=== PATIENT | female | born 1960 | race Hispanic/Latino ===

== ENCOUNTER 2016-11-03 22:06 | Observation (INO) | payer MEDICARE, OTHER ==
[2016-11-03 22:06] VITALS: BMI 37.8
[2016-11-03 22:19] VITALS: TEMP 98.4
[2016-11-03] MEDS ORDERED: Sodium Chloride 0.9% 1,000 ML IV STA (22:44)
--- NOTE | 2016-11-03 23:05 | ED PDOC ---
Arrival/HPI - General Chief Complaint: GI Problem Time Seen by Provider: 11/03/16 22:17 Historian: Patient - History of Present Illness Narrative History of Present Illness (Text): 11/03/16 23:02 Isha Fernandes is a 56 year old female, whose past medical history includes neuropathy, cholecystectomy, appendectomy, hysterectomy, diabetes, and anemia, presents to the emergency department complaining of 2 day duration of diarrhea and right upper quadrant abdominal pain. Denies any fever, chills, headache, dizziness, shortness of breath, nausea, vomiting, urinary symptoms, or any other complaints at this time. Time/Duration: < week (2 days ) Symptom Onset: Gradual Symptom Course: Unchanged Severity Level: Mild Activities at Onset: Light Context: Home Past Medical History - Provider Review Nursing Documentation Reviewed: Yes - Infectious Disease Hx of Infectious Diseases: None - Tetanus Immunization Tetanus Immunization: Unknown - Cardiac Hx Cardiac Disorders: Yes (ACS) - Pulmonary Hx Chronic Obstructive Pulmonary Disease (COPD): Yes - Neurological Hx Neurological Disorder: Yes Hx Dizziness: Yes Hx Seizures: Yes - HEENT Hx HEENT Disorder: No Other/Comment: wears glasses - Renal Hx Renal Disorder: No - Endocrine/Metabolic Hx Diabetes Mellitus Type 2: Yes - Hematological/Oncological Hx Blood Disorders: Yes Hx Anemia: Yes - Integumentary Hx Dermatological Disorder: No - Musculoskeletal/Rheumatological Hx Musculoskeletal Disorders: Yes (NEUROPATHY) Hx Falls: Yes Hx Fractures: Yes (COMPRESSION FX) Hx Unsteady Gait: Yes - Gastrointestinal Hx Gastrointestinal Disorders: Yes Hx Gall Bladder Disease: Yes (CHOLECYSTITIS ,CHOLECYSTECTOMY,MILD GASTRITIS) - Genitourinary/Gynecological Hx Genitourinary Disorders: Yes (URGENCY FREQUENCY) - Psychiatric Hx Psychophysiologic Disorder: Yes (INSOMNIA,SCHIZOAFFECTIVE D/O) Hx Depression: Yes Hx Panic Disorder: No Hx Substance Use: No - Surgical History Hx Appendectomy: Yes Hx Cholecystectomy: Yes Hx Hysterectomy: Yes - Anesthesia Hx Anesthesia Reactions: No Hx Malignant Hyperthermia: No - Suicidal Assessment Feels Threatened In Home Enviroment: No Family/Social History - Physician Review Nursing Documentation Reviewed: Yes Family/Social History: No Known Family HX Smoking Status: Never Smoked Hx Alcohol Use: No Hx Substance Use: No Hx Substance Use Treatment: No Allergies/Home Meds Allergies/Adverse Reactions: Allergies Penicillins Allergy (Verified 09/01/16 19:59) ITCHING Home Medications: Home Meds Medication Instructions Recorded Confirmed Albuterol Sulfate [Proair Hfa] 1 puff IH PRN PRN 01/01/14 09/01/16 Lamotrigine [Lamictal] 100 mg PO BID 07/09/14 09/01/16 Zolpidem [Ambien] 10 mg PO HS 12/19/15 09/01/16 Atropine/Diphenoxylate [Lomotil 1 tab PO TID PRN 04/17/16 09/01/16 0.025-2.5 mg tablet] Clozapine 200 mg PO AMHS 04/17/16 09/01/16 DULoxetine [Cymbalta] 60 mg PO DAILY 04/17/16 09/01/16 Ibuprofen [Motrin Tab] 600 mg PO PRN PRN 04/17/16 09/01/16 Levetiracetam [Keppra] 750 mg PO BID 04/17/16 09/01/16 Omeprazole Magnesium [Prilosec Otc] 40 mg PO DAILY 04/17/16 09/01/16 Review of Systems - Physician Review All systems were reviewed & negative as marked: Yes - Review of Systems Constitutional: Normal. absent: Fatigue, Fevers Respiratory: Normal. absent: SOB, Cough Cardiovascular: Normal. absent: Chest Pain, Palpitations Gastrointestinal: Abdominal Pain (RUQ ), Diarrhea. absent: Constipation, Nausea , Vomiting Genitourinary Female: Normal. absent: Dysuria Neurological: Normal. absent: Headache, Dizziness Psychiatric: Normal Physical Exam Vital Signs Reviewed: Yes Vital Signs Temp Pulse Resp BP Pulse Ox 11/04/16 03:43 78 16 145/76 100 11/04/16 01:36 81 16 146/87 97 11/03/16 22:18 98.4 F 98 H 18 143/97 H 100 Temperature: Afebrile Blood Pressure: Normal Pulse: Tachycardic Respiratory Rate: Normal Appearance: Positive for: Well-Appearing, Non-Toxic, Comfortable Pain Distress: None Mental Status: Positive for: Alert and Oriented X 3 - Systems Exam Head: Present: Atraumatic, Normocephalic Pupils: Present: PERRL Conjunctiva: Present: Normal Respiratory/Chest: Present: Clear to Auscultation, Good Air Exchange. No: Respiratory Distress, Accessory Muscle Use Cardiovascular: Present: Regular Rate and Rhythm, Normal S1, S2. No: Murmurs Abdomen: Present: Normal Bowel Sounds. No: Tenderness, Distention, Peritoneal Signs, Rebound, Guarding Back: Present: Normal Inspection Upper Extremity: Present: Normal Inspection. No: Cyanosis, Edema Lower Extremity: Present: Normal Inspection. No: Edema Neurological: Present: GCS=15, CN II-XII Intact, Speech Normal, Motor Func Grossly Intact, Normal Sensory Function Skin: Present: Warm, Dry, Normal Color. No: Rashes Psychiatric: Present: Alert, Oriented x 3, Normal Insight, Normal Concentration Medical Decision Making ED Course and Treatment: 11/03/16 23:09 Impression: A 56 year old female who presents to the ed complaining of right upper quadrant pain associated with diarrhea for past 3 days. Plan: -- CT abdomen pelvis -- EKG -- Labs, cardiac enzymes -- IV fluids -- Zofran -- Blood culture -- Urinalysis Progress Notes: 11/03/16 23:19 EKG reviewed by me: NSR @ 92 bpm. Nonspecific T wave abnormality, Prolonged QT. Will place patient on EDOBS for pending labs, CT and reevaluation. - Lab Interpretations I have reviewed the lab results: Yes - RAD Interpretation Narrative RAD Interpretations (Text): 11/04/16 01:40 EXAM: CT Abdomen and Pelvis Without Intravenous Contrast FINDINGS: Lower thorax: No acute findings. ABDOMEN: Liver: Hepatic steatosis is present. Gallbladder and bile ducts: The patient is status post cholecystectomy. No ductal dilation. Pancreas: Unremarkable. No ductal dilation. Spleen: Unremarkable. No splenomegaly. Adrenals: Unremarkable. No mass. Kidneys and ureters: Probable hemorrhagic right renal cyst measures 3 cm No obstructing stones. No hydronephrosis. Stomach and bowel: Unremarkable. No obstruction. No mucosal thickening. Appendix: No findings to suggest acute appendicitis. PELVIS: Bladder: Unremarkable. No stones. Reproductive: The patient is status post hysterectomy. ABDOMEN and PELVIS: Intraperitoneal space: Trace free fluid is present which is nonspecific but may reflect physiologic fluid or rupture of an ovarian cyst or follicle. Bones/joints: No acute fracture. No dislocation. Soft tissues: Unremarkable. Vasculature: Unremarkable. No abdominal aortic aneurysm. Lymph nodes: Unremarkable. No enlarged lymph nodes. IMPRESSION: Trace free pelvic fluid Radiology Orders: 11/03/16 22:44 ABD & PELVIS W/O PO OR IV CONT [CT] Stat [employer] Management Professor: Radiologist - EKG Interpretation Interpreted by ED Physician: Yes Type: 12 lead EKG - Medication Orders Current Medication Orders: Sodium Chloride (Sodium Chloride 0.9%) 1,000 mls @ 100 mls/hr IV .Q10H STA Stop: 11/04/16 08:43 Last Admin: 11/03/16 23:11 Dose: 100 mls/hr Discontinued Medications Ondansetron HCl (Zofran Inj) 4 mg IVP STAT STA Stop: 11/03/16 22:45 Last Admin: 11/03/16 23:12 Dose: 4 mg ED OBSERVATION Discharge: Yes Date of observation admission: 11/03/16 Time of observation admission: 22:50 - Observation admission statement Patient is being placed in observation because:: Abdominal pain - Goals of Observation Goals of observation are:: Pending labs, imaging and reevaluation - Progress Note Progress Note: 11/04/16 01:38 CT Abdomen pelvis results reviewed: IMPRESSION: Trace free pelvic fluid. 11/04/16 04:15 Patient is sleeping comfortably with stable vitals. - Scribe Statement The provider has reviewed the documentation as recorded by the Odilon Perez Provider Attestation: All medical record entries made by the Odilon were at my direction and personally dictated by me. I have reviewed the chart and agree that the record accurately reflects my personal performance of the history, physical exam, medical decision making, and the department course for this patient. I have also personally directed, reviewed, and agree with the discharge instructions and disposition. Disposition/Present on Arrival - Present on Arrival Any Indicators Present on Arrival: No History of DVT/PE: No History of Uncontrolled Diabetes: No Urinary Catheter: No History of Decub. Ulcer: No History Surgical Site Infection Following: None - Disposition Have Diagnosis and Disposition been Completed?: Yes Diagnosis: Gastroenteritis Disposition: HOME/ ROUTINE Disposition Time: 06:48 Condition: GOOD
[2016-11-03 23:15] LABS: ADD MANUAL DIFF? NO
[2016-11-03 23:30] LABS: BASO # 0.02 K/mm3 (0.0-2.0); BASO % 0.4 % (0.0-3.0); EOS # 0.1 (0.0-0.7); EOS % 1.9 % (1.5-5.0); GRAN # 3.15 (1.4-6.5); GRAN % 65.8 % (50.0-68.0); HEMATOCRIT 35.7 % (36.0-48.0); LYMPH # 1.3 (1.2-3.4); LYMPH % 27.1 % (22.0-35.0); MEAN CELL VOLUME 88.8 fL (80.0-105.0); MEAN CORPUSCULAR HEMOGLOBIN 29.9 pg (25.0-35.0); MEAN CORPUSCULAR HGB CONC 33.6 g/dl (31.0-37.0); MEAN PLATELET VOLUME 8.8 fl (7.0-11.0); MONO # 0.2 (0.1-0.6); MONO % 4.8 % (1.0-6.0); PLATELET COUNT 134 10^3/uL (120.0-450.0); RED CELL DISTRIBUTION WIDTH 13.8 % (11.5-14.5); WHITE BLOOD COUNT 4.8 10^3/ul (4.5-11.0)
[2016-11-03 23:31] LABS: ALB/GLOB RATIO 1.3 (1.1-1.8); ALKALINE PHOSPHATASE 123 U/L (38-133); ALT/SGPT 75 U/L (7-56); AMYLASE 52 U/L (35-125); AST/SGOT 64 U/L (15-39); BILIRUBIN,TOTAL 0.4 mg/dL (0.2-1.3); BLOOD UREA NITROGEN 13 mg/dL (7-21); CALCIUM 8.8 mg/dL (8.4-10.5); CARBON DIOXIDE 27 mmol/L (21-33); CHLORIDE 102 mmol/L (98-107); GFR AFRICAN-AMERICAN > 60; GLUCOSE,RANDOM 173 mg/dL (70-110); LIPASE 126 U/L (23-300); POTASSIUM 3.6 mmol/L (3.6-5.0); SODIUM 141 mmol/L (132-148)
[2016-11-03 23:34] LABS: INR 1.02 (0.93-1.08); PARTIAL THROMBOPLASTIN TIME 24.1 Seconds (23.7-30.8)
[2016-11-04 00:06] LABS: TROPONIN I < 0.01 ng/mL
[2016-11-04 00:39] LABS: PH,URINE 6.5 (4.7-8.0); URINE BILIRUBIN NEGATIVE (NEGATIVE); URINE BLOOD NEGATIVE (NEGATIVE); URINE GLUCOSE (UA) NEGATIVE (NEGATIVE); URINE KETONE NEGATIVE (NEGATIVE); URINE LEUKOCYTE ESTERASE TRACE Leu/uL (NEGATIVE); URINE PROTEIN TRACE mg/dL (<30 mg/dL); URINE UROBILINOGEN 0.2 E.U./dL (<1 E.U./dL)
[2016-11-04 00:41] LABS: URINE APPEARANCE SL CLOUDY (CLEAR); URINE COLOR YELLOW (YELLOW)
[2016-11-04 00:50] LABS: URINE EPITHELIAL CELLS 0 - 2 /hpf (0-5); URINE RBC 0 - 2 /hpf (0-2)
[2016-11-04 00:51] LABS: URINE BACTERIA MOD (NEG)
[2016-11-04 01:37] VITALS: RESP 16
[2016-11-04 03:46] VITALS: BP 145/76; PULSE 78; O2SAT 100
--- NOTE | 2016-11-04 12:33 | CT ---
PROCEDURE: CT Abdomen and Pelvis without intravenous contrast HISTORY: abd painn COMPARISON: None. TECHNIQUE: Without contrast.. Contrast Dose: Radiation dose: Total exam DLP = 1234 mGy-cm. This CT exam was performed using one or more of the following dose reduction techniques: Automated exposure control, adjustment of the mA and/or kV according to patient size, and/or use of iterative reconstruction technique. FINDINGS: LOWER THORAX: Unremarkable. LIVER: Unremarkable. No gross lesion or ductal dilatation. GALLBLADDER AND BILE DUCTS: Gallbladder removed PANCREAS: Unremarkable. No gross lesion or ductal dilatation. SPLEEN: Unremarkable. ADRENALS: Unremarkable. No mass. KIDNEYS AND URETERS: There is a 3.3 cm cystic lesion in the right kidney that measures 25 Hounsfield units which is slightly above fluid density. This is most likely due to hemorrhage. VASCULATURE: Unremarkable. No aortic aneurysm. BOWEL: Unremarkable. No obstruction. No gross mural thickening. There is mild constipation APPENDIX: Unremarkable. Normal appendix. PERITONEUM: Minimal free fluid LYMPH NODES: Unremarkable. No enlarged lymph nodes. BLADDER: Unremarkable. REPRODUCTIVE: Unremarkable. BONES: No acute fracture. OTHER FINDINGS: None. IMPRESSION: No acute findings
--- NOTE | 2016-11-04 12:54 | CARD ---
APPROVED REPORT EKG Measurement Heart [id number] <Conclusion> Normal sinus rhythm Nonspecific T wave abnormality Prolonged QT Abnormal ECG
== END 2016-11-04 06:48 | disposition home or self-care (01) ==
LOC: ED 22:06 → EROBSV 22:50
PROVIDERS: ADMIT Emergency Medicine; ATTEND Emergency Medicine
DX: K52.9 Noninfective gastroenteritis and colitis, unspecified (principal); E11.9 Type 2 diabetes mellitus without complications; D64.9 Anemia, unspecified
CPT/HCPCS: 74176; 80053; 81001; 82150; 82550; 82948; 83615; 83690; 84484; 85025; 85610; 85730; 87040; 87086; 93005; 96374; 99285; G0378; J2405; J7040

== ENCOUNTER 2016-11-14 16:14 | Emergency (ER) | payer MEDICARE, OTHER ==
[2016-11-14 16:14] VITALS: BMI 37.8
[2016-11-14 16:27] VITALS: TEMP 98.2; O2SAT 100
--- NOTE | 2016-11-14 17:02 | ED PDOC ---
Arrival/HPI - General Chief Complaint: Seizure Time Seen by Provider: 11/14/16 16:18 Historian: Patient, EMS - History of Present Illness Narrative History of Present Illness (Text): 11/14/16 17:37 56 year old female presents to the emergency department with multiple complaints. Patient states she struck her head in her apartment. She also states she may have passed out in the elevator. Patient also reports she may have had seizure in elevator. No chest pain, shortness of breath, fever, cough. Patient is a poor historian. Time/Duration: 24 hours Symptom Onset: Gradual Symptom Course: Unchanged Modifying Factors (Text): None Associated Symptoms (Text): None Past Medical History - Provider Review Nursing Documentation Reviewed: Yes - Infectious Disease Hx of Infectious Diseases: None - Tetanus Immunization Tetanus Immunization: Unknown - Cardiac Hx Cardiac Disorders: Yes (ACS) - Pulmonary Hx Chronic Obstructive Pulmonary Disease (COPD): Yes - Neurological Hx Neurological Disorder: Yes Hx Dizziness: Yes Hx Seizures: Yes - HEENT Hx HEENT Disorder: No Other/Comment: wears glasses - Renal Hx Renal Disorder: No - Endocrine/Metabolic Hx Diabetes Mellitus Type 2: Yes - Hematological/Oncological Hx Blood Disorders: Yes Hx Anemia: Yes - Integumentary Hx Dermatological Disorder: No - Musculoskeletal/Rheumatological Hx Musculoskeletal Disorders: Yes (NEUROPATHY) Hx Falls: Yes Hx Fractures: Yes (COMPRESSION FX) Hx Unsteady Gait: Yes - Gastrointestinal Hx Gastrointestinal Disorders: Yes Hx Gall Bladder Disease: Yes (CHOLECYSTITIS ,CHOLECYSTECTOMY,MILD GASTRITIS) - Genitourinary/Gynecological Hx Genitourinary Disorders: Yes (URGENCY FREQUENCY) - Psychiatric Hx Psychophysiologic Disorder: Yes (INSOMNIA,SCHIZOAFFECTIVE D/O) Hx Depression: Yes Hx Panic Disorder: No Hx Substance Use: No - Surgical History Hx Appendectomy: Yes Hx Cholecystectomy: Yes Hx Hysterectomy: Yes - Anesthesia Hx Anesthesia: Yes Hx Anesthesia Reactions: No Hx Malignant Hyperthermia: No - Suicidal Assessment Feels Threatened In Home Enviroment: No Family/Social History - Physician Review Nursing Documentation Reviewed: Yes Family/Social History: Unknown Family HX Smoking Status: Never Smoked Hx Alcohol Use: No Hx Substance Use: No Hx Substance Use Treatment: No Allergies/Home Meds Allergies/Adverse Reactions: Allergies Penicillins Allergy (Verified 11/14/16 16:20) ITCHING Home Medications: Home Meds Medication Instructions Recorded Confirmed Albuterol Sulfate [Proair Hfa] 1 puff IH PRN PRN 01/01/14 11/14/16 Lamotrigine [Lamictal] 100 mg PO BID 07/09/14 11/14/16 Zolpidem [Ambien] 10 mg PO HS 12/19/15 11/14/16 Atropine/Diphenoxylate [Lomotil 1 tab PO TID PRN 04/17/16 11/14/16 0.025-2.5 mg tablet] Clozapine 200 mg PO AMHS 04/17/16 11/14/16 DULoxetine [Cymbalta] 60 mg PO DAILY 04/17/16 11/14/16 Ibuprofen [Motrin Tab] 600 mg PO PRN PRN 04/17/16 11/14/16 Levetiracetam [Keppra] 750 mg PO BID 04/17/16 11/14/16 Omeprazole Magnesium [Prilosec Otc] 40 mg PO DAILY 04/17/16 11/14/16 Review of Systems - Review of Systems Constitutional: absent: Fevers Respiratory: absent: SOB, Cough Cardiovascular: absent: Chest Pain Neurological: Seizure (as per pt) Physical Exam Vital Signs Reviewed: Yes Vital Signs Temp Pulse Resp BP Pulse Ox 11/14/16 16:26 98.2 F 91 H 20 128/96 H 100 Temperature: Afebrile Blood Pressure: Normal Pulse: Regular Respiratory Rate: Normal Appearance: Positive for: Well-Appearing, Non-Toxic, Comfortable Pain Distress: None Mental Status: Positive for: Alert and Oriented X 3 Finger Stick Blood Glucose: 160 - Systems Exam Head: Present: Atraumatic, Normocephalic Pupils: Present: PERRL Extroacular Muscles: Present: EOMI Conjunctiva: Present: Normal Mouth: Present: Moist Mucous Membranes, Other (No tongue biting) Neck: Present: Normal Range of Motion Respiratory/Chest: Present: Clear to Auscultation, Good Air Exchange. No: Respiratory Distress, Accessory Muscle Use Cardiovascular: Present: Regular Rate and Rhythm, Normal S1, S2. No: Murmurs Abdomen: Present: Normal Bowel Sounds. No: Tenderness, Distention, Peritoneal Signs Genitourinary/Pelvic Exam: Present: Other (No incontincence) Back: Present: Normal Inspection Upper Extremity: Present: Normal Inspection. No: Cyanosis, Edema Lower Extremity: Present: Normal Inspection. No: Edema Neurological: Present: GCS=15, CN II-XII Intact, Speech Normal Skin: Present: Warm, Dry, Normal Color. No: Rashes Psychiatric: Present: Alert, Oriented x 3, Normal Insight, Normal Concentration Medical Decision Making ED Course and Treatment: Impression: 56 year old female presents to the emergency department with multiple complaints. Differential Diagnosis include but are not limited to: Fall r/o ICH Plan: -- CT Head, EKG, CXR -- Labs -- Reassess and disposition Prior Visits: Notes and results from previous visits were reviewed. Patient last seen in ED on 11/03/16 for abdominal pain and discharged home. Progress Notes: 11/14/16 17:[address] Tomas Garza who states due to recent admission and workup, patient can be discharged home if workup and CT is negative. EXAM: CT Head Without Intravenous Contrast FINDINGS: Brain: There is mild prominence of sulci, gyri and ventricles, unchanged. There is no midline shift. There are no intra-axial or extra axial mass lesions or areas of hemorrhage. Melara-white differentiation is maintained. Ventricles: See above. Bony structures: Cranial vault is intact. Soft tissues: unremarkable Sinuses: There is no acute sinusitis. Ears and mastoids: Middle ears and mastoids unremarkable.There is streak artifact from an earring Orbits: Orbital contents are unremarkable. IMPRESSION: No acute intracranial abnormality Dictated and Authenticated by: Halie Avila MD 11/14/2016 6:10 PM Eastern Time ([place] & [place]) 11/14/16 18:18 Spoke with patient after speaking with PMD. Patient to be discharged and will follow up with her primary doctor in 2 days. Patient understands plan. - Lab Interpretations Lab Results: 11/14/16 17:08 11/14/16 17:08 Lab Results 11/14/16 17:08: Sodium 139, Potassium 4.9, Chloride 101, Carbon Dioxide 25, Anion Gap 18, BUN 17, Creatinine 1.5 H, Est GFR ( Amer) 44, Est GFR (Non- Af Amer) 36, Random Glucose 139 H, Calcium 9.5, Magnesium 2.2, Total Bilirubin 0.6, AST 77 H, ALT 114 H, Alkaline Phosphatase 131, Lactate Dehydrogenase 521, Total Creatine Kinase 46, Troponin I < 0.01, Total Protein 8.0, Albumin 4.5, Globulin 3.5, Albumin/Globulin Ratio 1.3 11/14/16 17:08: WBC 4.9, RBC 4.42, Hgb 13.3, Hct 39.7, MCV 89.8, MCH 30.1, MCHC 33.5, RDW 13.7, Plt Count 129, MPV 9.3, Gran % 66.5, Lymph % (Auto) 25.3, Aiken % (Auto) 5.1, Eos % (Auto) 2.9, Baso % (Auto) 0.2, Gran # 3.27, Lymph # 1.2, Aiken # 0.3, Eos # 0.1, Baso # 0.01 - RAD Interpretation Radiology Orders: 11/14/16 16:38 CHEST PORTABLE [RAD] Stat 11/14/16 16:39 HEAD W/O CONTRAST [CT] Stat Perfume Compounder: Radiologist - EKG Interpretation EKG Interpretation (Text): EKG shows NSR at 92 BPM, normal axis, normal intervals, no ST elevations, interpreted by me. Interpreted by ED Physician: Yes Type: 12 lead EKG - Scribe Statement The provider has reviewed the documentation as recorded by the Odilon Amezquita Provider Scribe Attestation: All medical record entries made by the Odilon were at my direction and personally dictated by me. I have reviewed the chart and agree that the record accurately reflects my personal performance of the history, physical exam, medical decision making, and the department course for this patient. I have also personally directed, reviewed, and agree with the discharge instructions and disposition. Disposition/Present on Arrival - Present on Arrival Any Indicators Present on Arrival: No History of DVT/PE: No History of Uncontrolled Diabetes: No Urinary Catheter: No History of Decub. Ulcer: No History Surgical Site Infection Following: None - Disposition Have Diagnosis and Disposition been Completed?: Yes Diagnosis: Weakness Disposition: HOME/ ROUTINE Disposition Time: 18:18 Patient Plan: Discharge Condition: GOOD Discharge Instructions (ExitCare): Weakness (ED) Additional Instructions: Thank you for letting us take care of you today. Your provider was Dr. Matias. You were treated for weakness. The emergency medical care you received today was directed at your acute symptoms. If you were prescribed any medication, please fill it and take as directed. It may take several days for your symptoms to resolve. Return to the Emergency Department if your symptoms worsen, do not improve, or if you have any other problems. Please contact your doctor or call one of the physicians/clinics you have been referred to that are listed on the Patient Visit Information form that is included in your discharge packet. Bring any paperwork you were given at discharge with you along with any medications you are taking to your follow up visit. Our treatment cannot replace ongoing medical care by a primary care provider (PCP) outside of the emergency department. Thank you for allowing the [facility] team to be part of your care today. Follow up with Dr. Garza in 2 days to be re-evaluated. Referrals: Tomas Garza MD [Primary Care Provider] - Follow up with primary
[2016-11-14 17:14] LABS: ADD MANUAL DIFF? NO
[2016-11-14 17:18] LABS: BASO # 0.01 K/mm3 (0.0-2.0); BASO % 0.2 % (0.0-3.0); EOS # 0.1 (0.0-0.7); EOS % 2.9 % (1.5-5.0); GRAN # 3.27 (1.4-6.5); GRAN % 66.5 % (50.0-68.0); HEMATOCRIT 39.7 % (36.0-48.0); LYMPH # 1.2 (1.2-3.4); LYMPH % 25.3 % (22.0-35.0); MEAN CELL VOLUME 89.8 fL (80.0-105.0); MEAN CORPUSCULAR HEMOGLOBIN 30.1 pg (25.0-35.0); MEAN CORPUSCULAR HGB CONC 33.5 g/dl (31.0-37.0); MEAN PLATELET VOLUME 9.3 fl (7.0-11.0); MONO # 0.3 (0.1-0.6); MONO % 5.1 % (1.0-6.0); PLATELET COUNT 129 10^3/uL (120.0-450.0); RED CELL DISTRIBUTION WIDTH 13.7 % (11.5-14.5); WHITE BLOOD COUNT 4.9 10^3/ul (4.5-11.0)
[2016-11-14 17:26] LABS: ALB/GLOB RATIO 1.3 (1.1-1.8); ALKALINE PHOSPHATASE 131 U/L (38-133); ALT/SGPT 114 U/L (7-56); AST/SGOT 77 U/L (15-39); BILIRUBIN,TOTAL 0.6 mg/dL (0.2-1.3); BLOOD UREA NITROGEN 17 mg/dL (7-21); CALCIUM 9.5 mg/dL (8.4-10.5); CARBON DIOXIDE 25 mmol/L (21-33); CHLORIDE 101 mmol/L (98-107); GFR AFRICAN-AMERICAN 44; GLUCOSE,RANDOM 139 mg/dL (70-110); MAGNESIUM 2.2 mg/dL (1.7-2.2); POTASSIUM 4.9 mmol/L (3.6-5.0); SODIUM 139 mmol/L (132-148)
[2016-11-14 17:38] LABS: TROPONIN I < 0.01 ng/mL
--- NOTE | 2016-11-14 18:10 | CT ---
EXAM: CT Head Without Intravenous Contrast CLINICAL HISTORY: 56 years old, female; Signs and symptoms; Dizziness; Additional info: R/O ich TECHNIQUE: Axial computed tomography images of the head/brain without intravenous contrast. This CT exam was performed using one or more of the following dose reduction techniques: automated exposure control, adjustment of the mA and/or kV according to patient size, and/or use of iterative reconstruction technique. EXAM DATE/TIME: 11/14/2016 4:39 PM COMPARISON: CT - HEAD W/O CONTRAST 06/27/2016 11:01:41 PM FINDINGS: Brain: There is mild prominence of sulci, gyri and ventricles, unchanged. There is no midline shift. There are no intra-axial or extra axial mass lesions or areas of hemorrhage. Melara-white differentiation is maintained. Ventricles: See above. Bony structures: Cranial vault is intact. Soft tissues: unremarkable Sinuses: There is no acute sinusitis. Ears and mastoids: Middle ears and mastoids unremarkable.There is streak artifact from an earring Orbits: Orbital contents are unremarkable. IMPRESSION: No acute intracranial abnormality
[2016-11-14 18:14] LABS: URINE BILIRUBIN NEGATIVE (NEGATIVE); URINE BLOOD NEGATIVE (NEGATIVE); URINE GLUCOSE (UA) NEGATIVE (NEGATIVE); URINE KETONE NEGATIVE (NEGATIVE); URINE LEUKOCYTE ESTERASE NEGATIVE Leu/uL (NEGATIVE); URINE PROTEIN NEGATIVE mg/dL (<30 mg/dL); URINE UROBILINOGEN 0.2 E.U./dL (<1 E.U./dL)
[2016-11-14 18:19] LABS: URINE APPEARANCE CLEAR (CLEAR); URINE COLOR YELLOW (YELLOW)
[2016-11-14 18:29] VITALS: BP 139/89; PULSE 88; RESP 18
--- NOTE | 2016-11-15 06:59 | RAD ---
HISTORY: r/o infiltrate COMPARISON: No prior. FINDINGS: LUNGS: No active pulmonary disease. PLEURA: No significant pleural effusion identified, no pneumothorax apparent. CARDIOVASCULAR: Normal. OSSEOUS STRUCTURES: No significant abnormalities. VISUALIZED UPPER ABDOMEN: Normal. OTHER FINDINGS: None. IMPRESSION: No active disease.
--- NOTE | 2016-11-15 14:58 | CARD ---
APPROVED REPORT EKG Measurement Heart [id number] <Conclusion> Normal sinus rhythm Prolonged QT Abnormal ECG
== END 2016-11-14 18:42 | disposition home or self-care (01) ==
LOC: ED 16:14
DX: R53.1 Weakness (principal); R56.9 Unspecified convulsions; E11.9 Type 2 diabetes mellitus without complications; D64.9 Anemia, unspecified
CPT/HCPCS: 70450; 71010; 80053; 81003; 82550; 83615; 83735; 84484; 85025; 87086; 93005; 99285; G0480

== ENCOUNTER 2016-12-19 22:14 | Emergency (ER) | payer MEDICARE, OTHER ==
[2016-12-19 22:14] VITALS: BMI 37.8
--- NOTE | 2016-12-19 22:45 | ED PDOC ---
Arrival/HPI - General Time Seen by Provider: 12/19/16 22:33 Historian: Patient - History of Present Illness Narrative History of Present Illness (Text): 12/19/16 22:57 56yo female who was biba for right rib pain s/p trauma. states she lost her balance this evening and hit her right side ribs against her bed rail. Notes that she is not sure if she had LOC. she denies headache, visual changes, SOB, diaphoresis, any other complaint. Past Medical History - Provider Review Nursing Documentation Reviewed: Yes - Infectious Disease Hx of Infectious Diseases: None - Tetanus Immunization Tetanus Immunization: Unknown - Cardiac Hx Cardiac Disorders: Yes (ACS) - Pulmonary Hx Chronic Obstructive Pulmonary Disease (COPD): Yes - Neurological Hx Neurological Disorder: Yes Hx Dizziness: Yes Hx Seizures: Yes - HEENT Hx HEENT Disorder: No Other/Comment: wears glasses - Renal Hx Renal Disorder: No - Endocrine/Metabolic Hx Diabetes Mellitus Type 2: Yes - Hematological/Oncological Hx Blood Disorders: Yes Hx Anemia: Yes - Integumentary Hx Dermatological Disorder: No - Musculoskeletal/Rheumatological Hx Musculoskeletal Disorders: Yes (NEUROPATHY) Hx Falls: Yes Hx Fractures: Yes (COMPRESSION FX) Hx Unsteady Gait: Yes - Gastrointestinal Hx Gastrointestinal Disorders: Yes Hx Gall Bladder Disease: Yes (CHOLECYSTITIS ,CHOLECYSTECTOMY,MILD GASTRITIS) - Genitourinary/Gynecological Hx Genitourinary Disorders: Yes (URGENCY FREQUENCY) - Psychiatric Hx Psychophysiologic Disorder: Yes (INSOMNIA,SCHIZOAFFECTIVE D/O) Hx Depression: Yes Hx Panic Disorder: No Hx Substance Use: No - Surgical History Hx Appendectomy: Yes Hx Cholecystectomy: Yes Hx Hysterectomy: Yes - Anesthesia Hx Anesthesia: Yes Hx Anesthesia Reactions: No Hx Malignant Hyperthermia: No - Suicidal Assessment Feels Threatened In Home Enviroment: No Family/Social History - Physician Review Nursing Documentation Reviewed: Yes Family/Social History: Unknown Family HX Smoking Status: Never Smoked Hx Alcohol Use: No Hx Substance Use: No Hx Substance Use Treatment: No Allergies/Home Meds Allergies/Adverse Reactions: Allergies Penicillins Allergy (Verified 12/19/16 22:37) ITCHING Home Medications: Home Meds Medication Instructions Recorded Confirmed Albuterol Sulfate [Proair Hfa] 1 puff IH PRN PRN 01/01/14 12/19/16 Lamotrigine [Lamictal] 100 mg PO BID 07/09/14 12/19/16 Zolpidem [Ambien] 10 mg PO HS 12/19/15 12/19/16 Atropine/Diphenoxylate [Lomotil 1 tab PO TID PRN 04/17/16 12/19/16 0.025-2.5 mg tablet] Clozapine 200 mg PO AMHS 04/17/16 12/19/16 DULoxetine [Cymbalta] 60 mg PO DAILY 04/17/16 12/19/16 Ibuprofen [Motrin Tab] 600 mg PO PRN PRN 04/17/16 12/19/16 Levetiracetam [Keppra] 750 mg PO BID 04/17/16 12/19/16 Omeprazole Magnesium [Prilosec Otc] 40 mg PO DAILY 04/17/16 12/19/16 Review of Systems - Physician Review All systems were reviewed & negative as marked: Yes - Review of Systems Constitutional: Normal Eyes: Normal ENT: Normal Respiratory: Normal Cardiovascular: Normal Gastrointestinal: Normal Genitourinary Female: Normal Musculoskeletal: Arthralgias (right ribs) Skin: Normal Neurological: Normal Endocrine: Normal Hemo/Lymphatic: Normal Psychiatric: Normal Physical Exam Vital Signs Reviewed: Yes Vital Signs Temp Pulse Resp BP Pulse Ox 12/19/16 22:31 98.0 F 12/19/16 22:27 85 18 154/77 H 97 Temperature: Afebrile Blood Pressure: Normal Pulse: Regular Respiratory Rate: Normal Appearance: Positive for: Well-Appearing, Non-Toxic, Comfortable Pain Distress: None Mental Status: Positive for: Alert and Oriented X 3 Finger Stick Blood Glucose: 129 - Systems Exam Head: Present: Atraumatic, Normocephalic Pupils: Present: PERRL Extroacular Muscles: Present: EOMI Conjunctiva: Present: Normal Mouth: Present: Moist Mucous Membranes Neck: Present: Normal Range of Motion Respiratory/Chest: Present: Clear to Auscultation, Good Air Exchange, Tender to Palpation (Right lateral ribs). No: Respiratory Distress, Accessory Muscle Use , Wheezes, Decreased Breath Sounds, Rales, Retracting, Rhonchi Cardiovascular: Present: Regular Rate and Rhythm, Normal S1, S2. No: Murmurs Abdomen: Present: Normal Bowel Sounds. No: Tenderness, Distention, Peritoneal Signs Back: Present: Normal Inspection Upper Extremity: Present: Normal Inspection. No: Cyanosis, Edema Lower Extremity: Present: Normal Inspection. No: Edema Neurological: Present: GCS=15, CN II-XII Intact, Speech Normal Skin: Present: Warm, Dry, Normal Color. No: Rashes Psychiatric: Present: Alert, Oriented x 3, Normal Insight, Normal Concentration Medical Decision Making ED Course and Treatment: 12/19/16 23:42 Left ribs/chest xray - No acute fracture. No PTX noted Head CT - No acute finding. Result was DW the pt. she was DC home with a rx of Naprosyn and referred to her PMD. TRT ED for any new or worsening symptoms - Lab Interpretations Lab Results: Lab Results 12/19/16 22:26: POC Glucose (mg/dL) 129 H - RAD Interpretation Radiology Orders: 12/19/16 22:40 HEAD W/O CONTRAST [CT] Stat 12/19/16 22:41 RIBS RIGHT & PA CHEST [RAD] Stat - Medication Orders Current Medication Orders: Discontinued Medications Ketorolac Tromethamine (Toradol) 60 mg IM STAT STA Stop: 12/19/16 22:45 Last Admin: 12/19/16 22:58 Dose: 60 mg Disposition/Present on Arrival - Present on Arrival Any Indicators Present on Arrival: No History of DVT/PE: No History of Uncontrolled Diabetes: No Urinary Catheter: No History Surgical Site Infection Following: None - Disposition Have Diagnosis and Disposition been Completed?: Yes Diagnosis: Rib contusion Disposition: HOME/ ROUTINE Disposition Time: 23:45 Patient Plan: Discharge Condition: STABLE Discharge Instructions (ExitCare): Rib Contusion (ED) Additional Instructions: Follow up with your Doctor Return to ED for any new or worsening symptoms Prescriptions: Naproxen [Naprosyn] 500 mg PO BID #20 tablet Referrals: Tomas Garza MD [Primary Care Provider] - Follow up with primary
--- NOTE | 2016-12-19 23:41 | CT ---
EXAM: CT Head Without Intravenous Contrast CLINICAL HISTORY: 56 years old, female; Injury or trauma; Fall; Patient HX: Head injury, fall TECHNIQUE: Axial computed tomography images of the head/brain without intravenous contrast. This CT exam was performed using one or more of the following dose reduction techniques: automated exposure control, adjustment of the mA and/or kV according to patient size, and/or use of iterative reconstruction technique. COMPARISON: CT - HEAD W/O CONTRAST 11/14/2016 5:48:24 PM FINDINGS: Brain: There is mild prominence of ventricles and sulci, compatible with mild atrophy. There is mild diminished density of the white matter bilaterally, consistent with mild microangiopathy. There is no evidence of intracranial hemorrhage. No evidence of acute territorial infarction. No edema. Ventricles: See above. Bones/joints: Unremarkable. No acute fracture. Soft tissues: Unremarkable. Sinuses: Unremarkable as visualized. No acute sinusitis. Mastoid air cells: Unremarkable as visualized. No mastoid effusion. IMPRESSION: 1. No evidence for acute intracranial abnormality or displaced calvarial fracture. 2. Additional incidental and/or chronic findings as described.
[2016-12-20 00:05] VITALS: BP 147/88; PULSE 87; RESP 20; TEMP 98.1; O2SAT 98
--- NOTE | 2016-12-20 10:54 | RAD ---
PROCEDURE: Radiographs of the Chest and Right Ribs. HISTORY: rib pain COMPARISON: 11/14/2016. TECHNIQUE: Frontal radiograph of the chest and multiple oblique radiographs of the right ribs were obtained. FINDINGS: RIGHT RIBS: No fracture or focal lesion visualized. LUNGS: Clear. PLEURA: No pneumothorax or pleural fluid. CARDIOVASCULAR: Normal sized heart. No pulmonary vascular congestion. OTHER FINDINGS: None. IMPRESSION: Unremarkable radiographs of the chest and right ribs. No right rib fracture. No preliminary interpretation rendered by the emergency department physician
--- NOTE | 2016-12-22 09:46 | CARD ---
APPROVED REPORT EKG Measurement Heart [id number] <Conclusion> Normal sinus rhythm Minimal voltage criteria for LVH, may be normal variant Nonspecific T wave abnormality Prolonged QT The QTC has decreased since prior ECG 11/14/16
== END 2016-12-20 00:05 | disposition home or self-care (01) ==
LOC: ED 22:14
DX: S20.211A Contusion of right front wall of thorax, initial encounter (principal); W22.03XA Walked into furniture, initial encounter
CPT/HCPCS: 70450; 71101; 82948; 96372; 99285; J1885

== ENCOUNTER 2016-12-27 21:37 | Observation (INO) | payer MEDICARE, OTHER ==
--- NOTE | 2016-12-27 22:05 | ED PDOC ---
Arrival/HPI - General Time Seen by Provider: 12/27/16 21:40 Historian: Patient - History of Present Illness Narrative History of Present Illness (Text): 12/27/16 22:04 Isha Fernandes is a 56 year old female, whose past medical history includes neuropathy, cholecystectomy, appendectomy, hysterectomy, diabetes, and anemia, presents to the emergency department complaining of near-sycnope today. Patient states she began feeling near-syncopal and dizzy earlier tonight. Patient states dizziness is worsened with movement. Patient also reports associated nausea, vomiting, and diarrhea. Patient denies any fever, chills, chest pain, shortness of breath, urinary symptoms, back pain, neck pain, headache, or any other complaints. Time/Duration: Other (today) Symptom Onset: Gradual Symptom Course: Unchanged Activities at Onset: Rest, Light Context: Home Past Medical History - Provider Review Nursing Documentation Reviewed: Yes - Infectious Disease Hx of Infectious Diseases: None - Tetanus Immunization Tetanus Immunization: Unknown - Cardiac Hx Cardiac Disorders: Yes (ACS) - Pulmonary Hx Chronic Obstructive Pulmonary Disease (COPD): Yes - Neurological Hx Neurological Disorder: Yes Hx Dizziness: Yes Hx Seizures: Yes - HEENT Hx HEENT Disorder: No Other/Comment: wears glasses - Renal Hx Renal Disorder: No - Endocrine/Metabolic Hx Diabetes Mellitus Type 2: Yes - Hematological/Oncological Hx Blood Disorders: Yes Hx Anemia: Yes - Integumentary Hx Dermatological Disorder: No - Musculoskeletal/Rheumatological Hx Musculoskeletal Disorders: Yes (NEUROPATHY) Hx Falls: Yes Hx Fractures: Yes (COMPRESSION FX) Hx Unsteady Gait: Yes - Gastrointestinal Hx Gastrointestinal Disorders: Yes Hx Gall Bladder Disease: Yes (CHOLECYSTITIS ,CHOLECYSTECTOMY,MILD GASTRITIS) - Genitourinary/Gynecological Hx Genitourinary Disorders: Yes (URGENCY FREQUENCY) - Psychiatric Hx Psychophysiologic Disorder: Yes (INSOMNIA,SCHIZOAFFECTIVE D/O) Hx Depression: Yes Hx Panic Disorder: No Hx Substance Use: No - Surgical History Hx Appendectomy: Yes Hx Cholecystectomy: Yes Hx Hysterectomy: Yes - Anesthesia Hx Anesthesia: Yes Hx Anesthesia Reactions: No Hx Malignant Hyperthermia: No - Suicidal Assessment Feels Threatened In Home Enviroment: No Family/Social History - Physician Review Nursing Documentation Reviewed: Yes Family/Social History: Unknown Family HX Smoking Status: Never Smoked Hx Alcohol Use: No Hx Substance Use: No Hx Substance Use Treatment: No Allergies/Home Meds Allergies/Adverse Reactions: Allergies Penicillins Allergy (Verified 12/27/16 22:23) ITCHING Home Medications: Home Meds Medication Instructions Recorded Confirmed Albuterol Sulfate [Proair Hfa] 1 puff IH PRN PRN 01/01/14 12/19/16 Lamotrigine [Lamictal] 100 mg PO BID 07/09/14 12/19/16 Zolpidem [Ambien] 10 mg PO HS 12/19/15 12/19/16 Atropine/Diphenoxylate [Lomotil 1 tab PO TID PRN 04/17/16 12/19/16 0.025-2.5 mg tablet] Clozapine 200 mg PO AMHS 04/17/16 12/19/16 DULoxetine [Cymbalta] 60 mg PO DAILY 04/17/16 12/19/16 Ibuprofen [Motrin Tab] 600 mg PO PRN PRN 04/17/16 12/19/16 Levetiracetam [Keppra] 750 mg PO BID 04/17/16 12/19/16 Omeprazole Magnesium [Prilosec Otc] 40 mg PO DAILY 04/17/16 12/19/16 Review of Systems - Physician Review All systems were reviewed & negative as marked: Yes - Review of Systems Constitutional: Normal. absent: Fevers Eyes: Normal ENT: Normal Respiratory: Normal. absent: SOB, Cough Cardiovascular: Normal. absent: Chest Pain Gastrointestinal: Diarrhea, Nausea, Vomiting Genitourinary Female: Normal. absent: Dysuria, Frequency, Hematuria, Urine Output Changes Musculoskeletal: Normal. absent: Back Pain, Neck Pain Skin: Normal. absent: Rash Neurological: Dizziness. absent: Headache Endocrine: Normal Hemo/Lymphatic: Normal Psychiatric: Normal Physical Exam Vital Signs Reviewed: Yes Vital Signs Temp Pulse Resp BP Pulse Ox 12/28/16 03:20 69 18 162/97 H 96 12/27/16 22:22 97.8 F 75 18 153/91 H 97 Temperature: Afebrile Blood Pressure: Normal Pulse: Regular Respiratory Rate: Normal Appearance: Positive for: Well-Appearing, Non-Toxic, Comfortable Pain Distress: None Mental Status: Positive for: Alert and Oriented X 3 - Systems Exam Head: Present: Atraumatic, Normocephalic Pupils: Present: PERRL Extroacular Muscles: Present: EOMI Conjunctiva: Present: Normal Mouth: Present: Moist Mucous Membranes Neck: Present: Normal Range of Motion Respiratory/Chest: Present: Clear to Auscultation, Good Air Exchange. No: Respiratory Distress, Accessory Muscle Use Cardiovascular: Present: Regular Rate and Rhythm, Normal S1, S2. No: Murmurs Abdomen: Present: Normal Bowel Sounds. No: Tenderness, Distention, Peritoneal Signs Back: Present: Normal Inspection Upper Extremity: Present: Normal Inspection. No: Cyanosis, Edema Lower Extremity: Present: Normal Inspection. No: Edema Neurological: Present: GCS=15, CN II-XII Intact, Speech Normal Skin: Present: Warm, Dry, Normal Color. No: Rashes Psychiatric: Present: Alert, Oriented x 3, Normal Insight, Normal Concentration Medical Decision Making ED Course and Treatment: 12/27/16 22:04 Impression: 56 year old female complaining of near-syncope, dizziness, nausea, vomiting, and diarrhea. Differential Diagnosis include but are not limited to: near-syncope Plan: -- CT Head w/o contrast -- EKG -- Labs, lipase -- IV fluids -- Zofran -- Antivert -- Reassess and disposition Prior Visits: Notes and results from previous visits were reviewed. On 12/19/2016, pt was seen in the Emergency department for right rib pain s.o fall at home. Pt was d/c home. Progress Notes: Reviewed EKG, NSR at [address] bpm. LVH. Non-specific ST/T wave changes. 12/28/16 00:25 Reviewed radiology, CT Head shows: No acute findings. 12/28/16 03:[address] Alyssa Garza, who is aware and agrees with plan. Accepts pt in to his service. Pt will go to Telemetry observation for near- syncope, intractable vertigo, and gastroenteritis. Requests Dr. Livingston on consult. Pt is no acute distress. Discussed results and hospital observation plan with pt , who is aware and verbalizes understanding. - Lab Interpretations Lab Results: 12/27/16 22:39 12/27/16 22:39 Lab Results 12/27/16 22:43: Lactate Dehydrogenase 396, Total Creatine Kinase 174, Troponin I < 0.01 12/27/16 22:39: WBC 5.7, RBC 4.13, Hgb 12.2, Hct 36.7, MCV 88.9, MCH 29.5, MCHC 33.2, RDW 14.0, Plt Count 110 L, MPV 9.1 12/27/16 22:39: Sodium 140, Potassium 3.6, Chloride 104, Carbon Dioxide 25, Anion Gap 15, BUN 12, Creatinine 1.2, Est GFR ( Amer) 57, Est GFR (Non- Af Amer) 47, Random Glucose 185 H, Calcium 9.1, Total Bilirubin 0.6, AST 31, ALT 61 H, Alkaline Phosphatase 90, Total Protein 6.8, Albumin 4.0, Globulin 2.8 , Albumin/Globulin Ratio 1.4, Lipase 85 I have reviewed the lab results: Yes - RAD Interpretation Narrative RAD Interpretations (Text): CT Head shows: Brain: No acute findings. No hemorrhage. No significant white matter disease. No edema. Ventricles: No acute findings. No ventriculomegaly. Bones/joints: No acute findings. No acute fracture. Soft tissues: No acute findings. Sinuses: No acute findings. No acute sinusitis. Mastoid air cells: No acute findings. No mastoid effusion. IMPRESSION: No acute findings. 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 - EKG Interpretation Interpreted by ED Physician: Yes Type: 12 lead EKG - Medication Orders Current Medication Orders: Sodium Chloride (Sodium Chloride 0.9%) 1,000 mls @ 100 mls/hr IV .Q10H KATIA Last Admin: 12/27/16 22:56 Dose: 100 mls/hr Discontinued Medications Meclizine HCl (Antivert) 25 mg PO STAT STA Stop: 12/27/16 22:25 Last Admin: 12/27/16 22:56 Dose: 25 mg Ondansetron HCl (Zofran Inj) 4 mg IVP ONCE ONE Stop: 12/27/16 22:24 Last Admin: 12/27/16 22:56 Dose: 4 mg - Dimasibe Statement The provider has reviewed the documentation as recorded by the Dimasibmelanie Saldivar All medical record entries made by the Dimasibmelanie were at my direction and personally dictated by me. I have reviewed the chart and agree that the record accurately reflects my personal performance of the history, physical exam, medical decision making, and the department course for this patient. I have also personally directed, reviewed, and agree with the discharge instructions and disposition. Disposition/Present on Arrival - Present on Arrival Any Indicators Present on Arrival: No History of DVT/PE: No History of Uncontrolled Diabetes: No Urinary Catheter: No History Surgical Site Infection Following: None - Disposition Have Diagnosis and Disposition been Completed?: Yes Diagnosis: Gastroenteritis, Near syncope, Dizziness Disposition: HOSPITALIZED Disposition Time: 03:51 Patient Plan: Observation Patient Problems: Current Active Problems Problem Status Onset Dizziness Acute Gastroenteritis Acute Near syncope Acute Condition: STABLE
[2016-12-27 22:55] LABS: HEMATOCRIT 36.7 % (36.0-48.0); MEAN CELL VOLUME 88.9 fL (80.0-105.0); MEAN CORPUSCULAR HEMOGLOBIN 29.5 pg (25.0-35.0); MEAN CORPUSCULAR HGB CONC 33.2 g/dl (31.0-37.0); MEAN PLATELET VOLUME 9.1 fl (7.0-11.0); WHITE BLOOD COUNT 5.7 10^3/ul (4.5-11.0)
[2016-12-27] MEDS: Sodium Chloride 0.9% 1,000 ML IV SCH (22:56)
[2016-12-27 22:58] LABS: ALB/GLOB RATIO 1.4 (1.1-1.8); BILIRUBIN,TOTAL 0.6 mg/dL (0.2-1.3); CALCIUM 9.1 mg/dL (8.4-10.5); POTASSIUM 3.6 mmol/L (3.6-5.0); TOTAL PROTEIN 6.8 g/dL (5.8-8.3)
[2016-12-28 04:36] LABS: TROPONIN I < 0.01 ng/mL
--- NOTE | 2016-12-28 08:13 | CT ---
PROCEDURE: CT HEAD WITHOUT CONTRAST. HISTORY: Dizziness COMPARISON: 12/19/2016 TECHNIQUE: Axial computed tomography images were obtained through the head/brain without intravenous contrast. Radiation dose: Total exam DLP = 711.49 mGy-cm. This CT exam was performed using one or more of the following dose reduction techniques: Automated exposure control, adjustment of the mA and/or kV according to patient size, and/or use of iterative reconstruction technique. FINDINGS: HEMORRHAGE: No intracranial hemorrhage. BRAIN: There is no mass, mass effect or abnormal extra-axial fluid collection. There is no territorial infarction VENTRICLES: There is moderate global parenchymal volume loss and proportionate enlargement of the ventricles and cortical sulci, advanced for the patient's age. CALVARIUM: The skull base and calvarium are normal. PARANASAL SINUSES: Predominantly clear. MASTOID AIR CELLS: Predominantly clear. OTHER FINDINGS: None. IMPRESSION: No acute intracranial abnormality. Moderate age-related global parenchymal volume loss.
[2016-12-28] MEDS: Sodium Chloride 0.9% 1,000 ML IV SCH ×2 (08:23→17:55)
--- NOTE | 2016-12-28 09:45 | CP.PCM.CON ---
<Ely Angel - Last Filed: 12/28/16 09:40> History of Present Illness - History of Present Illness History of Present Illness: Gastroenterology Fellow/PGY4 Consult Note 56 year old female with history of Seizure disorder, chronic diarrhea, PUD 2013 (resolved EGD 2015), palpitations status post loop recorder 04/2016 presenting with dizziness, vomiting, and diarrhea. Patient notes onset of feeling lightheaded and dizzy yesterday after eating chicken and rice with subsequent five episodes of bilious vomiting and five episodes of watery diarrhea. Prior to this episode, she notes improved diarrhea frequency of 1-2 episodes daily from 5-6 episodes on Lomitil and Cholestyramine since last outpatient follow up with Dr. Livingston 12/01/16. Denies sick contacts, recent travel, abdominal pain, fever, chills, sweats, melena, hematochezia, indigestion, acid reflux, or weight loss. EGD and colonoscopy 12/2015 ruled out celiac disease and microscopic colitis. Family- denies colon cancer Social- denies tobacco, alcohol, illicit drug use Surgery- hysterectomy, appendectomy, cholecystectomy Review of Systems - Review of Systems Review of Systems: A 12-point review of systems negative except for as above Past Patient History - Infectious Disease Hx of Infectious Diseases: None - Tetanus Immunizations Tetanus Immunization: Unknown - Past Social History Smoking Status: Never Smoked - CARDIAC Hx Cardiac Disorders: Yes (ACS) - PULMONARY Hx Chronic Obstructive Pulmonary Disease (COPD): Yes - NEUROLOGICAL Hx Neurological Disorder: Yes Hx Dizziness: Yes Hx Seizures: Yes - HEENT Hx HEENT Problems: No Other/Comment: wears glasses - RENAL Hx Chronic Kidney Disease: No - ENDOCRINE/METABOLIC Hx Diabetes Mellitus Type 2: Yes - HEMATOLOGICAL/ONCOLOGICAL Hx Blood Disorders: Yes Hx Anemia: Yes - INTEGUMENTARY Hx Dermatological Problems: No - MUSCULOSKELETAL/RHEUMATOLOGICAL Hx Musculoskeletal Disorders: Yes (NEUROPATHY) Hx Falls: Yes Hx Fractures: Yes (COMPRESSION FX) Hx Unsteady Gait: Yes - GASTROINTESTINAL Hx Gastrointestinal Disorders: Yes Hx Gall Bladder Disease: Yes (CHOLECYSTITIS ,CHOLECYSTECTOMY,MILD GASTRITIS) - GENITOURINARY/GYNECOLOGICAL Hx Genitourinary Disorders: Yes (URGENCY FREQUENCY) - PSYCHIATRIC Hx Psychophysiologic Disorder: Yes (INSOMNIA,SCHIZOAFFECTIVE D/O) Hx Depression: Yes Hx Panic Symptoms: No Hx Substance Use: No - SURGICAL HISTORY Hx Appendectomy: Yes Hx Cholecystectomy: Yes Hx Hysterectomy: Yes - ANESTHESIA Hx Anesthesia: Yes Hx Anesthesia Reactions: No Hx Malignant Hyperthermia: No Meds Allergies/Adverse Reactions: Allergies Allergy/AdvReac Type Severity Reaction Status Date / Time Penicillins Allergy ITCHING Verified 12/27/16 22:23 - Medications Medications: Current Medications Sodium Chloride (Sodium Chloride 0.9%) 1,000 mls @ 100 mls/hr IV .Q10H [facility]AT[facility] Last Admin: 12/28/16 08:23 Dose: 100 mls/hr Physical Exam - Constitutional Appears: Non-toxic, No Acute Distress - Head Exam Head Exam: ATRAUMATIC - Eye Exam Eye Exam: PERRL Pupil Exam: Miosis, PERRL - ENT Exam ENT Exam: Mucous Membranes Moist, Normal Oropharynx - Neck Exam Neck exam: Positive for: Full Rom, Normal Inspection - Respiratory Exam Respiratory Exam: Clear to Auscultation Bilateral. absent: Rales, Rhonchi, Wheezes - Cardiovascular Exam Cardiovascular Exam: RRR, +S1, +S2. absent: Gallop, Rubs - GI/Abdominal Exam GI & Abdominal Exam: Normal Bowel Sounds, Soft. absent: Distended, Firm, Guarding, Organomegaly, Rigid, Tenderness Additional comments: mild discomfort to palpation - Extremities Exam Extremities exam: Positive for: normal inspection. Negative for: pedal edema - Neurological Exam Neurological exam: Alert - Psychiatric Exam Psychiatric exam: Normal Affect, Normal Mood - Skin Skin Exam: Dry, Intact, Normal Color, Warm Results - Vital Signs Recent Vital Signs: Last Vital Signs Temp 97.8 F 12/28/16 05:42 Pulse 73 12/28/16 05:42 Resp 18 12/28/16 05:42 BP 149/98 H 12/28/16 05:42 Pulse Ox 99 12/28/16 05:42 - Labs Result Diagrams: 12/27/16 22:39 12/27/16 22:39 Assessment & Plan - Assessment and Plan (Free Text) Assessment: 56 year old female with history of Seizure disorder, palpitations status post loop recorder 04/2016, PUD 2013 (resolved EGD 2015), and chronic diarrhea presenting with dizziness, vomiting, and diarrhea. Active treatment of likely viral gastroenteritis and dehydration. EGD and colonoscopy 12/2015 ruled out celiac disease and microscopic colitis. Plan: >resolved acute on chronic diarrhea >resolved vomiting >consider stool workup if increased frequency of diarrhea re-occurs >supportive care: antiemetics, IVFs >improving LFTs- followed outpatient -NAFLD >clear for discharge from GI standpoint if tolerate diet and continued resolved vomiting and high frequency diarrhea >will follow clinical course <Enrique Taveras - Last Filed: 12/28/16 10:49> Meds - Medications Medications: Current Medications Sodium Chloride (Sodium Chloride 0.9%) 1,000 mls @ 100 mls/hr IV .Q10H [facility]ATIA Last Admin: 12/28/16 08:23 Dose: 100 mls/hr Results - Vital Signs Recent Vital Signs: Last Vital Signs Temp 97.8 F 12/28/16 05:42 Pulse 73 12/28/16 05:42 Resp 18 12/28/16 05:42 BP 149/98 H 12/28/16 05:42 Pulse Ox 99 12/28/16 05:42 - Labs Result Diagrams: 12/28/16 09:45 12/28/16 09:45 Labs: Laboratory Results - last 24 hr 12/28/16 12/28/16 09:45 09:45 WBC 4.8 RBC 4.43 Hgb 13.1 Hct 39.7 MCV 89.6 MCH 29.6 MCHC 33.0 RDW 13.9 Plt Count 112 L MPV 9.2 Sodium 141 Potassium 4.3 Chloride 107 Carbon Dioxide 24 Anion Gap 14 BUN 9 Creatinine 1.1 Est GFR ( Amer) > 60 Est GFR (Non-Af Amer) 52 Random Glucose 132 H Calcium 9.1 Magnesium 2.1 Attending/Attestation - Attestation I have personally seen and examined this patient.: Yes I have fully participated in the care of the patient.: Yes I have reviewed all pertinent clinical information: Yes Notes (Text): 12/28/16 10:43 I have seen and examined patient with GI fellow. Agree with the above documentation with the following additions. In brief this is a 56 year old female with history of seizure disorder, PUD, chronic intermittent diarrhea who presents to hospital with complaint of nausea, vomiting and diarrhea which began yesterday following consumption of chicken and rice at 12 noon. Prior to this she was in usual state of health, recent outpatient regimen of lomotil/ cholestyramine was working effectively to control diarrhea symptoms. She denies abdominal pain, recent travel, sick contacts, fever/chills, or antibiotic use. Since arrival to hospital she has not had any recurrent vomiting or diarrhea. She had EGD/colonoscopy in December 2015. Review of vitals from today shows elevated BP. Seizure disorder PUD Chronic intermittent diarrhea Acute vomiting, diarrhea - likely related to viral gastroenteritis given clinical scenario - Continue with supportive care, IVF hydration therapy - Anti-emetic therapy PRN - Consider stool studies if diarrhea reoccurs, otherwise would advance diet slowly as tolerated - From GI standpoint, if patient tolerating diet, can likely be discharged home today with subsequent outpatient follow up with Dr. Livingston. Would resume outpatient regimen of lomotil and cholestyramine.
[2016-12-28 10:04] LABS: HEMATOCRIT 39.7 % (36.0-48.0); MEAN CELL VOLUME 89.6 fL (80.0-105.0); MEAN CORPUSCULAR HEMOGLOBIN 29.6 pg (25.0-35.0); MEAN PLATELET VOLUME 9.2 fl (7.0-11.0); RED CELL DISTRIBUTION WIDTH 13.9 % (11.5-14.5); WHITE BLOOD COUNT 4.8 10^3/ul (4.5-11.0)
[2016-12-28 10:20] LABS: BLOOD UREA NITROGEN 9 mg/dL (7-21); CALCIUM 9.1 mg/dL (8.4-10.5); CARBON DIOXIDE 24 mmol/L (21-33); CHLORIDE 107 mmol/L (95-110); GFR AFRICAN-AMERICAN > 60; GLUCOSE,RANDOM 132 mg/dL (70-110); MAGNESIUM 2.1 mg/dL (1.7-2.2); POTASSIUM 4.3 mmol/L (3.6-5.0); SODIUM 141 mmol/L (132-148)
--- NOTE | 2016-12-28 11:24 | RAD ---
HISTORY: Dizziness COMPARISON: 12/19/2016 FINDINGS: LUNGS: The lungs are clear. There is no focal consolidation. There is a linear scar in the left lower lobe. PLEURA: No significant pleural effusion identified, no pneumothorax apparent. CARDIOVASCULAR: Normal. OSSEOUS STRUCTURES: No significant abnormalities. VISUALIZED UPPER ABDOMEN: Normal. OTHER FINDINGS: None. IMPRESSION: No active pulmonary disease.
[2016-12-28 13:15] VITALS: BMI 38.9
[2016-12-28] MEDS ORDERED: Pneumococcal 23-Valent Vaccine IM ONE (13:16)
[2016-12-28] MEDS ORDERED: Atropine-Diphenoxylate 0.025-2.5 mg Tab PO PRN (21:10)
--- NOTE | 2016-12-29 00:12 | CARD ---
APPROVED REPORT EKG Measurement Heart [id number] <Conclusion> Normal sinus rhythm Minimal voltage criteria for LVH, may be normal variant T wave abnormality, consider anterior ischemia Prolonged QT Abnormal ECG
[2016-12-29] MEDS ORDERED: Pantoprazole 40 mg EC Tab PO SCH (06:00)
[2016-12-29 07:51] VITALS: PULSE 79; O2SAT 98
--- NOTE | 2016-12-29 08:28 | HP ---
CHIEF COMPLAINT: ER reports near syncope and vomiting as the patient's presenting complaint, but the patient reports a fall, syncopal episode with head trauma, and persistent headache with vomiting. HISTORY OF PRESENT ILLNESS: This is a 56-year-old woman I have known for approximately 2 years with multiple hospitalizations for syncope and seizure-like complaints along with nausea, diarrhea, and fa lls at home. She comes to the Emergency Room late this evening stating that she had a syncopal episode at home, fell, hit her head, and has persistent severe headaches and vomiting in the Emergen cy Room. She is followed by gastroenterology for a great length of time. She does have chronic diar brent. From their perspective, there was no further intervention or workup or treatment needed, so kelley navarro is admitted for headache and vomiting after a CAT scan in the ER was negative. PAST MEDICAL HISTORY: Negative for hypertension, hyperlipidemia, tuberculosis, gout, COPD, stroke, T IA, myocardial infarction, coronary artery disease, or cancer of any type. It is positive for diabet es since 2013, asthma since 2013, seizure disorder since 2013, and several recent hospitalizations fo r seizure-like activity, syncopal episodes. She has a long history of mental illness with depression . She has a history of orthostatic hypotension. PAST SURGICAL HISTORY: Significant for cholecystectomy in 1989 and a hysterectomy in 2010. Of a pec uliar note is that there have been approximately 18 hospitalizations in the last 3 years. Many of th em for abdominal symptoms and chronic diarrhea with extensive workups by multiple gastroenterologists and she remains morbidly obese. Most recent cardiac workup included a thallium stress test within t he past year. ALLERGIES: SHE IS ALLERGIC TO PENICILLIN, WHICH GIVES HER HIVES. SOCIAL HISTORY: She does not smoke, never did. Does not drink alcohol or coffee. She had a colonos copy in 2003 in [place] and several in [place] in 2013, the most recent 1 being in 2016. She h ad multiple endoscopies going back to 1993 and again this past year. She had a mammogram in 2009 and 2014, both were negative, and she refuses flu a shot and a pneumonia vaccine. FAMILY HISTORY: Her mother and father both lived into their 60s. They have both passed. She is the 2nd of 5 siblings. She has a brother who at 35 of liver cancer, and 2 sisters, one brother brando t she has lost contact with. She is single with no children. She has been disabled since 1992 with depression. Prior to that, she worked at the [employer] in [place], [place]. Her neurologist is Dr. Gracia. Her system support administrator is Dr. Livingston. In the past she has been seen by Dr. Dumont and Dr. Turpin for cardiology workup, and is followed by the [facility] for depression and schizoaffective disorder. REVIEW OF SYSTEMS: Multiple points are negative except for items mentioned above, especially nausea, vomiting. PHYSICAL EXAMINATION: GENERAL: The patient was seen in her bed on the 5th floor this Wednesday evening after admission. When cleared by GI earlier today, the patient complained that she was too weak to go home and headaches a nd nauseousness continued to bother her. HEAD AND NECK: Unremarkable. NECK: Supple, without masses. Thyroid is not palpable. LUNGS: Clear. HEART: Regular. ABDOMEN: Soft, nontender. EXTREMITIES: Show no edema. IMPRESSION: 1. Chronic recurrent gastrointestinal symptoms of nausea, vomiting, diarrhea: 2. Diabetes. 3. History of asthma. 4. History of seizures. 5. History of orthostatic hypotension. 6. History of syncope. 7. History of depression and schizophrenia. 8. Status post cholecystectomy. 9. Status post hysterectomy. 10. Chronic diarrhea with extensive workup in the past with multiple gastroenterologists here in [facility] and in [place]. PLAN: The patient has been admitted. She has been watched for several hours on telemetry and now co mes to the 5th floor for additional overnight observation, tonight being her 1st night and some physi james therapy prior to discharge to home. Tomas Garza MD cc: [id number] TT: 12/28/2016 23:21:07 tn
--- NOTE | 2016-12-29 08:54 | CP.PCM.PN ---
<StanleyEly - Last Filed: 12/29/16 11:43> Subjective - Date & Time of Evaluation Date of Evaluation: 12/29/16 Time of Evaluation: 08:33 - Subjective Subjective: Gastroenterology Fellow/PGY4 Consult Note Patient denies abdominal pain, vomiting, and diarrhea. Tolerating regular diet. No bowel movement yesterday. A 12-point review of systems negative except for as above. Objective - Vital Signs/Intake and Output Vital Signs (last 24 hours): Temp Pulse Resp BP Pulse Ox 98 F 79 18 128/74 98 12/29/16 07:30 12/29/16 07:30 12/29/16 07:30 12/29/16 07:30 12/29/16 07:30 Intake and Output: 12/29/16 12/29/16 06:59 18:59 Intake Total 120 Balance 120 - Medications Medications: Current Medications Clozapine (Clozaril) 200 mg PO DAILY [facility]ATIA PRN Reason: Protocol Clozapine (Clozaril) 200 mg PO HS KATIA PRN Reason: Protocol Last Admin: 12/29/16 00:43 Dose: 200 mg Diphenoxylate HCl/Atropine (Lomotil 0.025-2.5 Mg Tablet) 1 tab PO QID PRN PRN Reason: Nausea/Vomiting Duloxetine HCl (Cymbalta) 60 mg PO DAILY [facility] Sodium Chloride (Sodium Chloride 0.9%) 1,000 mls @ 100 mls/hr IV .Q10H [facility] Last Admin: 12/28/16 17:55 Dose: 100 mls/hr Lamotrigine (Lamictal) 100 mg PO BID [facility] PRN Reason: Protocol Last Admin: 12/28/16 22:30 Dose: 100 mg Levetiracetam (Keppra) 750 mg PO BID [facility] Last Admin: 12/28/16 22:30 Dose: 750 mg Meclizine HCl (Antivert) 25 mg PO TID [facility] Ondansetron HCl (Zofran Inj) 4 mg IVP Q6H PRN PRN Reason: Nausea/Vomiting Last Admin: 12/28/16 23:31 Dose: 4 mg Pantoprazole Sodium (Protonix Ec Tab) 40 mg PO 0600 [facility] Last Admin: 12/29/16 05:25 Dose: 40 mg Tramadol HCl (Ultram) 50 mg PO TID PRN PRN Reason: Pain, moderate (4-7) Zolpidem Tartrate (Ambien) 5 mg PO HS PRN; Protocol PRN Reason: Insomnia - Labs Labs: 12/28/16 09:45 12/28/16 09:45 - Constitutional Appears: Non-toxic, No Acute Distress - Head Exam Head Exam: ATRAUMATIC, NORMOCEPHALIC - Eye Exam Eye Exam: EOMI, PERRL Pupil Exam: PERRL. absent: Miosis, Mydriatic - ENT Exam ENT Exam: Mucous Membranes Moist, Normal Oropharynx - Neck Exam Neck Exam: Full ROM, Normal Inspection - Respiratory Exam Respiratory Exam: Clear to Ausculation Bilateral. absent: Rales, Rhonchi, Wheezes - Cardiovascular Exam Cardiovascular Exam: RRR, +S1, +S2. absent: Gallop, Rubs - GI/Abdominal Exam GI & Abdominal Exam: Soft, Normal Bowel Sounds. absent: Distended, Firm, Guarding, Rigid, Tenderness, Organomegaly, Rebound - Extremities Exam Extremities Exam: Full ROM. absent: Pedal Edema - Neurological Exam Neurological Exam: Alert, Awake - Psychiatric Exam Psychiatric exam: Normal Affect, Normal Mood - Skin Skin Exam: Dry, Intact, Normal Color, Warm Assessment and Plan - Assessment and Plan (Free Text) Assessment: 56 year old female with history of Seizure disorder, palpitations status post loop recorder 04/2016, PUD 2013 (resolved EGD 2015), and chronic diarrhea presenting with dizziness, vomiting, and acute on chronic diarrhea. EGD and colonoscopy 12/2015 ruled out celiac disease and microscopic colitis. Plan: >likely resolved viral gastroenteritis >tolerating diet >restart Lomotil and cholestyramine on discharge >clear for discharge from GI standpoint <John Livingston - Last Filed: 12/29/16 11:54> Objective - Vital Signs/Intake and Output Vital Signs (last 24 hours): Temp Pulse Resp BP Pulse Ox 98 F 79 18 128/74 98 12/29/16 07:30 12/29/16 07:30 12/29/16 07:30 12/29/16 07:30 12/29/16 07:30 Intake and Output: 12/29/16 12/29/16 06:59 18:59 Intake Total 120 Balance 120 - Medications Medications: Current Medications Clozapine (Clozaril) 200 mg PO DAILY [facility] PRN Reason: Protocol Clozapine (Clozaril) 200 mg PO HS [facility]ATIA PRN Reason: Protocol Last Admin: 12/29/16 00:43 Dose: 200 mg Diphenoxylate HCl/Atropine (Lomotil 0.025-2.5 Mg Tablet) 1 tab PO QID PRN PRN Reason: Nausea/Vomiting Duloxetine HCl (Cymbalta) 60 mg PO DAILY [facility] Last Admin: 12/29/16 10:03 Dose: 60 mg Sodium Chloride (Sodium Chloride 0.9%) 1,000 mls @ 100 mls/hr IV .Q10H [facility] Last Admin: 12/29/16 10:04 Dose: 100 mls/hr Lamotrigine (Lamictal) 100 mg PO BID [facility] PRN Reason: Protocol Last Admin: 12/29/16 10:03 Dose: 100 mg Levetiracetam (Keppra) 750 mg PO BID [facility] Last Admin: 12/29/16 10:03 Dose: 750 mg Meclizine HCl (Antivert) 25 mg PO TID [facility] Last Admin: 12/29/16 10:03 Dose: 25 mg Ondansetron HCl (Zofran Inj) 4 mg IVP Q6H PRN PRN Reason: Nausea/Vomiting Last Admin: 12/28/16 23:31 Dose: 4 mg Pantoprazole Sodium (Protonix Ec Tab) 40 mg PO 0600 [facility] Last Admin: 12/29/16 05:25 Dose: 40 mg Tramadol HCl (Ultram) 50 mg PO TID PRN PRN Reason: Pain, moderate (4-7) Zolpidem Tartrate (Ambien) 5 mg PO HS PRN; Protocol PRN Reason: Insomnia - Labs Labs: 12/28/16 09:45 12/28/16 09:45 Attending/Attestation - Attestation I have personally seen and examined this patient.: Yes I have fully participated in the care of the patient.: Yes I have reviewed all pertinent clinical information, including history, physical exam and plan: Yes Notes (Text): 12/29/16 11:53 56 year old female with history of Seizure disorder, palpitations status post loop recorder 04/2016, PUD 2013 (resolved EGD 2015), and chronic diarrhea presenting with dizziness, vomiting, and acute on chronic diarrhea. 1. Diarrhea 2. Vomiting Plan: -resolved -no diarrhea since admission -tolerating diet -would continue lomotil and cholestyramine as outpatient -continue present medications
[2016-12-29] MEDS: Sodium Chloride 0.9% 1,000 ML IV SCH (10:04)
--- NOTE | 2016-12-29 16:21 | CON ---
DATE: 12/29/2016 HISTORY OF PRESENT ILLNESS: This is a 56-year-old female with past medical history of seizure disord er, chronic diarrhea and status post , came with dizziness and vomiting and feeling lightheaded and dizzy and had vomiting and episode of diarrhea. The patient comes to my office for seizure contr ol. PAST MEDICAL HISTORY: As above. REVIEW OF SYSTEMS: A 10-point review of system was negative except as noted above. ALLERGIES: PENICILLIN. PHYSICAL EXAMINATION: VITAL SIGNS: Blood pressure 149/98. HEENT: Normocephalic, atraumatic. NECK: Supple. NEUROLOGIC: Alert, awake, oriented x 3. No aphasia. Cranial nerves II through XII are tested. Pup ils reactive. EOM intact. Visual mckeon full. No facial asymmetry. Tongue midline. Motor examina tion: Spontaneous movement of all the extremities noted. Deep tendon reflexes 1+. Both plantars ar e downgoing. Sensory appears intact. Cerebellar, gait deferred. IMPRESSION: Syncope secondary to vomiting and diarrhea and possible dehydration. So, this is a 56-y [id number] with past medical history of seizures that presented with vomiting, dizziness and diar brent. Workup is in progress. CAT scan of the head was negative. PLAN: Continue present management. We will follow up. Nitin Gracia MD cc: [id number] TT: 12/29/2016 16:20:40 Confirmation # [id number] Dictation # [id number] marika
[2016-12-29 17:07] VITALS: BP 130/71; RESP 20; TEMP 97.9
--- NOTE | 2016-12-30 08:19 | DS ---
This is a 56-year-old woman I have known for a few years now with a long history of abdominal symptom s, chronic diarrhea whose diarrhea is always quieted during her hospital stay. She also has morbid o besity. She came to the acute care facility after falling in her apartment and hitting her head. Sh melanie denied seizure-like activity, although she has a history of seizure disorder. In the ambulance on the way to the Emergency Room, she was vomiting, which continued in the ER and prompted their concern for evaluation and admission. She was admitted to the medical floor, treated with IV fluids, follo wed by neurology as well as gastroenterology, both who know her well because of her seizure disorder and her chronic diarrhea. In the hospital, she did amazingly well. Her diarrhea subsided. She was able to ambulate and tolerate p.o. diet. There is no further abdominal pain. There is no headache, dizziness, lightheadedness, vertigo or other such symptoms and she was cleared by GI and neurological ly and hemodynamically asymptomatic, ready for discharge to home this day, 12/29/2016. FINAL DISCHARGE DIAGNOSES: 1. Fall at home with a blow to the head. 2. Vomiting after a fall and head trauma. 3. Seizure disorder. 4. Morbid obesity. 5. Chronic diarrhea. 6. Chronic abdominal gastrointestinal symptomatology. PLAN: The patient will be discharged to home after a 1-night overnight hospital stay and follow up w dipesh triana in the office in 1-2 weeks. Tomas Garza MD cc: [id number] TT: 12/30/2016 08:19:02 en
== END 2016-12-29 18:45 | disposition home or self-care (01) ==
LOC: ED 21:37 → ERH 12-28 03:45 → 2RNO 12-28 06:03 → 5RNO 12-28 19:17
PROVIDERS: ADMIT Internal Medicine; ATTEND Internal Medicine
DX: R55 Syncope and collapse (principal); S09.90XA Unspecified injury of head, initial encounter; G40.909 Epilepsy, unspecified, not intractable, without status epilepticus; K52.9 Noninfective gastroenteritis and colitis, unspecified; K27.9 Peptic ulcer, site unspecified, unspecified as acute or chronic, without hemorrhage or perforation; F20.9 Schizophrenia, unspecified; F32.9 Major depressive disorder, single episode, unspecified; E11.40 Type 2 diabetes mellitus with diabetic neuropathy, unspecified; E66.01 Morbid (severe) obesity due to excess calories; Z68.38 Body mass index [BMI] 38.0-38.9, adult; W19.XXXA Unspecified fall, initial encounter; Y93.89 Activity, other specified; Y92.009 Unspecified place in unspecified non-institutional (private) residence as the place of occurrence of the external cause; Y99.8 Other external cause status; Z90.710 Acquired absence of both cervix and uterus; Z90.49 Acquired absence of other specified parts of digestive tract; Z88.0 Allergy status to penicillin
CPT/HCPCS: 36415; 70450; 71010; 80048; 80053; 82550; 83615; 83690; 83735; 84484; 85027; 93005; 96374; 97116; 97161; 97530; 99285; G0378; G8978; G8979; J2405; J7040

== ENCOUNTER 2017-02-12 18:05 | Observation (INO) | payer MEDICARE, OTHER ==
[2017-02-12 18:05] VITALS: BMI 38.9
[2017-02-12] MEDS ORDERED: Sodium Chloride 0.9% 1,000 ML IV STA (18:20)
--- NOTE | 2017-02-12 18:20 | ED PDOC ---
Arrival/HPI - General Time Seen by Provider: 02/12/17 18:06 Historian: Patient - History of Present Illness Narrative History of Present Illness (Text): 02/12/17 18:14 56 y/o female, pmh including chronic diarrhea/pud/sseizure/thoracic compression fracture/dm/asthma, penicillin allergy, post menopausal, c/o dizziness and fall with unknown LOC started 10am this morning. Pt. stated that she feels dizziness and drowsiness, had a fall this morning around 10am which she is not sure if she has loss of consciousness, doesn't recall head injury, admits intermittent chest pain as well, no palpitation, no night sweat, no urinary or bowel incontinence or retention, no other medical or psychological complaints. Past Medical History - Provider Review Nursing Documentation Reviewed: Yes - Infectious Disease Hx of Infectious Diseases: None - Tetanus Immunization Tetanus Immunization: Unknown - Cardiac Hx Cardiac Disorders: Yes (ACS) Hx Hypertension: Yes - Pulmonary Hx Chronic Obstructive Pulmonary Disease (COPD): Yes - Neurological Hx Neurological Disorder: Yes (syncope) Hx Dizziness: Yes Hx Seizures: Yes - HEENT Other/Comment: wears glasses - Renal Hx Renal Disorder: No - Endocrine/Metabolic Hx Diabetes Mellitus Type 2: Yes - Hematological/Oncological Hx Blood Disorders: Yes Hx Anemia: Yes - Integumentary Hx Dermatological Disorder: No - Musculoskeletal/Rheumatological Hx Arthritis: Yes - Gastrointestinal Hx Gastrointestinal Disorders: Yes (mild gastritis, obese) Hx Gall Bladder Disease: Yes (CHOLECYSTITIS ,CHOLECYSTECTOMY,MILD GASTRITIS) Hx Gastroesophageal Reflux: Yes - Genitourinary/Gynecological Hx Genitourinary Disorders: Yes (URGENCY FREQUENCY) Hx Urinary Tract Infection: Yes Other/Comment: fibroids, hysterectomy - Psychiatric Hx Substance Use: No - Surgical History Hx Appendectomy: Yes Hx Cholecystectomy: Yes Hx Hysterectomy: Yes - Anesthesia Hx Anesthesia: Yes Hx Anesthesia Reactions: No Hx Malignant Hyperthermia: No - Suicidal Assessment Feels Threatened In Home Enviroment: No Family/Social History - Physician Review Nursing Documentation Reviewed: Yes Family/Social History: Unknown Family HX Smoking Status: Never Smoked Hx Alcohol Use: No Hx Substance Use: No Hx Substance Use Treatment: No Allergies/Home Meds Allergies/Adverse Reactions: Allergies Penicillins Allergy (Verified 02/12/17 18:14) ITCHING Home Medications: Home Meds Medication Instructions Recorded Confirmed DULoxetine [Cymbalta] 60 mg PO DAILY 02/14/17 02/14/17 Levetiracetam [Keppra] 750 mg PO BID 02/14/17 02/14/17 Meclizine [Antivert] 12.5 mg PO TID 02/14/17 02/14/17 Pantoprazole Sodium [Protonix] 40 mg PO 0600 02/14/17 02/14/17 Tramadol HCl [Ultram] 50 mg PO QID PRN 02/14/17 02/14/17 Zolpidem [Ambien] 5 mg PO HS 02/14/17 02/14/17 cloZAPine [Clozapine] 200 mg PO BID 02/14/17 02/14/17 lamoTRIgine [LaMICtal] 100 mg PO BID 02/14/17 02/14/17 Review of Systems - Review of Systems Constitutional: Fatigue. absent: Fevers Eyes: absent: Vision Changes ENT: absent: Hearing Changes Respiratory: absent: SOB, Cough Cardiovascular: absent: Chest Pain Musculoskeletal: absent: Arthralgias, Back Pain Neurological: Headache, Dizziness. absent: Focal Weakness, Gait Changes, Speech Changes, Facial Droop Physical Exam Vital Signs Reviewed: Yes Vital Signs Temp Pulse Resp BP Pulse Ox 02/12/17 22:09 80 18 112/68 97 02/12/17 18:44 94 H 16 101/60 97 02/12/17 18:24 98.4 F 95 H 15 138/76 99 Temperature: Afebrile Blood Pressure: Normal Pulse: Regular Respiratory Rate: Normal Appearance: Positive for: Well-Appearing, Non-Toxic, Comfortable Pain Distress: None - Systems Exam Head: Present: Atraumatic, Normocephalic Pupils: Present: PERRL Extroacular Muscles: Present: EOMI Conjunctiva: Present: Normal Mouth: Present: Moist Mucous Membranes Neck: Present: Normal Range of Motion Respiratory/Chest: Present: Clear to Auscultation, Good Air Exchange. No: Respiratory Distress, Accessory Muscle Use Cardiovascular: Present: Regular Rate and Rhythm, Normal S1, S2. No: Murmurs Abdomen: Present: Normal Bowel Sounds. No: Tenderness, Distention, Peritoneal Signs Back: Present: Normal Inspection Upper Extremity: Present: Normal Inspection. No: Cyanosis, Edema Lower Extremity: Present: Normal Inspection. No: Edema Neurological: Present: GCS=15, Speech Normal, Motor Func Grossly Intact, Memory Normal Skin: Present: Warm, Dry, Normal Color. No: Rashes Psychiatric: Present: Alert, Oriented x 3, Normal Insight, Normal Concentration Medical Decision Making ED Course and Treatment: 02/12/17 18:24 -labs/cardio -ekg/cxr/CT head -IVF/meclizine/will give aspirin if the CT head show no bleed -will reassess 02/12/17 20:45 -NSR @ 92 BPM, no ST elevation or depression, chronic T wave inversion on lead V2-V4, compared with previous ekg. -CT Head show no acute findings. -Chest x-ray show no active disease -Labs show no acute finding except mild elevation of LFT, negative troponin. -UA show +UTI, IV meropenem ordered. -Pt. feels dizziness, attempted to stand her up which she feels like as she is about to pass out, will admit for observation tele tonight. -Dr. Craig jack, aspirin ordered. 02/12/17 21:04 -I spoke to Dr. Srinivasan and discussed the case in detail with labs/radiology/ ekg result discussed, agreed on the remote tele over night. -I spoke to DR. Cooper about the case and he will put in the observation order. - Lab Interpretations Lab Results: 02/12/17 18:56 02/12/17 18:56 Lab Results 02/12/17 18:56: Sodium 143, Potassium 4.1, Chloride 105, Carbon Dioxide 25, Anion Gap 17, BUN 21, Creatinine 1.4, Est GFR ( Amer) 47, Est GFR (Non- Af Amer) 39, Random Glucose 99, Calcium 9.3, Total Bilirubin 0.5, AST 82 H, ALT 110 H, Alkaline Phosphatase 101, Lactate Dehydrogenase 484, Total Creatine Kinase 31 L, Troponin I < 0.01, Total Protein 7.2, Albumin 4.4, Globulin 2.9, Albumin/Globulin Ratio 1.5 02/12/17 18:56: WBC 3.9 L D, RBC 4.27, Hgb 12.8, Hct 37.7, MCV 88.3, MCH 30.0, MCHC 34.0, RDW 13.6, Plt Count 108 L, MPV 9.1, Gran % 60.6, Lymph % (Auto) 32.7 , [place] % (Auto) 4.9, Eos % (Auto) 1.5, Baso % (Auto) 0.3, Gran # 2.35, Lymph # 1.3, [place] # 0.2, Eos # 0.1, Baso # 0.01 Interpretation: Abnormal lab values (elevation of LFT, +UTI) - RAD Interpretation Radiology Orders: 02/12/17 18:20 HEAD W/O CONTRAST [CT] Stat 02/12/17 18:23 CHEST PORTABLE [RAD] Stat CT Head: no acute findings Chest xray: no active disease Elevator Worker: Radiologist - EKG Interpretation EKG Interpretation (Text): 02/12/17 19:03 NSR @ 92 BPM, no ST elevation or depression, chronic T wave inversion on lead V2 -V4, compared with previous ekg. Interpreted by ED Physician: Yes Type: 12 lead EKG Comparison: Com.w/previous EKG - Medication Orders Current Medication Orders: Discontinued Medications Clozapine (Clozaril) 200 mg PO BID KATIA PRN Reason: Protocol Last Admin: 02/14/17 10:20 Dose: 200 mg Duloxetine HCl (Cymbalta) 60 mg PO DAILY KATIA Last Admin: 02/14/17 10:29 Dose: 60 mg Sodium Chloride (Sodium Chloride 0.9%) 1,000 mls @ 999 mls/hr IV .Q1H1M STA Stop: 02/12/17 19:20 Last Admin: 02/12/17 19:02 Dose: 999 mls/hr Meropenem 1g/NS 100mL IVPB (Meropenem 1g/Ns 100ml Ivpb) 1 gm in 100 mls @ 100 mls/hr IVPB STAT STA PRN Reason: Protocol Stop: 02/12/17 21:52 Last Admin: 02/12/17 21:11 Dose: 100 mls/hr Lamotrigine (Lamictal) 100 mg PO BID KATIA PRN Reason: Protocol Last Admin: 02/14/17 10:29 Dose: 100 mg Levetiracetam (Keppra) 750 mg PO BID KATIA Last Admin: 02/14/17 10:20 Dose: 750 mg Meclizine HCl (Antivert) 50 mg PO STAT STA Stop: 02/12/17 18:21 Last Admin: 02/12/17 19:02 Dose: 50 mg Meclizine HCl (Antivert) 25 mg PO TID [facility] Last Admin: 02/14/17 10:20 Dose: 25 mg Metoclopramide HCl (Reglan) 10 mg IVP STAT STA Stop: 02/12/17 18:22 Last Admin: 02/12/17 19:03 Dose: 10 mg Pantoprazole Sodium (Protonix Ec Tab) 40 mg PO 0600 [facility] Last Admin: 02/14/17 05:36 Dose: 40 mg Tramadol HCl (Ultram) 50 mg PO QID PRN PRN Reason: Pain, moderate (4-7) Zolpidem Tartrate (Ambien) 5 mg PO HS PRN; Protocol PRN Reason: Insomnia NIHSS Scale ([place]) Time Performed: 18:25 - How Severe is the [place]oke Baseline Level of Consciousness: 0=Alert LOC to Questions: 0=Both comments correct LOC to commands: 0=Obeys both correctly Best Gaze: 0=Normal Visual: 0=No visual loss Facial: 0=Normal Motor Arm - Left: 0=No drift Motor Arm - Right: 0=No drift Motor Leg - Left: 0=No drift Motor Leg - Right: 0=No drift Limb Ataxia: 0=Absent Sensory: 0=Normal Best Language: 0=No aphasia Dysarthia: 0=Normal articulation Extinction & Inattention (Neglect): 0=Normal, no object Score: 0 Risk Level: No Stroke Risk - PA / SNOW MAKER / Resident Statement MD/DO has reviewed & agrees with the documentation as recorded. Disposition/Present on Arrival - Present on Arrival Any Indicators Present on Arrival: No History of DVT/PE: No History of Uncontrolled Diabetes: Yes Urinary Catheter: No History Surgical Site Infection Following: None - Disposition Have Diagnosis and Disposition been Completed?: Yes Diagnosis: UTI (lower urinary tract infection), Near syncope Disposition: HOSPITALIZED Disposition Time: 18:25 Patient Plan: Observation, Telemetry Condition: STABLE
[2017-02-12 19:24] LABS: BASO # 0.01 K/mm3 (0.0-2.0); BASO % 0.3 % (0.0-3.0); EOS # 0.1 (0.0-0.7); EOS % 1.5 % (1.5-5.0); GRAN # 2.35 (1.4-6.5); GRAN % 60.6 % (50.0-68.0); HEMOGLOBIN 12.8 gm/dL (12.0-16.0); LYMPH # 1.3 (1.2-3.4); LYMPH % 32.7 % (22.0-35.0); MEAN CELL VOLUME 88.3 fL (80.0-105.0); MEAN PLATELET VOLUME 9.1 fl (7.0-11.0); MONO # 0.2 (0.1-0.6); MONO % 4.9 % (1.0-6.0); PLATELET COUNT 108 10^3/uL (120.0-450.0); RBC 4.27 10^6/uL (3.5-6.1); RED CELL DISTRIBUTION WIDTH 13.6 % (11.5-14.5); WHITE BLOOD COUNT 3.9 10^3/ul (4.5-11.0)
[2017-02-12 19:36] LABS: ALB/GLOB RATIO 1.5 (1.1-1.8); ALBUMIN 4.4 g/dL (3.0-4.8); ALT/SGPT 110 U/L (7-56); AST/SGOT 82 U/L (15-39); BLOOD UREA NITROGEN 21 mg/dL (7-21); CALCIUM 9.3 mg/dL (8.4-10.5); GFR AFRICAN-AMERICAN 47; GFR NON-AFRICAN AMERICAN 39
[2017-02-12 19:51] LABS: TROPONIN I < 0.01 ng/mL
--- NOTE | 2017-02-12 20:05 | CT ---
EXAM: CT Head Without Intravenous Contrast CLINICAL HISTORY: The patient age is 56 years old and is female; Signs and symptoms; Dizziness; Additional info: Dizziness, fall, loc unknown Facility exam id and description: Ct heads head w/o contrast TECHNIQUE: Axial computed tomography images of the head/brain without intravenous contrast. This CT exam was performed using one or more of the following dose reduction techniques: automated exposure control, adjustment of the mA and/or kV according to patient size, and/or use of iterative reconstruction technique. EXAM DATE/TIME: 02/12/2017 6:20 PM COMPARISON: CT - HEAD W/O CONTRAST 12/27/2016 11:59:11 PM FINDINGS: Brain: The white-kearns differentiation is preserved demonstrating no acute territorial type infarct. There is mild prominence of the ventricles and sulci, compatible with atrophy. No acute intracranial hemorrhage is seen. No edema. Midline shift: There is no midline shift. Ventricles: See above. Bones/joints: The calvarium demonstrates no evidence for a depressed fracture. Soft tissues: No acute abnormality. Vasculature: There is mild atherosclerotic calcification of the cavernous internal carotid arteries. Sinuses: Unremarkable as visualized. No acute sinusitis. Mastoid air cells: No mastoid effusion. IMPRESSION: 1. No acute intracranial hemorrhage or acute territorial type infarct. 2. Mild atrophy.
[2017-02-12 20:34] LABS: URINE BILIRUBIN NEGATIVE (NEGATIVE); URINE BLOOD TRACE-LYSED (NEGATIVE); URINE GLUCOSE (UA) NEGATIVE (NEGATIVE); URINE LEUKOCYTE ESTERASE MODERATE Leu/uL (NEGATIVE); URINE NITRATE POSITIVE (NEGATIVE); URINE PROTEIN NEGATIVE mg/dL (<30 mg/dL); URINE UROBILINOGEN 0.2 E.U./dL (<1 E.U./dL)
[2017-02-12 20:38] LABS: URINE APPEARANCE CLOUDY (CLEAR); URINE COLOR YELLOW (YELLOW)
[2017-02-12] MEDS ORDERED: Meropenem 1g/NS 100mL IVPB 1 GM/100 ML PIGGYBACK IVPB STA (20:53)
[2017-02-12 21:05] LABS: URINE WBC 20 - 25 /hpf (0-6)
[2017-02-12 21:06] LABS: URINE BACTERIA MANY (NEG)
--- NOTE | 2017-02-13 10:53 | CARD ---
APPROVED REPORT EKG Measurement Heart [id number] <Conclusion> Normal sinus rhythm Low voltage lateral precordoal leads NSSTW changes Prolonged QTc No change
--- NOTE | 2017-02-13 12:18 | RAD ---
HISTORY: medical clearance COMPARISON: 12/28/2016 FINDINGS: LUNGS: No active pulmonary disease. PLEURA: No significant pleural effusion identified, no pneumothorax apparent. CARDIOVASCULAR: Normal. OSSEOUS STRUCTURES: No significant abnormalities. VISUALIZED UPPER ABDOMEN: Normal. OTHER FINDINGS: None. IMPRESSION: No active disease.
[2017-02-14 00:02] VITALS: RESP 20
[2017-02-14 05:52] VITALS: O2SAT 96
[2017-02-14] MEDS ORDERED: Pantoprazole 40 mg EC Tab PO SCH (06:00)
[2017-02-14 11:42] VITALS: BP 102/62; TEMP 97.9
[2017-02-14 12:58] VITALS: PULSE 80
== END 2017-02-14 13:09 | disposition home or self-care (01) ==
LOC: ED 18:05 → ERH 21:03 → 2RSO 23:14
PROVIDERS: ADMIT Internal Medicine; ATTEND Internal Medicine
DX: N39.0 Urinary tract infection, site not specified (principal); E11.9 Type 2 diabetes mellitus without complications; I10 Essential (primary) hypertension; J44.9 Chronic obstructive pulmonary disease, unspecified; K21.9 Gastro-esophageal reflux disease without esophagitis; W19.XXXA Unspecified fall, initial encounter; Z79.899 Other long term (current) drug therapy; Z87.11 Personal history of peptic ulcer disease; Z87.440 Personal history of urinary (tract) infections; Z88.0 Allergy status to penicillin; Z90.49 Acquired absence of other specified parts of digestive tract; Z90.710 Acquired absence of both cervix and uterus; R07.9 Chest pain, unspecified; Z86.69 Personal history of other diseases of the nervous system and sense organs; R42 Dizziness and giddiness; D64.9 Anemia, unspecified; M19.90 Unspecified osteoarthritis, unspecified site; K29.70 Gastritis, unspecified, without bleeding; R39.15 Urgency of urination; R35.0 Frequency of micturition; R40.2412 Glasgow coma scale score 13-15, at arrival to emergency department; R55 Syncope and collapse
CPT/HCPCS: 70450; 71010; 80053; 81001; 82550; 83615; 84484; 85025; 87086; 87181; 93005; 96361; 96365; 96375; 99285; G0378; J2765; J7040

== ENCOUNTER 2017-03-01 23:52 | Emergency (ER) | payer MEDICARE, OTHER ==
[2017-03-02 00:01] VITALS: BMI 39.0
[2017-03-02 00:09] VITALS: RESP 16; TEMP 97.7
[2017-03-02] MEDS ORDERED: Sodium Chloride 0.9% 500 ML IV STA (01:30)
--- NOTE | 2017-03-02 01:36 | ED PDOC ---
Arrival/HPI <Marielos Hernandez PA-C - Last Filed: 03/02/17 03:01> - General Historian: Patient - History of Present Illness Time/Duration: 4-6 hours Symptom Onset: Sudden Symptom Course: Unchanged Activities at Onset: Light Context: Standing, Home <Alfredo Velarde - Last Filed: 03/02/17 05:05> <Muna Burk - Last Filed: 03/04/17 16:44> - General Chief Complaint: Trauma Time Seen by Provider: 03/02/17 00:18 - History of Present Illness Narrative History of Present Illness (Text): 03/02/17 01:15 Isha Fernandes is a 57 year old female, whose past medical history includes seizure disorder, neuropathy, cholecystectomy, appendectomy, hysterectomy, diabetes, and anemia, presents to the emergency department complaining of a possible seizure episode today. Patient reports she was watching TV and when she stood up , her feet got tangled up, and she passed out. She states having pain on her right ribs and injuring her left knee. Patient notes she woke up three hours later on the floor, she lives alone, and is compliant with her Keppra and Lamictal medication. She also states her seizures are inconsistent since sometimes it appears twice a month, while other times it may go away for months. Patient denies any chest pain, shortness of breath, headache, nausea, vomiting, diarrhea, fever, chills, cough, visual changes, tongue biting, bowel/ bladder incontinence or head injury. Neurologist: Dr. Gracia (Alfredo Velarde) Associated Symptoms (Text): right rib pain and left knee pain (Alfredo Velarde) Past Medical History - Provider Review Nursing Documentation Reviewed: Yes - Infectious Disease Hx of Infectious Diseases: None - Tetanus Immunization Tetanus Immunization: Unknown - Cardiac Hx Cardiac Disorders: Yes (ACS) Hx Hypertension: Yes - Pulmonary Hx Chronic Obstructive Pulmonary Disease (COPD): Yes - Neurological Hx Neurological Disorder: Yes (syncope) Hx Dizziness: Yes Hx Seizures: Yes - HEENT Other/Comment: wears glasses - Renal Hx Renal Disorder: No - Endocrine/Metabolic Hx Diabetes Mellitus Type 2: Yes - Hematological/Oncological Hx Blood Disorders: Yes Hx Anemia: Yes - Integumentary Hx Dermatological Disorder: No - Musculoskeletal/Rheumatological Hx Arthritis: Yes - Gastrointestinal Hx Gastrointestinal Disorders: Yes (mild gastritis, obese) Hx Gall Bladder Disease: Yes (CHOLECYSTITIS ,CHOLECYSTECTOMY,MILD GASTRITIS) Hx Gastroesophageal Reflux: Yes - Genitourinary/Gynecological Hx Genitourinary Disorders: Yes (URGENCY FREQUENCY) Hx Urinary Tract Infection: Yes Other/Comment: fibroids, hysterectomy - Psychiatric Hx Psychophysiologic Disorder: Yes (schizoid personality disorder) Hx Anxiety: Yes Hx Panic Disorder: Yes Hx Schizophrenia: Yes Hx Substance Use: No - Surgical History Hx Appendectomy: Yes Hx Cholecystectomy: Yes Hx Hysterectomy: Yes - Anesthesia Hx Anesthesia: Yes Hx Anesthesia Reactions: No Hx Malignant Hyperthermia: No - Suicidal Assessment Feels Threatened In Home Enviroment: No <Alfredo Velarde - Last Filed: 03/02/17 05:05> Family/Social History - Physician Review Nursing Documentation Reviewed: Yes Family/Social History: Unknown Family HX Smoking Status: Never Smoked Hx Alcohol Use: No Hx Substance Use: No Hx Substance Use Treatment: No <Alfredo Velarde - Last Filed: 03/02/17 05:05> Allergies/Home Meds <Marielos Hernandez PA-C - Last Filed: 03/02/17 03:01> <Alfredo Velarde - Last Filed: 03/02/17 05:05> <Muna Burk - Last Filed: 03/04/17 16:44> Allergies/Adverse Reactions: Allergies Penicillins Allergy (Verified 03/02/17 00:03) ITCHING Home Medications: Home Meds Medication Instructions Recorded Confirmed DULoxetine [Cymbalta] 60 mg PO DAILY 02/14/17 03/02/17 Levetiracetam [Keppra] 750 mg PO BID 02/14/17 03/02/17 Meclizine [Antivert] 12.5 mg PO TID 02/14/17 03/02/17 Pantoprazole Sodium [Protonix] 40 mg PO 0600 02/14/17 03/02/17 Tramadol HCl [Ultram] 50 mg PO QID PRN 02/14/17 03/02/17 Zolpidem [Ambien] 5 mg PO HS 02/14/17 03/02/17 cloZAPine [Clozapine] 200 mg PO BID 02/14/17 03/02/17 lamoTRIgine [LaMICtal] 100 mg PO BID 02/14/17 03/02/17 Review of Systems - Review of Systems Constitutional: absent: Fevers Respiratory: absent: SOB Cardiovascular: absent: Chest Pain Gastrointestinal: absent: Abdominal Pain Genitourinary Female: absent: Dysuria Musculoskeletal: Other (right rib pain and left knee pain) Neurological: Seizure (possible). absent: Headache <Alfredo Velarde - Last Filed: 03/02/17 05:05> Physical Exam Vital Signs Reviewed: Yes Temperature: Afebrile Blood Pressure: Normal Pulse: Regular Respiratory Rate: Normal Appearance: Positive for: Well-Appearing, Non-Toxic, Comfortable Pain Distress: None Mental Status: Positive for: Alert and Oriented X 3 - Systems Exam Head: Present: Atraumatic, Normocephalic Pupils: Present: PERRL Extroacular Muscles: Present: EOMI Conjunctiva: Present: Normal Mouth: Present: Moist Mucous Membranes Neck: Present: Normal Range of Motion Respiratory/Chest: Present: Clear to Auscultation, Good Air Exchange. No: Respiratory Distress, Accessory Muscle Use Cardiovascular: Present: Regular Rate and Rhythm, Normal S1, S2. No: Murmurs Abdomen: Present: Normal Bowel Sounds. No: Tenderness, Distention, Peritoneal Signs Back: Present: Normal Inspection Upper Extremity: Present: Tenderness ((+) tenderness and ecchymosis on right anterior lower ribs). No: Cyanosis, Edema Lower Extremity: Present: Normal ROM, Tenderness (tenderness left leg). No: Edema Neurological: Present: GCS=15, CN II-XII Intact, Speech Normal Skin: Present: Warm, Dry, Normal Color. No: Rashes Psychiatric: Present: Alert, Oriented x 3, Normal Insight, Normal Concentration <Alfredo Velarde - Last Filed: 03/02/17 05:05> Medical Decision Making - Lab Interpretations I have reviewed the lab results: Yes (Pt noted to have a UTI. Given bactrim ds po. ) <Marielos Hernandez PA-C - Last Filed: 03/02/17 03:01> - Lab Interpretations I have reviewed the lab results: Yes (Will d/c on macrobid for UTI) <Alfredo Velarde - Last Filed: 03/02/17 05:05> <Muna Burk - Last Filed: 03/04/17 16:44> ED Course and Treatment: 03/02/17 01:15 Impression: 57 year old female with possible seizure episode. Right rib pain and left knee pain. Plan: -- CT Head without contrast -- EKG -- Left knee x-ray -- Right ribs x-ray -- Labs -- Urinalysis -- Sodium Chloride -- Reassess and disposition Progress Notes: 03/02/17 05:01 Imaging is unremarkable. Labs with unremarkable blood work and urine shows UTI - will d/c on macrobid and continuing other meds and f/u pmd. (Alfredo Velarde) 03/04/17 16:42 Addendum: I left a voice message on patient's cellphone to call [facility] to review lab test. Patient has a positive urine Cx. resistant to Macrobid. Patient needs a new prescription for Keflex, Bactrim or Cipro (Burk,Nahim P) - Lab Interpretations Microbiology Results: Microbiology Results 03/02/17 02:05 Urine Urine Culture - Final Proteus Mirabilis Lab Results: 03/02/17 02:15 03/02/17 02:15 Lab Results 03/02/17 02:15: Sodium 143, Potassium 3.5 L, Chloride 105, Carbon Dioxide 25, Anion Gap 17, BUN 14, Creatinine 1.3, Est GFR ( Amer) 51, Est GFR (Non- Af Amer) 43, Random Glucose 114 H, Calcium 9.4, Total Bilirubin 0.3, AST 47 H, ALT 88 H, Alkaline Phosphatase 98, Total Creatine Kinase 35, Total Protein 7.1, Albumin 4.4, Globulin 2.7, Albumin/Globulin Ratio 1.6 03/02/17 02:15: WBC 5.8 D, RBC 4.22, Hgb 12.7, Hct 37.8, MCV 89.6, MCH 30.1, MCHC 33.6, RDW 13.7, Plt Count 111 L, MPV 8.9, Gran % 66.3, Lymph % (Auto) 27.4 , [place] % (Auto) 4.6, Eos % (Auto) 1.5, Baso % (Auto) 0.2, Gran # 3.86, Lymph # 1.6, [place] # 0.3, Eos # 0.1, Baso # 0.01 03/02/17 02:10: POC Glucose (mg/dL) 127 H 03/02/17 02:05: Urine Color Yellow, Urine Appearance Sl cloudy, Urine pH 6.5, Ur Specific [place] <= 1.005, Urine Protein Negative, Urine Glucose (UA) Negative, Urine Ketones Negative, Urine Blood Trace-lysed H, Urine Nitrate Negative, Urine Bilirubin Negative, Urine Urobilinogen 0.2, Ur Leukocyte Esterase Large H, Urine RBC 0 - 2, Urine WBC 10 - 15, Ur Epithelial Cells 1 - 3 , Urine Bacteria Few - RAD Interpretation Narrative RAD Interpretations (Text): 03/02/17 03:02 XR R ribs : (-) fracture, (-) pneumothorax, as read by PA XR L knee : (-) fracture, as read by PA (David DOLAN,Marielos Johnson) Radiology Orders: 03/02/17 00:19 KNEE LEFT 2 VIEWS (AP & LAT) [RAD] Stat RIBS RIGHT & PA CHEST [RAD] Stat 03/02/17 01:30 HEAD W/O CONTRAST [CT] Stat - Medication Orders Current Medication Orders: Discontinued Medications Acetaminophen (Tylenol 325mg Tab) 975 mg PO STAT STA Stop: 03/02/17 02:18 Last Admin: 03/02/17 02:45 Dose: 975 mg Re-Assess: ASHLEY Pain/Vitals Document 03/02/17 03:45 YP (Rec: 03/02/17 05:25 YP [id number]) Pain Reassessment Is This A Pain ReAssessment? Yes Sleep Is patient sleeping during reassessment? No Presence of Pain Presence of Pain Yes Sodium Chloride (Sodium Chloride 0.9%) 500 mls @ 1,000 mls/hr IV .Q30M STA Stop: 03/02/17 01:59 Last Admin: 03/02/17 02:47 Dose: Ketorolac Tromethamine (Toradol) 30 mg IM STAT STA Stop: 03/02/17 05:28 Last Admin: 03/02/17 05:45 Dose: 30 mg Nitrofurantoin Macrocrystals (Macrobid) 100 mg PO ONCE STA Stop: 03/02/17 04:59 Last Admin: 03/02/17 05:45 Dose: 100 mg Trimethoprim/Sulfamethoxazole (Bactrim Ds Tab) 1 tab PO STAT STA PRN Reason: Protocol Stop: 03/02/17 03:02 Last Admin: 03/02/17 03:41 Dose: 1 tab <Marielos Hernandez PA-C - Last Filed: 03/02/17 03:01> - PA / PROCESS ENGINEERING INTERN / Resident Statement / has reviewed & agrees with the documentation as recorded. / has examined the patient and agrees with the treatment plan. - Scribe Statement The provider has reviewed the documentation as recorded by the Scribe <Alfredo Velarde - Last Filed: 03/02/17 05:05> <Muna Burk - Last Filed: 03/04/17 16:44> - Scribe Statement 03/02/2017 Laila Rolle Provider Scribe Attestation: All medical record entries made by the Scribe were at my direction and personally dictated by me. I have reviewed the chart and agree that the record accurately reflects my personal performance of the history, physical exam, medical decision making, and the department course for this patient. I have also personally directed, reviewed, and agree with the discharge instructions and disposition. (Alfredo Velarde) Disposition/Present on Arrival <Marielos Hernandez PA-C - Last Filed: 03/02/17 03:01> - Present on Arrival Any Indicators Present on Arrival: Yes History of DVT/PE: No History of Uncontrolled Diabetes: Yes Urinary Catheter: No History of Decub. Ulcer: No History Surgical Site Infection Following: None - Disposition Have Diagnosis and Disposition been Completed?: Yes Disposition Time: 05:00 Patient Plan: Discharge <Alfredo Velarde - Last Filed: 03/02/17 05:05> <Muna Burk - Last Filed: 03/04/17 16:44> - Disposition Diagnosis: Urinary tract infection, Seizure Disposition: HOME/ ROUTINE Condition: GOOD Additional Instructions: Continue your regular medications. Drink plenty of fluids. Take the antibiotics as prescribed and naprosyn for pain. Follow up with your primary care doctor. Return to the emergency department if any new concerning symptoms. Prescriptions: Naproxen [Naprosyn Tab] 1 tab PO BID PRN #14 tab PRN Reason: Pain, Moderate (4-7) Nitrofurantoin Macrocrystals [Macrobid] 100 mg PO BID #14 cap Referrals: Suczewski,Edward J, MD [Primary Care Provider] - Follow up with primary Forms: [employer] (Maldivian)
[2017-03-02 02:26] LABS: PH,URINE 6.5 (4.7-8.0); URINE BILIRUBIN NEGATIVE (NEGATIVE); URINE BLOOD TRACE-LYSED (NEGATIVE); URINE GLUCOSE (UA) NEGATIVE (NEGATIVE); URINE KETONE NEGATIVE (NEGATIVE); URINE LEUKOCYTE ESTERASE LARGE Leu/uL (NEGATIVE); URINE PROTEIN NEGATIVE mg/dL (<30 mg/dL); URINE UROBILINOGEN 0.2 E.U./dL (<1 E.U./dL)
[2017-03-02 02:28] LABS: URINE APPEARANCE SL CLOUDY (CLEAR); URINE COLOR YELLOW (YELLOW)
[2017-03-02 02:36] LABS: BASO # 0.01 K/mm3 (0.0-2.0); BASO % 0.2 % (0.0-3.0); EOS # 0.1 (0.0-0.7); EOS % 1.5 % (1.5-5.0); GRAN # 3.86 (1.4-6.5); GRAN % 66.3 % (50.0-68.0); HEMATOCRIT 37.8 % (36.0-48.0); LYMPH # 1.6 (1.2-3.4); LYMPH % 27.4 % (22.0-35.0); MEAN CELL VOLUME 89.6 fl (80.0-105.0); MEAN CORPUSCULAR HEMOGLOBIN 30.1 pg (25.0-35.0); MEAN CORPUSCULAR HGB CONC 33.6 g/dl (31.0-37.0); MEAN PLATELET VOLUME 8.9 fl (7.0-11.0); MONO # 0.3 (0.1-0.6); MONO % 4.6 % (1.0-6.0); RED CELL DISTRIBUTION WIDTH 13.7 % (11.5-14.5); WHITE BLOOD COUNT 5.8 10^3/ul (4.5-11.0)
[2017-03-02 02:37] LABS: URINE BACTERIA FEW (NEG); URINE RBC 0 - 2 /hpf (0-2)
[2017-03-02 02:48] LABS: ALB/GLOB RATIO 1.6 (1.1-1.8); BILIRUBIN,TOTAL 0.3 mg/dL (0.2-1.3); CALCIUM 9.4 mg/dL (8.4-10.5); POTASSIUM 3.5 mmol/L (3.6-5.0); TOTAL PROTEIN 7.1 g/dL (5.8-8.3)
[2017-03-02] MEDS ORDERED: Tmp-Smz 800 mg-160 mg DS Tab PO STA (03:01)
[2017-03-02 05:51] VITALS: BP 123/62; PULSE 75; O2SAT 99
--- NOTE | 2017-03-02 07:53 | RAD ---
PROCEDURE: Radiographs of the Chest and Right Ribs. HISTORY: pain COMPARISON: 02/12/2017 TECHNIQUE: Frontal radiograph of the chest and multiple oblique radiographs of the right ribs were obtained. FINDINGS: RIGHT RIBS: On 1 image minimal bulbous contour to the right 7th inferior rib cortex is raised. No fracture line here is noted. The possibility of some minimal callus formation from a subacute or chronic fracture here is possible. Thoracic spondylosis LUNGS: No dense consolidation noted. There is trace opacity probable trace pleural parenchymal thickening right mid lung zone laterally between 5th and 6th ribs. PLEURA: No pneumothorax or pleural fluid. CARDIOVASCULAR: Normal sized heart. No pulmonary vascular congestion. OTHER FINDINGS: Electronic cardiac rhythm monitor in place IMPRESSION: Rib fractures or pneumothorax or pleural effusion appreciated. The minimal bulbous prominence to the right inferior 7th rib cortex may represent a subacute to chronic rib fracture with healing here. Trace right pleural parenchymal thickening lateral right mid lung zone - subtle not appreciated on prior study
--- NOTE | 2017-03-02 07:56 | RAD ---
PROCEDURE: Left Knee Radiographs. HISTORY: Pain. COMPARISON: None. FINDINGS: BONES: Normal. No fracture. JOINTS: Minimal osteoarthritis. Tibial spine spurring JOINT EFFUSION: None. OTHER FINDINGS: Calcified superficial phleboliths noted. Mild subcutaneous reticulated edema mostly lower leg and more pronounced anterolateral IMPRESSION: No fracture. Minimal osteoarthrosis Superficial subcutaneous phleboliths. Minimal reticulated subcutaneous edema
--- NOTE | 2017-03-02 08:50 | CT ---
PROCEDURE: CT HEAD WITHOUT CONTRAST. HISTORY: syncope COMPARISON: 02/12/2017 TECHNIQUE: Axial computed tomography images were obtained through the head/brain without intravenous contrast. Radiation dose: Total exam DLP = 725 mGy-cm. This CT exam was performed using one or more of the following dose reduction techniques: Automated exposure control, adjustment of the mA and/or kV according to patient size, and/or use of iterative reconstruction technique. FINDINGS: HEMORRHAGE: No intracranial hemorrhage. BRAIN: No mass effect or edema. No atrophy or chronic microvascular ischemic changes. VENTRICLES: Unremarkable. No hydrocephalus. CALVARIUM: Unremarkable. PARANASAL SINUSES: Unremarkable as visualized. No significant inflammatory changes. MASTOID AIR CELLS: Unremarkable as visualized. No inflammatory changes. OTHER FINDINGS: The report concurs with the preliminary [facility] report IMPRESSION: No acute findings
--- NOTE | 2017-03-02 19:29 | CARD ---
APPROVED REPORT EKG Measurement Heart [id number] [id number] <Conclusion> Normal sinus rhythm Minimal voltage criteria for LVH, may be normal variant Cannot rule out Anterior infarct, age undetermined Abnormal ECG
== END 2017-03-02 05:50 | disposition home or self-care (01) ==
LOC: ED 23:52
DX: N39.0 Urinary tract infection, site not specified (principal); R56.9 Unspecified convulsions
CPT/HCPCS: 70450; 71101; 73560; 80053; 81001; 82550; 82948; 85025; 87086; 93005; 96372; 99285; J1885

== ENCOUNTER 2017-04-10 01:31 | Emergency (ER) | payer MEDICARE, OTHER ==
[2017-04-10 01:31] VITALS: BMI 39.0
[2017-04-10 01:54] VITALS: TEMP 98.3
--- NOTE | 2017-04-10 03:52 | ED PDOC ---
Arrival/HPI - General Historian: Patient - History of Present Illness Time/Duration: Prior to Arrival Symptom Onset: Sudden Symptom Course: Unchanged Quality: Aching Severity Level: Severe Activities at Onset: Rest Context: Walking, Street, Tripped <ANN VALENTINO - Last Filed: 04/10/17 05:05> <Aldo Alvarez - Last Filed: 04/10/17 06:26> - General Chief Complaint: Lower Extremity Problem/Injury Time Seen by Provider: 04/10/17 02:31 - History of Present Illness Narrative History of Present Illness (Text): 04/10/17 03:42 57yo F presents after she turned her L ankle off the curb. Pt denies falling, head trauma, LOC, numbness/tingling in either LE. (ANN VALENTINO) Past Medical History - Provider Review Nursing Documentation Reviewed: Yes - Past History Past History: Non-Contributing - Infectious Disease Hx of Infectious Diseases: None - Tetanus Immunization Tetanus Immunization: Unknown - Past Medical History Past Medical History: Non-Contributing - Cardiac Hx Cardiac Disorders: Yes (ACS) Hx Hypertension: Yes - Pulmonary Hx Chronic Obstructive Pulmonary Disease (COPD): Yes - Neurological Hx Neurological Disorder: Yes (syncope) Hx Dizziness: Yes Hx Seizures: Yes - HEENT Other/Comment: wears glasses - Renal Hx Renal Disorder: No - Endocrine/Metabolic Hx Diabetes Mellitus Type 2: Yes - Hematological/Oncological Hx Blood Disorders: Yes Hx Anemia: Yes - Integumentary Hx Dermatological Disorder: No - Musculoskeletal/Rheumatological Hx Arthritis: Yes - Gastrointestinal Hx Gastrointestinal Disorders: Yes (mild gastritis, obese) Hx Gall Bladder Disease: Yes (CHOLECYSTITIS ,CHOLECYSTECTOMY,MILD GASTRITIS) Hx Gastroesophageal Reflux: Yes - Genitourinary/Gynecological Hx Genitourinary Disorders: Yes (URGENCY FREQUENCY) Hx Urinary Tract Infection: Yes Other/Comment: fibroids, hysterectomy - Psychiatric Hx Psychophysiologic Disorder: Yes (schizoid personality disorder) Hx Anxiety: Yes Hx Panic Disorder: Yes Hx Schizophrenia: Yes Hx Substance Use: No - Surgical History Hx Appendectomy: Yes Hx Cholecystectomy: Yes Hx Hysterectomy: Yes - Anesthesia Hx Anesthesia: Yes Hx Anesthesia Reactions: No Hx Malignant Hyperthermia: No - Suicidal Assessment Feels Threatened In Home Enviroment: No <ANN VALENTINO - Last Filed: 04/10/17 05:05> Family/Social History - Physician Review Nursing Documentation Reviewed: Yes Family/Social History: No Known Family HX Smoking Status: Never Smoked Hx Alcohol Use: No Hx Substance Use: No Hx Substance Use Treatment: No <ANN VALENTINO - Last Filed: 04/10/17 05:05> Allergies/Home Meds <CHICHOANN ALVAREZ - Last Filed: 04/10/17 05:05> <Aldo Alvarez - Last Filed: 04/10/17 06:26> Allergies/Adverse Reactions: Allergies Penicillins Allergy (Verified 03/02/17 00:03) ITCHING Home Medications: Home Meds Medication Instructions Recorded Confirmed DULoxetine [Cymbalta] 60 mg PO DAILY 02/14/17 04/10/17 Levetiracetam [Keppra] 750 mg PO DAILY 02/14/17 04/10/17 Meclizine [Antivert] 12.5 mg PO TID 02/14/17 04/10/17 Pantoprazole Sodium [Protonix] 40 mg PO 0600 02/14/17 04/10/17 Tramadol HCl [Ultram] 50 mg PO QID PRN 02/14/17 04/10/17 Zolpidem [Ambien] 5 mg PO HS 02/14/17 04/10/17 cloZAPine [Clozapine] 200 mg PO BID 02/14/17 04/10/17 lamoTRIgine [LaMICtal] 100 mg PO BID 02/14/17 04/10/17 Levetiracetam [Keppra] 1,500 mg PO HS 04/10/17 04/10/17 Review of Systems - Physician Review All systems were reviewed & negative as marked: Yes - Review of Systems Constitutional: Normal Musculoskeletal: Other (L ankle pain (posterior calcaneus)) Neurological: Normal. absent: Headache, Dizziness <ANN VALENTINO - Last Filed: 04/10/17 05:05> Physical Exam Vital Signs Reviewed: Yes Appearance: Positive for: Well-Appearing Pain Distress: None Mental Status: Positive for: Alert and Oriented X 3 - Systems Exam Head: Present: Atraumatic, Normocephalic Pupils: Present: PERRL Extroacular Muscles: Present: EOMI Conjunctiva: Present: Normal Mouth: Present: Moist Mucous Membranes Respiratory/Chest: Present: Clear to Auscultation, Good Air Exchange Cardiovascular: Present: Regular Rate and Rhythm, Normal S1, S2 Abdomen: Present: Normal Bowel Sounds. No: Tenderness, Distention Back: Present: Normal Inspection. No: Midline Tenderness Upper Extremity: Present: Normal Inspection. No: Edema Lower Extremity: Present: Normal Inspection, NORMAL PULSES, Tenderness ( posterior L calcaneus), Swelling (mild swelling L ankle), Neurovascularly Intact , Other (Kolb Test normal ). No: Edema, CALF TENDERNESS, Normal ROM (L ankle flexion/extension limited due to pain), Erythema, Deformity Neurological: Present: CN II-XII Intact, Speech Normal Skin: Present: Warm, Dry Psychiatric: Present: Alert, Oriented x 3 <ANN VALENTINO - Last Filed: 04/10/17 05:05> Temperature: Afebrile Blood Pressure: Normal Pulse: Regular Respiratory Rate: Normal <Aldo Alvarez - Last Filed: 04/10/17 06:26> Vital Signs Temp Pulse Resp BP Pulse Ox 04/10/17 04:13 85 16 135/70 97 04/10/17 01:54 98.3 F 90 18 132/93 H 99 Medical Decision Making Reassessment Condition: Re-examined, Improved <ANN VALENTINO - Last Filed: 04/10/17 05:05> <Aldo Alvarez - Last Filed: 04/10/17 06:26> ED Course and Treatment: 04/10/17 03:56 Impression: 57yo F presents with L ankle sprain Plan: - Reassess and disposition - XRay L ankle Progress Notes: 04/10/17 04:46 pt's L ankle was wrapped with MAYA bandage and ice applied. pt states that her pain has improved with Motrin and requires a script. educated about follow up with PMD (DR. Garza) (ANN VALENTINO) 04/10/17 05:08 Pt. seen and evaluated with general medical practitioner.Agree with HPI,clinical findings, treatment and disposition 04/10/17 06:25 Patient Seen With Resident: In agreement with resident note which contains more details about the patient. Patient was seen and evaluated with resident. Came up with plan and treatment together. 57 year old female presents complaining of left twisted ankle. (Aldo Alvarez) - RAD Interpretation Radiology Orders: 04/10/17 02:50 ANKLE LEFT 3 VIEWS ROUTINE [RAD] Stat - Medication Orders Current Medication Orders: Discontinued Medications Ibuprofen (Motrin Tab) 800 mg PO STAT STA Stop: 04/10/17 02:59 Last Admin: 04/10/17 03:27 Dose: 800 mg MAR Pain/Vitals Document 04/10/17 03:27 [email or web address] (Rec: 04/10/17 03:27 [email or web address] [facility] [place]-[id number]) Pain Reassessment Is This A Pain ReAssessment? No Sleep Is patient sleeping during reassessment? No Presence of Pain Presence of Pain Yes Pain Scale Used Pain Scale Used Numeric Location Left, Right or Bilateral Left Pain Location Body Site Ankle Description Constant Intensity 7 Scale Used Numeric Pain Behavior Facial Grimacing Aggravating Factors Changing Position Alleviating Factors Medication <ANN VALENTINO - Last Filed: 04/10/17 05:05> - PA / HOTEL RESERVATIONIST / Resident Statement MD/ has reviewed & agrees with the documentation as recorded. MD/DO has examined the patient and agrees with the treatment plan. - Scribe Statement The provider has reviewed the documentation as recorded by the Scribe <Aldo Alvarez - Last Filed: 04/10/17 06:26> - Scribe Statement Anu Posey Provider Scribe Attestation: All medical record entries made by the Scribe were at my direction and personally dictated by me. I have reviewed the chart and agree that the record accurately reflects my personal performance of the history, physical exam, medical decision making, and the department course for this patient. I have also personally directed, reviewed, and agree with the discharge instructions and disposition. (Aldo Alvarez) Disposition/Present on Arrival - Present on Arrival Any Indicators Present on Arrival: No History of DVT/PE: No History of Uncontrolled Diabetes: Yes Urinary Catheter: No History of Decub. Ulcer: No History Surgical Site Infection Following: None - Disposition Have Diagnosis and Disposition been Completed?: Yes Disposition Time: 04:48 Patient Plan: Discharge <ANN VALENTINO - Last Filed: 04/10/17 05:05> <Aldo Alvarez - Last Filed: 04/10/17 06:26> - Disposition Diagnosis: Left ankle sprain Disposition: HOME/ ROUTINE Condition: GOOD Discharge Instructions (ExitCare): Ankle Sprain (ED) Additional Instructions: - please take your Motrin if needed for pain - please use the crutches for assistance with mobilization - please follow up with Dr. Garza - continue all your home meds - if you experience worsening pain, numbness/tingling please go to ER for workup Prescriptions: Ibuprofen [Motrin] 600 mg PO Q6H PRN #12 tab PRN Reason: Pain, Mild (1-3) Referrals: Tomas Garza MD [Staff Provider] - Follow up with primary Forms: [employer] (Tristanian)
[2017-04-10 04:15] VITALS: BP 135/70; PULSE 85; RESP 16; O2SAT 97
--- NOTE | 2017-04-10 10:49 | RAD ---
PROCEDURE: Left Ankle Radiographs. HISTORY: s/p ankle sprain COMPARISON: None FINDINGS: BONES: Normal. No fracture. JOINTS: Normal. No osteoarthritis. Ankle mortise maintained. Talar dome intact SOFT TISSUES: Normal. OTHER FINDINGS: None. IMPRESSION: Normal left ankle radiographs.
== END 2017-04-10 05:06 | disposition home or self-care (01) ==
LOC: ED 01:31
DX: S93.402A Sprain of unspecified ligament of left ankle, initial encounter (principal); X58.XXXA Exposure to other specified factors, initial encounter; Y92.89 Other specified places as the place of occurrence of the external cause; E11.9 Type 2 diabetes mellitus without complications; I10 Essential (primary) hypertension

== ENCOUNTER 2017-09-04 16:30 | Observation (INO) | payer MEDICARE, OTHER ==
[2017-09-04 16:31] VITALS: BMI 39.0
--- NOTE | 2017-09-04 16:45 | ED PDOC ---
Arrival/HPI - General Chief Complaint: Chest Pain Time Seen by Provider: 09/04/17 16:35 Historian: Patient, EMS - History of Present Illness Time/Duration: Prior to Arrival Symptom Onset: Sudden Symptom Course: Improving Quality: Aching Severity Level: Mild Activities at Onset: Rest Associated Symptoms (Text): 09/04/17 16:42 Patient reports that she was on the elevator at home when she suddenly became dizzy and developed chest pain. No nausea vomiting. Questionable syncope. No abdominal pain. No diaphoresis. Patient has had 16 CT scans of the head over the last 2 years. She was given aspirin by switch adjuster. No dyspnea. Past Medical History - Past History Past History: Non-Contributing - Infectious Disease Hx of Infectious Diseases: None - Tetanus Immunization Tetanus Immunization: Unknown - Past Medical History Past Medical History: Non-Contributing - Cardiac Hx Cardiac Disorders: Yes (ACS) Hx Hypertension: Yes - Pulmonary Hx Chronic Obstructive Pulmonary Disease (COPD): Yes - Neurological Hx Neurological Disorder: Yes (syncope) Hx Dizziness: Yes Hx Seizures: Yes - HEENT Other/Comment: wears glasses - Renal Hx Renal Disorder: No - Endocrine/Metabolic Hx Diabetes Mellitus Type 2: Yes - Hematological/Oncological Hx Blood Disorders: Yes Hx Anemia: Yes - Integumentary Hx Dermatological Disorder: No - Musculoskeletal/Rheumatological Hx Arthritis: Yes - Gastrointestinal Hx Gastrointestinal Disorders: Yes (mild gastritis, obese) Hx Gall Bladder Disease: Yes (CHOLECYSTITIS ,CHOLECYSTECTOMY,MILD GASTRITIS) Hx Gastroesophageal Reflux: Yes - Genitourinary/Gynecological Hx Genitourinary Disorders: Yes (URGENCY FREQUENCY) Hx Urinary Tract Infection: Yes Other/Comment: fibroids, hysterectomy - Psychiatric Hx Psychophysiologic Disorder: Yes (schizoid personality disorder) Hx Anxiety: Yes Hx Panic Disorder: Yes Hx Schizophrenia: Yes Hx Substance Use: No - Surgical History Hx Appendectomy: Yes Hx Cholecystectomy: Yes Hx Hysterectomy: Yes - Anesthesia Hx Anesthesia: Yes Hx Anesthesia Reactions: No Hx Malignant Hyperthermia: No - Suicidal Assessment Feels Threatened In Home Enviroment: No Family/Social History - Physician Review Nursing Documentation Reviewed: Yes Family/Social History: Unknown Family HX Smoking Status: Never Smoked Hx Alcohol Use: No Hx Substance Use: No Hx Substance Use Treatment: No Allergies/Home Meds Allergies/Adverse Reactions: Allergies Penicillins Allergy (Verified 09/04/17 17:09) ITCHING Home Medications: Home Meds Medication Instructions Recorded Confirmed DULoxetine [Cymbalta] 60 mg PO DAILY 02/14/17 09/04/17 Levetiracetam [Keppra] 750 mg PO DAILY 02/14/17 09/04/17 Meclizine [Antivert] 12.5 mg PO TID 02/14/17 09/04/17 Tramadol HCl [Ultram] 50 mg PO QID PRN 02/14/17 09/04/17 Zolpidem [Ambien] 5 mg PO HS 02/14/17 09/04/17 cloZAPine [Clozapine] 200 mg PO BID 02/14/17 09/04/17 lamoTRIgine [LaMICtal] 100 mg PO BID 02/14/17 09/04/17 Levetiracetam [Keppra] 1,500 mg PO HS 04/10/17 09/04/17 Review of Systems - Physician Review All systems were reviewed & negative as marked: Yes - Review of Systems Constitutional: Normal Respiratory: absent: SOB, Cough, Wheezing Cardiovascular: Chest Pain. absent: Palpitations Gastrointestinal: absent: Abdominal Pain, Nausea, Vomiting Neurological: absent: Headache, Dizziness, Focal Weakness, Gait Changes Physical Exam Vital Signs Temp Pulse Resp BP Pulse Ox 09/04/17 16:46 98.0 F 90 18 150/92 H 100 09/04/17 16:44 92 H 20 150/92 H 100 Temperature: Afebrile Blood Pressure: Normal Pulse: Regular Respiratory Rate: Normal Appearance: Positive for: Well-Appearing, Non-Toxic, Comfortable Pain Distress: None Mental Status: Positive for: Alert and Oriented X 3 - Systems Exam Head: Present: Atraumatic, Normocephalic Pupils: Present: PERRL Extroacular Muscles: Present: EOMI Conjunctiva: Present: Normal Mouth: Present: Moist Mucous Membranes Pharnyx: No: ERYTHEMA, EXUDATE, TONSILS ENLARGED Neck: Present: Normal Range of Motion Respiratory/Chest: Present: Clear to Auscultation, Good Air Exchange, Decreased Breath Sounds. No: Respiratory Distress, Accessory Muscle Use Cardiovascular: Present: Regular Rate and Rhythm, Normal S1, S2. No: Murmurs Abdomen: Present: Normal Bowel Sounds. No: Tenderness, Distention, Peritoneal Signs, Rebound, Guarding Upper Extremity: Present: Normal Inspection. No: Cyanosis, Edema Lower Extremity: Present: Normal Inspection. No: Edema Neurological: Present: GCS=15, CN II-XII Intact, Speech Normal, Motor Func Grossly Intact, Normal Cerebellar Funct Skin: Present: Warm, Dry, Normal Color. No: Rashes Psychiatric: Present: Alert, Oriented x 3, Normal Insight, Normal Concentration Medical Decision Making ED Course and Treatment: 09/04/17 16:44 EKG shows normal sinus rhythm rate approximately [address]-T wave changes similar to EKG of 03/02/2017 09/04/17 17:19 Chest X-ray reviewed by radiologist, shows no active pulmonary disease. 09/04/17 17:[address]T Garza, who will place on remote telemetry observation - Lab Interpretations Lab Results: 09/04/17 16:40 09/04/17 16:40 Lab Results 09/04/17 16:40: Sodium 142, Potassium 4.2, Chloride 104, Carbon Dioxide 22, Anion Gap 20, BUN 14, Creatinine 1.3 H, Est GFR ( Amer) 51, Est GFR (Non- Af Amer) 43, Random Glucose 260 H, Calcium 9.5, Total Bilirubin 0.4, AST 65 H, ALT 83 H, Alkaline Phosphatase 97, Lactate Dehydrogenase 432, Total Creatine Kinase 37, Troponin I < 0.01, Total Protein 6.9, Albumin 4.1, Globulin 2.9, Albumin/Globulin Ratio 1.4 09/04/17 16:40: WBC 4.2 L D, RBC 4.35, Hgb 12.9, Hct 39.6, MCV 91.0, MCH 29.7, MCHC 32.6, RDW 13.2, Plt Count 110 L, MPV 9.9, Gran % 70.9 H, Lymph % (Auto) 24.1, [place] % (Auto) 3.1, Eos % (Auto) 1.7, Baso % (Auto) 0.2, Gran # 2.94, Lymph # (Auto) 1.0 L, [place] # (Auto) 0.1, Eos # (Auto) 0.1, Baso # (Auto) 0.01 - RAD Interpretation Radiology Orders: 09/04/17 16:37 CHEST PORTABLE [RAD] Stat Chest one view shows no infiltrate effusion or cardiomegaly Steno Pool Supervisor: Radiologist Disposition/Present on Arrival - Present on Arrival Any Indicators Present on Arrival: No History of DVT/PE: No History of Uncontrolled Diabetes: Yes Urinary Catheter: No History of Decub. Ulcer: No History Surgical Site Infection Following: None - Disposition Have Diagnosis and Disposition been Completed?: Yes Diagnosis: Chest pain, Dizziness Disposition: HOSPITALIZED Disposition Time: 17:24 Patient Plan: Observation, Telemetry Patient Problems: Current Active Problems Problem Status Onset Chest pain Acute Dizziness Acute Condition: GOOD Discharge Instructions (ExitCare): Chest Pain (ED) Referrals: Tomas Garza MD [Primary Care Provider] - Follow up with primary Forms: [employer] (Burmese)
[2017-09-04 16:50] LABS: BASO # 0.01 K/mm3 (0.0-2.0); BASO % 0.2 % (0.0-3.0); EOS # 0.1 (0.0-0.7); EOS % 1.7 % (1.5-5.0); GRAN # 2.94 (1.4-6.5); GRAN % 70.9 % (50.0-68.0); HEMOGLOBIN 12.9 g/dL (12.0-16.0); LYMPH % 24.1 % (22.0-35.0); MEAN CORPUSCULAR HEMOGLOBIN 29.7 pg (25.0-35.0); MEAN CORPUSCULAR HGB CONC 32.6 g/dl (31.0-37.0); MEAN PLATELET VOLUME 9.9 fl (7.0-11.0); MONO # 0.1 (0.1-0.6); MONO % 3.1 % (1.0-6.0); RBC 4.35 10^6/uL (3.5-6.1); RED CELL DISTRIBUTION WIDTH 13.2 % (11.5-14.5); WHITE BLOOD COUNT 4.2 10^3/ul (4.5-11.0)
[2017-09-04 17:03] LABS: ALB/GLOB RATIO 1.4 (1.1-1.8); ALBUMIN 4.1 g/dL (3.0-4.8); ALT/SGPT 83 U/L (7-56); AST/SGOT 65 U/L (14-36); BLOOD UREA NITROGEN 14 mg/dL (7-21); CALCIUM 9.5 mg/dL (8.4-10.5); GFR AFRICAN-AMERICAN 51; GFR NON-AFRICAN AMERICAN 43
--- NOTE | 2017-09-04 17:15 | RAD ---
HISTORY: Chest pain COMPARISON: 03/02/2017. FINDINGS: LUNGS: The lungs are well inflated and clear. PLEURA: No significant pleural effusion identified, no pneumothorax apparent. CARDIOVASCULAR: Normal. OSSEOUS STRUCTURES: No significant abnormalities. VISUALIZED UPPER ABDOMEN: Normal. OTHER FINDINGS: None. IMPRESSION: No active pulmonary disease.
[2017-09-04 17:17] LABS: TROPONIN I < 0.01 ng/mL
[2017-09-04 18:41] VITALS: O2SAT 97
[2017-09-04] MEDS ORDERED: Atropine-Diphenoxylate 0.025-2.5 mg Tab PO PRN (19:42)
[2017-09-04] MEDS ORDERED: levETIRAcetam Solution 100 MG/ML BOTTLE PO SCH (22:00)
[2017-09-05 07:18] LABS: BASO # 0.02 K/mm3 (0.0-2.0); BASO % 0.4 % (0.0-3.0); EOS # 0.1 (0.0-0.7); EOS % 1.8 % (1.5-5.0); GRAN # 3.27 (1.4-6.5); GRAN % 57.5 % (50.0-68.0); HEMOGLOBIN 12.3 g/dL (12.0-16.0); LYMPH # 2.1 (1.2-3.4); LYMPH % 36.3 % (22.0-35.0); MEAN CELL VOLUME 90.5 fl (80.0-105.0); MEAN CORPUSCULAR HEMOGLOBIN 29.2 pg (25.0-35.0); MEAN CORPUSCULAR HGB CONC 32.3 g/dl (31.0-37.0); MEAN PLATELET VOLUME 9.8 fl (7.0-11.0); MONO # 0.2 (0.1-0.6); RBC 4.21 10^6/uL (3.5-6.1); RED CELL DISTRIBUTION WIDTH 13.2 % (11.5-14.5); WHITE BLOOD COUNT 5.7 10^3/ul (4.5-11.0)
[2017-09-05 07:36] LABS: TROPONIN I < 0.01 ng/mL
[2017-09-05 07:37] LABS: BLOOD UREA NITROGEN 17 mg/dL (7-21); CALCIUM 9.7 mg/dL (8.4-10.5); GFR AFRICAN-AMERICAN 51; GFR NON-AFRICAN AMERICAN 43
[2017-09-05 08:05] VITALS: BP 135/87; PULSE 75; RESP 20; TEMP 97.9
[2017-09-05] MEDS ORDERED: levETIRAcetam Solution 100 MG/ML BOTTLE PO SCH (10:00)
--- NOTE | 2017-09-05 15:01 | CARD ---
APPROVED REPORT EKG Measurement Heart [id number] <Conclusion> Normal sinus rhythm Cannot rule out Inferior infarct, age undetermined Possible Anterolateral infarct, age undetermined Prolonged QT Abnormal ECG
== END 2017-09-05 16:26 | disposition home or self-care (01) ==
LOC: ED 16:30 → ERH 17:25 → 3RSO 19:32
PROVIDERS: ADMIT Internal Medicine; ATTEND Internal Medicine
DX: R07.9 Chest pain, unspecified (principal); R42 Dizziness and giddiness; I10 Essential (primary) hypertension; J44.9 Chronic obstructive pulmonary disease, unspecified; E11.9 Type 2 diabetes mellitus without complications
CPT/HCPCS: 36415; 71045; 80048; 80053; 82550; 83615; 84484; 85025; 85651; 93005; 99283; G0378

== ENCOUNTER 2017-09-14 13:35 | Emergency (ER) | payer MEDICARE, OTHER ==
[2017-09-14 13:40] VITALS: BMI 39.0
[2017-09-14 13:59] VITALS: TEMP 97.5
--- NOTE | 2017-09-14 14:52 | RAD ---
PROCEDURE: Radiographs of the Right Forearm HISTORY: arm pain s/p trauma COMPARISON: None available. TECHNIQUE: Frontal and lateral views obtained. FINDINGS: BONES: No fracture or destructive lesion. JOINT SPACES: Unremarkable. OTHER FINDINGS: None. IMPRESSION: Unremarkable radiographs of the right forearm.
--- NOTE | 2017-09-14 14:53 | RAD ---
PROCEDURE: Right Wrist Radiographs. HISTORY: wrist pain s/p trauma COMPARISON: None. FINDINGS: BONES: Normal. No fracture. JOINTS: Normal. No dislocation. SOFT TISSUES: Normal. OTHER FINDINGS: None. IMPRESSION: Normal right wrist radiographs.
--- NOTE | 2017-09-14 15:00 | ED PDOC ---
Arrival/HPI - General Chief Complaint: Trauma Time Seen by Provider: 09/14/17 13:59 Historian: Patient - History of Present Illness Narrative History of Present Illness (Text): 09/14/17 14:56 57yo female present with right wrist/hand pain s/p trauma. States she slipped fell and landed on her right hand this morning. States that she did not take any analgesic. Denies focal weakness, paresthesia, any other complaint. Past Medical History - Provider Review Nursing Documentation Reviewed: Yes - Past History Past History: Non-Contributing - Infectious Disease Hx of Infectious Diseases: None - Tetanus Immunization Tetanus Immunization: Unknown - Past Medical History Past Medical History: Non-Contributing - Cardiac Hx Cardiac Disorders: Yes (ACS) Hx Hypertension: Yes Hx Peripheral Vascular Disease: (pt denies) Other/Comment: implantation of loop recorder by dr carlton 04/20/2016 left chest - Pulmonary Hx Asthma: Yes - Neurological Hx Neurological Disorder: Yes (syncope) Hx Dizziness: Yes Hx Seizures: Yes Other/Comment: pt denies neuropathy - HEENT Other/Comment: wears glasses - Renal Hx Renal Disorder: No - Endocrine/Metabolic Hx Diabetes Mellitus Type 2: Yes - Hematological/Oncological Hx Blood Disorders: Yes Hx Anemia: Yes - Integumentary Hx Dermatological Disorder: No - Musculoskeletal/Rheumatological Hx Falls: Yes (past and passed out in elevator today) - Gastrointestinal Hx Gastrointestinal Disorders: Yes (mild gastritis, obese) Hx Gall Bladder Disease: Yes (CHOLECYSTITIS ,CHOLECYSTECTOMY,MILD GASTRITIS) Hx Gastroesophageal Reflux: Yes Other/Comment: chronic diarrhea cause unknown by pt, chronic vomiting cause unknown by pt - Genitourinary/Gynecological Hx Genitourinary Disorders: Yes (URGENCY FREQUENCY) Hx Incontinence: Yes Hx Urinary Tract Infection: Yes (frequent) Other/Comment: fibroids, hysterectomy - Psychiatric Hx Psychophysiologic Disorder: Yes (schizoid personality disorder) Hx Anxiety: Yes Hx Panic Disorder: Yes Hx Schizophrenia: Yes Hx Substance Use: No Other/Comment: psychological counseling - Surgical History Hx Appendectomy: Yes Hx Cholecystectomy: Yes Hx Hysterectomy: Yes Other/Comment: implantation of loop recorder 04/20/[address] carlton left chest - Anesthesia Hx Anesthesia: Yes Hx Anesthesia Reactions: No Hx Malignant Hyperthermia: No - Suicidal Assessment Feels Threatened In Home Enviroment: No Family/Social History - Physician Review Nursing Documentation Reviewed: Yes Family/Social History: Unknown Family HX Smoking Status: Never Smoked Hx Alcohol Use: No Hx Substance Use: No Hx Substance Use Treatment: No Allergies/Home Meds Allergies/Adverse Reactions: Allergies Penicillins Allergy (Verified 09/14/17 14:00) ITCHING Review of Systems - Physician Review All systems were reviewed & negative as marked: Yes - Review of Systems Constitutional: Normal Eyes: Normal ENT: Normal Respiratory: Normal Cardiovascular: Normal Gastrointestinal: Normal Genitourinary Female: Normal Musculoskeletal: Arthralgias (Right forearm/wrist/hand pain) Skin: Normal Neurological: Normal Endocrine: Normal Hemo/Lymphatic: Normal Psychiatric: Normal Physical Exam Vital Signs Reviewed: Yes Vital Signs Temp Pulse Resp BP Pulse Ox 09/14/17 15:17 87 16 114/87 99 09/14/17 13:53 97.5 F L 95 H 18 110/71 98 Temperature: Afebrile Blood Pressure: Normal Pulse: Regular Respiratory Rate: Normal Appearance: Positive for: Well-Appearing, Non-Toxic, Comfortable Pain Distress: None Mental Status: Positive for: Alert and Oriented X 3 - Systems Exam Head: Present: Atraumatic, Normocephalic Pupils: Present: PERRL Extroacular Muscles: Present: EOMI Conjunctiva: Present: Normal Mouth: Present: Moist Mucous Membranes Neck: Present: Normal Range of Motion Respiratory/Chest: Present: Clear to Auscultation, Good Air Exchange. No: Respiratory Distress, Accessory Muscle Use Cardiovascular: Present: Regular Rate and Rhythm, Normal S1, S2. No: Murmurs Abdomen: Present: Normal Bowel Sounds. No: Tenderness, Distention, Peritoneal Signs Back: Present: Normal Inspection Upper Extremity: Present: Normal ROM, NORMAL PULSES, Tenderness (distal right forearm/wrist and hand), Neurovascularly Intact. No: Cyanosis, Edema, Swelling , Erythema, Deformity Lower Extremity: Present: Normal Inspection. No: Edema Neurological: Present: GCS=15, CN II-XII Intact, Speech Normal Skin: Present: Warm, Dry, Normal Color. No: Rashes Psychiatric: Present: Alert, Oriented x 3, Normal Insight, Normal Concentration Medical Decision Making ED Course and Treatment: 09/14/17 14:59 right forearm/wrist xray - No acute fracture Wrist volar brace placed. Result DW the pt. Referred to her PMD. Rx of Ibuprofen given - RAD Interpretation Radiology Orders: 09/14/17 14:17 FOREARM RIGHT [RAD] Stat WRIST, RIGHT 3 VIEWS [RAD] Stat - Medication Orders Current Medication Orders: Discontinued Medications Ibuprofen (Motrin Tab) 600 mg PO STAT STA Stop: 09/14/17 14:18 Last Admin: 09/14/17 15:16 Dose: 600 mg Disposition/Present on Arrival - Present on Arrival Any Indicators Present on Arrival: No History of DVT/PE: No History of Uncontrolled Diabetes: No Urinary Catheter: No History of Decub. Ulcer: No History Surgical Site Infection Following: None - Disposition Have Diagnosis and Disposition been Completed?: Yes Diagnosis: Arm pain, Wrist sprain Disposition: HOME/ ROUTINE Disposition Time: 15:00 Patient Plan: Discharge Condition: STABLE Discharge Instructions (ExitCare): Wrist Sprain (DC) Additional Instructions: Follow up with your doctor Apply ice and rest Return to ED for any new symptoms Prescriptions: Ibuprofen [Motrin Tab] 600 mg PO Q6 #20 tab Referrals: Tomas Garza MD [Primary Care Provider] - Follow up with primary Natalia Pulido MD [Staff Provider] - Follow up with primary Forms: HOSTEX (Maldivian)
[2017-09-14 15:21] VITALS: BP 114/87; PULSE 87; RESP 16; O2SAT 99
== END 2017-09-14 15:26 | disposition home or self-care (01) ==
LOC: ED 13:35
DX: S63.501A Unspecified sprain of right wrist, initial encounter (principal); W01.0XXA Fall on same level from slipping, tripping and stumbling without subsequent striking against object, initial encounter; E11.9 Type 2 diabetes mellitus without complications; I10 Essential (primary) hypertension

== ENCOUNTER 2017-11-02 10:53 | Day surgery (SDC) | payer MEDICARE, OTHER ==
[2017-11-02] MEDS ORDERED: Lidocaine 1% Inj (20ml) ONE (11:56)
[2017-11-02] MEDS ORDERED: Bupivacaine 0.5% Inj(30mL) ONE (11:56)
[2017-11-02] MEDS ORDERED: Midazolam 2 MG/2 ML VIAL ONE (12:14)
[2017-11-02] MEDS ORDERED: Propofol 10 mg/ml Inj (20 ML) ONE (12:14)
[2017-11-02] MEDS ORDERED: Bacitracin Ointment 30 GM TUBE ONE (12:34)
[2017-11-02] MEDS ORDERED: Oxycodone/Acetaminophen 5/325 mg Tab PO PRN (12:50)
--- NOTE | 2017-11-02 12:52 | PCM.SURG1 ---
Surgeon's Initial Post Op Note - Surgeon's Notes Surgeon: Dr. Fletcher Photo Studio Assistant: Syed Christine Type of Anesthesia: IV Sedation, Local Pre-Operative Diagnosis: b/l finger warts Operative Findings: multiple finger warts 3x3cm x8 b/l Post-Operative Diagnosis: Same Operation Performed: fulguration of finger warts Specimen/Specimens Removed: warts Estimated Blood Loss: EBL {In ML}: 5 Blood Products Given: N/A Drains Used: No Drains Post-Op Condition: Good Date of Surgery/Procedure: 11/02/17 Time of Surgery/Procedure: 12:52
[2017-11-02] MEDS ORDERED: Sodium Chloride 0.9% 1,000 ML IV SCH (13:00)
[2017-11-02 13:40] VITALS: RESP 18; TEMP 97.8
[2017-11-02 13:41] VITALS: BMI 39.0
[2017-11-02 14:18] VITALS: BP 145/94; PULSE 78; O2SAT 99
--- NOTE | 2017-11-08 20:13 | OP ---
PROCEDURE DATE: 11/02/2017 SURGEON: Ceferino Diaz MD. EXPANSION JOINT FINISHER: Marcell Solitario DO. HYDROCHLORIC ACID OPERATOR: Syed Christine DO, PGY-2. PREOPERATIVE DIAGNOSES: 1. Multiple hand verruca (eight). 2. Seizure disorder. 3. Schizophrenia. 4. Morbid obesity. POSTOPERATIVE DIAGNOSES: 1. Multiple hand verruca (eight). 2. Seizure disorder. 3. Schizophrenia. 4. Morbid obesity. PATHOLOGY: Pending. PROCEDURE: 11/02/2017, laser vaporization of eight warts of bilateral hands. OPERATIVE INDICATIONS: Patient is a 57-year-old female with eight significant warts on both hands, predominantly two fingers on the right and two on the left, with significant discomfort and prompting referral by her private physician, Dr. Tomas Garza, for surgical recommendation. This particular individual was advised that laser vaporization gives the best result with the least amount of discomfort as the amount of local anesthesia required might be too painful for this individual. With this in mind and explaining the risks, the benefits, and their alternatives, the patient signed the informed consent. OPERATIVE NOTE: The patient was brought to the operating room from the same-day surgery holding area. She underwent time-out procedure, was identified by her wrist band, was placed on the operative table in the supine manner. Following significant sedation and monitoring anesthesia, the bilateral hands were prepped with Betadine and she is aseptically draped and the fingers involved on both hands are digitally blocked by the operating surgeon using bupivacaine 0.5%. The hands were reprepped. The area is now allowed to dry and aseptically draped. The carbon dioxide laser set at 10 gomez continuous was utilized to laser vaporize the lesions on each hand excising a significant portion of one for pathologic confirmation. Defocusing the laser was employed and hemostasis was contained and careful examination fails to reveal any further infectious component or residual of the verruca. Once both hands were completely done, bacitracin was applied to the sites and large Band-Aid placed over the same. The patient was awakened and transported to the recovery room in a satisfactory condition. Sponge, instrument, and suture count were verified as correct at the end of the procedure. The hand frame surgical elastic knitter was present throughout from beginning to end and was exceptionally helpful in helping with the removal of all the infectious warts. This dictation will be electronically signed without being read. Ceferino Diaz MD
== END 2017-11-02 15:00 | disposition home or self-care (01) ==
LOC: SDS 10:53
PROVIDERS: ATTEND Surgery
DX: B07.8 Other viral warts (principal); J43.9 Emphysema, unspecified; K21.9 Gastro-esophageal reflux disease without esophagitis; Z88.0 Allergy status to penicillin; E66.01 Morbid (severe) obesity due to excess calories; F20.9 Schizophrenia, unspecified; G40.909 Epilepsy, unspecified, not intractable, without status epilepticus; Z68.37 Body mass index [BMI] 37.0-37.9, adult
CPT/HCPCS: 17110; J2250; J2704; J3010; J7040; J7120

== ENCOUNTER 2017-12-08 11:17 | Inpatient (IN) | payer MEDICARE, OTHER ==
--- NOTE | 2017-12-08 12:10 | ED PDOC ---
Arrival/HPI <Jabari Coleman - Last Filed: 12/08/17 14:00> <Ana Waddell - Last Filed: 12/08/17 14:20> - General Chief Complaint: Syncope Time Seen by Provider: 12/08/17 11:21 - History of Present Illness Narrative History of Present Illness (Text): 12/08/17 12:02 Patient is a 57 year old female with an extensive past medical history including seizures, syncopal episodes, and chronic vomiting and diarrhea, who presents to the ED for syncopal episode. Patient says she was vomiting today and stood up, hitting her head on the wall in front of her then passing out. Patiemt says she remembers waking up laying on the floor and remembers everything leading up to loss of consciousness. Patient says she was alone when this happened but she told someone where she lives about it and they told her to go the the ER. Patient says this happens often and she had a monitoring tech placed by Dr. Turpin to look for cardiac causes. Patient admits to dizziness, SOB , dysuria, and frequency. She denies any fever, chills, headache, changes in vision/hearing, focal weakness, chest pain, palpitations, abdominal pain, back/ neck pain, and extremity pain. Of note, patient has had about 16 head CTs in the past 2 years, 5 of those being within the past year. They have been negative to date. Also, according to EMR, patient has a history of psychological issues and possible pseudoseizures. (Ana Waddell) Past Medical History - Past History Past History: Non-Contributing - Infectious Disease Hx of Infectious Diseases: None - Tetanus Immunization Tetanus Immunization: Unknown - Past Medical History Past Medical History: Non-Contributing - Cardiac Hx Cardiac Disorders: Yes - Pulmonary Hx Respiratory Disorders: Yes Hx Asthma: Yes - Neurological Hx Neurological Disorder: Yes Hx Seizures: Yes Hx Syncope: Yes - HEENT Hx HEENT Disorder: Yes Other/Comment: wears glasses - Renal Hx Renal Disorder: No - Endocrine/Metabolic Hx Endocrine Disorders: Yes Hx Diabetes Mellitus Type 2: Yes - Hematological/Oncological Hx Blood Disorders: No - Integumentary Hx Dermatological Disorder: No - Musculoskeletal/Rheumatological Hx Musculoskeletal Disorders: No - Gastrointestinal Hx Gastrointestinal Disorders: Yes Hx Diarrhea: Yes Hx Gall Bladder Disease: Yes (CHOLECYSTITIS ,CHOLECYSTECTOMY,MILD GASTRITIS) Hx Gastritis: Yes Hx Gastroesophageal Reflux: Yes Hx Vomiting: Yes - Genitourinary/Gynecological Hx Genitourinary Disorders: Yes (URGENCY FREQUENCY) Hx Incontinence: Yes Hx Urinary Tract Infection: Yes Other/Comment: fibroids, hysterectomy - Psychiatric Hx Psychophysiologic Disorder: Yes Hx Anxiety: Yes Hx Depression: Yes Hx Substance Use: No - Surgical History Hx Cholecystectomy: Yes Hx Hysterectomy: Yes - Anesthesia Hx Anesthesia Reactions: No Hx Malignant Hyperthermia: No - Suicidal Assessment Feels Threatened In Home Enviroment: No <Ana Waddell - Last Filed: 12/08/17 14:20> Family/Social History Family/Social History: Unknown Family HX Smoking Status: Never Smoked Hx Alcohol Use: No Hx Substance Use: No Hx Substance Use Treatment: No <Ana Waddell - Last Filed: 12/08/17 14:20> Allergies/Home Meds <Jabari Coleman - Last Filed: 12/08/17 14:00> <Ana Waddell - Last Filed: 12/08/17 14:20> Allergies/Adverse Reactions: Allergies Penicillins Allergy (Severe, Verified 12/08/17 11:19) ITCHING Home Medications: Home Meds Medication Instructions Recorded Confirmed Cholestyramine [Questran] 4 gm PO BID 10/26/17 12/08/17 DULoxetine [Cymbalta] 60 mg PO QAM 10/26/17 12/08/17 Levetiracetam [Keppra] 750 mg PO BID 10/26/17 12/08/17 Loperamide [Loperamide HCl] 2 mg PO QID 10/26/17 12/08/17 Mirtazapine [Remeron] 45 mg PO HS 10/26/17 12/08/17 Omeprazole 40 mg PO DAILY 10/26/17 12/08/17 Ondansetron HCl [Zofran] 4 mg PO PRN PRN 10/26/17 12/08/17 Zolpidem [Ambien] 10 mg PO HS 10/26/17 12/08/17 busPIRone [Buspar] 10 mg PO PRN PRN 10/26/17 12/08/17 cloZAPine [Clozapine] 200 mg PO BID 10/26/17 12/08/17 lamoTRIgine [LaMICtal] 100 mg PO BID 10/26/17 12/08/17 Review of Systems - Physician Review All systems were reviewed & negative as marked: Yes - Review of Systems Constitutional: Normal. absent: Fevers Eyes: Normal. absent: Vision Changes ENT: Normal. absent: Hearing Changes Respiratory: SOB. absent: Cough, Sputum, Wheezing Cardiovascular: Syncope. absent: Chest Pain, Palpitations, Edema, Calf Pain Gastrointestinal: Diarrhea, Nausea, Vomiting. absent: Abdominal Pain Genitourinary Female: Dysuria, Frequency. absent: Hematuria Musculoskeletal: Normal. absent: Arthralgias, Back Pain, Neck Pain Skin: Normal. absent: Rash Neurological: Dizziness. absent: Headache, Focal Weakness, Speech Changes, Facial Droop <Ana Waddell - Last Filed: 12/08/17 14:20> Physical Exam Vital Signs Reviewed: Yes Temperature: Afebrile Blood Pressure: Normal Pulse: Regular Respiratory Rate: Normal Appearance: Positive for: Well-Appearing, Non-Toxic, Comfortable, Other ( Appears older than stated age) Pain Distress: None Mental Status: Positive for: Alert and Oriented X 3 - Systems Exam Head: Present: Atraumatic, Normocephalic. No: Tenderness, Contusion, Swelling, Ecchymosis Pupils: Present: PERRL Extroacular Muscles: Present: EOMI Conjunctiva: Present: Normal Mouth: Present: Moist Mucous Membranes Nose (External): Present: Atraumatic Neck: Present: Normal Range of Motion. No: MIDLINE TENDERNESS, Paraspinal Tenderness, JVD, Bruit Respiratory/Chest: Present: Clear to Auscultation, Good Air Exchange. No: Accessory Muscle Use Cardiovascular: Present: Regular Rate and Rhythm, Normal S1, S2, Peripheal Pulses Present. No: Murmurs, Irregular Rhythm Abdomen: Present: Normal Bowel Sounds. No: Tenderness, Distention, Peritoneal Signs Back: Present: Normal Inspection. No: Midline Tenderness, Paraspinal Tenderness Upper Extremity: Present: Normal Inspection, Neurovascularly Intact. No: Cyanosis, Edema Lower Extremity: Present: Normal Inspection, Neurovascularly Intact. No: Edema Neurological: Present: GCS=15, CN II-XII Intact, Speech Normal (except mildy slow), Motor Func Grossly Intact, Normal Sensory Function Skin: Present: Warm, Dry, Normal Color. No: Rashes Psychiatric: Present: Alert, Oriented x 3, Normal Insight, Normal Concentration <Ana Waddell - Last Filed: 12/08/17 14:20> Vital Signs Temp Pulse Resp BP Pulse Ox 12/08/17 11:22 97.9 F 92 H 17 127/85 98 Medical Decision Making <Jabari Coleman - Last Filed: 12/08/17 14:00> <Ana Waddell - Last Filed: 12/08/17 14:20> ED Course and Treatment: 12/08/17 12:52 Patient seen and evaluated with medical sociologist. Patient reports "passing out" prior to arrival, reports 2-3 day history of diarrhea and nausea/vomiting. Currently no headache or abdominal pain. She has hx of implantable loop recorder. Will check orthostatics, monitor with serial exams. Currently no focal motor or sensory deficits. 12/08/17 14:00 Patient is orthostatic, when attempted to ambulate became very dizzy had to sit down. Currently no chest pain, although reports intermittent discomfort. No focal neuro deficits noted. UTI noted, although patient does not appear septic at this time. Will tx with Bactrim given PCN allergy. Case d/w Dr. Epi Garza will admit to telemetry observation, consult cardiology for syncope. (Jabari Coleman) 12/08/17 12:20 Plan: -CBC, CMP, Mag -Cardiac enzymes -EKG -CXR -Orthostatic vitals -Glucose -UA -Reassess -Will hold off on head CT for now given multiple previous, she is neurologically intact, and she denies headache Discussed with Dr. Coleman (Ana Waddell) - Lab Interpretations Lab Results: 12/08/17 12:02 12/08/17 12:02 Lab Results 12/08/17 12:02: Sodium 146, Potassium 4.2, Chloride 104, Carbon Dioxide 27, Anion Gap 19, BUN 15, Creatinine 1.3 H, Est GFR ( Amer) 51, Est GFR (Non- Af Amer) 43, Random Glucose 149 H, Calcium 9.4, Magnesium 2.0, Total Bilirubin 0.6, AST 67 H D, ALT 89 H, Alkaline Phosphatase 104, Lactate Dehydrogenase 487, Total Creatine Kinase 50, Troponin I < 0.01, Total Protein 7.6, Albumin 4.6, Globulin 3.0, Albumin/Globulin Ratio 1.5 12/08/17 12:02: Urine Color Yellow, Urine Appearance Clear, Urine pH 6.0, Ur Specific Dixon 1.015, Urine Protein Negative, Urine Glucose (UA) Negative, Urine Ketones Negative, Urine Blood Negative, Urine Nitrate Positive H, Urine Bilirubin Negative, Urine Urobilinogen 0.2, Ur Leukocyte Esterase Small H, Urine RBC 0 - 2, Urine WBC 5 - 10, Ur Epithelial Cells 4 - 5, Urine Bacteria Many, Urine Other Uyeast 12/08/17 12:02: WBC 5.7, RBC 4.58, Hgb 13.6, Hct 40.6, MCV 88.6, MCH 29.7, MCHC 33.5, RDW 13.6, Plt Count 132, MPV 9.0, Gran % 71.8 H, Lymph % (Auto) 21.9 L, Woodruff % (Auto) 4.2, Eos % (Auto) 1.6, Baso % (Auto) 0.5, Gran # 4.11, Lymph # ( Auto) 1.3, Woodruff # (Auto) 0.2, Eos # (Auto) 0.1, Baso # (Auto) 0.03 - RAD Interpretation Radiology Orders: 12/08/17 11:56 CHEST PORTABLE [RAD] Stat - PA / ESCALATOR MECHANIC / Resident Statement MD/DO has reviewed & agrees with the documentation as recorded. MD/DO has examined the patient and agrees with the treatment plan. <Ana Waddell - Last Filed: 12/08/17 14:20> Disposition/Present on Arrival - Disposition Have Diagnosis and Disposition been Completed?: Yes Disposition Time: 14:02 Patient Plan: Admission, Telemetry <Jabari Coleman - Last Filed: 12/08/17 14:00> - Present on Arrival Any Indicators Present on Arrival: No History of DVT/PE: No History of Uncontrolled Diabetes: No Urinary Catheter: No History of Decub. Ulcer: No History Surgical Site Infection Following: None - Disposition Have Diagnosis and Disposition been Completed?: Yes Patient Plan: Admission, Telemetry <Ana Waddell - Last Filed: 12/08/17 14:20> - Disposition Diagnosis: Syncope, UTI (lower urinary tract infection) Disposition: HOSPITALIZED Patient Problems: Current Active Problems Problem Status Onset Syncope Acute UTI (lower urinary tract infection) Acute Condition: FAIR
[2017-12-08 12:13] LABS: BASO # 0.03 K/mm3 (0.0-2.0); BASO % 0.5 % (0.0-3.0); EOS # 0.1 (0.0-0.7); EOS % 1.6 % (1.5-5.0); GRAN # 4.11 (1.4-6.5); GRAN % 71.8 % (50.0-68.0); HEMOGLOBIN 13.6 g/dL (12.0-16.0); LYMPH # 1.3 (1.2-3.4); LYMPH % 21.9 % (22.0-35.0); MEAN CELL VOLUME 88.6 fl (80.0-105.0); MEAN CORPUSCULAR HEMOGLOBIN 29.7 pg (25.0-35.0); MEAN CORPUSCULAR HGB CONC 33.5 g/dl (31.0-37.0); MONO # 0.2 (0.1-0.6); MONO % 4.2 % (1.0-6.0); RBC 4.58 10^6/uL (3.5-6.1); RED CELL DISTRIBUTION WIDTH 13.6 % (11.5-14.5); URINE APPEARANCE CLEAR (CLEAR); URINE BILIRUBIN NEGATIVE (NEGATIVE); URINE BLOOD NEGATIVE (NEGATIVE); URINE COLOR YELLOW (YELLOW); URINE GLUCOSE (UA) NEGATIVE (NEGATIVE); URINE LEUKOCYTE ESTERASE SMALL Leu/uL (NEGATIVE); URINE PROTEIN NEGATIVE mg/dL (<30 mg/dL); URINE UROBILINOGEN 0.2 E.U./dL (<1 E.U./dL); WHITE BLOOD COUNT 5.7 10^3/ul (4.5-11.0)
[2017-12-08 12:22] LABS: ALB/GLOB RATIO 1.5 (1.1-1.8); ALBUMIN 4.6 g/dL (3.0-4.8); ALT/SGPT 89 U/L (7-56); AST/SGOT 67 U/L (14-36); BLOOD UREA NITROGEN 15 mg/dL (7-21); CALCIUM 9.4 mg/dL (8.4-10.5); GFR AFRICAN-AMERICAN 51; GFR NON-AFRICAN AMERICAN 43; URINE BACTERIA MANY (NEG); URINE RBC 0 - 2 /hpf (0-2)
[2017-12-08 12:34] LABS: TROPONIN I < 0.01 ng/mL
--- NOTE | 2017-12-08 12:51 | RAD ---
HISTORY: syncope COMPARISON: 09/04/2017 FINDINGS: LUNGS: No active pulmonary disease. PLEURA: No significant pleural effusion identified, no pneumothorax apparent. CARDIOVASCULAR: Normal. OSSEOUS STRUCTURES: No significant abnormalities. VISUALIZED UPPER ABDOMEN: Normal. OTHER FINDINGS: None. IMPRESSION: No active disease.
--- NOTE | 2017-12-08 16:46 | CARD ---
APPROVED REPORT EKG Measurement Heart [id number] <Conclusion> Normal sinus rhythm Minimal voltage criteria for LVH, may be normal variant Cannot rule out Anterior infarct, age undetermined Abnormal ECG
[2017-12-08] MEDS ORDERED: Sodium Chloride 0.9% 1,000 ML IV SCH (18:15)
[2017-12-08 20:41] VITALS: BMI 39.0
[2017-12-08] MEDS ORDERED: Pneumococcal 23-Valent Vaccine IM ONE (20:42)
--- NOTE | 2017-12-09 04:55 | CON ---
DATE: 12/08/2017 SERVICE: Cardiology REASON FOR CONSULTATION AND FOLLOWUP: Syncope, status post loop recorder implantation. BRIEF CLINICAL HISTORY: This is a 57-year-old morbidly obese female with a past medical history significant for seizure disorder, syncope, hypertension, hyperlipidemia, COPD, recurrent syncope, status post loop recorder for arrhythmia, who said that she woke up in the morning and felt some headache and then passed out on the floor. Denies any chest pain, denies any shortness of breath, denies any palpitation. Patient has been complaining multiple times of palpitation, dizziness and feeling weak, and passing out. So, the loop recorder was implanted on 04/20/2016. PAST MEDICAL HISTORY: Significant for diabetes, hypertension, hyperlipidemia, questionable history of seizure disorder, COPD, and placement of loop recorder. SOCIAL HISTORY: Denies any smoking. Denies any history of alcohol abuse. ALLERGIES: ALLERGY TO PENCLLIN THAT GIVES RASH. CURRENT MEDICATIONS: Patient is taking Ambien 10 mg daily, Zofran, Keppra, Lamictal, ibuprofen, gabapentin, Cymbalta, albuterol, atorvastatin. PHYSICAL EXAMINATION: VITAL SIGNS: Temperature afebrile, heart rate 86, blood pressure 130/80. HEENT: PERRLA. Extraocular muscles intact. NECK: Supple. No carotid bruit or thyromegaly. CHEST: Clear to auscultation. HEART: S1 and S2 regular. ABDOMEN: Soft. EXTREMITIES: Clubbing and cyanosis negative. LABORATORY DATA: EKG showed normal sinus, LVH, no acute ST-T wave changes noted. Blood workup as follows. WBC 5.7, hemoglobin 13.6, hematocrit 40.6, platelet count 132. Chemistry shows sodium 145, potassium 4.2, chloride 104, carbon dioxide 27, anion gap of 19, BUN 15, creatinine 1.3. IMPRESSION: Syncope, rule out orthostatic hypotension, history of seizure disorder, history of multiple recurrent syncope, status post loop recorder implantation for palpitation and syncope,hypertension, hyperlipidemia. RECOMMENDATIONS: Get lipid profile, TSH, hemoglobin A1c. Rule out orthostatic hypotension. We will interrogate pacemaker. Further recommendations after the loop recorder implantation. We will review most recent any echo done. If not done, we will do if not done within 6 months. We will follow with you. Thank you, Dr. Garza, for providing us the opportunity in taking care of the patient, Isha Fernandes. David Turpin MD
[2017-12-09] MEDS: Pantoprazole 40 mg EC Tab PO SCH (05:24)
[2017-12-09 06:21] VITALS: RESP 18
[2017-12-09 07:01] LABS: BASO # 0.01 K/mm3 (0.0-2.0); BASO % 0.2 % (0.0-3.0); EOS # 0.1 (0.0-0.7); EOS % 2.1 % (1.5-5.0); GRAN # 3.34 (1.4-6.5); GRAN % 63.1 % (50.0-68.0); HEMOGLOBIN 12.2 g/dL (12.0-16.0); LYMPH # 1.5 (1.2-3.4); LYMPH % 28.9 % (22.0-35.0); MEAN CELL VOLUME 89.1 fl (80.0-105.0); MEAN CORPUSCULAR HEMOGLOBIN 28.9 pg (25.0-35.0); MEAN CORPUSCULAR HGB CONC 32.4 g/dl (31.0-37.0); MEAN PLATELET VOLUME 10.4 fl (7.0-11.0); MONO # 0.3 (0.1-0.6); MONO % 5.7 % (1.0-6.0); RBC 4.22 10^6/uL (3.5-6.1); RED CELL DISTRIBUTION WIDTH 13.6 % (11.5-14.5); WHITE BLOOD COUNT 5.3 10^3/ul (4.5-11.0)
--- NOTE | 2017-12-09 08:13 | CP.PCM.PN ---
Subjective - Date & Time of Evaluation Date of Evaluation: 12/09/17 Time of Evaluation: 06:25 - Subjective Subjective: Lying in bed,awake, no distress, denies chest pain, no dizziness Reason for consultation and follow up: Cardiac evaluation,syncopal episode, history of seizures,hypertension, hyperlipidemia,obesity, status post loop recorder. Seen and examined by me and Dr. Turpin Objective - Vital Signs/Intake and Output Vital Signs (last 24 hours): Temp Pulse Resp BP Pulse Ox 97.8 F 80 18 141/75 98 12/09/17 06:00 12/09/17 06:00 12/09/17 06:00 12/09/17 06:00 12/09/17 06:00 Intake and Output: 12/09/17 12/09/17 06:59 18:59 Intake Total 840 Output Total 1 Balance 839 - Medications Medications: Current Medications Clozapine (Clozaril) 200 mg PO DAILY [facility] PRN Reason: Protocol Duloxetine HCl (Cymbalta) 60 mg PO DAILY [facility] Sodium Chloride (Sodium Chloride 0.9%) 1,000 mls @ 50 mls/hr IV .Q20H [facility] Stop: 12/09/17 16:00 Last Admin: 12/08/17 18:23 Dose: 50 mls/hr Lamotrigine (Lamictal) 100 mg PO BID [facility] PRN Reason: Protocol Last Admin: 12/08/17 18:01 Dose: 100 mg Levetiracetam (Keppra) 750 mg PO BID [facility] Last Admin: 12/08/17 18:01 Dose: 750 mg Mirtazapine (Remeron) 45 mg PO [facility] Last Admin: 12/08/17 22:10 Dose: Not Given Ondansetron HCl (Zofran Inj) 4 mg IVP Q6H PRN PRN Reason: Nausea/Vomiting Pantoprazole Sodium (Protonix Ec Tab) 40 mg PO 0600 [facility] Last Admin: 12/09/17 05:24 Dose: 40 mg Zolpidem Tartrate (Ambien) 5 mg PO [facility] Last Admin: 12/08/17 21:56 Dose: Not Given - Labs Labs: 12/09/17 06:00 - Constitutional Appears: No Acute Distress - Head Exam Head Exam: NORMOCEPHALIC - Eye Exam Eye Exam: Normal appearance - ENT Exam ENT Exam: Mucous Membranes Moist - Respiratory Exam Respiratory Exam: Decreased Breath Sounds, NORMAL BREATHING PATTERN - Cardiovascular Exam Cardiovascular Exam: REGULAR RHYTHM, +S1, +S2 Additional comments: Loop recorder NSR/telemetry - GI/Abdominal Exam GI & Abdominal Exam: Soft, Normal Bowel Sounds - Extremities Exam Extremities Exam: Normal Capillary Refill - Neurological Exam Neurological Exam: Alert, Awake, Oriented x3 - Psychiatric Exam Psychiatric exam: Normal Affect, Normal Mood - Skin Skin Exam: Intact, Normal Color, Warm Assessment and Plan - Assessment and Plan (Free Text) Assessment: A 57 year old female who came to the ER due to syncopal episode. History of seizures, status post loop recorder for arrythmia, COPD,diabetes mellitus, hyperlipidemia, hypertension, reccurrent syncopal episodes, multiple times of palpitation, dizziness and feeling weak and passing out, (implanted loop recorder 2016). History of psychological disorder. Plan: Echo to evaluate LV function Will interrogate loop recorder Orthostatic hypotension, started on NSS IV fluids Seizure/Fall precaution Continue current medications Continue current treatment Will follow up Plan and treatment discussed with Dr. Papi Odonnell
[2017-12-09 10:24] LABS: ALB/GLOB RATIO 1.5 (1.1-1.8); ALBUMIN 3.9 g/dL (3.0-4.8); CALCIUM 9.1 mg/dL (8.4-10.5)
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
[2017-12-09] MEDS: Sodium Chloride 0.9% 1,000 ML IV SCH ×2 (14:36→23:50)
--- NOTE | 2017-12-09 16:31 | CARD ---
APPROVED REPORT EXAM: Two-dimensional and M-mode echocardiogram with Doppler and color Doppler. INDICATION Syncope 2D DIMENSIONS Left Atrium (2D)3.6 (1.6-4.0cm)IVSd1.2 (0.7-1.1cm) LVDd3.5 (3.9-5.9cm)PWd1.4 (0.7-1.1cm) LVDs2.4 (2.5-4.0cm)FS (%) 30.0 % LVEF (%)58.2 (>50%) M-Mode DIMENSIONS Aortic Root3.10 (2.2-3.7cm)Aortic Cusp Exc.1.80 (1.5-2.0cm) Aortic Valve AoV Peak Zoqesgme559.0cm/Julio Peak GR.6mmHg Mitral Valve MV E Ckslozgk00.8cm/sMV A Ushfxmrl52.0cm/sE/A ratio0.6 TDI Lateral E' Peak V8.48cm/sMedial E' Peak V6.34cm/sE/Lateral E'6.1 E/Medial E'8.2 Pulmonary Valve PV Peak Hzecdrxf62.6cm/sPV Peak Grad.2mmHg LEFT VENTRICLE The left ventricle is normal size. There is borderline concentric left ventricular hypertrophy. The left ventricular function is normal.EF-55-60% There is normal LV segmental wall motion. Transmitral Doppler flow pattern is Grade III-reversible restrictive diastolic dysfunction. No left ventricle thrombus noted on this study. There is no ventricular septal defect visualized. There is no left ventricular aneurysm. There is no mass noted in the left ventricle. RIGHT VENTRICLE The right ventricle is normal size. There is normal right ventricular wall thickness. The right ventricular systolic function is normal. ATRIA The left atrium size is normal. The right atrium size is normal. The interatrial septum is intact with no evidence for an atrial septal defect. AORTIC VALVE The aortic valve is thickened but opens well. No aortic regurgitation is present. There is no aortic valvular stenosis. There is no aortic valvular vegetation. MITRAL VALVE The mitral valve is thickened but opens well. Mitral regurgitation is trace. There is no mitral valve stenosis. There is no evidence of mitral valve prolapse. TRICUSPID VALVE The tricuspid valve leaflets are thickened , but open well. There is trace tricuspid regurgitation. There is no tricuspid valve stenosis. There is no tricuspid valve prolapse or vegetation. PULMONIC VALVE The pulmonary valve is normal in structure. There is no pulmonic valvular regurgitation. There is no pulmonic valvular stenosis. GREAT VESSELS The aortic root is normal in size. The ascending aorta is normal in size. The pulmonary artery is normal. The IVC is normal in size and collapses >50% with inspiration. PERICARDIAL EFFUSION There is no pleural effusion. There is no pericardial effusion. <Conclusion> Normal chamber Size. EF-55-60% Trace MR/TR. The IVC is normal in size and collapses >50% with inspiration. There is no pericardial effusion.
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
[2017-12-10] MEDS: Pantoprazole 40 mg EC Tab PO SCH (05:00)
[2017-12-10 06:02] VITALS: O2SAT 97
[2017-12-10 07:10] LABS: BASO # 0.02 K/mm3 (0.0-2.0); BASO % 0.4 % (0.0-3.0); EOS # 0.1 (0.0-0.7); EOS % 2.1 % (1.5-5.0); GRAN # 3.08 (1.4-6.5); GRAN % 59.8 % (50.0-68.0); HEMOGLOBIN 12.1 g/dL (12.0-16.0); LYMPH # 1.7 (1.2-3.4); LYMPH % 33.4 % (22.0-35.0); MEAN CELL VOLUME 89.4 fl (80.0-105.0); MEAN CORPUSCULAR HEMOGLOBIN 28.6 pg (25.0-35.0); MEAN PLATELET VOLUME 9.4 fl (7.0-11.0); MONO # 0.2 (0.1-0.6); MONO % 4.3 % (1.0-6.0); RBC 4.23 10^6/uL (3.5-6.1); RED CELL DISTRIBUTION WIDTH 13.5 % (11.5-14.5); WHITE BLOOD COUNT 5.2 10^3/ul (4.5-11.0)
[2017-12-10 07:39] LABS: ALB/GLOB RATIO 1.6 (1.1-1.8); ALBUMIN 3.9 g/dL (3.0-4.8); CALCIUM 8.8 mg/dL (8.4-10.5)
--- NOTE | 2017-12-10 07:39 | CP.PCM.PN ---
<GenaroBrittany - Last Filed: 12/10/17 07:47> Subjective - Date & Time of Evaluation Date of Evaluation: 12/10/17 Time of Evaluation: 06:40 - Subjective Subjective: GI Fellow PGY 4 Progress Note Pt seen and evaluated at bedside, pt reports loose BM at her baseline. Per nursing only 1 BM last night documented. No other complaints, doing well. ROS: A 12pt ROS was negative except as above Objective - Vital Signs/Intake and Output Vital Signs (last 24 hours): Temp Pulse Resp BP Pulse Ox 98.0 F 73 18 119/76 97 12/10/17 06:00 12/10/17 06:00 12/10/17 06:00 12/10/17 06:00 12/10/17 06:00 Intake and Output: 12/10/17 12/10/17 06:59 18:59 Intake Total 1500 Output Total 200 Balance 1300 - Medications Medications: Current Medications Clozapine (Clozaril) 400 mg PO HS KATIA PRN Reason: Protocol Last Admin: 12/09/17 21:00 Dose: 400 mg Duloxetine HCl (Cymbalta) 60 mg PO DAILY [facility] Last Admin: 12/09/17 10:51 Dose: 60 mg Lamotrigine (Lamictal) 100 mg PO BID KATIA PRN Reason: Protocol Last Admin: 12/09/17 17:15 Dose: 100 mg Levetiracetam (Keppra) 750 mg PO BID [facility] Last Admin: 12/09/17 17:15 Dose: 750 mg Mirtazapine (Remeron) 15 mg PO HS PRN PRN Reason: Insomnia Nitrofurantoin Macrocrystals (Macrobid) 100 mg PO Q12 KATIA PRN Reason: Protocol Last Admin: 12/09/17 21:00 Dose: 100 mg Ondansetron HCl (Zofran Inj) 4 mg IVP Q6H PRN PRN Reason: Nausea/Vomiting Pantoprazole Sodium (Protonix Ec Tab) 40 mg PO 0600 [facility] Last Admin: 12/10/17 05:00 Dose: 40 mg Zolpidem Tartrate (Ambien) 5 mg PO HS [facility] Last Admin: 12/09/17 21:04 Dose: Not Given - Labs Labs: 12/10/17 06:00 - Constitutional Appears: Non-toxic, No Acute Distress - Head Exam Head Exam: ATRAUMATIC, NORMAL INSPECTION, NORMOCEPHALIC - Eye Exam Eye Exam: EOMI, Normal appearance - ENT Exam ENT Exam: Mucous Membranes Dry - Neck Exam Neck Exam: Full ROM - Respiratory Exam Respiratory Exam: Clear to Ausculation Bilateral, NORMAL BREATHING PATTERN - Cardiovascular Exam Cardiovascular Exam: RRR, +S1, +S2 - GI/Abdominal Exam GI & Abdominal Exam: Soft, Normal Bowel Sounds. absent: Distended, Tenderness - Rectal Exam Rectal Exam: Deferred - Extremities Exam Extremities Exam: Pedal Edema - Neurological Exam Additional comments: sleepy, drowsy - Psychiatric Exam Psychiatric exam: Flat Affect - Skin Skin Exam: Dry, Intact, Normal Color, Warm Assessment and Plan - Assessment and Plan (Free Text) Assessment: This is a 57yF with pmhx of seizures, syncopal episodes, and chronic vomiting and diarrhea, who presents to the ED for syncopal episode. 1. Syncope 2. Seizure disorder 3. Chronic Diarrhea 4. Elevated LFTs Plan: -Continue supportive care and further workup for syncopal episode -Cardiology following and plan for interrogation of loop recorder -Pt with hx of chronic diarrhea with full outpt work, diarrhea, no improvement with amitriptiline in the past -Will order stool studies -Continue Questran, Lomotil PRN -Recommend benefiber 2-3 x per day -Recommend low FODMAPs diet -Prior egd/colonoscopy, unremarkable -LFTs elevated from fatty liver disease, 30% patients have positive autoimmune serologies in NAFLD -MRCP negative in the past -Recommend weight loss and serial monitoring of LFTs -Nausea and vomiting, intractability, unclear etiology, possibly related to migraine/seizure -Recommend low fat / small freq meals -Continue PPI daily -Please call with any questions or concerns <John Livingston - Last Filed: 12/10/17 08:35> Objective - Vital Signs/Intake and Output Vital Signs (last 24 hours): Temp Pulse Resp BP Pulse Ox 98.0 F 73 18 119/76 97 12/10/17 06:00 12/10/17 06:00 12/10/17 06:00 12/10/17 06:00 12/10/17 06:00 Intake and Output: 12/10/17 12/10/17 06:59 18:59 Intake Total 1500 Output Total 200 Balance 1300 - Medications Medications: Current Medications Clozapine (Clozaril) 400 mg PO HS KATIA PRN Reason: Protocol Last Admin: 12/09/17 21:00 Dose: 400 mg Duloxetine HCl (Cymbalta) 60 mg PO DAILY [facility] Last Admin: 12/09/17 10:51 Dose: 60 mg Lamotrigine (Lamictal) 100 mg PO BID KATIA PRN Reason: Protocol Last Admin: 12/09/17 17:15 Dose: 100 mg Levetiracetam (Keppra) 750 mg PO BID [facility] Last Admin: 12/09/17 17:15 Dose: 750 mg Mirtazapine (Remeron) 15 mg PO HS PRN PRN Reason: Insomnia Nitrofurantoin Macrocrystals (Macrobid) 100 mg PO Q12 KATIA PRN Reason: Protocol Last Admin: 12/09/17 21:00 Dose: 100 mg Ondansetron HCl (Zofran Inj) 4 mg IVP Q6H PRN PRN Reason: Nausea/Vomiting Pantoprazole Sodium (Protonix Ec Tab) 40 mg PO 0600 [facility] Last Admin: 12/10/17 05:00 Dose: 40 mg Zolpidem Tartrate (Ambien) 5 mg PO HS [facility] Last Admin: 12/09/17 21:04 Dose: Not Given - Labs Labs: 12/10/17 06:00 12/10/17 06:00 Attending/Attestation - Attestation I have personally seen and examined this patient.: Yes I have fully participated in the care of the patient.: Yes I have reviewed all pertinent clinical information, including history, physical exam and plan: Yes Notes (Text): 12/10/17 08:35 57 year old female with h/o chronic diarrhea admitted with syncope. Likely chronic diarrhea due to IBS. Prior endoscopic evaluation unremarkable. Immodium as needed. Diet as tolerated. Will sign off.
--- NOTE | 2017-12-10 08:08 | PN ---
DATE: 12/09/2017 REASON FOR ADDENDUM: The patient underwent loop recorder interrogation and transmission from this morning was up to date. The moderate transmit shows interrogation that is present with no evidence of pause or any kind of arrhythmia noted that responsible for syncope. Though, the patient's orthostatic was changed and found to be significant orthostatic hypotension. The patient's lying blood pressure 141/75, sitting 131/90, and standing 116/75. Though, empirically last night, IV fluid normal saline 50 mL an hour started, now we will increase it to 100 mL an hour and keep on monitoring the orthostasis and we will continue replenish IV fluid. When the orthostasis resolved, we will discontinue IV fluid. Most likely, this episode happened secondary to orthostatic hypotension as by loop recorder, no evidence of any arrhythmia or any pause or any abnormal rhythm noted. David Turpin MD
--- NOTE | 2017-12-10 08:12 | CP.PCM.PN ---
Subjective - Date & Time of Evaluation Date of Evaluation: 12/10/17 Time of Evaluation: 06:30 - Subjective Subjective: Lying in bed, no distress, denies chest pain, no dizziness Reason for consultation and follow up: Cardiac evaluation,syncopal episode, history of seizures,hypertension, hyperlipidemia,obesity, status post loop recorder. Seen and examined by me and Dr. Turpin Objective - Vital Signs/Intake and Output Vital Signs (last 24 hours): Temp Pulse Resp BP Pulse Ox 98.0 F 73 18 119/76 97 12/10/17 06:00 12/10/17 06:00 12/10/17 06:00 12/10/17 06:00 12/10/17 06:00 Intake and Output: 12/10/17 12/10/17 06:59 18:59 Intake Total 1500 Output Total 200 Balance 1300 - Medications Medications: Current Medications Clozapine (Clozaril) 400 mg PO HS KATIA PRN Reason: Protocol Last Admin: 12/09/17 21:00 Dose: 400 mg Duloxetine HCl (Cymbalta) 60 mg PO DAILY [facility] Last Admin: 12/09/17 10:51 Dose: 60 mg Lamotrigine (Lamictal) 100 mg PO BID KATIA PRN Reason: Protocol Last Admin: 12/09/17 17:15 Dose: 100 mg Levetiracetam (Keppra) 750 mg PO BID [facility] Last Admin: 12/09/17 17:15 Dose: 750 mg Mirtazapine (Remeron) 15 mg PO HS PRN PRN Reason: Insomnia Nitrofurantoin Macrocrystals (Macrobid) 100 mg PO Q12 KATIA PRN Reason: Protocol Last Admin: 12/09/17 21:00 Dose: 100 mg Ondansetron HCl (Zofran Inj) 4 mg IVP Q6H PRN PRN Reason: Nausea/Vomiting Pantoprazole Sodium (Protonix Ec Tab) 40 mg PO 0600 [facility] Last Admin: 12/10/17 05:00 Dose: 40 mg Zolpidem Tartrate (Ambien) 5 mg PO HS [facility] Last Admin: 12/09/17 21:04 Dose: Not Given - Labs Labs: 12/10/17 06:00 12/10/17 06:00 - Constitutional Appears: No Acute Distress - Head Exam Head Exam: NORMOCEPHALIC - Eye Exam Eye Exam: Normal appearance - ENT Exam ENT Exam: Mucous Membranes Moist - Respiratory Exam Respiratory Exam: Decreased Breath Sounds, NORMAL BREATHING PATTERN - Cardiovascular Exam Cardiovascular Exam: +S1, +S2 Additional comments: loop recorder NSR telemetry - GI/Abdominal Exam GI & Abdominal Exam: Soft, Normal Bowel Sounds - Extremities Exam Extremities Exam: Normal Capillary Refill - Neurological Exam Neurological Exam: Alert, Awake, Oriented x3 - Psychiatric Exam Psychiatric exam: Normal Affect, Normal Mood - Skin Skin Exam: Intact, Normal Color, Warm Assessment and Plan - Assessment and Plan (Free Text) Assessment: A 57 year old female who came to the ER due to syncopal episode. History of seizures, status post loop recorder for arrythmia, COPD,diabetes mellitus, hyperlipidemia, hypertension, reccurrent syncopal episodes, multiple times of palpitation, dizziness and feeling weak and passing out, (implanted loop recorder 2016). History of psychological disorder. Plan: ECHO- Trace MR/TR LVER 55% Loop recorder interrogated and normal result Orthostatic hypotension, on NSS IV increased to 100 cc/hr fluids Seizure/Fall precaution Continue current medications Continue current treatment Evaluated by Psychiatry Will follow up Plan and treatment discussed with Dr. Turpin
[2017-12-10] MEDS ORDERED: Sodium Chloride 0.9% 1,000 ML IV SCH (09:45)
[2017-12-10 11:32] VITALS: TEMP 97
--- NOTE | 2017-12-10 15:16 | PN ---
DATE: 12/10/2017 REASON FOR DICTATION: Addendum to the initial progress note dictated by Marybeth Griggs. The patient's loop recorder interrogated. No evidence of any arrhythmia noted, but the patient with significantly orthostatic hypotension. Again, the blood pressure was checked after giving a liter of fluid 100 mL/hour, before 50 mL an hour. This morning, the blood pressure report as follows: Lying 119/76, sitting 128/92, and standing 101/72. Still 18-20 mm drop in blood pressure noted. So, we will continue one more liter of the fluid and start Florinef 0.1 mg at night to prevent postural hypotension. Probably, this could be the reason for syncope. Explained to the patient. Explained to the nursing staff. We will give one dose stat now and then everyday at 05:00 p.m. We will check another orthostatic at afternoon. David Turpin MD
--- NOTE | 2017-12-10 15:18 | HP ---
CHIEF COMPLAINT: Syncope. HISTORY OF PRESENT ILLNESS: This is a 57-year-old woman who I have known for many years with an approximately 2-year history of multiple syncopal seizure-like episodes associated with nausea. Today, on the date of admission, the patient states she was at home and suddenly found herself on the floor after a brief and moment of feeing weak and dizzy. She denied chest pain, nausea, vomiting, diarrhea, constipation, cramps or urgency. She was seen in the emergency room and admitted for a syncopal episode. Labs and EKG were done, which are unremarkable, and patient was admitted. PAST MEDICAL HISTORY: Negative for hypertension, hyperlipidemia, tuberculosis, gout, COPD, stroke, TIA, myocardial infarction, coronary artery disease, or cancers of any type. It is positive for diabetes since 2013, asthma since 2013, and a question of seizure disorder diagnosed in 2013. Followup recent 24-hour EEGs and bedside EEGs have been normal. The patient had several recent hospitalizations for syncope. She has also a history of orthostatic hypotension history of depression, mental illness, and schizophrenia. PAST SURGICAL HISTORY: Significant for cholecystectomy in 1989 and hysterectomy in 2010. She has been hospitalized approximately 20 times in the last 3 years, many of them for abdominal pain and chronic diarrhea. Extensive workups with multiple gastroenterologists were done, but essentially unremarkable. In spite of this, she remains morbidly obese. Cardiac workup, thallium stress test were done in past year. ALLERGIES: SHE IS ALLERGIC TO PENICILLIN, WHICH GIVES HER HIVES. SOCIAL HISTORY: She does not smoke and never did. Does not drink alcohol or coffee. She had a colonoscopy in 2013 in [place]; several in [place] in 2014, 2016, and I believe more recently as well. She had multiple endoscopies dating back to 1993, and again most recently in the past year. She had a mammogram in 2009 and 2014, both unremarkable. She refuses the flu shot and Pneumovax vaccine. FAMILY HISTORY: Her mother and father both lived into their 60s, they have both passed. She is the second of 5 siblings. She has a brother who at age 35 of liver cancer; 2 sisters and one brother that she has lost contact with. She is single, with no children. She has been disabled since 1992 with depression. Prior to that, she worked in the [employer], in [place], [place]. Her neurologist is Dr. Gracia. Her panel flow machine operator is Dr. Livingston. In the past, she had seen her cardiologists, Dr. Dumont and Dr. Turpin, who currently have a event loop recorder implanted in her . REVIEW OF SYSTEMS: On multiple points is negative, but for the symptoms of syncope as noted above, and GI symptoms including nausea and diarrhea. Review of her past medical history at [facility] shows multiple admissions. Her last stress test was in 08/2016, with an implantation of a loop recorder in 04/2016, as part of an extensive syncope workup. She also had an stress test in 2013 and 2014, which were unremarkable. Imaging in the course of 2016 shows multiple x-rays, 5 CT scans of the head in 2016, and 2 CT scans of the abdomen and pelvis, the stress test as mentioned above, an MRCP, and an assortment of chest x-rays, rib x-rays, knee and ankle x-rays as well, all essentially unremarkable. PHYSICAL EXAMINATION GENERAL: The patient is seen this morning in room 272, bed 2. She is awake, alert, clear, and in her usual state. HEENT: Head unremarkable. Conjunctivae are pink. Mucous membranes are moist. There is no carotid bruit. NECK: Supple without masses. There is no JVD or carotid bruit. LUNGS: Show good aeration, right and left. HEART: Regular, not tachycardic. BREASTS: Not examined. ABDOMEN: Soft, but moderately overweight and nontender. EXTREMITIES: Showed no edema. Good DP and PT pulses present. IMPRESSION: 1. Syncope, which sounds more likely orthostatic hypotension in a patient with a history of multiple falls and dizziness. wonder if her symptoms could be related to medications she is currently receiving from a variety of other physicians, must rule out pharmacologic etiology. 2. Diarrhea for the last 2 days in a patient with a long history of gastrointestinal symptoms . 3. Diabetes. 4. History of asthma. 5. Questionable history for seizures. 6. History of orthostatic hypotension. 7. History of syncope. 8. History of depression and schizophrenia. 9. Status post cholecystectomy. 10. Status post hysterectomy. 11. Chronic diarrhea with extensive workups in the past. PLAN: The patient will be admitted to the medical floor; Cardiology, GI, Psychiatry, and Clinical Pharmacology consultations were requested. Her event loop recorder was interrogated and results are still pending. I will follow up with Psychiatry, although the patient usually receives her follow[facility], I suspect as to the cause of her symptoms as well as perhaps her seizure medicines. We will consider alternative neuroleptic to be chosen. Later in the day, I spoke [facility], who started this medicine, he is no longer with them, and psychiatrist will not be in until next week. I also talked with clinical poiser, who agreed that Clozaril is the most likely suspect as her symptoms are related to orthostatic hypotension. cutting down, but we will discuss with Psychiatry first. We will change the patient's status to inpatient from observation, as we will need time to get the results of pacemaker interrogation and perhaps adjust medicines for her mental health issue. Tomas Garza MD
[2017-12-10 17:37] VITALS: BP 138/79; PULSE 70
--- NOTE | 2017-12-10 21:04 | PN ---
DATE: 12/10/2017 SUBJECTIVE: Shortly, the patient is a 57-year-old female with reported history of mental illness. The patient currently on Clozaril, which was confirmed by the patient's pharmacy. The patient was followed up at [facility]. The patient is on monthly monitoring for full blood work. Please see initial consultation for more detailed information. This time, the patient was admitted on the medical site for evaluation of possible syncopal episode. The patient had history of questionable seizures versus pseudoseizures. Psych consult was called for evaluation of medications and medical team as well as Cardiology team strongly believe that Clozaril could give the patient orthostatic hypotension as well as diarrhea and nausea and vomiting and dehydration. This parts data writer initially evaluated the patient yesterday. Please see initial notes for more detailed information. Today, this parts data writer had prolonged conversation with Dr. Garza, the patient's primary care physician. As per Dr. Garza, for the past couple of years, the patient was doing fine, was stable, but medically navas, the patient has a lot of medical admissions. The patient had multiple CT scan of the head as well as also EEG was done, but no epilepsy was found. The patient also is on multiple antiseizure medications including Lamictal, Keppra. Going back to the patient's presentation, the patient presented to be pleasant, childlike demeanor. The patient was mildly delusional, which is questionable. As per the patient, she had family, but as per primary care physician, the patient does not have family. The patient said that she obtained restraining order against her brother and sister. As per the patient's primary care physician, the patient does not have any family. The patient also reported that one of her sister came over from [place], which is questionable. PHYSICAL EXAMINATION: VITAL SIGNS: Reviewed. Temperature 97; pulse is 86; blood pressure 135/86; respirations 18; orthostatic blood pressure 119, laying down, sitting position is 128, standing position 101/72. MEDICATIONS: Reviewed. This parts data writer will continue Clozaril 400 mg at the nighttime and morning dose of 200 mg was decreased to 100 mg daily, Cymbalta will be continued as of now 60 mg daily, the patient is on Florinef 0.1 mg daily, the patient is on Lamictal 100 mg twice a day, Keppra 750 twice a day, Remeron 15 mg at the nighttime as needed for insomnia, the patient is on antibiotics, Zofran, Protonix, sodium chloride and Ambien. LABS: Reviewed. There is no signs of granulocytosis. This parts data writer submitted labs to [facility]. Chemistry reviewed. AST and ALT mildly elevated. Urinalysis, leukocyte esterase small. MENTAL STATUS EXAMINATION: The patient appears to be pleasant, somewhat childish demeanor, intermittent eye contact. Mood is described "I am fine." Affect was flat. Thought process seems to be concrete. Thought content, the patient denied visual, auditory, tactile hallucinations, but delusions cannot be excluded. Insight and judgment seems to be improving. Impulses are well controlled. IMPRESSION: As per history, the patient has schizophrenia versus schizoaffective disorder. PLAN: The patient wants to be weaned off from seizure medication as well as Clozaril. Medical team feels that Clozaril could give orthostatic hypotension as well as upset stomach as well as diarrhea and vomiting. The patient reported that she was on multiple psychotropic medications including Risperdal as well as Seroquel. The patient is willing to try those medications. The patient was willing to sign consent for treatment. Dr. Gongora will be seeing patient in psychiatric inpatient unit over this weekend. We will see from that medical team and Cardiology team will be following the patient. The patient signed consent for treatment. Thank you so much for letting me participate in care of your patient. Letty Reddy MD [facility]
--- NOTE | 2017-12-13 14:47 | DS ---
HISTORY OF PRESENT ILLNESS: This is a 57-year-old woman I have known for several years who presented to the acute care facility at [facility] via the emergency room after another syncopal episode at home. Patient was at home, suddenly felt weak, dropped to floor, ambulance was called. She was seen in the emergency room and admitted, followed by Cardiology, Neurology and Psychiatry consultation was requested. My biggest concern was that this episode may be related to her medications. She has been on Clozaril from [facility]. I contacted them, but their psychiatrist has recently changed and were not available for immediate help. Dr. Saenz was extremely helpful in revealing the case and discussing the options. I also asked for a clinical pharmacology consultation and spoke with the pharmacist regarding the patient's medications. She improved clinically with IV fluids and hydration. Although she was totally asymptomatic for dysuria, pain, frequency, urgency, afebrile and with a normal white count, a few bacteria and yeast were noted in the urinalysis with small amount of leukocyte esterase and some nitrites. Cultures were sent from the emergency room that were still pending as of the time of this discharge and she was treated with oral nitrofurantoin. Clinically well and improved, the patient was in agreement to transfer to , the psychiatry floor where she can be monitored as medications were adjusted. I had recently started the Cymbalta on her prior admission. EEG was done with results still pending. I will decrease the dose of Cymbalta, decrease the dose of Keppra as we had in the past and with Dr. Saenz decreased the dose of clozapine and monitor. The patient was awake and alert and clear about our intent and our plan and in agreement to transfer on 12/10/2017. FINAL DISCHARGE DIAGNOSES: 1. Syncope. 2. Orthostatic hypotension. 3. Possible adverse reaction to medication in form of syncope and orthostatic hypotension. 4. History of anxiety, depression, and schizophrenia. 5. History of diabetes, now diet controlled. Tomas Garza MD
== END 2017-12-10 18:10 | DRG 312 ==
LOC: ED 11:17 → ERH 14:13 → 2RSO 15:31 → OBSVTOIN 12-09 10:32
PROVIDERS: ADMIT Internal Medicine; ATTEND Internal Medicine
DX: I95.1 Orthostatic hypotension (principal); E11.9 Type 2 diabetes mellitus without complications; G40.909 Epilepsy, unspecified, not intractable, without status epilepticus; J44.9 Chronic obstructive pulmonary disease, unspecified; I10 Essential (primary) hypertension; E78.5 Hyperlipidemia, unspecified; F20.9 Schizophrenia, unspecified; K58.9 Irritable bowel syndrome, unspecified; E66.01 Morbid (severe) obesity due to excess calories; Z68.39 Body mass index [BMI] 39.0-39.9, adult; Z91.81 History of falling

== ENCOUNTER 2017-12-10 18:10 | Inpatient (IN) | payer MEDICARE, OTHER ==
[2017-12-10 22:46] VITALS: RESP 18
[2017-12-10 22:54] VITALS: O2SAT 98
--- NOTE | 2017-12-10 23:38 | PCM.BM ---
<SgEzio - Last Filed: 12/10/17 23:34> Treatment Plan Problems - Problems identified on initial assessmt Hopelessness/Helplessness Date Initiated: 12/10/17 Time Initiated: 19:45 Assessment reference: NA Status: Active Priority: 1 Ineffective Coping Date Initiated: 12/10/17 Time Initiated: 19:45 Assessment reference: NA Status: Active Priority: 2 Activity Intolerance Date Initiated: 12/10/17 Time Initiated: 19:45 Assessment reference: NA Status: Active Priority: 3 Self-care Deficit Date Initiated: 12/10/17 Time Initiated: 19:45 Assessment reference: NA Status: Active Priority: 4 Treatment assets and liabiliti Patient Assests: cooperative, negotiates basic needs, cognitively intact Patient Liabilities: live alone, medical problems, visual impairment - Milieu Protocol Maintain good personal hygiene: daily Encourage regular showers, daily Remind patient to perform daily oral care, daily Assist patient to perform ADL's Conduct patient checks and document Observation sheet: Q15 minutes Maintain personal safety: every shift Educate patient to report safety concerns to staff, every shift Monitor environment for contraband/sharps Medication safety: Monitor for expected outcome, potential side effects: every shift, Assess barriers to learning: every shift, Assess readiness for medication education: every shift Discharge/Continuing Care - Education Needs Education Needs: Patient Medication, Patient Diagnosis/Disease Process, Patient Coping Skills, Patient Community resources, Patient Activities of Daily Living - Discharge Discharge Criteria: Tolerates medication w/o severe side effects, Ability to care for self <Gongora,Rick - Last Filed: 12/11/17 10:42> - Diagnosis (1) Depressed Status: Acute Interventions: Group, milieu and supportive treatment Taper clozaril 100/400 to 100/350 today, monitor Hold on initiating risperdal until clozaril is tapered a little lower to avoid unnecessary drug-drug interaction since clozaril is at such a high dose. Cymbalta 60 mg po daily Remeron 15 mg po HS prn (patient didn't require last night) Ambien 5 mg HS prn insomnia Lamictal 100 mg po bid and Keppra 750 mg po bid as an AED. Patient may not require this medication once clozaril is discontinued. Clozaril, especially at the high dose prescribed by the MOTOR RE[employer] can be associated with seizures. I do not know the time line of patient's seizure history but regardless of when her seizures started, clozaril is not a good choice for patient's with a pre-existing seizure disorder or patients who started having seizures with initiation of clozaril. 12/11/17 10:42 (2) Altered mental status Status: Acute Interventions: Group, milieu and supportive treatment Taper clozaril 100/400 to 100/350 today, monitor Hold on initiating risperdal until clozaril is tapered a little lower to avoid unnecessary drug-drug interaction since clozaril is at such a high dose. Cymbalta 60 mg po daily Remeron 15 mg po HS prn (patient didn't require last night) Ambien 5 mg HS prn insomnia Lamictal 100 mg po bid and Keppra 750 mg po bid as an AED. Patient may not require this medication once clozaril is discontinued. Clozaril, especially at the high dose prescribed by the MOTOR RE[employer]DER can be associated with seizures. I do not know the time line of patient's seizure history but regardless of when her seizures started, clozaril is not a good choice for patient's with a pre-existing seizure disorder or patients who started having seizures with initiation of clozaril. 12/11/17 10:42
[2017-12-11] MEDS ORDERED: Pantoprazole 40 mg EC Tab PO SCH (06:00)
[2017-12-11 07:15] VITALS: BP 104/65; PULSE 78; TEMP 97.3
[2017-12-11 08:09] LABS: GLUCOSE,FASTING 130 mg/dL (65-110); HDL CHOLESTEROL 43 mg/dL (29-60)
[2017-12-11 08:20] LABS: LDL CHOLESTEROL 95 mg/dL (0-129)
[2017-12-11 08:28] LABS: FREE T4 0.77 ng/dL (0.78-2.19)
--- NOTE | 2017-12-11 10:41 | PCM.PSYCH ---
Initial Psychiatric Evaluation - Initial Psychiatric Evaluation Type of Admission: Voluntary Legal Status: Capacity History of Present Illness and Precipitating Events: Patient is a single 57-year-old female with likely psychiatric history of schizoaffective disorder, reported history of multiple hospitalizations, compliant with clozaril 200/400, Cymbalta 60 mg daily, Vistaril 25 mg HS, Ambien 10 mg HS [place] [facility] [place] [facility] [place] from the medical floor after she was evaluated for possible syncopal episode. Dr. Reddy evaluated patient on both December 09 and December 10, 2017. She spoke with medical team who felt that clozaril could be contributing to patients symptoms of orthostatic hypertension, nausea, vomiting, diarrhea and dehydration (patient with many medical hospitalizations). In addition there is some question as to whether patient has seizures versus pseudoseizures or both. She is currently being prescribed Lamictal and Keppra. Patient was transferred to the psychiatric unit for further stabilization as patient is depressed with some disorganization. She indicated her preference to be tapered off clozaril and AEDs if possible. I met with patient at bedside and she appears on campus with inconsistent orientation and poor focus. She was aware of the current location and months however needed to be reminded about the year on two occasions. She did not appear to be in any distress and she denied having any new concerns, discomfort or pain. Eye contact was intermittent and her affect was constricted. Thought process appeared to be scattered. During her evaluation with Dr. Reddy, patient admitted to history of hearing voices and seeing things. She denied having these symptoms during my interview with her this morning. She was internally preoccupied but she was not responding to internal stimuli. Staff notes indicate a patient has been in fair control, visible on the unit and attending groups. Appears depressed with constricted affect. There have been no behavioral issues thus far though patient remains unpredictable. PSYCHIATRIC HISTORY Patient with multiple prior psychiatric admissions though none noted at this hospital. Currently the care of BALER at [facility] and prescribed clozaril 200/400, Cymbalta 60 mg daily, Vistaril 25 mg HS, Ambien 10 mg HS SOCIAL HISTORY Largely unknown as there are conflicting stories noted in patient's chart. It is unclear whether patient has any siblings or any family in general for social support. Patient denies ever being , denies having children. Indicates that she graduated high school, denied going to college. Denied having any real employment throughout her life. Patient denied any drug or alcohol issues. Current Medications: Active Medications Generic Name Dose Route Start Last Admin Trade Name Freteo PRN Reason Stop Dose Admin Clozapine 100 mg 12/11/17 08:00 Clozaril PO DAILY KATIA Protocol Clozapine 400 mg 12/10/17 22:00 12/10/17 22:20 Clozaril PO 400 mg HS KATIA Administration Protocol Duloxetine HCl 60 mg 12/11/17 08:00 Cymbalta PO DAILY KATIA Fludrocortisone Acetate 0.1 mg 12/11/17 08:00 Florinef PO DAILY KATIA Lamotrigine 100 mg 12/11/17 08:00 Lamictal PO BID KATIA Protocol Levetiracetam 750 mg 12/11/17 08:00 Keppra PO BID KATIA Mirtazapine 15 mg 12/10/17 18:47 Remeron PO HS PRN Sleep Nitrofurantoin Macrocrystals 100 mg 12/11/17 06:00 Macrobid PO Q12 KATIA Protocol Pantoprazole Sodium 40 mg 12/11/17 06:00 Protonix Ec Tab PO 0600 KATIA Zolpidem Tartrate 5 mg 12/10/17 18:52 Ambien PO HS PRN Insomnia Protocol Past Psychiatric History - Past Psychiatric History Pertinent Medical Hx (Current Medical&Sleep Prob, Allergies): Allergies Allergy/AdvReac Type Severity Reaction Status Date / Time Penicillins Allergy Severe ITCHING Verified 12/10/17 21:06 Ibuprofen [Motrin Tab] 600 mg PO Q6 #20 tab 09/14/17 Cholestyramine [Questran] 4 gm PO BID 10/26/17 DULoxetine [Cymbalta] 60 mg PO QAM 10/26/17 Levetiracetam [Keppra] 750 mg PO BID 10/26/17 Loperamide [Loperamide HCl] 2 mg PO QID 10/26/17 Mirtazapine [Remeron] 45 mg PO HS 10/26/17 Omeprazole 40 mg PO DAILY 10/26/17 Ondansetron HCl [Zofran] 4 mg PO PRN PRN 10/26/17 Zolpidem [Ambien] 10 mg PO HS 10/26/17 busPIRone [Buspar] 10 mg PO PRN PRN 10/26/17 cloZAPine [Clozapine] 200 mg PO BID 10/26/17 lamoTRIgine [LaMICtal] 100 mg PO BID 10/26/17 Mental Status Examination - Personal Presentation Personal Presentation: Looks stated age - Affect Affect: Constricted - Motor Activity Motor Activity: Calm - Reliability in Providing Information Reliability in Providing Information: Poor, due to alteration in thoughts - Speech Speech: Disorganized - Mood Mood: Depressed - Formal Thought Process Formal Thought Process: Loosening of associations - Cognitive Functions Orientation: Person, Place Sensorium: Alert Judgement: Imparied, as evidence by: Poor judgement, Imparied, as evidence by: Lack of insight into illness DSM 5 DX - DSM 5 DSM 5 Diagnosis: Schizoaffective Disorder - Recommended/Plan of Treatment Treatment Recommendations and Plan of Treatment: * Group, milieu and supportive treatment * Taper clozaril 100/400 to 100/350 today, monitor * Hold on initiating risperdal until clozaril is tapered a little lower to avoid unnecessary drug-drug interaction since clozaril is at such a high dose. * Cymbalta 60 mg po daily * Remeron 15 mg po HS prn (patient didn't require last night) * Ambien 5 mg HS prn insomnia * Lamictal 100 mg po bid and Keppra 750 mg po bid as an AED. Patient may not require this medication once clozaril is discontinued. Clozaril, especially at the high dose prescribed by the BALER can be associated with seizures. * I do not know the time line of patient's seizure history but regardless of when her seizures started, clozaril is not a good choice for patient's with a pre-existing seizure disorder or patients who started having seizures with initiation of clozaril. * Vitals reviewed and noted below: 12/11/17 07:14 Temperature 97.3 F L Pulse Rate 78 Respiratory 18 Rate Blood Pressure 104/65 * New floor labs noted below: 12/11/17 12/11/17 07:50 07:50 Fasting Glucose 130 H Triglycerides 178 H Cholesterol 175 LDL Cholesterol Direct 95 HDL Cholesterol 43 Free T4 0.77 L TSH 3rd Generation 5.50 H
--- NOTE | 2017-12-11 13:24 | CP.PCM.CON ---
<Tommy Teran - Last Filed: 12/11/17 13:32> History of Present Illness - History of Present Illness History of Present Illness: GI Fellow PGY4 Consult Note This is a 57 year old female with past medical history including seizures, syncopal episodes, and chronic vomiting and diarrhea, who presents to the ED for syncopal episode and transferred to psych. Patient says she vomited and stood up, hitting her head and then passing out. Patient says she remembers waking up laying on the floor and was found by her neighbor, denies any seizure. Patient says this happens often and she had a loop recorder placed by Dr. Turpin to look for cardiac causes. Patient admits to dizziness, SOB, dysuria, and frequency. She denies any fever, chills, headache, changes in vision/hearing , focal weakness, chest pain, palpitations, abdominal pain, back/neck pain, and extremity pain. She has had about 16 head CTs in the past 2 years, 5 of those being within the past year. Pt has been seen by Dr. Livingston as an outpatient for chronic diarrhea and EGD/Colonoscopy has been negative in 2016. ROS: A 12pt ROS was negative except as above PmHx: As stated above PsHx: denies SHx: denies tobacco, etoh or drugs FHx: denies colon cancer Past Patient History - Infectious Disease Hx of Infectious Diseases: None - Tetanus Immunizations Tetanus Immunization: Unknown - Past Social History Smoking Status: Never Smoked - CARDIAC Hx Cardiac Disorders: Yes - PULMONARY Hx Respiratory Disorders: Yes Hx Asthma: Yes - NEUROLOGICAL Hx Neurological Disorder: Yes Hx Dizziness: Yes Hx Seizures: Yes - HEENT Hx HEENT Problems: Yes Other/Comment: wears glasses - RENAL Hx Chronic Kidney Disease: No - ENDOCRINE/METABOLIC Hx Diabetes Mellitus Type 2: Yes - HEMATOLOGICAL/ONCOLOGICAL Hx Blood Disorders: No - INTEGUMENTARY Other/Comment: MASD UNDER THE STOMACH FOLD AND BREAST FOLD. - MUSCULOSKELETAL/RHEUMATOLOGICAL Hx Musculoskeletal Disorders: No Hx Falls: Yes (2 X TODAY. 5-30-18) - GASTROINTESTINAL Hx Gastrointestinal Disorders: Yes Hx Gall Bladder Disease: Yes (CHOLECYSTITIS ,CHOLECYSTECTOMY,MILD GASTRITIS) Hx Gastroesophageal Reflux: Yes - GENITOURINARY/GYNECOLOGICAL Hx Genitourinary Disorders: Yes (URGENCY FREQUENCY) Hx Incontinence: Yes Hx Urinary Tract Infection: Yes Other/Comment: fibroids, hysterectomy - PSYCHIATRIC Hx Depression: Yes - SURGICAL HISTORY Hx Cholecystectomy: Yes Hx Hysterectomy: Yes - ANESTHESIA Hx Anesthesia Reactions: No Hx Malignant Hyperthermia: No Meds Allergies/Adverse Reactions: Allergies Allergy/AdvReac Type Severity Reaction Status Date / Time Penicillins Allergy Severe ITCHING Verified 12/11/17 14:32 - Medications Medications: Current Medications Clozapine (Clozaril) 100 mg PO DAILY KATIA PRN Reason: Protocol Last Admin: 12/11/17 08:47 Dose: 100 mg Clozapine (Clozaril) 400 mg PO HS KATIA PRN Reason: Protocol Last Admin: 12/10/17 22:20 Dose: 400 mg Duloxetine HCl (Cymbalta) 30 mg PO DAILY [facility] Fludrocortisone Acetate (Florinef) 0.1 mg PO DAILY [facility] Last Admin: 12/11/17 08:47 Dose: 0.1 mg Lamotrigine (Lamictal) 100 mg PO BID KATIA PRN Reason: Protocol Last Admin: 12/11/17 08:47 Dose: 100 mg Levetiracetam (Keppra) 500 mg PO BID KATIA Mirtazapine (Remeron) 15 mg PO HS PRN PRN Reason: Sleep Nitrofurantoin Macrocrystals (Macrobid) 100 mg PO Q12 KATIA PRN Reason: Protocol Pantoprazole Sodium (Protonix Ec Tab) 40 mg PO 0600 [facility] Last Admin: 12/11/17 07:03 Dose: 40 mg Zolpidem Tartrate (Ambien) 5 mg PO HS PRN; Protocol PRN Reason: Insomnia Physical Exam - Constitutional Appears: Well, No Acute Distress - Head Exam Head Exam: ATRAUMATIC, NORMOCEPHALIC - Eye Exam Eye Exam: Normal appearance - ENT Exam ENT Exam: Mucous Membranes Moist, Normal Exam - Neck Exam Neck exam: Positive for: Normal Inspection - Respiratory Exam Respiratory Exam: Clear to Auscultation Bilateral, NORMAL BREATHING PATTERN. absent: Prolonged Expiratory Phase, Rales, Rhonchi, Wheezes, Respiratory Distress - Cardiovascular Exam Cardiovascular Exam: REGULAR RHYTHM, +S1, +S2 - GI/Abdominal Exam GI & Abdominal Exam: Normal Bowel Sounds, Soft. absent: Distended, Firm, Guarding, Hernia, Organomegaly, Rebound, Rigid - Extremities Exam Extremities exam: Negative for: joint swelling, pedal edema - Neurological Exam Neurological exam: Alert, Oriented x3 - Psychiatric Exam Psychiatric exam: Normal Affect, Normal Mood - Skin Skin Exam: Dry, Intact, Normal Color, Warm Results - Vital Signs Recent Vital Signs: Last Vital Signs Temp 97.3 F L 12/11/17 07:14 Pulse 78 12/11/17 07:14 Resp 18 12/11/17 07:14 BP 104/65 12/11/17 07:14 Pulse Ox 98 12/10/17 19:30 - Labs Labs: Laboratory Results - last 24 hr 12/11/17 12/11/17 07:50 07:50 Fasting Glucose 130 H Triglycerides 178 H Cholesterol 175 LDL Cholesterol Direct 95 HDL Cholesterol 43 Free T4 0.77 L TSH 3rd Generation 5.50 H Assessment & Plan - Assessment and Plan (Free Text) Assessment: This is a 57yF with pmhx of seizures, syncopal episodes, and chronic vomiting and diarrhea, who presents to the ED for syncopal episode. 1. Syncope 2. Seizure disorder 3. Chronic Diarrhea 4. Elevated LFTs Plan: -Continue supportive care and further workup for syncopal episode -Cardiology following and plan for interrogation of loop recorder -Pt with hx of chronic diarrhea with full outpt work, diarrhea, no improvement with amitriptiline in the past -Will order stool studies -Continue Questran, Lomotil PRN -Recommend benefiber 2-3 x per day -Recommend low FODMAPs diet -Prior egd/colonoscopy, unremarkable -LFTs elevated from fatty liver disease, 30% patients have positive autoimmune serologies in NAFLD -MRCP negative in the past -Recommend weight loss and serial monitoring of LFTs -Nausea and vomiting, intractability, unclear etiology, possibly related to migraine/seizure -Recommend low fat / small freq meals -Continue PPI daily -Please call with any questions or concerns -will sign off D/W Dr. Edward <Daysi Edward - Last Filed: 12/11/17 19:17> Results - Vital Signs Recent Vital Signs: Last Vital Signs Temp 97.3 F L 12/11/17 07:14 Pulse 78 12/11/17 07:14 Resp 18 12/11/17 07:14 BP 104/65 12/11/17 07:14 Pulse Ox 98 12/10/17 19:30 - Labs Labs: Laboratory Results - last 24 hr 12/11/17 12/11/17 12/11/17 07:50 07:50 07:50 Fasting Glucose 130 H Triglycerides 178 H Cholesterol 175 LDL Cholesterol Direct 95 HDL Cholesterol 43 Free T4 0.77 L TSH 3rd Generation 5.50 H RPR Nonreactive Attending/Attestation - Attestation I have personally seen and examined this patient.: Yes I have fully participated in the care of the patient.: Yes I have reviewed all pertinent clinical information: Yes Notes (Text): 12/11/17 19:16 57 yr old F with pmhx of seizures, syncopal episodes, and chronic vomiting and diarrhea, who presents to the ED for syncopal episode. GI consulted for chronic diarrhea with extensive work up in the past which was negative. Supportive care. Lomotic as needed. Supportive care
--- NOTE | 2017-12-11 14:26 | CON ---
DATE: 12/11/2017 NEUROLOGY CONSULTATION CHIEF COMPLAINT: History of seizure. HISTORY OF PRESENT ILLNESS: This is a 57-year-old woman with history of schizoaffective disorder with reported history of multiple hospitalizations, on Clozaril, Cymbalta and Vistaril and history of type 2 diabetes mellitus with peripheral neuropathy originating from diabetes, deconditioned state, hypertension, questionable seizure disorder, on Keppra as well as Lamictal who presented to the psychiatric unit for worsening depression symptoms. She had some underlying syncopal episode, which is likely secondary from medication from Clozaril, causing orthostatic hypotension in addition to volume depletion from nausea, vomiting, diarrhea and dehydration. She had some evidence of seizures/pseudoseizures as well. She had been stabilized from depression with some disorganized thought on the psychiatric floor. She has grown MRSA in her urine and initially placed on antibiotics. PAST MEDICAL HISTORY: Type 2 diabetes mellitus, diabetic peripheral neuropathy, hypertension, pseudoseizure/seizure disorder. REVIEW OF SYSTEMS: A 14-point review of systems is negative except as per the HPI. FAMILY HISTORY: Noncontributory. MEDICATIONS: Reviewed by nurse per reconciliation sheet. ALLERGIES: ALLERGIC TO PENICILLIN. PHYSICAL EXAMINATION: GENERAL: Patient is sitting up in bed, in no acute distress. VITAL SIGNS: Temperature 97.3, pulse rate 78, blood pressure 104/65, respiratory rate 18, oxygen saturation 98% via room air. HEENT: Head is atraumatic and normocephalic. PERRLA. Extraocular muscles intact. NECK: Supple. No JVD. No adenopathy noted. LUNGS: Clear to auscultation. No adventitious sounds. HEART: S1 and S2. Normal rate and rhythm. No murmur, rubs or gallops. ABDOMEN: Soft, nontender, nondistended. Bowel sounds present. EXTREMITIES: No clubbing. No cyanosis. Peripheral pulses 2+ felt bilaterally. NEUROLOGIC: Patient is alert, oriented to person, place and year. Recall after 5 minutes is 0/3. Poor attention span. Slow thought process, very disorganized thought. Cranial nerves II through XII are intact. Motor exam: Moves all extremities equally. Normal bulk and tone. Normal bulk of muscle. No pronator drift seen. Toes are downgoing bilaterally. Sensory exam: Decreased light touch and pinprick up to the calves bilaterally. Decreased vibration of the toes. DTRs are 2+ throughout and absent at the ankles. Coordination: [id number] intact. No dysmetria noted. LABORATORY DATA: Growing MRSA in the urine. Today's blood sugar is 189. ASSESSMENT AND PLAN: This is a 57-year-old woman with history of type 2 diabetes mellitus, history of deconditioned state, history of peripheral neuropathy from underlying diabetes, history of seizure versus pseudoseizure on Lamictal and Keppra, history of anxiety and depression, who is being with the recent issue of syncopal episode with dehydration, vomiting and diarrhea. Psychiatrically had been stabilized from underlying depression. This evaluation is called for history of her underlying seizures and currently feel like the seizures are partial pseudoseizure versus actual true seizures. She has multiple electroencephalograms in the past, which were all unremarkable. At this time, I recommend; 1. Keep her on Lamictal 100 mg p.o. b.i.d. and Keppra 500 mg p.o. b.i.d. for seizure prophylaxis. 2. Behavior medications and psychiatric medications as per Psychiatry. 3. We will need an antibiotic for methicillin-resistant Staphylococcus aureus growing in the urine. 4. Continue current present medical management. Thank you for this consult. Guy Gracia MD
--- NOTE | 2017-12-12 18:11 | PCM.PYCHDC ---
Mental Status Examination - Mental Status Examination Orientation: Person, Place Memory: Impaired Mood: Neutral Affect: Constricted Speech: Soft Attention: Poor Concentration: Poor Association: Loose Fund of Knowledge: Poor Formal Thought Process: Loosening of associations Description of patient's judgement and insight: poor i/J Psychotic Thoughts and Behaviors: Patient denied any hallucinations or paranoia. Suicidal Ideation: No Current Homicidal Ideation?: No Discharge Summary - Discharge Note Reason for Hospitalization: Patient is a single 57-year-old female with likely psychiatric history of schizoaffective disorder, reported history of multiple hospitalizations, compliant with clozaril 200/400, Cymbalta 60 mg daily, Vistaril 25 mg HS, Ambien 10 mg HS prescribed by HOME WORKER at [facility] who was transferred from the medical floor after she was evaluated for possible syncopal episode. Dr. Reddy evaluated patient on both December 09 and December 10, 2017. She spoke with medical team who felt that clozaril could be contributing to patients symptoms of orthostatic hypertension, nausea, vomiting, diarrhea and dehydration (patient with many medical hospitalizations). In addition there is some question as to whether patient has seizures versus pseudoseizures or both. She is currently being prescribed Lamictal and Keppra. Patient was transferred to the psychiatric unit for further stabilization as patient is depressed with some disorganization. She indicated her preference to be tapered off clozaril and AEDs if possible. Laboratory Data: Laboratory Tests 12/11/17 12/11/17 12/11/17 07:50 07:50 07:50 Fasting Glucose 130 H Triglycerides 178 H Cholesterol 175 LDL Cholesterol Direct 95 HDL Cholesterol 43 Free T4 0.77 L TSH 3rd Generation 5.50 H RPR Nonreactive Consultations:: List each consultation separately and include: 1. Reason for request. 2. Findings. 3. Follow-up Consultations: Seen by Dr. Cheyanne ROA on 12/11/17 Summary of Hospital Course include:: 1. Description of specific treatment plan utilized for patients during their course of treatmen. 2. Summarize the time- course for resolution of acute symptoms and/or regressed behaviors. 3. Describe issues identified and worked on during hospitalization. 4. Describe medication utilized. 5. Describe medical problems identified and treated. 6. Reassessment of suicide risk Summary of Hospital Course: Patient is a single 57-year-old female with likely psychiatric history of schizoaffective disorder, reported history of multiple hospitalizations, compliant with clozaril 200/400, Cymbalta 60 mg daily, Vistaril 25 mg HS, Ambien 10 mg HS prescribed by HOME WORKER at [facility] who was transferred from the medical floor after she was evaluated for possible syncopal episode. Dr. Reddy evaluated patient on both December 09 and December 10, 2017. She spoke with medical team who felt that clozaril could be contributing to patients symptoms of orthostatic hypertension, nausea, vomiting, diarrhea and dehydration (patient with many medical hospitalizations). In addition there is some question as to whether patient has seizures versus pseudoseizures or both. She is currently being prescribed Lamictal and Keppra. Patient was transferred to the psychiatric unit for further stabilization as patient is depressed with some disorganization. She indicated her preference to be tapered off clozaril and AEDs if possible. I met with patient at bedside and she appears on campus with inconsistent orientation and poor focus. She was aware of the current location and months however needed to be reminded about the year on two occasions. She did not appear to be in any distress and she denied having any new concerns, discomfort or pain. Eye contact was intermittent and her affect was constricted. Thought process appeared to be scattered. During her evaluation with Dr. Reddy, patient admitted to history of hearing voices and seeing things. She denied having these symptoms during my interview with her this morning. She was internally preoccupied but she was not responding to internal stimuli. Staff notes indicate a patient has been in fair control, visible on the unit and attending groups. Appears depressed with constricted affect. There were no behavioral issues. Patient was transferred to the ED after lab results returned MRSA+, she was ultimately transferred to the medical floor due to need for contact precautions. PSYCHIATRIC HISTORY Patient with multiple prior psychiatric admissions though none noted at this hospital. Currently the care of HOME WORKER at [facility] and prescribed clozaril 200/400, Cymbalta 60 mg daily, Vistaril 25 mg HS, Ambien 10 mg HS SOCIAL HISTORY Largely unknown as there are conflicting stories noted in patient's chart. It is unclear whether patient has any siblings or any family in general for social support. Patient denies ever being , denies having children. Indicates that she graduated high school, denied going to college. Denied having any real employment throughout her life. Patient denied any drug or alcohol issues. - Diagnosis (1) Depressed Status: Acute (2) Altered mental status Status: Acute - Final Diagnosis (DSM 5) Condition upon Discharge: GOOD DSM 5: Schizoaffective disorder Disposition: OTHER INSTITUTION Follow-up Treatment Plan: Patient was transferred to the ED after lab results returned MRSA+, she was ultimately transferred to the medical floor due to need for contact precautions. * Taper clozaril 100/400 to 100/350 today, monitor * Hold on initiating risperdal until clozaril is tapered a little lower to avoid unnecessary drug-drug interaction since clozaril is at such a high dose. * Cymbalta 60 mg po daily * Remeron 15 mg po HS prn (patient didn't require last night) * Ambien 5 mg HS prn insomnia * Lamictal 100 mg po bid and Keppra 750 mg po bid as an AED. - Smoking Cessation Smoking Cessation Medication prescribed: No
--- NOTE | 2017-12-13 04:30 | CON ---
DATE: 12/11/2017 INTERNAL MEDICINE AND PRIMARY CARE CONSULTATION HISTORY OF PRESENT ILLNESS: This is a 57-year-old woman known to me for many years with a history of diabetes in the past, now diet controlled. She also has a history of chronic nausea, vomiting, diarrhea with multiple hospitalizations and extensive GI workups including endoscopy, colonoscopy, CT scans. She also has a history of multiple syncopal episodes. Worked up by Neurology including CAT scans, MRIs. She has been seen by Cardiology. Stress test is done and in fact the patient has a long-term implanted event loop recorder in her. She was hospitalized to the acute care facility at [facility] just a few days ago after a syncopal episode. It was my suspicion then that perhaps some of her neuroleptic medications may have contributing factors in her syncope, so Psychiatry consultation was called with Dr. Reddy and the patient was offered the opportunity to come to for further adjustment of her medication. In reviewing her seizure diagnosis history, it appears that initially her EEGs were normal in 2011 and later EEGs were read as equivocal and later became more abnormal. Although there has never been any urinary or stool incontinence or seizure-like activity during these episodes, she remains on some seizure medicines and the most recently added Cymbalta within the past six months or so. PHYSICAL EXAMINATION: GENERAL: Patient was seen in room 519, bed 1. She is awake, alert, clear, comfortable. Mental status is at baseline. It is somewhat simple or child like, but she is truly delightful to speak with . HEENT: Head and neck are unremarkable. Conjunctivae are pink. Mucous membranes are moist. NECK: Supple without masses. There is no JVD. Thyroid is not palpable. LUNGS: Clear. HEART: Regular, not tachycardic. ABDOMEN: Soft, nontender, moderately overweight. EXTREMITIES: Show no edema. IMPRESSION: 1. Syncope. 2. Orthostatic hypotension. 3. Possible medication reaction causing syncope and orthostatic hypotension. 4. History of depression/schizophrenia. 5. History of chronic diarrhea. 6. History of chronic nausea and vomiting. 7. History of diabetes, now diet controlled. 8. Recent asymptomatic bacteria noted on hospital admission. PLAN: We will recheck urinalysis. Discontinue the nitrofurantoin. Decrease Cymbalta from 60 to 30 mg daily. Decrease the Keppra from 750 to 500 mg b.i.d. and change her diet to a modified consistent carbohydrate diet with no sodium restriction. Also of note is the TSH of 5.5, but since this is only a minimal elevation and T3 is normal, I would not treat this at this point. Also of note is that her most recent labs including white count was normal and she is afebrile. We will repeat urinalysis and urine C and S and follow closely. Thank you very much for the consultation and the opportunity to bring Isha to where we can further adjust her neuroleptic medications. Tomas Garza MD
== END 2017-12-11 13:01 | disposition home or self-care (01) | DRG 885 ==
LOC: PSYC 18:10
PROVIDERS: ADMIT Psychiatry & Neurology Psychiatry; ATTEND Psychiatry & Neurology Psychiatry
DX: F25.9 Schizoaffective disorder, unspecified (principal); F32.89 Other specified depressive episodes; E11.42 Type 2 diabetes mellitus with diabetic polyneuropathy; E86.0 Dehydration; G40.909 Epilepsy, unspecified, not intractable, without status epilepticus; I10 Essential (primary) hypertension; I95.1 Orthostatic hypotension; J45.909 Unspecified asthma, uncomplicated; K21.9 Gastro-esophageal reflux disease without esophagitis; K52.9 Noninfective gastroenteritis and colitis, unspecified; Z79.899 Other long term (current) drug therapy; Z87.440 Personal history of urinary (tract) infections; Z90.49 Acquired absence of other specified parts of digestive tract; Z90.710 Acquired absence of both cervix and uterus; Z88.0 Allergy status to penicillin; B95.62 Methicillin resistant Staphylococcus aureus infection as the cause of diseases classified elsewhere

== ENCOUNTER 2017-12-11 14:26 | Inpatient (IN) | payer MEDICARE, OTHER ==
[2017-12-11] MEDS ORDERED: Albuterol-Ipratrop 3 mg / 0.5 (3 ml) UD IH STA (14:37)
--- NOTE | 2017-12-11 14:40 | ED PDOC ---
Arrival/HPI - General Chief Complaint: Female Genitourinary Time Seen by Provider: 12/11/17 14:34 Historian: Patient - History of Present Illness Narrative History of Present Illness (Text): 12/11/17 14:38 pt p/w + abnl urine tests (was told that she has MRSA in her urine); pt has been a patient up in the [facility] and pt was directed to come to Emergency department for re-eval and possible admission today; pt complains of 3 days onset of dysuria/urinary frequency/burning on urination; pt denied flank/pelvic/ abd pain, pt also noted + exertional sob, + nausea, no fever/chills/sweats, no cp/palpitations, no upper abd pain, no vomiting, no appetite changes, no gross bleeding, no numbness/tingling, no rashes; pt arrived to Emergency department for further eval; pt's without other complaints. PCP: Greg Time/Duration: < week (3 days) Symptom Onset: Sudden Symptom Course: Unchanged Severity Level: Moderate Activities at Onset: Rest Context: Other (while admitted as a psych patient) Past Medical History - Provider Review Nursing Documentation Reviewed: Yes - Travel History Have you recently traveled outside [place] w/in the past 3 mons?: No - Past History Past History: Non-Contributing - Infectious Disease Hx of Infectious Diseases: None - Tetanus Immunization Tetanus Immunization: Unknown - Reproductive Menopause: Yes Currently : No - Past Medical History Past Medical History: Non-Contributing - Cardiac Hx Cardiac Disorders: Yes - Pulmonary Hx Respiratory Disorders: Yes Hx Asthma: Yes - Neurological Hx Neurological Disorder: Yes Hx Dizziness: Yes Hx Seizures: Yes - HEENT Hx HEENT Disorder: Yes Other/Comment: wears glasses - Renal Hx Renal Disorder: No - Endocrine/Metabolic Hx Diabetes Mellitus Type 2: Yes - Hematological/Oncological Hx Blood Disorders: No - Integumentary Other/Comment: MASD UNDER THE STOMACH FOLD AND BREAST FOLD. - Musculoskeletal/Rheumatological Hx Musculoskeletal Disorders: No Hx Falls: Yes (2 X TODAY. 5-30-18) - Gastrointestinal Hx Gastrointestinal Disorders: Yes Hx Gall Bladder Disease: Yes (CHOLECYSTITIS ,CHOLECYSTECTOMY,MILD GASTRITIS) Hx Gastroesophageal Reflux: Yes - Genitourinary/Gynecological Hx Genitourinary Disorders: Yes (URGENCY FREQUENCY) Hx Incontinence: Yes Hx Urinary Tract Infection: Yes Other/Comment: fibroids, hysterectomy - Psychiatric Hx Depression: Yes Hx Substance Use: No - Surgical History Hx Cholecystectomy: Yes Hx Hysterectomy: Yes - Anesthesia Hx Anesthesia Reactions: No Hx Malignant Hyperthermia: No - Suicidal Assessment Feels Threatened In Home Enviroment: No Family/Social History - Physician Review Nursing Documentation Reviewed: Yes Family/Social History: No Known Family HX Smoking Status: Never Smoked Hx Alcohol Use: No Hx Substance Use: No Hx Substance Use Treatment: No Allergies/Home Meds Allergies/Adverse Reactions: Allergies Penicillins Allergy (Severe, Verified 12/11/17 14:32) ITCHING Home Medications: Home Meds Medication Instructions Recorded Confirmed Cholestyramine [Questran] 4 gm PO BID 10/26/17 12/10/17 DULoxetine [Cymbalta] 60 mg PO QAM 10/26/17 12/10/17 Levetiracetam [Keppra] 750 mg PO BID 10/26/17 12/10/17 Loperamide [Loperamide HCl] 2 mg PO QID 10/26/17 12/10/17 Mirtazapine [Remeron] 45 mg PO HS 10/26/17 12/10/17 Omeprazole 40 mg PO DAILY 10/26/17 12/10/17 Ondansetron HCl [Zofran] 4 mg PO PRN PRN 10/26/17 12/10/17 Zolpidem [Ambien] 10 mg PO HS 10/26/17 12/10/17 busPIRone [Buspar] 10 mg PO PRN PRN 10/26/17 12/10/17 cloZAPine [Clozapine] 200 mg PO BID 10/26/17 12/10/17 lamoTRIgine [LaMICtal] 100 mg PO BID 10/26/17 12/10/17 Review of Systems - Review of Systems Constitutional: Normal Eyes: Normal ENT: Normal Respiratory: SOB. absent: Cough, Wheezing Cardiovascular: Normal Gastrointestinal: Nausea. absent: Abdominal Pain, Vomiting, Appetite Changes Genitourinary Female: Dysuria, Frequency. absent: Hematuria, Vaginal Bleeding, Vaginal Discharge Musculoskeletal: Normal Skin: Normal Neurological: Normal Endocrine: Normal Hemo/Lymphatic: Normal Psychiatric: Normal Physical Exam - Physical Exam Narrative Physical Exam (Text): 12/11/17 14:41 General: alert/awake, GCS = 15, oriented x 3, resting in bed, mildly uncomfortable, cooperative, interactive; NAD Head: NC/AT EYE: PERRLA, EOMI, sclera anicteric, no nystagmus, no photophobia; visual field intact b/l; wearing eyeglasses Facial: WNL Oral: uvula/tongue are midline, no exudate/lesions, no drooling/stridor, no dysphonia; intact dentitions; mild dry oral mucosa NECK: intact ROM, no midline tenderness, no nuchal rigidity, no meningeal signs ; no step off Chest: CTA b/l, no w/r/r; no tachypenia, no accessory muscle use noted Cardiac: +S1, +S2, no m/r/r, no tachycardia Abdominal: +BS, soft/nd/nt, well nourished/obese patient; no masses/rebound/ guarding/rigidity; no adhikari's sign, no mcburney's point tenderness Extremities: intact ROM, strength 5/5 grossly intact in all limbs, neurovasc intact b/l; + ambulatory; reflex +2/2 BACK: no step off, no midline tenderness, NO crepitus, no gross deformities noted; Intact ROM; NO cvat b/l SKIN: cap refill < 1 sec, no ulcerations, no petechiae, no rashes; no gross pallor NEURO: CNII-XII WNL, no facial asymmetries, no slurr speech, oriented x 3 NIH stroke scale ~ 0 Psych: normal insight, flat affect; follows command with ease Vital Signs Reviewed: Yes Vital Signs Temp Pulse Resp BP Pulse Ox 12/11/17 14:59 98.2 F 92 H 18 134/100 H 95 Temperature: Afebrile Blood Pressure: Normal Pulse: Regular Respiratory Rate: Normal Appearance: Positive for: Well-Appearing, Non-Toxic, Uncomfortable. No: Ill- Appearing, Unkept Pain Distress: None Mental Status: Positive for: Alert and Oriented X 3 - Systems Exam Head: Present: Atraumatic, Normocephalic Medical Decision Making ED Course and Treatment: 12/11/17 14:35 Impression: abnl Urinalysis results i have consider all the differential diagnosis regarding pt's chief medical complaints/clinical findings, including but are not limited to: UTI, abnl ua results A/P: abnl ua results - labs - cultures - ua - supportive care - observe/reevaluation 12/11/17 16:30 pt is comfortable pt is not in any distress pt is awaiting for her medical results 1637 I spoke to pt's PCP, Dr Garza, made aware of pt's medical complaints, agrees with Emergency department mgt/txt; pt had already been started on Macrobid and has been under observation by Dr Garza; given pt's stable vitals/lab results, pt DOES NOT warrant medical admission and patient can be released back to Psych evaluation/admission [address] Gongora, telecommunications analyst psych, made aware of pt's medical findings and my discussions with Dr Mercedes, and is in agreement, and is Agreeable with readmitting patient back to [facility] for further care/management, would like the nurse manager deli made aware and if they are in agreement with the readmission 1641 I spoke to Kim, the nurse manager deli telecommunications analyst, she will get back to hi 12/11/17 17:30 nurse manager deli contacted me and states due to pt's MRSA, contact precaution is warranted, pt can not be placed up in the [facility] as a result and will need contact isolation paging Dr Garza for admission 12/11/17 [address] Garza, made aware, agrees with admission, would like to consult Dr Samuels (ID), and psych Dr Saenz Re-evaluation Time: 16:11 Reassessment Condition: Improved - Lab Interpretations Lab Results: 12/11/17 16:00 12/11/17 16:00 Lab Results 12/11/17 17:15: Urine Color Yellow, Urine Appearance Clear, Urine pH 6.0, Ur Specific [place] 1.025, Urine Protein Negative, Urine Glucose (UA) Negative, Urine Ketones Negative, Urine Blood Negative, Urine Nitrate Negative, Urine Bilirubin Negative, Urine Urobilinogen 0.2, Ur Leukocyte Esterase Negative 12/11/17 16:00: Sodium 143, Chloride 105, Potassium 4.3, Carbon Dioxide 24, Anion Gap 19, BUN 16, Creatinine 1.1, Est GFR ( Amer) > 60, Est GFR (Non- Af Amer) 52, Random Glucose 149 H, Calcium 9.5, Magnesium 1.9, Total Bilirubin 0.3, AST 71 H D, ALT 89 H, Alkaline Phosphatase 117, Total Protein 7.4, Albumin 4.6, Globulin 2.8, Albumin/Globulin Ratio 1.6, Lipase 189 12/11/17 16:00: pO2 42, VBG pH 7.38, VBG pCO2 47.0, VBG HCO3 27.8, VBG Total CO2 29.2 H, VBG O2 Sat (Calc) 82.9 H, VBG Base Excess 2.0, VBG Potassium 4.3, Sodium 140.0, Chloride 108.0 H, Glucose 160 H, Lactate 1.4, FiO2 21.0, Venous Blood Potassium 4.3 12/11/17 16:00: WBC 5.3, RBC 4.41, Hgb 13.0, Hct 38.8, MCV 88.0, MCH 29.5, MCHC 33.5, RDW 13.1, Plt Count 111 L, MPV 9.7, Gran % 67.1, Lymph % (Auto) 27.2, [place] % (Auto) 3.6, Eos % (Auto) 1.9, Baso % (Auto) 0.2, Gran # 3.56, Lymph # ( Auto) 1.4, [place] # (Auto) 0.2, Eos # (Auto) 0.1, Baso # (Auto) 0.01 I have reviewed the lab results: Yes Interpretation: Abnormal lab values (mildly elevated LFTs) - Medication Orders Current Medication Orders: Discontinued Medications Albuterol/Ipratropium (Duoneb 3 Mg/0.5 Mg (3 Ml) Ud) 3 ml IH STAT STA Stop: 12/11/17 14:38 Last Admin: 12/11/17 15:45 Dose: 3 ml Phenazopyridine HCl (Pyridium) 100 mg PO STAT STA Stop: 12/11/17 16:12 Last Admin: 12/11/17 16:46 Dose: 100 mg Trimethoprim/Sulfamethoxazole (Bactrim Ds Tab) 1 tab PO STAT STA PRN Reason: Protocol Stop: 12/11/17 14:46 Last Admin: 12/11/17 15:50 Dose: 1 tab Disposition/Present on Arrival - Present on Arrival Any Indicators Present on Arrival: No History of DVT/PE: No History of Uncontrolled Diabetes: No Urinary Catheter: No History of Decub. Ulcer: No History Surgical Site Infection Following: None - Disposition Have Diagnosis and Disposition been Completed?: Yes Diagnosis: UTI (urinary tract infection), Depression, Weakness Disposition: HOSPITALIZED Disposition Time: 18:00 Isolation: Contact Patient Plan: Admission Patient Problems: Current Active Problems Problem Status Onset Depressed Acute UTI (urinary tract infection) Acute Condition: STABLE Discharge Instructions (ExitCare): Weakness (ED) Print Language: KAZAKH Referrals: Tomas Garza MD [Primary Care Provider] - Follow up with primary Forms: [employer] (Russian)
[2017-12-11] MEDS ORDERED: Tmp-Smz 800 mg-160 mg DS Tab PO STA (14:45)
[2017-12-11 16:26] LABS: BASO # 0.01 K/mm3 (0.0-2.0); BASO % 0.2 % (0.0-3.0); EOS # 0.1 (0.0-0.7); EOS % 1.9 % (1.5-5.0); GRAN # 3.56 (1.4-6.5); GRAN % 67.1 % (50.0-68.0); LYMPH # 1.4 (1.2-3.4); LYMPH % 27.2 % (22.0-35.0); MEAN CORPUSCULAR HEMOGLOBIN 29.5 pg (25.0-35.0); MEAN CORPUSCULAR HGB CONC 33.5 g/dl (31.0-37.0); MEAN PLATELET VOLUME 9.7 fl (7.0-11.0); MONO # 0.2 (0.1-0.6); MONO % 3.6 % (1.0-6.0); RBC 4.41 10^6/uL (3.5-6.1); RED CELL DISTRIBUTION WIDTH 13.1 % (11.5-14.5); WHITE BLOOD COUNT 5.3 10^3/ul (4.5-11.0)
[2017-12-11 16:28] LABS: VENOUS BLOOD GAS PO2 42 mm/Hg (30-55); VENOUS BLOOD PH 7.38 (7.32-7.43)
[2017-12-11 16:32] LABS: ALB/GLOB RATIO 1.6 (1.1-1.8); ALBUMIN 4.6 g/dL (3.0-4.8); ALT/SGPT 89 U/L (7-56); AST/SGOT 71 U/L (14-36); BLOOD UREA NITROGEN 16 mg/dL (7-21); CALCIUM 9.5 mg/dL (8.4-10.5); GFR AFRICAN-AMERICAN > 60; GFR NON-AFRICAN AMERICAN 52; LIPASE 189 U/L (23-300)
[2017-12-11 17:43] LABS: URINE BILIRUBIN NEGATIVE (NEGATIVE); URINE BLOOD NEGATIVE (NEGATIVE); URINE GLUCOSE (UA) NEGATIVE (NEGATIVE); URINE LEUKOCYTE ESTERASE NEGATIVE Leu/uL (NEGATIVE); URINE PROTEIN NEGATIVE mg/dL (<30 mg/dL); URINE UROBILINOGEN 0.2 E.U./dL (<1 E.U./dL)
[2017-12-11 17:52] LABS: URINE APPEARANCE CLEAR (CLEAR); URINE COLOR YELLOW (YELLOW)
[2017-12-11 22:50] VITALS: BMI 38.5
[2017-12-11] MEDS ORDERED: Pneumococcal 23-Valent Vaccine IM ONE (22:51)
[2017-12-12 07:15] LABS: BASO # 0.03 K/mm3 (0.0-2.0); BASO % 0.5 % (0.0-3.0); EOS # 0.1 (0.0-0.7); GRAN # 3.62 (1.4-6.5); GRAN % 61.8 % (50.0-68.0); HEMOGLOBIN 12.3 g/dL (12.0-16.0); LYMPH # 1.8 (1.2-3.4); LYMPH % 31.1 % (22.0-35.0); MEAN CELL VOLUME 87.9 fl (80.0-105.0); MEAN CORPUSCULAR HEMOGLOBIN 29.1 pg (25.0-35.0); MEAN CORPUSCULAR HGB CONC 33.2 g/dl (31.0-37.0); MEAN PLATELET VOLUME 9.7 fl (7.0-11.0); MONO # 0.3 (0.1-0.6); MONO % 4.6 % (1.0-6.0); RBC 4.22 10^6/uL (3.5-6.1); RED CELL DISTRIBUTION WIDTH 13.3 % (11.5-14.5); WHITE BLOOD COUNT 5.9 10^3/ul (4.5-11.0)
[2017-12-12 07:40] VITALS: RESP 20
[2017-12-12 07:40] LABS: CALCIUM 9.2 mg/dL (8.4-10.5)
[2017-12-12] MEDS: Cholestyramine 4 gm/Pkt UD PO SCH (10:01)
[2017-12-12 15:25] LABS: URINE BILIRUBIN NEGATIVE (NEGATIVE); URINE BLOOD NEGATIVE (NEGATIVE); URINE GLUCOSE (UA) NEGATIVE (NEGATIVE); URINE LEUKOCYTE ESTERASE NEGATIVE Leu/uL (NEGATIVE); URINE PROTEIN TRACE mg/dL (<30 mg/dL); URINE UROBILINOGEN 0.2 E.U./dL (<1 E.U./dL)
[2017-12-12 15:27] LABS: URINE APPEARANCE CLEAR (CLEAR); URINE COLOR YELLOW (YELLOW)
[2017-12-12 15:46] LABS: URINE AMORPHOUS SEDIMENT FEW; URINE BACTERIA FEW (NEG)
--- NOTE | 2017-12-12 19:07 | HP ---
CHIEF COMPLAINT: MRSA noted on urine culture, so the patient now admitted to for adjustment of neuroleptic medications. HISTORY OF PRESENT ILLNESS: This is a rather peculiar admission for a 57-year-old woman I have known for many years. She presented to the emergency room on 12/09/2017 and was admitted for syncopal episode. I felt at that time that her syncope was more likely maybe related to medications as she was on Clozaril from her psychiatrist at [facility]. She had been worked up for syncope in the past including EEGs which ranged from normal in 2012 to equivocal to abnormal on most recent one of approximately 2 or 3 years ago. In the emergency room on 12/09/2017, many bacteria and yeast were noted in the urine. There was small amount of leukocyte esterase and some nitrites. The culture was sent. She was treated with Macrodantin and was completely asymptomatic. The workup was unremarkable. Because of the concern about the neuroleptic medications, Psychiatry consultation was called, and the patient agreed to go to for further adjustment of her medications. On her second day at , culture report from [facility] was received that was sent from the ER showing MRSA. As the patient was asymptomatic, afebrile, with a normal white count, and had been already treated, I ordered a repeat UA and C and S. However our policy, because of MRSA requiring isolation, was followed and she was transferred to the emergency room for me to receive a surprise call from the ER that she was there with the plan needing to be revised as far as adjusting her medications in a room that can provide contact isolation, and whether or not this MRSA asymptomatic bacteria did in fact need to be treated. So, the patient was admitted to the medical floor, Infectious Disease consultation was called, and she will be continued to be followed by Neurology and Psychiatry as well as myself. PAST MEDICAL HISTORY: Negative for hypertension, hyperlipidemia, tuberculosis, gout, COPD, TIA, CVA, ND, coronary artery disease or cancers of any type. She is positive for diabetes since 2013, now diet-controlled, asthma since 2013 and there is a question of seizure disorder diagnosed in 2013. Earlier EEGs have been unremarkable, then turned equivocal, and EEG was repeated during this 12/09/2017 hospitalization, but is not yet available. The patient had recent hospitalizations for syncope. She also has a history of orthostatic hypotension, depression, mental illness and schizophrenia. PAST SURGICAL HISTORY: Significant for cholecystectomy in 1989, hysterectomy in 2010. She has been hospitalized approximately 20 times in the last 3 years, many of them for abdominal pain and chronic diarrhea. Extensive workup with multiple gastroenterologists were done, but essentially unremarkable. In spite of this, she remains morbidly obese. Cardiac workup, thallium stress test, endoscopy and colonoscopy were done in the past 2 years. ALLERGIES: SHE IS ALLERGIC TO PENICILLIN, WHICH GIVES HER HIVES. SOCIAL HISTORY: She does not smoke, never did; does not drink alcohol or coffee. She had a colonoscopy in 2013 in [place], several in [place] in 2013 to 2015, and I believe more recently as well. She had multiple endoscopies dating back to 1993, and again, most recent one in the past year or two. She had mammograms in 2009 and 2014, both unremarkable. She refuses the flu shot and the Pneumovax vaccine. FAMILY HISTORY: Mother and father both lived into their 60s and have both passed. She is the second of 5 siblings. She has a brother who at age 35 of liver cancer. She has 2 sisters and 1 brother that she has lost contact with. She has recently regained contact with a sister in [place]. She is single, with no children. She has been disabled from 1992 with depression. Prior to that, she worked at [employer] in [place], [place]. Her neurologist is Dr. Gracia. Her block greaser is Dr. Livingston. In the past, she has seen glassworker, Dr. Dumont and Dr. Turpin, who currently have an event loop recorder implanted that was interrogated during the last admission. REVIEW OF SYSTEMS: Review of systems on multiple points is negative, but for the GI symptoms, occasional diarrhea as noted above, but that has subsided during this hospital stay. Review of her past medical history at [facility] shows multiple admissions. Her last stress test was in 2016 with implantation of loop recorder in 04/2016 as part of an extensive syncope workup. She had a stress test in 2013 and 2014, which are unremarkable. Imaging done during 2017 shows multiple x-rays, 5 CT scans of the head and 2 CT scans of the abdomen and pelvis. Stress test was done as mentioned above, MRCP, and an assortment of chest x-rays, rib x-rays, knee and ankle x-rays all done as well. PHYSICAL EXAMINATION GENERAL: On physical exam, this Wednesday morning, prior to the culture report arriving to 5B, the patient was awake, alert, clear, in her usual state, coherent, able to carry on conversation. Apparently, she is not particularly first day on 5B, but willing to stay for adjustment of her medications. HEENT: Head and neck are unremarkable. Conjunctivae are pink. Mucous membranes are moist. NECK: Supple. There is no carotid bruit. No JVD. LUNGS: Show good aeration in right and left. HEART: Regular, and not tachycardic. BREASTS: Not examined. ABDOMEN: Soft, moderately overweight, nontender. BACK: Show no CVA tenderness. EXTREMITIES: Showed no edema. Good DP and PT pulses present. IMPRESSION: 1. Positive urine culture for methicillin-resistant Staphylococcus aureus in a patient who I feel had asymptomatic bacteria from presentation on 12/09/2017 versus urinary tract infection. 2. Recurrent syncopal episodes apparently due to medications; therefore, the patient was on 5B for adjustment of her neuroleptics. 3. Chronic diarrhea, now stable. 4. Diabetes, now diet-controlled. 5. History of asthma. 6. Questionable history for seizures. 7. History of orthostatic hypotension. 8. History of multiple syncopal episodes. 9. History of depression and schizophrenia. 10. Status post cholecystectomy. 11. Status post hysterectomy. 12. Chronic diarrhea with extensive workups in the past. 13. Obesity. PLAN: The patient was admitted to the medical floor Infectious Disease opinion and for how we should best treat this culture report as well as how we should best treat this patient. We will require input from Dr. Saenz from Psychiatry regarding further adjusting her neuroleptic medicines and decrease some of her seizure medications as well, and we will discuss with all consultants involved. Tomas Garza MD
--- NOTE | 2017-12-12 21:25 | PN ---
DATE: 12/12/2017 SUBJECTIVE: The patient was seen this Wednesday morning in room 571, bed 2, resting comfortably in the bed. Transferred to fifth floor from the emergency room late yesterday after coming to the ER from psychiatry floor when the urine culture came back as positive for MRSA that was taken from the ER on 12/08/2017. The patient is awake, alert, mental status is clear at baseline, somewhat simple in conversation, but understands well, and in good spirits. I spoke with her at length, questioning urinary tract symptoms, and she denies dysuria, frequency, urgency today on 5B as well as at the time of admission. She is wondering if this will have impact on her plans to go home; she is hoping to go home soon. PHYSICAL EXAMINATION: Essentially unchanged. There is no bladder tenderness. No CVA tenderness. IMPRESSION AND PLAN: I spoke with Dr. Alex Samuels, Infectious Disease personal consultant at great length; we reviewed the case, the history, the report and the finding. Of reassuring interest is that the most recent urinalysis done only yesterday was completely within normal limits, and that the patient is asymptomatic with a normal white count and afebrile. Repeat urine culture is pending. There was the opinion of the personal consultant that if the culture was negative, we will be able to discontinue isolation and no further treatment would be indicated at this point. I am in wholehearted agreement with that opinion, of course continue to work with Psychiatry personal consultant with Dr. Saenz to monitor and adjust the patient's medicine while slowly also taper and adjust some of her antiseizure medication doses. Tomas Garza MD
--- NOTE | 2017-12-13 08:16 | CON ---
DATE: 12/12/2017 HISTORY OF PRESENT ILLNESS: Patient is a single 57-year-old white female with a history of schizoaffective disorder, multiple hospitalizations, compliant with Clozaril, Cymbalta, Vistaril, and Ambien prescribed by [facility]. She has been transferred from medical floor to psychiatric floor for further psychiatric treatment including modification of psychiatric medication regimen. Patient returned back to the medical floor after she was found to be MRSA positive and required contact precaution. In the meantime, patient's Clozaril has been tapered down as this was considered to be the cause of may of her physical complaints and the medication leading to possible seizures versus pseudo seizures or both. I met with patient yesterday and again today and she does appear to be more oriented, focused, and aware. She could not recall me from our visit yesterday; however, today she is able to provide the correct month, location, and current circumstances. She actually denied any depression, feels like she is doing well in that regard. She denied having any hallucinations, ____ were not elicited. She did not appear paranoid. Thought process was still mostly scattered. She still appeared a little bit vague at times, but generally presenting more clear than yesterday. Responses were consistent and appeared credible for the most part. She did not appear to be responding to internal stimuli. She had been in fair behavioral control on the medical floor and there have not been any issues thus far with staff members or compliance. She is agreeable to continue taper off of Clozaril. She is aware of the plan and she continues to be in agreement. Vital signs reviewed. Lab results were reviewed. CURRENT PSYCHIATRIC MEDICATIONS: Clozaril 100 mg p.o. daily and 300 mg at bedtime, Cymbalta 30 mg daily, Lamictal 100 mg p.o. b.i.d., Remeron 15 mg p.o. at bedtime, Ambien 5 mg at bedtime p.r.n. PSYCHIATRIC HISTORY: Patient with multiple psychiatric admissions, though none have been noted at hospital. Currently at the care of DEHYDRATOR OPERATOR at [facility] and was prescribed Clozaril 200 mg and 400 mg, Cymbalta 60, Vistaril 25 at bedtime, and Ambien 10 mg at bedtime. SOCIAL HISTORY: This is largely unknown as they are there are complexing stories noted in patient's chart. It is unclear whether patient has any siblings or his family in general . Patient denies ever being , denies having children. Education history, studied up to high school, did not go to college, did not have any real experiment throughout her life and she denies history of drug or alcohol issues. IMPRESSION: Schizoaffective disorder. RECOMMENDATIONS: 1. At this time, we will continue with psychiatric plan, which is to taper the Clozaril. She is on 100 mg daily and 300 mg at bedtime. I will reduce it 100 daily and 250 mg at bedtime. I will hold up on initiating Risperdal at this time as patient Clozaril and she is currently asymptomatic including psychiatric symptoms. I do not want to incur the additional risk of drug-drug interaction side effects. However, as Clozaril becomes tapered to lower doses, Risperdal should be initiated to prevent recurrence of psychiatric symptoms. 2. We will continue current medications, Cymbalta, Remeron, and Ambien at the current doses. No acute changes in patient's medication to necessitate any changes in these meds. 3. Dr. Reddy will follow up with patient on the medical floor on Wednesday, December , 2017. Rick Gongora MD
--- NOTE | 2017-12-13 09:22 | CON ---
DATE: 12/12/2017 LOCATION: The patient has been seen earlier today in 571, bed 2. CHIEF COMPLAINT: Positive urine cultures for MRSA x1 day. HISTORY OF PRESENT ILLNESS: This is a 57-year-old female with seizures, diabetes, asthma, schizophrenia, anxiety, panic, depression, obesity, hypertension, who is admitted through the emergency room from the psychiatric herrmann at the psychiatric unit. He was being evaluated, the patient had a workup for a syncopal episode which included a urinalysis and urine culture, and urine culture is growing MRSA. She states she has no dysuria or frequency at this time, and she has no fevers, no chills, no nausea, no vomiting, no abdominal pain, although in the emergency room chart, writes down that the patient had 3 days of dysuria and frequency, and burning on urination, and she denied any flank pain, pelvic pain, abdominal pain, and no fevers and chills. Although she did have nausea according to the ER chart, this morning the patient denies all that. REVIEW OF SYSTEMS: Reveals 12-point review of systems performed. PAST MEDICAL HISTORY: Significant for seizures, diabetes, asthma, depression, obesity, hypertension, schizophrenia, anxiety and panic. PAST SURGICAL HISTORY: Significant for cholecystectomy, appendectomy and hysterectomy. ALLERGIES: PATIENT IS ALLERGIC TO PENICILLIN. MEDICATIONS AT HOME: Include the patient to be on and patient is also on Keppra and Cymbalta, and Questran. PHYSICAL EXAMINATION: GENERAL: The patient is in bed, in no acute distress. VITAL SIGNS: Temperature of 98, blood pressure is 130/100, respiratory rate of 18, heart rate of 92. HEENT: Unremarkable. NECK: Supple. LUNGS: Have decreased breath sounds. HEART: Normal S1 and S2. ABDOMEN: Soft, nontender. No rebound or guarding. LABORATORY DATA: Reveals the patient had a white count of 5.3, hemoglobin of 13, platelets of 111. Chemistries reveals a BUN of 16, creatinine of 1.1, glucose is 149, AST is 71, ALT is 89. Urinalysis is completely normal, yellow clear urine from yesterday with a specific gravity of 1.025 and negative protein. ASSESSMENT AND PLAN: This is a 57-year-old female with schizophrenia, diabetes and asthma, depression, anxiety, panic, hypertension, obesity with BMI of 38, now with asymptomatic bacteriuria with methicillin-resistant Staphylococcus aureus. No treatment at this time with a negative urinalysis; and however, we will isolate the patient for methicillin-resistant Staphylococcus aureus, and we will make further recommendations upon . Case is discussed with Dr. Tomas Garza at length this morning. Alex Samuels MD
[2017-12-13] MEDS: Cholestyramine 4 gm/Pkt UD PO SCH (10:09)
--- NOTE | 2017-12-13 13:03 | CP.PCM.PN ---
Subjective - Date & Time of Evaluation Date of Evaluation: 12/13/17 Time of Evaluation: 11:45 - Subjective Subjective: No fevers, not in distress, no dysuria. Objective - Vital Signs/Intake and Output Vital Signs (last 24 hours): Temp Pulse Resp BP Pulse Ox 97.5 F L 76 20 131/86 97 12/13/17 06:00 12/13/17 06:00 12/13/17 06:00 12/13/17 06:00 12/13/17 06:00 Intake and Output: 12/13/17 12/13/17 06:59 18:59 Intake Total 360 Balance 360 - Medications Medications: Current Medications Cholestyramine Resin (Questran) 4 gm PO DAILY [facility] Last Admin: 12/13/17 10:09 Dose: 4 gm Clozapine (Clozaril) 100 mg PO DAILY [facility] PRN Reason: Protocol Last Admin: 12/13/17 10:09 Dose: 100 mg Clozapine (Clozaril) 200 mg PO HS [facility] PRN Reason: Protocol Duloxetine HCl (Cymbalta) 30 mg PO DAILY [facility] Last Admin: 12/13/17 10:09 Dose: 30 mg Lamotrigine (Lamictal) 100 mg PO BID [facility] PRN Reason: Protocol Last Admin: 12/13/17 10:09 Dose: 100 mg Levetiracetam (Keppra) 500 mg PO BID [facility] Last Admin: 12/13/17 10:09 Dose: 500 mg Mirtazapine (Remeron) 15 mg PO HS [facility] Last Admin: 12/12/17 22:30 Dose: 15 mg Zolpidem Tartrate (Ambien) 5 mg PO HS PRN PRN Reason: Insomnia - Labs Labs: 12/12/17 07:00 12/12/17 07:00 - Constitutional Appears: Chronically Ill - Head Exam Head Exam: NORMAL INSPECTION - Respiratory Exam Respiratory Exam: Decreased Breath Sounds - Cardiovascular Exam Cardiovascular Exam: +S1, +S2 - GI/Abdominal Exam GI & Abdominal Exam: Soft. absent: Tenderness Assessment and Plan - Assessment and Plan (Free Text) Plan: Assessment asymptomatic bacteriuria with ESBL-producing Klebsiella DM asthma depression anxiety obesity with BMI 38 schizophrenia Plan continue to monitor the patient off antibiotics since she is at risk for infections
--- NOTE | 2017-12-13 20:41 | PN ---
DATE: 12/13/2017 FOLLOWUP NOTE SUBJECTIVE: The patient was initially admitted on the medical side for falling, and nausea and vomiting. This automobile service writer got involved into the patient because medical team felt Clozaril could give such symptoms. The patient signed herself into the psychiatric inpatient unit in order to adjust medication over the weekend. The patient's urinalysis showed MRSA in the urine and the patient was transferred on the medical side for further evaluation and stabilization. This automobile service writer is following the patient on the medical side. The patient presented to be alert. The patient is on contact isolation. The patient seems to be a poor historian, does not remember who started Clozaril, most likely Clozaril was started by [employer] ACC[employer]ATION CONSULTANT years back. The patient is on monthly monitoring of granulocytes. It means the patient is on Clozaril for more than 1 year. The patient reported that she is willing to be weaned off and be on other medications, but at the same time, the patient has concerns about her social problems in regards of paying her rent which is due for tomorrow. The patient presented with childlike demeanor, at times presented to be circumstantial and tangential, but there is no agitation or aggression. The patient is compliant with the medication. There are no behavioral issues. The patient is pleasant and cooperative. OBJECTIVE: VITAL SIGNS: Reviewed. Temperature 98.2, pulse is 98, blood pressure 128/80, respirations 26, and oxygen saturation is 96%. MEDICATIONS: Reviewed. Cholestyramine, Clozaril 100 mg at the morning time and 200 mg at the nighttime. The patient is on Cymbalta 30 mg, Lamictal 100 mg twice a day, Keppra, Remeron 15 mg at the nighttime, and Ambien as needed. LABORATORY DATA: Reviewed. Most recent was from today. Microbiology, Klebsiella positive, was on 12/11 with no growth. MENTAL STATUS EXAM: The patient presented to be alert, pleasant, childlike demeanor, intermittent eye contact. Speech was under productive, low volume. Thought process seems to be circumstantial. Thought content: The patient denied hearing voices, denied seeing things, but the patient has history of psychosis in the past. Insight and judgment seem to be improving. Impulses are well controlled. IMPRESSION: As per history, schizoaffective disorder versus schizophrenia. The patient was on Clozaril. Medical team has concerns about the patient ability to tolerate Clozaril and medical team feels it could give low blood pressure, orthostatic hypotension, and nausea and vomiting. The patient is willing to sign herself in as long as social issues are concerns. The patient is not suicidal or homicidal. The patient is not presented to be psychotic. If the patient was to be discharged, Clozaril needs to be continued. The patient is to be followed up with psychiatrist at [facility] if the patient is willing to sign in to the voluntary unit. We will wean her off and observe for psychotic symptoms. If the patient required any other medications, in case if Clozaril will be discontinued abruptly, high risk of seizures. Case was discussed with Dr. Garza last week as well as the nurse practitioner today. Thank you very much for letting me participate in the care of your patient. Should you have any questions, give me a call back. Letty eRddy MD [facility]
[2017-12-14] MEDS: Cholestyramine 4 gm/Pkt UD PO SCH (09:52)
--- NOTE | 2017-12-14 10:07 | PN ---
DATE: 12/13/2017 DAILY PROGRESS NOTE SUBJECTIVE: The patient is a 57-year-old female with a history of depression, seizures, chronic GI symptoms of diarrhea and abdominal pains, who was admitted to [facility] after suffering a syncopal episode, possible seizure. It was determined that this is probably secondary to one of her medications which she received at the [facility]. She was then admitted to Psychiatric department for tapering off this medication; however, it was found that she was positive for MRSA in the urine, therefore was transferred back to the medical floor. Followup cultures were negative and the patient is contemplating returning to Psychiatric department for continued regulation of her medications. When seen, the patient is awake, alert and oriented. She remembered me. She was in good spirits. Her lungs are clear. Heart is regular. Abdomen is soft and nontender. The patient is in agreement with going to Psychiatry if she would be able to leave when she wanted. So, arrangements were being made for the transfer; however, the nurses' station informed me that they are still awaiting results of a nasal swab for MRSA prior to her transfer to . Allen Garza MD
[2017-12-14 15:09] VITALS: BP 121/74; PULSE 94; TEMP 97.5; O2SAT 97
--- NOTE | 2017-12-14 16:23 | CP.PCM.PN ---
Subjective - Date & Time of Evaluation Date of Evaluation: 12/14/17 Time of Evaluation: 12:05 - Subjective Subjective: Comfortable in bed, afebrile. Objective - Vital Signs/Intake and Output Vital Signs (last 24 hours): Temp Pulse Resp BP Pulse Ox 98.2 F 95 H 20 119/73 96 12/13/17 21:31 12/13/17 21:31 12/13/17 21:31 12/13/17 21:31 12/13/17 21:31 Intake and Output: 12/14/17 12/14/17 06:59 18:59 Intake Total 900 Balance 900 - Medications Medications: Current Medications Cholestyramine Resin (Questran) 4 gm PO DAILY [facility] Last Admin: 12/13/17 10:09 Dose: 4 gm Clozapine (Clozaril) 100 mg PO DAILY [facility] PRN Reason: Protocol Last Admin: 12/13/17 10:09 Dose: 100 mg Clozapine (Clozaril) 200 mg PO HS [facility] PRN Reason: Protocol Last Admin: 12/13/17 21:32 Dose: 200 mg Duloxetine HCl (Cymbalta) 30 mg PO DAILY [facility] Last Admin: 12/13/17 10:09 Dose: 30 mg Lamotrigine (Lamictal) 100 mg PO BID [facility] PRN Reason: Protocol Last Admin: 12/13/17 17:22 Dose: 100 mg Levetiracetam (Keppra) 500 mg PO BID [facility] Last Admin: 12/13/17 17:22 Dose: 500 mg Mirtazapine (Remeron) 15 mg PO HS [facility] Last Admin: 12/13/17 21:33 Dose: 15 mg Zolpidem Tartrate (Ambien) 5 mg PO HS PRN PRN Reason: Insomnia - Labs Labs: 12/12/17 07:00 12/12/17 07:00 - Constitutional Appears: Non-toxic, Chronically Ill - Head Exam Head Exam: NORMAL INSPECTION - Respiratory Exam Respiratory Exam: Decreased Breath Sounds - Cardiovascular Exam Cardiovascular Exam: +S1, +S2 - GI/Abdominal Exam GI & Abdominal Exam: Soft. absent: Tenderness Assessment and Plan - Assessment and Plan (Free Text) Plan: Assessment asymptomatic bacteriuria with ESBL-producing Klebsiella DM asthma depression anxiety obesity with BMI 38 schizophrenia Plan continue to monitor the patient off antibiotics since she is at risk for infections
--- NOTE | 2017-12-16 08:24 | DS ---
HISTORY OF PRESENT ILLNESS: Patient was seen this Wednesday afternoon in room 571, bed 2. She is awake, alert, clear. Mental status is at baseline. She states she is feeling much better, which she feels is related to the decreasing dose of her medications. Her voice is somewhat more energetic and less flat. I reviewed her chart from the office and found that I first met her in 2013. At that time, she was already on Clozaril but at a bit of lower dose. I called the pharmacy to discover that the Clozaril was started in 2010. Case was discussed with Dr. Letty Reddy, Psychiatry. Patient was agreeable to go back to for additional adjustment of medications. Case was also discussed with Infectious Disease consultants. Initial blood cultures, all were negative. The initial urine culture showed MRSA, which I suspect may have been contaminant or colonization and rather than true infection as the patient was asymptomatic with normal white count and no fever. Second blood culture grew Klebsiella and the third blood culture grew multiple organisms, obvious contaminant, isolation, culture and sensitivity was not done. Patient was cleared by Infectious Disease. No longer needing isolation and therefore was ready to go to the psychiatric floor at for further adjustment of medications. FINAL DISCHARGE DIAGNOSES: 1. Methicillin-resistant Staphylococcus aureus, asymptomatic bacteria. 2. Klebsiella, asymptomatic bacteria. 3. Diabetes. 4. Orthostatic hypotension, which I believe is due to medication reaction to Clozaril. 5. Medication reaction to Clozaril. 6. Questionable history of seizure disorder. 7. Depression/schizophrenia. Tomas Garza MD
== END 2017-12-14 15:37 | DRG 690 ==
LOC: ED 14:26 → ERH 17:58 → 5RSO 19:38
PROVIDERS: ADMIT Internal Medicine; ATTEND Internal Medicine
DX: N39.0 Urinary tract infection, site not specified (principal); E11.9 Type 2 diabetes mellitus without complications; E66.9 Obesity, unspecified; F25.9 Schizoaffective disorder, unspecified; F32.89 Other specified depressive episodes; F41.9 Anxiety disorder, unspecified; I10 Essential (primary) hypertension; I95.1 Orthostatic hypotension; J45.909 Unspecified asthma, uncomplicated; K21.9 Gastro-esophageal reflux disease without esophagitis; K52.9 Noninfective gastroenteritis and colitis, unspecified; R56.9 Unspecified convulsions; Z68.38 Body mass index [BMI] 38.0-38.9, adult; Z78.9 Other specified health status; Z80.0 Family history of malignant neoplasm of digestive organs; Z87.440 Personal history of urinary (tract) infections; Z90.49 Acquired absence of other specified parts of digestive tract; Z90.710 Acquired absence of both cervix and uterus; Z88.0 Allergy status to penicillin; B95.62 Methicillin resistant Staphylococcus aureus infection as the cause of diseases classified elsewhere

== ENCOUNTER 2017-12-14 15:25 | Inpatient (IN) | payer MEDICARE, OTHER ==
[2017-12-14 16:29] VITALS: O2SAT 99
--- NOTE | 2017-12-14 17:07 | PCM.PYCHPN ---
Psychiatric Progress Note - Psychiatric Progress Note Patient seen today, length of contact: 30min Patient Chief Complaint: "I don't know who prescribed me the medications" Problems Identified/Issues Discussed: Suicide/ homicide prevention, past psychiatric h/o, current psychiatric symptoms , medical problems, risk/benefits and alternatives of medications, medications compliance, coping strategies, substance abuse h/o, relapse prevention, importance of follow up with psychiatrist and therapist, discharge plan. Medical Problems: obesity diarrhea vomiting orthostatic hypotension seizure/pseudoseizures Diagnostic Results: Vital Signs Temp Pulse Resp BP Pulse Ox 12/14/17 16:30 18 12/14/17 16:28 97.9 F 101 H 18 123/71 99 DSM 5 Symptoms Update: Refer to the Psychiatric Assess & History-Initial dated 12/11/17 for this H & P. Reviewed, no changes Shortly pt is a single 57-year-old female with likely psychiatric history of schizoaffective disorder, reported history of multiple hospitalizations, compliant with clozaril 200/400, Cymbalta 60 mg daily, Vistaril 25 mg HS, Ambien 10 mg HS prescribed by FRANDY at [facility] [place], initially patient was admitted on the medical side On 12/09/2017 for nausea, vomiting, and syncopal episodes, medical team was concerned about patient Clozaril and potential side effects, patient was medically stable and transferred to the psychiatric inpatient unit on December 10, 2017, pt was found to have MRSA UTI, was transferred back to the medical site on December 11, 2017, was medically stable, off isolation, pt was medically cleared on 12/14/17, pt seems to be poor and unreliable historian, patient was not sure initiated Clozaril and for how long she was taking it, as per PMD pt was on clozaril when started to go to his office, as per [facility] pt was on this medication since November 27, as per pt she is not sure who and why clozaril was initiated, plan is to monitor pt closely while pt will be slowly weaned off from clozaril. . In addition there is some question as to whether patient has seizures versus pseudoseizures or both. She is currently being prescribed Lamictal and Keppra. Patient was transferred to the psychiatric unit for further stabilization as patient is depressed with some disorganization. She indicated her preference to be tapered off clozaril and AEDs if possible. This com writer was following patient on the medical side closely and the patient was willing to sign herself into the psychiatric inpatient unit for further evaluation and stabilization. Patient presented to be mildly disorganized, but there is no acute agitation or aggression. She was internally preoccupied but she was not responding to internal stimuli. Hygiene is improving. Patient has fare appetite. Appears depressed with constricted affect. There have been no behavioral issues thus far though patient remains unpredictable. PSYCHIATRIC HISTORY Patient with multiple prior psychiatric admissions though none noted at this hospital. Currently the care of T[facility] FARMER at [facility] and prescribed clozaril 200/400, Cymbalta 60 mg daily, Vistaril 25 mg HS, Ambien 10 mg HS SOCIAL HISTORY Largely unknown as there are conflicting stories noted in patient's chart. It is unclear whether patient has any siblings or any family in general for social support. Patient denies ever being , denies having children. Indicates that she graduated high school, denied going to college. Denied having any real employment throughout her life. Patient denied any drug or alcohol issues. so far patient tolerates decreasing dose of Clozaril well, when necessary will be provided as needed Geodon IM and by mouth. Impression: Rule out schizophrenia Rule out schizoaffective disorder Medication Change: Yes (clozaril decreased) Medical Record Reviewed: Yes Consults ordered or reviewed: pt will be f/u by PMD Mental Status Examination - Cognitive Function Orientation: Person, Place, Situation Memory: Impaired Attention: Poor Concentration: Poor Association: Loose Fund of Knowledge: Poor - Mood Mood: Depressed - Affect Affect: Constricted - Speech Speech: Appropriate (but underproductive, soft, low volume) - Formal Thought Process Formal Thought Process: Circumstantial, Other (disorganized) - Suicidal Ideation Suicidal Ideation: No - Homicidal Ideation Homicidal Ideation: No Goal/Treatment Plan - Goal/Treatment Plan Need for Continued Stay: Remain at risks for inpatient hospitalization, Severe depression anxiety, Discharge may exacerbated symptoms, Failed transitioning, Severe functional impairment Progress Toward Problem(s) and Goals/Treatment Plan: Milieu/structure/supportive therapy Medical f/u will be called clozaril 100mg po am and 150mg hs for psychosis with the plan to wean it off ambien as needed remeron hs prn geodon as needed SW consultation for discharge plan and social issues Family involvement Follow up on labs Will monitor closely Pt was educated about risk/benefits and alternatives of medications, coping strategies (safety plan, suicide prevention), relapse prevention, importance of follow up with psychiatrist and therapist, stay away from drugs/alcohol/smoking Estimated Date of D/C: 12/20/17
--- NOTE | 2017-12-14 17:47 | PCM.BM ---
<Tomas Newton - Last Filed: 12/14/17 17:46> Treatment Plan Problems - Problems identified on initial assessmt Ineffective Coping Date Initiated: 12/14/17 Time Initiated: 17:46 Assessment reference: NA Status: Active Priority: 1 Social Isolation Date Initiated: 12/14/17 Time Initiated: 17:46 Assessment reference: NA Status: Active Priority: 2 Activity Intolerance Date Initiated: 12/14/17 Time Initiated: 17:46 Assessment reference: NA Status: Active Priority: 3 Treatment assets and liabiliti Patient Assests: cooperative, negotiates basic needs, cognitively intact - Milieu Protocol Milieu Narrative: Milieu/structure/supportive therapy Medical f/u will be called clozaril 100mg po am and 150mg hs for psychosis with the plan to wean it off ambien as needed remeron hs prn geodon as needed SW consultation for discharge plan and social issues Family involvement Follow up on labs Will monitor closely Pt was educated about risk/benefits and alternatives of medications, coping strategies (safety plan, suicide prevention), relapse prevention, importance of follow up with psychiatrist and therapist, stay away from drugs/alcohol/smoking Discharge/Continuing Care - Treatment Team Participation Patient/Family/SO Statement: Milieu/structure/supportive therapy Medical f/u will be called clozaril 100mg po am and 150mg hs for psychosis with the plan to wean it off ambien as needed remeron hs prn geodon as needed SW consultation for discharge plan and social issues Family involvement Follow up on labs Will monitor closely Pt was educated about risk/benefits and alternatives of medications, coping strategies (safety plan, suicide prevention), relapse prevention, importance of follow up with psychiatrist and therapist, stay away from drugs/alcohol/smoking <Letty Reddy - Last Filed: 12/15/17 09:32> - Diagnosis (1) Schizoaffective disorder Status: Acute Interventions: 12/15/17 09:33 Psychoeducation/psychotherapy Psychopharmacology/adjustment of medications as needed/ monitoring possible side effects Evaluate pt on daily basis Compliance with medications and follow up appointments Long acting medication if pt is noncompliant with pill form Suicide and homicide risk assessment and prevention, coping strategies, safety plan Relapse prevention Reduction of symptoms Improve functional status Possible assertive community treatment Cognitive behavioral therapy Family involvement Possible social skill training as outpatient <Elina Johnosn - Last Filed: 12/15/17 14:32> Family Contact Family involvement: Famliy/SO not involved - Outside Agency [facility] Care involvment: Information-sharing Agency contact name: [facility] Agency contact number: [phone] <Jessenia Skaggs - Last Filed: 12/15/17 15:23>
[2017-12-15] MEDS: Cholestyramine 4 gm/Pkt UD PO SCH (09:23)
[2017-12-15] MEDS ORDERED: Pantoprazole 40 mg EC Tab PO STA (15:49)
--- NOTE | 2017-12-15 15:59 | PCM.PYCHPN ---
Psychiatric Progress Note - Psychiatric Progress Note Patient seen today, length of contact: 30min Patient Chief Complaint: "I feel well" Problems Identified/Issues Discussed: Suicide/ homicide prevention, past psychiatric h/o, current psychiatric symptoms , medical problems, risk/benefits and alternatives of medications, medications compliance, coping strategies, substance abuse h/o, relapse prevention, importance of follow up with psychiatrist and therapist, discharge plan. Medical Problems: obesity diarrhea vomiting orthostatic hypotension seizure/pseudoseizures Diagnostic Results: Vital Signs Temp Pulse Resp BP Pulse Ox 12/14/17 16:30 18 12/14/17 16:28 97.9 F 101 H 18 123/71 99 DSM 5 Symptoms Update: Shortly pt is a single 57-year-old female with likely psychiatric history of schizoaffective disorder, reported history of multiple hospitalizations, compliant with clozaril 200/400, Cymbalta 60 mg daily, Vistaril 25 mg HS, Ambien 10 mg HS prescribed by RETAIL GREETING CARD MERCHANDISER at [facility] [place], initially patient was admitted on the medical side On 12/09/2017 for nausea, vomiting, and syncopal episodes, medical team was concerned about patient Clozaril and potential side effects, patient was medically stable and transferred to the psychiatric inpatient unit on December 10, 2017, pt was found to have MRSA UTI, was transferred back to the medical site on December 11, 2017, was medically stable, off isolation, pt was medically cleared on 12/14/17, pt seems to be poor and unreliable historian, patient was not sure initiated Clozaril and for how long she was taking it, as per PMD pt was on clozaril when started to go to his office, as per [facility] pt was on this medication since November 27, as per pt she is not sure who and why clozaril was initiated, plan is to monitor pt closely while pt will be slowly weaned off from clozaril. . In addition there is some question as to whether patient has seizures versus pseudoseizures or both. She is currently being prescribed Lamictal and Keppra. Patient was transferred to the psychiatric unit for further stabilization as patient is depressed with some disorganization 12/14/17. She indicated her preference to be tapered off clozaril if possible. Patient presented to be mildly disorganized, pt said that she does not remember things, MMSE 12/15/17: 30/30, MOCA 23/30, pt's area of deficit are: visual/spatitial/executive , language and delayed recall. pt does not appear to be demented. talking but there is no acute agitation or aggression. She was internally preoccupied but she was not responding to internal stimuli. Hygiene is improving. Patient has fare appetite. Appears depressed with constricted affect. There have been no behavioral issues thus far though patient remains unpredictable. so far patient tolerates decreasing dose of Clozaril well, when necessary will be provided as needed Geodon IM and by mouth. no signs of psychosis. Impression: Rule out schizophrenia Rule out schizoaffective disorder Medication Change: Yes (clozaril decreased) Medical Record Reviewed: Yes Consults ordered or reviewed: pt will be f/u by PMD Mental Status Examination - Cognitive Function Orientation: Person, Place, Situation Memory: Impaired Attention: Poor (some improvement) Concentration: Poor (some improvement) Association: Loose (some improvement) Fund of Knowledge: Poor - Mood Mood: Depressed ("I feel better") - Affect Affect: Constricted (but reactive and mood congruent) - Speech Speech: Appropriate (but underproductive, soft, low volume) - Formal Thought Process Formal Thought Process: Circumstantial, Other (disorganized) - Suicidal Ideation Suicidal Ideation: No - Homicidal Ideation Homicidal Ideation: No Goal/Treatment Plan - Goal/Treatment Plan Need for Continued Stay: Remain at risks for inpatient hospitalization, Severe depression anxiety, Discharge may exacerbated symptoms, Failed transitioning, Severe functional impairment Progress Toward Problem(s) and Goals/Treatment Plan: Milieu/structure/supportive therapy Medical f/u will be called clozaril 100mg po am and 100mg hs for psychosis with the plan to wean it off cymbalta 30mg po daily ambien as needed remeron hs prn geodon as needed SW consultation for discharge plan and social issues Family involvement Follow up on labs Will monitor closely Pt was educated about risk/benefits and alternatives of medications, coping strategies (safety plan, suicide prevention), relapse prevention, importance of follow up with psychiatrist and therapist, stay away from drugs/alcohol/smoking Estimated Date of D/C: 12/20/17
[2017-12-16] MEDS: Pantoprazole 40 mg EC Tab PO SCH (09:33)
[2017-12-16] MEDS: Cholestyramine 4 gm/Pkt UD PO SCH (09:33)
--- NOTE | 2017-12-16 16:47 | PCM.PYCHPN ---
Psychiatric Progress Note - Psychiatric Progress Note Patient seen today, length of contact: 30min Patient Chief Complaint: "I feel better than before" Problems Identified/Issues Discussed: Suicide/ homicide prevention, past psychiatric h/o, current psychiatric symptoms , medical problems, risk/benefits and alternatives of medications, medications compliance, coping strategies, substance abuse h/o, relapse prevention, importance of follow up with psychiatrist and therapist, discharge plan. Medical Problems: obesity diarrhea vomiting orthostatic hypotension seizure/pseudoseizures Diagnostic Results: Vital Signs Temp Pulse Resp BP Pulse Ox 12/14/17 16:30 18 12/14/17 16:28 97.9 F 101 H 18 123/71 99 DSM 5 Symptoms Update: Shortly pt is a single 57-year-old female with likely psychiatric history of schizoaffective disorder, reported history of multiple hospitalizations, compliant with clozaril 200/400, Cymbalta 60 mg daily, Vistaril 25 mg HS, Ambien 10 mg HS prescribed by CONSUMER MARKETING MANAGER at [facility] [place], initially patient was admitted on the medical side On 12/09/2017 for nausea, vomiting, and syncopal episodes, medical team was concerned about patient Clozaril and potential side effects, patient was medically stable and transferred to the psychiatric inpatient unit on December 10, 2017, pt was found to have MRSA UTI, was transferred back to the medical site on December 11, 2017, was medically stable, off isolation, pt was medically cleared on 12/14/17, pt seems to be poor and unreliable historian, patient was not sure initiated Clozaril and for how long she was taking it, as per PMD pt was on clozaril when started to go to his office, as per [facility] pt was on this medication since November 27, as per pt she is not sure who and why clozaril was initiated, plan is to monitor pt closely while pt will be slowly weaned off from clozaril. . In addition there is some question as to whether patient has seizures versus pseudoseizures or both. She is currently being prescribed Lamictal and Keppra. Patient was transferred to the psychiatric unit for further stabilization as patient is depressed with some disorganization 12/14/17. She indicated her preference to be tapered off clozaril if possible. MMSE 12/15/17: 30/30, MOCA 23, pt's area of deficit are: visual/spatitial/executive , language and delayed recall. pt does not appear to be demented. talking but there is no acute agitation or aggression. She was internally preoccupied but she was not responding to internal stimuli. Hygiene is improving, pt was seen next to the nursing station, pt said that she feels "better than before", no signs of psychosis, pt was educated about geodon and abilify in case of necessity, pt verbalized understanding, today discussed with PMD, plan was discussed in details. Patient has fare appetite. Appears depressed with constricted affect. There have been no behavioral issues thus far though patient remains unpredictable. so far patient tolerates decreasing dose of Clozaril well, when necessary will be provided as needed Geodon IM and by mouth. no signs of psychosis. Impression: Rule out schizophrenia Rule out schizoaffective disorder Medication Change: Yes (clozaril decreased) Medical Record Reviewed: Yes Mental Status Examination - Cognitive Function Orientation: Person, Place, Situation Memory: Impaired Attention: Poor (some improvement) Concentration: Poor (some improvement) Association: Loose (some improvement) Fund of Knowledge: Poor - Mood Mood: Depressed ("I feel better") - Affect Affect: Constricted (but reactive and mood congruent) - Speech Speech: Appropriate (but underproductive, soft, low volume) - Formal Thought Process Formal Thought Process: Circumstantial, Other (disorganized) - Suicidal Ideation Suicidal Ideation: No - Homicidal Ideation Homicidal Ideation: No Goal/Treatment Plan - Goal/Treatment Plan Need for Continued Stay: Remain at risks for inpatient hospitalization, Severe depression anxiety, Discharge may exacerbated symptoms, Failed transitioning, Severe functional impairment Progress Toward Problem(s) and Goals/Treatment Plan: Milieu/structure/supportive therapy Medical f/u will be called clozaril 50mg po am and 100mg hs for psychosis with the plan to wean it off cymbalta 30mg po daily ambien as needed remeron hs prn geodon as needed SW consultation for discharge plan and social issues Family involvement Follow up on labs Will monitor closely Pt was educated about risk/benefits and alternatives of medications, coping strategies (safety plan, suicide prevention), relapse prevention, importance of follow up with psychiatrist and therapist, stay away from drugs/alcohol/smoking Estimated Date of D/C: 12/20/17
[2017-12-17 07:40] LABS: BASO # 0.02 K/mm3 (0.0-2.0); BASO % 0.3 % (0.0-3.0); EOS # 0.1 (0.0-0.7); EOS % 2.4 % (1.5-5.0); GRAN # 3.57 (1.4-6.5); GRAN % 60.2 % (50.0-68.0); HEMOGLOBIN 11.9 g/dL (12.0-16.0); LYMPH # 1.8 (1.2-3.4); MEAN CELL VOLUME 87.3 fl (80.0-105.0); MEAN CORPUSCULAR HEMOGLOBIN 29.1 pg (25.0-35.0); MEAN CORPUSCULAR HGB CONC 33.3 g/dl (31.0-37.0); MEAN PLATELET VOLUME 9.5 fl (7.0-11.0); MONO # 0.4 (0.1-0.6); MONO % 6.1 % (1.0-6.0); RBC 4.09 10^6/uL (3.5-6.1); RED CELL DISTRIBUTION WIDTH 13.4 % (11.5-14.5); WHITE BLOOD COUNT 5.9 10^3/ul (4.5-11.0)
[2017-12-17 08:18] LABS: CALCIUM 9.2 mg/dL (8.4-10.5)
[2017-12-17] MEDS: Pantoprazole 40 mg EC Tab PO SCH (08:49)
[2017-12-17] MEDS: Cholestyramine 4 gm/Pkt UD PO SCH (08:50)
--- NOTE | 2017-12-17 12:22 | PN ---
DATE: 12/16/2017 SUBJECTIVE: The patient was seen this morning on 5B. She was in group sessions, so we went for a walk. She was able to break away from group and we walked about the unit. She is ambulating quite nicely, but using assistance of a long walker she simply pushes in front of her. She reports some reflux symptoms, but overall feels much better, much more awake, alert and clear than in the past. She is breathing easily, ambulating well. Exam remains unchanged and relatively unremarkable. Her thought processes and ability to carrying on conversation is quite good. She is pleased with the progress we are making with her medications. I spoke at length with Dr. Saenz regarding her plan. The patient will probably be in the hospital through the weekend as further adjustments are made on her medications. We will add a PPI for her reflux symptoms. I will discontinue Cymbalta, I had started that a few months ago and I spoke with the patient regarding her medications at home. She has a large amount of Keppra 750 mg, therefore instead of further reducing her Keppra or leaving at 500 b.i.d., I will change the dose to 750 once a day and continue at that point with her current medications, Clozaril and antidepressants, etc will be managed by Psychiatry, Lamictal will stay at the same dose, 100 mg b.i.d. I will continue to follow her and see her in the office next week. Tomas Garza MD
--- NOTE | 2017-12-17 16:24 | PCM.PYCHPN ---
Psychiatric Progress Note - Psychiatric Progress Note Patient seen today, length of contact: 30min Patient Chief Complaint: "I feel better than before, nothing is happening, I am good" Problems Identified/Issues Discussed: Suicide/ homicide prevention, past psychiatric h/o, current psychiatric symptoms , medical problems, risk/benefits and alternatives of medications, medications compliance, coping strategies, substance abuse h/o, relapse prevention, importance of follow up with psychiatrist and therapist, discharge plan. Medical Problems: obesity diarrhea vomiting orthostatic hypotension seizure/pseudoseizures Diagnostic Results: Vital Signs Temp Pulse Resp BP Pulse Ox 12/14/17 16:30 18 12/14/17 16:28 97.9 F 101 H 18 123/71 99 DSM 5 Symptoms Update: Shortly pt is a single 57-year-old female with likely psychiatric history of schizoaffective disorder, reported history of multiple hospitalizations, compliant with clozaril 200/400, Cymbalta 60 mg daily, Vistaril 25 mg HS, Ambien 10 mg HS [place] [facility] [place] was admitted on the medical side On 12/09/2017 for nausea, vomiting, and syncopal episodes, medical team was concerned about patient Clozaril and potential side effects, patient was medically stable and transferred to the psychiatric inpatient unit on December 10, 2017, pt was found to have MRSA UTI, was transferred back to the medical site on December 11, 2017, was medically stable, off isolation, pt was medically cleared on 12/14/17, pt seems to be poor and unreliable historian, patient was not sure initiated Clozaril and for how long she was taking it, as per PMD pt was on clozaril when started to go to his office, as per [facility] pt was on this medication since November 27, as per pt she is not sure who and why clozaril was initiated, plan is to monitor pt closely while pt will be slowly weaned off from clozaril. . In addition there is some question as to whether patient has seizures versus pseudoseizures or both. She is currently being prescribed Lamictal and Keppra. Patient was transferred to the psychiatric unit for further stabilization as patient is depressed with some disorganization 12/14/17. She indicated her preference to be tapered off clozaril if possible. MMSE 6/6/18: 30/30, MOCA 23, pt's area of deficit are: visual/spatitial/executive , language and delayed recall. pt does not appear to be demented. talking but there is no acute agitation or aggression. She was internally preoccupied but she was not responding to internal stimuli. Hygiene is improving, pt was seen next to the nursing station, pt said that she feels "better than before, I feel good", no signs of psychosis, pt was educated about geodon and abilify in case of necessity, pt verbalized understanding, today discussed with PMD, plan was discussed in details. Patient has fare appetite. Appears depressed with constricted affect. There have been no behavioral issues thus far though patient remains unpredictable. so far patient tolerates decreasing dose of Clozaril well, when necessary will be provided as needed Geodon IM and by mouth. no signs of psychosis. Impression: Rule out schizophrenia Rule out schizoaffective disorder Medication Change: Yes (clozaril decreased) Medical Record Reviewed: Yes Consults ordered or reviewed: pt will be f/u by PMD Mental Status Examination - Cognitive Function Orientation: Person, Place, Situation Memory: Impaired Attention: Poor (some improvement) Concentration: Poor (some improvement) Association: Loose (some improvement) Fund of Knowledge: Poor - Mood Mood: Depressed ("I feel better") - Affect Affect: Constricted (but reactive and mood congruent) - Speech Speech: Appropriate (but underproductive, soft, low volume) - Formal Thought Process Formal Thought Process: Circumstantial, Other (disorganized) - Suicidal Ideation Suicidal Ideation: No - Homicidal Ideation Homicidal Ideation: No Goal/Treatment Plan - Goal/Treatment Plan Need for Continued Stay: Remain at risks for inpatient hospitalization, Severe depression anxiety, Discharge may exacerbated symptoms, Failed transitioning, Severe functional impairment Progress Toward Problem(s) and Goals/Treatment Plan: Milieu/structure/supportive therapy Medical f/u will be called clozaril 50mg po am and 100mg hs for psychosis with the plan to wean it off over the weekend cymbalta 30mg po daily ambien as needed remeron hs prn geodon as needed SW consultation for discharge plan and social issues Family involvement Follow up on labs Will monitor closely Pt was educated about risk/benefits and alternatives of medications, coping strategies (safety plan, suicide prevention), relapse prevention, importance of follow up with psychiatrist and therapist, stay away from drugs/alcohol/smoking Estimated Date of D/C: 12/20/17
[2017-12-18] MEDS: Pantoprazole 40 mg EC Tab PO SCH (09:24)
[2017-12-18] MEDS: Cholestyramine 4 gm/Pkt UD PO SCH (09:25)
--- NOTE | 2017-12-18 11:30 | PCM.PYCHPN ---
Psychiatric Progress Note - Psychiatric Progress Note Patient seen today, length of contact: 25 min Problems Identified/Issues Discussed: Patient is a single 57-year-old female with likely psychiatric history of schizoaffective disorder, reported history of multiple hospitalizations, compliant with clozaril 200/400, Cymbalta 60 mg daily, Vistaril 25 mg HS, Ambien 10 mg HS prescribed by DEVICE TEST ENGINEER [place] [facility] [place] from the medical floor after she was evaluated for possible syncopal episode. Dr. Reddy evaluated patient on both December 09 and December 10, 2017. She spoke with medical team who felt that clozaril could be contributing to patients symptoms of orthostatic hypertension, nausea, vomiting, diarrhea and dehydration (patient with many medical hospitalizations). In addition there is some question as to whether patient has seizures versus pseudoseizures or both. She is currently being prescribed Lamictal and Keppra. Patient was transferred to the psychiatric unit for further stabilization and then back to medicine for contact precautions as lab results returned MRSA+. Ultimately she was medically cleared on 12/14/17 and transferred back to the psychiatric unit for treatment of disorganization and depression. I met with patient at bedside and she appears pretty good compared to our prior encounters during this admission. She remembers me from these encounters. Patient is fairly groomed, alert and oriented to month, year, location and circumstances. Patient indicates that she is doing better and feels her mood is fine. She is optimistic and thus far, pleased with the care she is receiving on the unit. Tolerating taper of Clozaril well and denies any resultant hallucinations or paranoia. She hasn't been observed to be responding to internal stimuli. In addition, her organization seems to be improving over the past week during this taper. Staff notes indicate a patient has been in good control, visible on the unit and attending groups. She seems brighter and more spontaneous. There have been no behavioral issues. Diagnostic Results: Rule out schizophrenia Rule out schizoaffective disorder Medication Change: Yes (clozaril decreased) Medical Record Reviewed: Yes Mental Status Examination - Cognitive Function Orientation: Person, Place, Situation Memory: Impaired Attention: Poor (some improvement) Concentration: Poor (some improvement) Association: Loose (some improvement) Fund of Knowledge: Poor - Mood Mood: Depressed ("I feel better") - Affect Affect: Constricted (but reactive and mood congruent) - Speech Speech: Appropriate (but underproductive, soft, low volume) - Formal Thought Process Formal Thought Process: Circumstantial, Other (disorganized) - Suicidal Ideation Suicidal Ideation: No - Homicidal Ideation Homicidal Ideation: No Goal/Treatment Plan - Goal/Treatment Plan Need for Continued Stay: Remain at risks for inpatient hospitalization, Severe depression anxiety, Discharge may exacerbated symptoms, Failed transitioning, Severe functional impairment Progress Toward Problem(s) and Goals/Treatment Plan: * c/w current tx and plan * Clozaril 50/100 decreased to 50/50 on 12/18/17 with plan to further taper and discontinue over the weekend to 50 HS on 12/19/17 and d/c thereafter. * No new weekend labs thus far * Vitals reviewed and noted below: Selected Entries 12/16/17 12/16/17 12/17/17 07:26 19:44 07:07 Temperature 97.3 F L 97.8 F Pulse Rate 82 90 83 Respiratory 20 20 Rate Blood Pressure 137/79 140/90 108/56 L 12/17/17 15:49 Temperature Pulse Rate 86 Respiratory Rate Blood Pressure 109/66 Estimated Date of D/C: 12/20/17
[2017-12-19] MEDS: Pantoprazole 40 mg EC Tab PO SCH (09:09)
[2017-12-19] MEDS: Cholestyramine 4 gm/Pkt UD PO SCH (09:09)
--- NOTE | 2017-12-19 15:32 | PCM.PYCHPN ---
Psychiatric Progress Note - Psychiatric Progress Note Patient seen today, length of contact: 25 min Problems Identified/Issues Discussed: Patient is a single 57-year-old female with likely psychiatric history of schizoaffective disorder, reported history of multiple hospitalizations, compliant with clozaril 200/400, Cymbalta 60 mg daily, Vistaril 25 mg HS, Ambien 10 mg HS [place]N [place] [facility] [place] floor after she was evaluated for possible syncopal episode. Dr. Reddy evaluated patient on both December 09 and December 10, 2017. She spoke with medical team who felt that clozaril could be contributing to patients symptoms of orthostatic hypertension, nausea, vomiting, diarrhea and dehydration (patient with many medical hospitalizations). In addition there is some question as to whether patient has seizures versus pseudoseizures or both. She is currently being prescribed Lamictal and Keppra. Patient was transferred to the psychiatric unit for further stabilization and then back to medicine for contact precautions as lab results returned MRSA+. Ultimately she was medically cleared on 12/14/17 and transferred back to the psychiatric unit for treatment of disorganization and depression. I met with patient at bedside and she appears pretty good compared to our prior encounters during this admission. She remembers me from these encounters. Patient is fairly groomed, alert and remains oriented to month, year, location and circumstances. Patient indicates that she is doing better and feels her mood is fine. She is optimistic and thus far, pleased with the care she is receiving on the unit. Tolerating taper of Clozaril well and denies any resultant hallucinations or paranoia. She hasnt been observed to be responding to internal stimuli. In addition, her organization seems to be improving over the past week during this taper. Staff notes indicate a patient has been in good control, visible on the unit and attending groups. She seems brighter and more spontaneous. There have been no behavioral issues. Diagnostic Results: Rule out schizophrenia Rule out schizoaffective disorder Medication Change: Yes (clozaril decreased) Medical Record Reviewed: Yes Mental Status Examination - Cognitive Function Orientation: Person, Place, Situation Memory: Impaired Attention: Poor (some improvement) Concentration: Poor (some improvement) Association: Loose (some improvement) Fund of Knowledge: Poor - Mood Mood: Depressed ("I feel better") - Affect Affect: Constricted (but reactive and mood congruent) - Speech Speech: Appropriate (but underproductive, soft, low volume) - Formal Thought Process Formal Thought Process: Circumstantial, Other (disorganized) - Suicidal Ideation Suicidal Ideation: No - Homicidal Ideation Homicidal Ideation: No Goal/Treatment Plan - Goal/Treatment Plan Need for Continued Stay: Remain at risks for inpatient hospitalization, Severe depression anxiety, Discharge may exacerbated symptoms, Failed transitioning, Severe functional impairment Progress Toward Problem(s) and Goals/Treatment Plan: * c/w current tx and plan * Clozaril 50/100 decreased to 50/50 on 12/18/17 Clozaril 50/50 decreased to 50 HS on 12/19/17 Clozaril discontinued 12/20/17 * No new weekend labs * Vitals reviewed and noted below: 12/19/17 07:22 Temperature 97.6 F Pulse Rate 87 Respiratory 18 Rate Blood Pressure 102/68 Estimated Date of D/C: 12/20/17
[2017-12-20] MEDS: Pantoprazole 40 mg EC Tab PO SCH (07:12)
[2017-12-20] MEDS: Cholestyramine 4 gm/Pkt UD PO SCH (09:03)
--- NOTE | 2017-12-20 17:26 | PCM.PYCHPN ---
Psychiatric Progress Note - Psychiatric Progress Note Patient seen today, length of contact: 25 min Patient Chief Complaint: "I feel better than before..." Problems Identified/Issues Discussed: Suicide/ homicide prevention, past psychiatric h/o, current psychiatric symptoms , medical problems, risk/benefits and alternatives of medications, medications compliance, coping strategies, substance abuse h/o, relapse prevention, importance of follow up with psychiatrist and therapist, discharge plan. 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 [place] [facility] [place] patient was admitted on the medical side On 12/09/2017 for nausea, vomiting, and syncopal episodes, medical team was concerned about patient Clozaril and potential side effects, patient was medically stable and transferred to the psychiatric inpatient unit on December 10, 2017, pt was found to have MRSA UTI, was transferred back to the medical site on December 11, 2017, was medically stable, off isolation, pt was medically cleared on 12/14/17, pt seems to be poor and unreliable historian, patient was not sure initiated Clozaril and for how long she was taking it, as per PMD pt was on clozaril when started to go to his office, as per [facility] pt was on this medication since November 27, as per pt she is not sure who and why clozaril was initiated, plan is to monitor pt closely while pt will be slowly weaned off from clozaril. . In addition there is some question as to whether patient has seizures versus pseudoseizures or both. She is currently being prescribed Lamictal and Keppra. Patient was transferred to the psychiatric unit for further stabilization as patient is depressed with some disorganization 12/14/17. She indicated her preference to be tapered off clozaril if possible. MMSE 12/15/17: 30/30, MOCA , pt's area of deficit are: visual/spatitial/executive , language and delayed recall. pt does not appear to be demented. Hygiene is improving, thought process is better organized, no need for any antipsychotic meds pt is socializing with others. pt's last dose of clozaril was 12/19/17, tolerating well. so far patient tolerates decreasing dose of Clozaril well, when necessary will be provided as needed Geodon IM and by mouth. no signs of psychosis. Impression: Rule out schizophrenia Rule out schizoaffective disorder Medication Change: Yes (clozaril d/c yesterday hs) Medical Record Reviewed: Yes Consults ordered or reviewed: pt will be f/u by PMD Mental Status Examination - Cognitive Function Orientation: Person, Place, Situation Memory: Impaired Attention: WNL Concentration: Poor (some improvement) Association: WNL (some improvement) Fund of Knowledge: Poor - Mood Mood: Depressed ("I feel better") - Affect Affect: Constricted (but reactive and mood congruent) - Speech Speech: Appropriate (but underproductive, soft, low volume) - Formal Thought Process Formal Thought Process: Circumstantial - Suicidal Ideation Suicidal Ideation: No - Homicidal Ideation Homicidal Ideation: No Goal/Treatment Plan - Goal/Treatment Plan Need for Continued Stay: Remain at risks for inpatient hospitalization, Severe depression anxiety, Discharge may exacerbated symptoms, Failed transitioning, Severe functional impairment Progress Toward Problem(s) and Goals/Treatment Plan: Milieu/structure/supportive therapy Medical f/u will be called clozaril dc cymbalta 30mg po daily ambien as needed remeron hs prn geodon as needed SW consultation for discharge plan and social issues Family involvement Follow up on labs Will monitor closely Pt was educated about risk/benefits and alternatives of medications, coping strategies (safety plan, suicide prevention), relapse prevention, importance of follow up with psychiatrist and therapist, stay away from drugs/alcohol/smoking Estimated Date of D/C: 12/21/17
[2017-12-21 07:05] VITALS: BP 116/63; PULSE 80; RESP 20; TEMP 97.9
[2017-12-21] MEDS: Pantoprazole 40 mg EC Tab PO SCH (08:35)
[2017-12-21] MEDS: Cholestyramine 4 gm/Pkt UD PO SCH (08:36)
== END 2017-12-21 13:55 | disposition home or self-care (01) | DRG 885 ==
LOC: PSYC 15:25
PROVIDERS: ADMIT Psychiatry & Neurology Psychiatry; ATTEND Psychiatry & Neurology Psychiatry
DX: F25.9 Schizoaffective disorder, unspecified (principal); E66.9 Obesity, unspecified; F32.89 Other specified depressive episodes; I95.1 Orthostatic hypotension; R56.9 Unspecified convulsions; Z79.899 Other long term (current) drug therapy; Z68.38 Body mass index [BMI] 38.0-38.9, adult

== ENCOUNTER 2018-03-26 14:46 | Inpatient (IN) | payer MEDICARE, OTHER ==
--- NOTE | 2018-03-26 15:07 | ED PDOC ---
Arrival/HPI - General Chief Complaint: Seizure Time Seen by Provider: 03/26/18 14:52 Historian: Patient - History of Present Illness Narrative History of Present Illness (Text): you were treated in the ED today for hx of schizoaffective disorder and seizures and compliant with anti-seizure medications and had a seizure today with head injury, loss of consciousness for a minute and neck pain but otherwise without any tongue biting/nausea/vomiting/headache/dizziness/ difficulty breathing/chest pain/abdomen pain/numbness/tingling/loss of limb function/pain with urination/thoughts to harm yourself or others or hallucinations. 03/26/18 15:08 Time/Duration: Prior to Arrival Symptom Onset: Gradual Symptom Course: Improving Quality: Aching Severity Level: 1 Activities at Onset: Rest Context: Sitting Past Medical History - Provider Review Nursing Documentation Reviewed: Yes - Travel History Have you recently traveled outside [place] w/in the past 3 mons?: No - Past History Past History: Non-Contributing - Infectious Disease Hx of Infectious Diseases: None - Tetanus Immunization Tetanus Immunization: Unknown - Past Medical History Past Medical History: Non-Contributing - Cardiac Hx Hypertension: (pt denies) Hx Peripheral Vascular Disease: (pt denies) Other/Comment: pt denies high cholesterol pt stated "I take questran because it works together with my antidepression medication." - Pulmonary Hx Respiratory Disorders: Yes Hx Asthma: Yes - Neurological Hx Neurological Disorder: Yes Hx Dizziness: Yes (vertigo) Hx Seizures: Yes (epilepsy) - HEENT Hx HEENT Disorder: Yes Other/Comment: wears glasses - Renal Hx Renal Disorder: No - Endocrine/Metabolic Hx Diabetes Mellitus Type 2: (pt denies) - Hematological/Oncological Hx Blood Disorders: No - Integumentary Hx Dermatological Disorder: Yes Other/Comment: MASD UNDER THE STOMACH FOLD AND BREAST FOLD. viral warts removed from fingers - Musculoskeletal/Rheumatological Hx Falls: Yes (2x's 12/08/17) - Gastrointestinal Hx Gastrointestinal Disorders: Yes (obese) Hx Gall Bladder Disease: Yes (CHOLECYSTITIS ,CHOLECYSTECTOMY,MILD GASTRITIS) Hx Gastroesophageal Reflux: Yes - Genitourinary/Gynecological Hx Genitourinary Disorders: Yes (URGENCY FREQUENCY, burning on urination) Hx Incontinence: Yes Hx Urinary Tract Infection: Yes Other/Comment: pt denies fibroids, hx of endometriosis reason for "my hysterectomy". pt stated. Hyst in 1992 - Psychiatric Hx Schizophrenia: Yes Hx Substance Use: No - Surgical History Hx Appendectomy: Yes (removed with hyst) Hx Cholecystectomy: Yes Hx Hysterectomy: Yes Other/Comment: cysto - Anesthesia Hx Anesthesia Reactions: No Hx Malignant Hyperthermia: No - Suicidal Assessment Feels Threatened In Home Enviroment: No Family/Social History - Physician Review Nursing Documentation Reviewed: Yes Family/Social History: No Known Family HX Smoking Status: Never Smoked Hx Alcohol Use: No Hx Substance Use: No Hx Substance Use Treatment: No Allergies/Home Meds Allergies/Adverse Reactions: Allergies Penicillins Allergy (Severe, Verified 12/14/17 16:19) ITCHING Review of Systems - Review of Systems Constitutional: Normal Eyes: Normal ENT: Normal Respiratory: Normal Cardiovascular: Normal Gastrointestinal: Normal Genitourinary Female: Normal Musculoskeletal: Neck Pain Skin: Normal Neurological: Seizure Endocrine: Normal Hemo/Lymphatic: Normal Psychiatric: Normal Physical Exam Vital Signs Reviewed: Yes Vital Signs Temp Pulse Resp BP Pulse Ox 03/26/18 14:54 98.2 F 86 18 139/86 99 Temperature: Afebrile Blood Pressure: Hypertensive Pulse: Regular Respiratory Rate: Normal Appearance: Positive for: Well-Appearing, Non-Toxic, Comfortable Pain Distress: None Mental Status: Positive for: Alert and Oriented X 3 - Systems Exam Head: Present: Atraumatic, Normocephalic Pupils: Present: PERRL Extroacular Muscles: Present: EOMI Conjunctiva: Present: Normal Ears: Present: Normal Mouth: Present: Moist Mucous Membranes Pharnyx: Present: Normal Nose (External): Present: Atraumatic Nose (Internal): Present: Normal Inspection Neck: Present: Other (mild cervical discomfort but no other spinal or paraspinal tenderness thoracic or lumbar) Respiratory/Chest: Present: Clear to Auscultation, Good Air Exchange Cardiovascular: Present: Regular Rate and Rhythm Abdomen: No: Tenderness, Distention, Normal Bowel Sounds, Peritoneal Signs, Rebound, Guarding, McBurney's Point Tender, Rovsing's Sign Present, Hernias, Feeding Tubes, Ostomy Tubes, Mass/Organomegaly, Scars, Other Back: Present: Normal Inspection Upper Extremity: Present: Normal Inspection Lower Extremity: Present: Normal Inspection Neurological: Present: GCS=15, CN II-XII Intact, Speech Normal, Motor Func Grossly Intact Skin: Present: Warm, Normal Color Psychiatric: Present: Alert, Oriented x 3, Normal Insight, Normal Concentration Medical Decision Making ED Course and Treatment: you were treated in the ED today for hx of schizoaffective disorder and seizures and compliant with anti-seizure medications lamictal and keppra and had a seizure today with head injury, loss of consciousness for a minute and neck pain but otherwise without any tongue biting/nausea/vomiting/headache/ dizziness/difficulty breathing/chest pain/abdomen pain/numbness/tingling/loss of limb function/pain with urination/thoughts to harm yourself or others or hallucinations. You were otherwise breathing easily, talking easily, good strength/sensation, walking easily, clear lungs, no abdomen tenderness, mild back of neck pain with collar placed and no other spinal or next to spine tenderness, no fever temp 98.2, stable heart rate 86, stable breathing rate 18, excellent oxygen level 99% room air, elevated blood pressure 139/86 which we recommend repeat in 2-3 days primary care office to determine further treatment , you have blood tests no infection count 4, stable blood level hemoglobin 13/ platelets 122, stable chemistry, heart blood test negative less than 0.01, tylenol negative, aspirin negative, alcohol negative, urine test negative for sign of infection, urine drug test negative, radiology ct head no acute findings and ct cervical spine unremarkable and chest xray initial no acute findings, ECG normal sinus rhythm, observation done in the ED with symptoms till present of dizziness. CT Head reviewed by radiologist, shows: No acute findings. 03/26/18 16:56 03/26/18 16:58 03/26/18 17:04 CT Cervical spine reviewed by radiologist, shows: Unremarkable CT of the cervical spine. d/w Dr. Garza who stated can admit for observation and consult neurology Dr. Gracia as as seen prior December 2017 for recurrent seizures Reassessment Condition: Improving,but remains with symptoms - Lab Interpretations Lab Results: 03/26/18 16:21 03/26/18 16:21 Lab Results 03/26/18 17:30: Urine Opiates Screen Negative, Urine Methadone Screen Negative, Ur Barbiturates Screen Negative, Ur Phencyclidine Scrn Negative, Ur Amphetamines Screen Negative, U Benzodiazepines Scrn Negative, U Oth Cocaine Metabols Negative, U Cannabinoids Screen Negative 03/26/18 17:30: Urine Color Colorless, Urine Appearance Clear, Urine pH 7.5, Ur Specific [place] 1.010, Urine Protein Negative, Urine Glucose (UA) Negative, Urine Ketones Negative, Urine Blood Negative, Urine Nitrate Negative, Urine Bilirubin Negative, Urine Urobilinogen 0.2, Ur Leukocyte Esterase Negative 03/26/18 16:21: Alcohol, Quantitative < 10 03/26/18 16:21: Salicylates < 1 L, Acetaminophen < 10.0 L 03/26/18 16:21: PT 13.1 H, INR 1.15, APTT 29.7 03/26/18 16:21: Sodium 138, Potassium 4.4, Chloride 101, Carbon Dioxide 26, Anion Gap 15, BUN 17, Creatinine 1.0, Est GFR ( Amer) > 60, Est GFR (Non- Af Amer) 57, Random Glucose 227 H, Calcium 9.6, Magnesium 1.7, Total Bilirubin 0.5, AST 78 H, ALT 67 H, Alkaline Phosphatase 94, Lactate Dehydrogenase 588, Total Creatine Kinase 57, Troponin I < 0.01, Total Protein 6.8, Albumin 4.1, Globulin 2.7, Albumin/Globulin Ratio 1.5 03/26/18 16:21: WBC 4.2 L D, RBC 4.36, Hgb 13.0, Hct 38.0, MCV 87.2, MCH 29.8, MCHC 34.2, RDW 12.7, Plt Count 122, MPV 9.2, Gran % 74.5 H, Lymph % (Auto) 16.7 L, Dunn % (Auto) 8.1 H, Eos % (Auto) 0.5 L, Baso % (Auto) 0.2, Gran # 3.12, Lymph # (Auto) 0.7 L, Dunn # (Auto) 0.3, Eos # (Auto) 0.0, Baso # (Auto) 0.01 I have reviewed the lab results: Yes - RAD Interpretation Radiology Orders: 03/26/18 14:59 CHEST PORTABLE [RAD] Stat 03/26/18 15:01 CERVICAL SPINE W/O CONTRAST [CT] Stat HEAD W/O CONTRAST [CT] Stat Meat Stuffer: ED Physician (cxr no acute findings) - EKG Interpretation Interpreted by ED Physician: Yes (NSR) Type: 12 lead EKG - Medication Orders Current Medication Orders: Discontinued Medications Acetaminophen (Tylenol 325mg Tab) 975 mg PO STAT STA Stop: 03/26/18 18:31 Disposition/Present on Arrival - Present on Arrival Any Indicators Present on Arrival: Yes History of DVT/PE: No History of Uncontrolled Diabetes: Yes Urinary Catheter: No History of Decub. Ulcer: No History Surgical Site Infection Following: None - Disposition Have Diagnosis and Disposition been Completed?: Yes Diagnosis: Seizure Disposition: HOSPITALIZED Disposition Time: 18:42 Patient Plan: Admission Condition: STABLE Forms: [employer] (Martiniquais)
[2018-03-26 16:27] LABS: BASO # 0.01 K/mm3 (0.0-2.0); BASO % 0.2 % (0.0-3.0); EOS % 0.5 % (1.5-5.0); GRAN # 3.12 (1.4-6.5); GRAN % 74.5 % (50.0-68.0); LYMPH # 0.7 (1.2-3.4); LYMPH % 16.7 % (22.0-35.0); MEAN CELL VOLUME 87.2 fl (80.0-105.0); MEAN CORPUSCULAR HEMOGLOBIN 29.8 pg (25.0-35.0); MEAN CORPUSCULAR HGB CONC 34.2 g/dl (31.0-37.0); MEAN PLATELET VOLUME 9.2 fl (7.0-11.0); MONO # 0.3 (0.1-0.6); MONO % 8.1 % (1.0-6.0); RBC 4.36 10^6/uL (3.5-6.1); RED CELL DISTRIBUTION WIDTH 12.7 % (11.5-14.5); WHITE BLOOD COUNT 4.2 10^3/ul (4.5-11.0)
[2018-03-26 16:41] LABS: INR 1.15; PROTHROMBIN TIME 13.1 SECONDS (9.4-12.5)
[2018-03-26 16:43] LABS: PARTIAL THROMBOPLASTIN TIME 29.7 Seconds (25.1-36.5)
[2018-03-26 16:45] LABS: ALB/GLOB RATIO 1.5 (1.1-1.8); ALBUMIN 4.1 g/dL (3.0-4.8); CALCIUM 9.6 mg/dL (8.4-10.5); GFR NON-AFRICAN AMERICAN 57
[2018-03-26 16:46] LABS: ACETAMINOPHEN < 10.0 ug/ml (10.0-20.0); SALICYLATE < 1 mg/dL (2.0-20.0)
--- NOTE | 2018-03-26 16:51 | CT ---
Date of service: 03/26/2018 PROCEDURE: CT HEAD WITHOUT CONTRAST. HISTORY: 58yoF, seizure, head injury, loc COMPARISON: None available. TECHNIQUE: Axial computed tomography images were obtained through the head/brain without intravenous contrast. Radiation dose: Total exam DLP = 909 mGy-cm. This CT exam was performed using one or more of the following dose reduction techniques: Automated exposure control, adjustment of the mA and/or kV according to patient size, and/or use of iterative reconstruction technique. FINDINGS: HEMORRHAGE: No intracranial hemorrhage. BRAIN: No mass effect or edema. No atrophy or chronic microvascular ischemic changes. VENTRICLES: Unremarkable. No hydrocephalus. CALVARIUM: Unremarkable. PARANASAL SINUSES: Unremarkable as visualized. No significant inflammatory changes. MASTOID AIR CELLS: Unremarkable as visualized. No inflammatory changes. OTHER FINDINGS: None. IMPRESSION: No acute findings
[2018-03-26 16:55] LABS: ALT/SGPT 67 U/L (7-56); AST/SGOT 78 U/L (14-36); BLOOD UREA NITROGEN 17 mg/dL (7-21)
[2018-03-26 16:57] LABS: TROPONIN I < 0.01 ng/mL
--- NOTE | 2018-03-26 17:00 | CT ---
Date of service: 03/26/2018 PROCEDURE: CT Cervical Spine without contrast HISTORY: 58yoF, seizure, head injury, neck pain. COMPARISON: None available. TECHNIQUE: Axial computed tomography images were obtained of the cervical spine without the use of intravenous contrast. Coronal and sagittal reformatted images were created and reviewed. Radiation dose: Total exam DLP = 627 mGy-cm. This CT exam was performed using one or more of the following dose reduction techniques: Automated exposure control, adjustment of the mA and/or kV according to patient size, and/or use of iterative reconstruction technique. FINDINGS: VERTEBRAE: No fracture. Normal alignment. No destructive bony lesion. DISCS/SPINAL CANAL/NEURAL FORAMINA: No significant central canal or neural foraminal stenosis. Discs heights are grossly preserved. PARASPINAL SOFT TISSUES: Unremarkable. OTHER FINDINGS: None. IMPRESSION: Unremarkable CT of the cervical spine.
[2018-03-26 17:47] LABS: PH,URINE 7.5 (4.7-8.0); URINE BILIRUBIN NEGATIVE (NEGATIVE); URINE BLOOD NEGATIVE (NEGATIVE); URINE GLUCOSE (UA) NEGATIVE (NEGATIVE); URINE LEUKOCYTE ESTERASE NEGATIVE Leu/uL (NEGATIVE); URINE PROTEIN NEGATIVE mg/dL (<30 mg/dL); URINE UROBILINOGEN 0.2 E.U./dL (<1 E.U./dL)
[2018-03-26 17:48] LABS: URINE APPEARANCE CLEAR (CLEAR); URINE COLOR COLORLESS (YELLOW)
[2018-03-26 18:07] LABS: BARBITURATES, UR NEGATIVE (NEGATIVE); BENZODIAZEPINES, UR NEGATIVE (NEGATIVE); OPIATES, UR NEGATIVE (NEGATIVE); PHENCYCLIDINE, UR NEGATIVE (NEGATIVE)
[2018-03-26] MEDS ORDERED: Pneumococcal 23-Valent Vaccine IM ONE (23:12)
[2018-03-26 23:13] VITALS: BMI 38.2
[2018-03-27] MEDS: Pantoprazole 40 mg EC Tab PO SCH (06:38)
[2018-03-27] MEDS: Cholestyramine 4 gm/Pkt UD PO SCH ×2 (09:21→09:27)
--- NOTE | 2018-03-27 09:54 | RAD ---
Date of service: 03/26/2018 HISTORY: 58yoF, seizure COMPARISON: 12/08/2017 FINDINGS: LUNGS: No active pulmonary disease. PLEURA: No significant pleural effusion identified, no pneumothorax apparent. CARDIOVASCULAR: Normal. OSSEOUS STRUCTURES: No significant abnormalities. VISUALIZED UPPER ABDOMEN: Normal. OTHER FINDINGS: None. IMPRESSION: No active disease.
[2018-03-27] MEDS ORDERED: Cholestyramine 4 gm/Pkt UD PO SCH (11:00)
[2018-03-27] MEDS ORDERED: LEVETIRACETAM 750 MG PO SCH (11:00)
--- NOTE | 2018-03-27 12:13 | CARD ---
APPROVED REPORT Date of service: 03/26/2018 EKG Measurement Heart [id number] NM [id number] <Conclusion> Normal sinus rhythm Normal ECG
--- NOTE | 2018-03-27 12:48 | PN ---
DATE: 03/27/2018 SUBJECTIVE: The patient is a 58-year-old female with a history of schizoaffective disorder, seizure disorder, asthma, gastroesophageal reflux disease. She is status post cholecystectomy, status post hysterectomy secondary to endometriosis and status post appendectomy. The patient had suffered a seizure at home, falling in the bathroom, striking her head and shoulders. She was apparently unconscious for several minutes and when she came to, squad was called. The patient was brought to the emergency room and admitted. CAT scan of the head and cervical spine are negative. Chest x-ray is clear. EKG shows regular sinus rhythm. Her liver enzymes on admission were slightly elevated with AST of 78 and ALT of 67. Otherwise, her CBC, urinalysis and serum chemistries were unremarkable. The patient possibly was told to decrease her Lamictal and the Keppra dosage from twice a day to once a day back in 11/2017, which she did and had been doing well since then until this episode of seizures now. The patient states she has been compliant with her medication. We are asking Dr. Gracia to consult on the case to evaluate the patient's seizure medications. We will begin physical therapy in the morning and the patient will continue to be followed closely. Allen Garza MD
--- NOTE | 2018-03-27 15:39 | HP ---
HISTORY OF PRESENT ILLNESS: The patient is a 58-year-old female who presents to the Emergency Room and is admitted after having a seizure. The patient states she was going to the bathroom when she felt woozy and apparently, had a seizure. She was apparently unconscious for about three minutes. The patient states she hit her head and/or shoulders on the bathtub when falling down. She denies biting her tongue. She denies incontinence of stool or urine. The patient is known to have a history of schizoaffective disorder and a history of seizures. She also has a history of asthma. She is status post cholecystectomy and history of gastroesophageal reflux disease, status post total abdominal hysterectomy for endometriosis and a status post appendectomy. REVIEW OF SYSTEMS: Otherwise, unremarkable. SOCIAL HISTORY: The patient is a nonsmoker, she never smoked. She is a nonalcoholic drinker. ALLERGIES: SHE IS KNOWN TO BE ALLERGIC TO PENICILLIN, WHICH CAUSED ITCHING IN THE PAST. PHYSICAL EXAMINATION: GENERAL: The patient is awake, alert and oriented. She is complaining of tenderness in the head, the posterior neck and shoulders. VITAL SIGNS: The patient is afebrile at 98.8 degrees Fahrenheit, blood pressure is 135/76, heart rate is 67. HEENT: The head, eyes, ears, nose and throat are unremarkable. NECK: There is no lymphadenopathy and no goiter on examination of the neck. LUNGS: Clear to auscultation and percussion. HEART: Regular. No murmurs are appreciated. ABDOMEN: Soft and nontender with no organomegaly. EXTREMITIES: Free of cyanosis, clubbing or edema with no neurological signs. DATA: Laboratory studies reveal the urinalysis to be negative. White blood cell count is 4.2, hemoglobin is 13, hematocrit 38, platelet count is 128. Sodium is 138, potassium 4.2. Blood urea nitrogen and creatinine are 17 and 1 respectively, glucose is 227. Her total bilirubin is normal at 0.5, but her AST and ALT are slightly elevated at 78 and 67 respectively. CAT scan of the head and cervical spine are negative. Chest x-ray shows no acute disease. EKG shows regular sinus rhythm. As per the patient in November, her medications were decreased from Lamictal and Keppra twice a day to once a day. She had been doing well though since Wednesday with no seizures until this episode causing this admission. We will ask her neurologist, Dr. Gracia, to consult on the case and the patient will be reevaluated in the morning. Allen Garza MD
--- NOTE | 2018-03-28 02:43 | CON ---
DATE: 03/27/2018 HISTORY OF PRESENT ILLNESS: This is a 58-year-old white female with a past medical history of seizure. Patient was going to the bathroom, felt woozy and had episode of seizure, no tongue bite, hit her head and back of the neck on the bathtub. No urinary or bowel incontinence. Patient is on Lamictal and Keppra and called to evaluate the patient. PAST MEDICAL HISTORY: As above. SOCIAL HISTORY: Does not smoke. Does not drink. ALLERGIES: ALLERGIC TO PENICILLIN. REVIEW OF SYSTEMS: Ten-point review of systems was negative except neck pain and back of the head pain. PHYSICAL EXAMINATION: HEENT: Normocephalic, trauma to the back of the head and neck. NEUROLOGIC: Cranial nerve II through XII were tested. Pupils reactive. EOM intact. Visual mckeon full. No facial asymmetry. Tongue midline. Motor examination: Moves all the extremities equally. No tongue bite. No urinary incontinence. Motor examination: Moves all the extremities equally. Tone normal. Deep tendon reflexes are 1+. Both plantars are downgoing. Sensory appears intact. Cerebellar, gait deferred. IMPRESSION AND PLAN: Seizure, possibly breakthrough seizure and CAT scan of the head is negative and we will continue Keppra 750 twice a day and Lamictal 100 mg twice a day. Thank you very much for the consultation. Nitin Gracia MD
[2018-03-28] MEDS: Pantoprazole 40 mg EC Tab PO SCH (05:39)
[2018-03-28] MEDS ORDERED: Pantoprazole 40 mg EC Tab PO SCH (06:00)
--- NOTE | 2018-03-28 15:20 | PN ---
DATE: 03/28/2018 NEUROLOGY FOLLOWUP CHIEF COMPLAINT: Followup for seizures. SUBJECTIVE: The patient is seen and examined at bedside. She is eating her lunch without any difficulty, following commands. No further seizures overnight. She is on Keppra 750 mg p.o. b.i.d. and Lamictal 100 mg p.o. b.i.d. She is on Ultram in terms of tramadol for pain which should be discontinued given that it can lower the seizure threshold. She has poor sleep hygiene, which is also a contributing effect to seizure breakthroughs. She is moving all extremities. PAST MEDICAL HISTORY: As above. SOCIAL HISTORY: No illicit drug use, smoking, or EtOH abuse. ALLERGIES: PENICILLIN. FAMILY HISTORY: Noncontributory. REVIEW OF SYSTEMS: A 14-point review of systems is negative except as per the HPI. LABORATORY DATA: No new labs done today. PHYSICAL EXAMINATION: VITAL SIGNS: Temperature 98, pulse rate 66, blood pressure 145/80, respiratory rate 20, oxygen saturation 96% via room air. GENERAL: The patient is sitting up in bed, in no acute distress. HEENT: Head is atraumatic and normocephalic. PERRLA. Extraocular muscles intact. NECK: Supple. No JVD. No adenopathy noted. LUNGS: Clear to auscultation. No adventitious sounds. HEART: S1 and S2. Normal rate and rhythm. No murmur, rubs, or gallops. ABDOMEN: Soft, nontender, nondistended. Bowel sounds present. EXTREMITIES: No clubbing. No cyanosis. Peripheral pulses 2+ felt bilaterally. NEUROLOGIC: The patient is alert, oriented to person, place, and year. Recall after 5 minutes is 0/3. Poor attention span. Slow thought process. Flat affect. Cranial nerves II through XII are intact. Motor: Moves all extremities equally. No pronator drift seen. Sensory: Light touch, pinprick, proprioception, and vibration intact. DTRs are 2+ throughout and 1 at both knees and ankles. Coordination: [id number] intact. No dysmetria noted. Gait is deferred for now. IMPRESSION: This is a questionable complex partial seizure with a breakthrough. CAT scan of the head showed no acute intracranial abnormality. At this time, we will continue with her Keppra 750 p.o. b.i.d. and Lamictal 100 mg p.o. b.i.d. as well for seizure prophylaxis. We will recommend to stop her tramadol given that seizure threshold and advice proper sleep hygiene. At this time, she is clinically stable and follow up as an outpatient. Guy Gracia MD
[2018-03-29] MEDS: Pantoprazole 40 mg EC Tab PO SCH (05:10)
--- NOTE | 2018-03-29 10:39 | PN ---
DATE: 03/28/2018 DAILY PROGRESS NOTE The patient is a 58-year-old female with a history of schizoaffective disorder, seizure disorder, asthma, gastroesophageal reflux disease, status post cholecystectomy, status post hysterectomy secondary to endometriosis and status post appendectomy who suffered a seizure at home. She was apparently down for 3 minutes or more and the patient was admitted through the emergency room two days ago on 03/26. As per the patient, in 11/2017, her Keppra and Lamictal were decreased to once a day dosage and the patient has been doing well on that dosage since then. She also had problems with chronic diarrhea and since her Questran has been discontinued, that also has been doing well. At the time of admission, the patient was quite concerned that she had another seizure after 6 months being seizure free. During the hospital stay, the patient was doing well. She was evaluated by Dr. Gracia, the neurologist and the Lamictal and the Keppra dosages were back up to twice a day for each of them. When seen her, she is awake, alert and oriented. She is feeling good about the change in her medication. She is looking forward to physical therapy for ambulation and if she feels strong enough on her feet with her physical therapy evaluation, she may choose to be discharged to home in the morning. Allen Garza MD
[2018-03-29 13:48] LABS: HEMOGLOBIN 13.1 g/dL (12.0-16.0); MEAN CELL VOLUME 86.9 fl (80.0-105.0); MEAN CORPUSCULAR HGB CONC 33.3 g/dl (31.0-37.0); RBC 4.52 10^6/uL (3.5-6.1); RED CELL DISTRIBUTION WIDTH 12.9 % (11.5-14.5); WHITE BLOOD COUNT 6.5 10^3/ul (4.5-11.0)
[2018-03-29 14:08] LABS: ALB/GLOB RATIO 1.3 (1.1-1.8); ALBUMIN 4.2 g/dL (3.0-4.8); ALT/SGPT 83 U/L (7-56); AST/SGOT 86 U/L (14-36); BLOOD UREA NITROGEN 17 mg/dL (7-21); CALCIUM 9.5 mg/dL (8.4-10.5); GFR NON-AFRICAN AMERICAN 51
--- NOTE | 2018-03-30 02:42 | PN ---
DATE: 03/29/2018 SUBJECTIVE: The patient was seen this Wednesday late morning in room 364, bed 2, resting comfortably in bed. She reports no further seizure activity. She states that the seizure at home was quite real and was the first time in many months that she has had such a seizure. In the past, there was a question as to whether this was a true seizure disorder versus orthostatic hypotension related to the medication she is on in the past (Clozaril). ASSESSMENT AND PLAN: Now, the patient is awake, alert, and clear. I was hoping to discharge her to home, but she tells me she has been invited to join the physical therapy unit on transitional care to engage and strength training exercise and conditioning prior to discharge and is looking very much forward to physical therapy. Therefore, we will continue her current medication regimen. Her dose of seizure medicine has been increased from once a day to twice a day. We will continue other medicines the same and look forward to transfer to TCU when bed available. Tomas Garza MD
[2018-03-30] MEDS: Pantoprazole 40 mg EC Tab PO SCH (05:36)
--- NOTE | 2018-03-30 08:13 | CP.PCM.PN ---
Subjective - Date & Time of Evaluation Date of Evaluation: 03/30/18 Time of Evaluation: 07:50 - Subjective Subjective: Eliseo Teran- Internal Medicine Resident- House Doctor Subjective: Called by RN for acute change in patient's mental status. As per staff, patient was last seen awake and responsive this morning prior to nursing rounds. Patient pressed the nursing beasley. Upon arrival by staff the patient was endorsed to be unresponsive to verbal stimuli and was seen to be experiencing shaking of her bilateral upper extremities. Event endorsed to have lasted approximately 60 seconds until resolution. Patient seen and examined at bedside. Patient's eyes were closed but patient was responding to verbal stimuli. Patient was following commands. Able to open eyes on command and move extremities on command. Denied provoking event. Admits to feeling fatigued. Denied fever, chills, chest pain, and shortness of breath. 12 Point ROS negative except as indicated in HPI Physical Examination: - Constitutional Appears: No Acute Distress - Head Exam Head Exam: ATRAUMATIC - Eye Exam Pupil Exam: PERRL - ENT Exam ENT Exam: Mucous Membranes Moist - Respiratory Exam Respiratory Exam: Clear to Auscultation Bilateral. absent: Respiratory Distress - Cardiovascular Exam Cardiovascular Exam: +S1, +S2 - GI/Abdominal Exam GI & Abdominal Exam: Normal Bowel Sounds. absent: Firm, Guarding - Extremities Exam Extremities exam: Positive for: normal inspection. Negative for: calf tenderness - Neurological Exam Neurological exam: patient was awake, alert, orientated x [address], responded to verbal stimuli, and followed commands, moved extremities with intent, CN II- XII intact - Skin Skin Exam: Normal Color, Warm Assessment and Plan: Patient is a 58 year old female with a past medical history of seizure who was admitted for evaluation and treatment of seizure like activity. Called for evaluation of patient for seizure. Seizure - Likely in postictal state s/p seizure, neurological status improving with time - awake and responsive to verbal stimuli and following commands - Vitals recycled- patient is hemodynamically stable - Neurology team contacted- recommend continuing 750mg of keppra in the AM and increasing the evening dose to 1000mg, continuing lamictal 100mg BID, and placing patient on continuous EEG- appropriate orders placed - High risk fall precautions - Seizure precautions - Neuro checks q4h - 1:1 vs avasys, nursing made aware to place patient closer to nursing station to closer monitoring - Nursing performed bedside swallow evaluation- patient passed evaluation- able to tolerate PO intake Primary team made aware patient case. Patient case endorsed to and plan approved by attending physician, Dr. Garza. Objective - Vital Signs/Intake and Output Vital Signs (last 24 hours): Temp Pulse Resp BP Pulse Ox 98.4 F 79 20 142/80 93 L 03/29/18 16:51 03/29/18 16:51 03/29/18 16:51 03/29/18 16:51 03/29/18 16:51 - Medications Medications: Current Medications Aspirin (Ecotrin) 81 mg PO DAILY [facility] Last Admin: 03/29/18 09:21 Dose: 81 mg Lamotrigine (Lamictal) 100 mg PO BID [facility] PRN Reason: Protocol Last Admin: 03/29/18 18:23 Dose: 100 mg Levetiracetam (Keppra) 750 mg PO BID [facility] Last Admin: 03/29/18 18:22 Dose: 750 mg Mirtazapine (Remeron) 15 mg PO HS [facility] Last Admin: 03/29/18 21:20 Dose: 15 mg Pantoprazole Sodium (Protonix Ec Tab) 40 mg PO 0600 [facility] Last Admin: 03/30/18 05:36 Dose: 40 mg Tramadol HCl (Ultram) 50 mg PO Q6H PRN PRN Reason: Pain, moderate (4-7) Last Admin: 03/30/18 02:06 Dose: 50 mg - Labs Labs: 03/29/18 13:20 03/29/18 13:20 PT 13.1 SECONDS (9.4-12.5) H 03/26/18 16:21 INR 1.15 03/26/18 16:21 APTT 29.7 Seconds (25.1-36.5) 03/26/18 16:21
--- NOTE | 2018-03-30 12:57 | CP.PCM.PCO ---
Physician Communication Note - Physician Communication Note Physician Communication Note: stop tramadol since it can lower seizure threshold. will adjust meds.
[2018-03-30] MEDS ORDERED: Hyoscyamine 0.125 mg SL Tab PO ONE (15:06)
[2018-03-31] MEDS: Pantoprazole 40 mg EC Tab PO SCH (05:27)
[2018-03-31 07:45] VITALS: BP 164/82; PULSE 74; RESP 19; TEMP 98; O2SAT 98
--- NOTE | 2018-03-31 08:13 | PN ---
DATE: 03/30/2018 DAILY PROGRESS NOTE SUBJECTIVE: The patient is a 58-year-old female with a history of schizoaffective disorder, seizure disorder, asthma, gastroesophageal reflux disease, status post cholecystectomy, status post hysterectomy secondary to endometriosis and status post appendectomy. She suffered a seizure at home, was apparently down for 3 minutes or more and the patient was admitted through the emergency room on 03/26/2018. The patient was evaluated by Neurology. Her Keppra and Lamictal were increased to a b.i.d. dose. The patient had been lowered to a once a day dose about 5 months ago in 11/2017 and had been doing well since then. The patient was doing well during her hospital stay and she was looking forward to transfer to the Transitional Care Unit; however, earlier this morning, she suffered a seizure, which was witnessed by the nursing staff. She was reevaluated by Neurology. Her Keppra was increased to 1000 mg for the bedtime dose, continuing with the 750 mg in the morning. Lamictal is to continue at 100 twice a day. When seen, the patient was stable. She was awake, alert and oriented. She was feeling tired and achy after the seizure, however. We will continue to follow the patient closely to be reevaluated in the morning. Allen Garza MD
--- NOTE | 2018-03-31 10:09 | PCM.VEEG ---
Video EEG - Procedure Start Date: 03/30/18 Start Time: 06:10 End Date: 03/31/18 End Time: 07:35 - Interpretation Description of the study: DATA ACQUISITION: This was a multichannel inpatient video-EEG, a minimum of 22 channels were utilized, performed in accordance with recommendations specified by the [place] [employer] (Alena Meyer et al. ACNS Guideline 1: Minimum Technical Requirements for Performing Clinical Electroencephalography. Journal of Clinical Neurophysiology 2016;33:303-7). The 10-20 electrode placement system was utilized in accordance with guidelines detailed by the International Federation of Clinical Neurophysiology (Lorrie Birmingham et al. The Ten- Twenty Electrode System of the International Federation. Recommendations for the Practice of Clinical Neurophysiology: Guidelines of the International Federation of Clinical Physiology 1999; EEG Suppl. 52.). DATA REVIEW / SPIKE DETECTION / DIGITAL ANALYSIS: The entire EEG was scanned and reviewed. Synchronized audio and video recording were reviewed at the time of each alarm and whenever an abnormality or suspicious activity was noted. The entire recording was analyzed utilizing an automated digital spike and seizure analysis program and all automatic spike and seizure detections were manually reviewed. A compressed spectral array was displayed and reviewed alongside the raw EEG tracings. In addition, further analysis of the EEG was performed when abnormalities were identified, including montage changes, dipole source localization, and frequency band identification. This study was attended 24 hours per day. REASON FOR THE TEST; seizures EEG Finding during wakefulness: During active states, the EEG was characterized by 14-25 Hz, 15-30 uV activity bilaterally in fronto-central regions. Resting wakefulness was characterized by a symmetric posterior dominant rhythm of 9 to 10 Hz, 30-50 uV, which was reactive to eye opening and closing. Drowsiness was associated with slow roving eye movements, slowing and fragmentation of the posterior dominant rhythm, and bilateral 4-7 Hz, 40-70 uV theta activity, sometimes with a shifting predominance. Hyperventilation and photic stimulation were not performed. EEG Finding during sleep: Light sleep was recorded and was characterized by fronto-central slowing at 5-7 H, 50-125 uV, sharp central vertex waves, bilateral sleep spindles, and K- complexes; shifting asymmetries were evident. Deeper stages of sleep were recorded and were characterized an increasing frequency of 1-4 Hz, 50-100 uV delta activity. REM sleep was also recorded and was characterized by mixed frequency (3-15 Hz) low voltage (< 20 uV) activity with clusters of rapid horizontal and vertical eye movements. There were no significant asymmetries noted during sleep. Interictal non-epileptiform abnormalities: None Interictal epileptiform abnormalities: None Ictal epileptiform abnormalities: None Induction procedures: No seizures No PB activations - Impression Impression: This is a normal Video EEG monitoring study.
--- NOTE | 2018-04-01 00:22 | PN ---
DATE: 03/31/2018 DAILY PROGRESS NOTE SUBJECTIVE: The patient is seen this morning, resting comfortably in bed in room 364, bed 2. She is doing well with the seizure monitor device on, looking forward to it being removed later today. There has been no further seizure activity. She feels relatively well. However, has been troubled by poor sleep and bad dreams. This has happened to her in the past and improved with modifications of medications many years ago through the psychiatrist at [facility]. She is requesting consult by Dr. Letty Reddy, who knows her well. PLAN: Await the results of EEG monitor. Patient is up for transfer to U when bed available. Tomas Garza MD
--- NOTE | 2018-04-01 00:36 | DS ---
HISTORY OF PRESENT ILLNESS: This is a 58-year-old woman I have known for many years with a history of mental illness, schizoaffective disorder as well as seizure disorder. She was at home in the bed, went to bathroom, felt woozy and had a seizure. She was unconscious on the floor for about 3 minutes. She said she hit her head and/or shoulders against the bathtub when falling. She denies biting her tongue, incontinence of stool or urine. She is known to have a history of seizures and her medicine had recently been reduced. She also has a history of asthma. She is status post cholecystectomy, history of reflux, status post hysterectomy for endometriosis as well as appendectomy. She does not smoke or drink alcohol. ALLERGIES: SHE IS KNOWN TO BE ALLERGIC TO PENICILLIN WHICH CAUSE ITCHING. COURSE OF HOSPITAL STAY: Admitted to the medical floor, she was seen by neurology computing consultant. Her medications were adjusted. She seem to be doing comfortable and well and ready for discharge to home, however, she was approached with the idea of continued monitoring and adjustment of medicines on the Transitional Care, so she opted for that choice. It was fortunate for everyone that she did not because the morning after that, she had a seizure in bed that was witnessed by the nurse and the resident prompting further adjustment of her medications. Ongoing EEG monitor was placed. She was watched for 24 hours and then readied for transfer to the Transitional Care Unit. The patient also requested a followup visit with her psychiatrist, Dr. Letty Reddy because of a sequence of bad dreams she started to have recently. On the day of discharge, she complained of severe pain in the right great toe at the MTP joint which may have been gout. A stat uric acid level was drawn and she was started on prednisone 20 mg b.i.d. for 3 days until labs could be further assessed. IMPRESSION: 1. Seizure disorder. 2. Schizoaffective disorder. 3. Status post cholecystectomy, hysterectomy and appendectomy. 4. Gastroesophageal reflux disease. PLAN: We will follow the patient on the Transitional Care Unit. Tomas Garza MD
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
== END 2018-03-31 16:06 | DRG 101 ==
LOC: ED 14:46 → ERH 18:39 → 3RNO 20:01 → OBSVTOIN 03-28 15:20
PROVIDERS: ADMIT Internal Medicine; ATTEND Internal Medicine
DX: G40.909 Epilepsy, unspecified, not intractable, without status epilepticus (principal); S06.9X9A Unspecified intracranial injury with loss of consciousness of unspecified duration, initial encounter; F25.9 Schizoaffective disorder, unspecified; M54.2 Cervicalgia; J45.909 Unspecified asthma, uncomplicated; K21.9 Gastro-esophageal reflux disease without esophagitis; W19.XXXA Unspecified fall, initial encounter; Y92.002 Bathroom of unspecified non-institutional (private) residence as the place of occurrence of the external cause; F32.89 Other specified depressive episodes; K52.9 Noninfective gastroenteritis and colitis, unspecified; Z87.440 Personal history of urinary (tract) infections; Z90.49 Acquired absence of other specified parts of digestive tract; Z90.710 Acquired absence of both cervix and uterus; Z88.0 Allergy status to penicillin

== ENCOUNTER 2018-03-31 16:10 | Inpatient (IN) | payer OTHER ==
--- NOTE | 2018-03-31 17:34 | CON ---
DATE: 03/31/2018 HISTORY OF PRESENTING ILLNESS: This is a 58-year-old woman with history of schizoaffective disorder, history of epileptic and nonepileptic seizures, history of arthritis and history of depression, who was in the medical site on 03/28/2018 until today for breakthrough seizure. She was also on tramadol for pain, which lowered her seizure threshold and had a breakthrough seizure while she was in the hospital. She had a continuous EEG monitoring, which showed no evidence of any epileptiform activity. She is moving all extremities, eating without any difficulty. REVIEW OF SYSTEMS: Fourteen-point review of systems is negative as per the HPI. FAMILY HISTORY: Noncontributory. ALLERGIES: PENICILLINS. LABORATORY DATA: Uric acid level 7.8, which is elevated. PHYSICAL EXAMINATION: VITAL SIGNS: Temperature afebrile, pulse rate of 66, respiratory rate of 16, oxygen saturation 96% by room air, blood pressure 140s/80s. GENERAL: The patient is sitting up in bed, in no acute distress. HEENT: Atraumatic, normocephalic. PERRLA. Extraocular muscles intact. NECK: Supple. No JVD, no adenopathy noted. LUNGS: Clear to auscultation. No adventitious sounds. HEART: S1, S2. Normal rate and rhythm. No murmurs, rubs or gallops. ABDOMEN: Soft, nontender and nondistended. Bowel sounds are present. EXTREMITIES: No clubbing. No cyanosis. Peripheral pulses 2+ felt bilaterally. NEUROLOGIC: The patient is alert and oriented to person, place and year. Recall after 5 minutes is 0/3. Poor attention span, slow thought process, flat affect. Cranial nerves II through XII intact. Motor exam: Moves all extremities equally. No pronator drift seen. Sensory exam: Light touch, pinprick, proprioception and vibration are intact. DTRs are 2+ throughout and 1 at both knees and ankles. Coordination: [id number] intact. No dysmetria noted. Gait is deferred for now. IMPRESSION: She had a questionable complex partial seizure with a breakthrough event. Her CAT scan of the head showed no acute intracranial abnormalities. Her continuous EEG monitoring showed no evidence of any epileptiform activity. Her Keppra was adjusted from 750 p.o. b.i.d. to 750 in the a.m. and 1000 at p.m. and Lamictal 100 mg p.o. b.i.d. for seizure prophylaxis. Also, advised to hold off any tramadol since it loses seizure threshold. Recommend physical and occupational therapy for rehabilitation for deconditioned stated from back pain. I recommend psychiatric followup in regards to her depression and schizoaffective disorder. She is clinically stable. Thank you for this consult. Guy Gracia MD
[2018-03-31] MEDS ORDERED: Pneumococcal 23-Valent Vaccine IM ONE (20:00)
--- NOTE | 2018-04-01 04:23 | HP ---
CHIEF COMPLAINT: Deconditioning, need for further adjustment of seizure medications. HISTORY OF PRESENT ILLNESS: This is a 58-year-old woman, I have known for many years, with history of seizure disorders; schizoaffective disorder; orthostatic hypotension related to medications she was taken in the past, which have now been discontinued; GERD; chronic diarrhea related to medications, which have now been discontinued. She had been doing amazingly well in recent months. Her dose of antiseizure medicine had been slowly decreased. Unfortunately, she had a seizure at home prompting her admission to the Acute Care Facility at [facility]. While hospitalized, she had another seizure, then was stable and now comes to the Transitional Care Unit for additional physical therapy as well as monitoring and adjusting of medications. PAST MEDICAL HISTORY: Significant for multiple hospitalizations for syncope and seizure-like episodes associated with nausea. History is negative for hypertension, hyperlipidemia, tuberculosis, gout, COPD, stroke, TIA, myocardial infarction, coronary artery disease, or cancers of any type. It is positive for diabetes since 2013, asthma since 2013, and questionable seizure disorder diagnosed in 2013. Recent EEGs and 24-hour EEGs have been ranged from normal to slightly abnormal. She had a history of orthostatic hypotension, which is sound to be related medication Clozaril. There is also a history of hypertension, depression, mental illness, and schizoaffective disorder. Review of the past medical history at [facility] shows multiple admissions. Her last stress test was in 08/2016 with implantation of loop recorder in 04/2016, as part of an extensive workup. She also had a stress test in 2013 and 2014, which were unremarkable. Imaging done in the Radiology Department during the course of 2016, showed multiple x-rays, five CAT scans of the head in 2017, two CAT scans of the abdomen and pelvis, the stress test as mentioned above, MRCP, assorted chest x-rays, rib x-rays, knee x-rays, ankle x-rays, all essentially unremarkable. PAST SURGICAL HISTORY: Significant for cholecystectomy in 1989 and hysterectomy in 2010. She is hospitalized approximately 20 times in the last 3 years, many of them for abdominal pain, chronic diarrhea. She had extensive workups by multiple gastroenterologists, but were essentially unremarkable. In spite of this chronic diarrhea, she remained morbidly obese. Cardiac workups including thallium stress tests were unremarkable in the past year or two. ALLERGIES: SHE IS ALLERGIC TO PENICILLIN, WHICH GIVES HER HIVES. SOCIAL HISTORY: She does not smoke, never did and does not drink alcohol or coffee. She had a colonoscopy in 2013 in [place], several in [place] in 2013, 2016, and recently as well. She has had multiple endoscopies dating back to 1993 and again recently in the past year or so. She had a mammogram in 2009 and in 2014, both unremarkable. She refuses the flu shot and the Pneumovax vaccine. FAMILY HISTORY: Her mother and father are both lived into their 60s and have both passed. She is the second of five siblings. Her bother, who at age 35 of liver cancer. She has two sisters and one brother, but all of whom she has lost contact. She is single with no children. She has been disabled since 1992 with depression. Prior to that, she worked at [employer] in [place], [place]. Her neurologist is Dr. Gracia. Her clinical rehabilitation coordinator is Dr. Livingston, Dr. King, and Dr. Cannon. She has seen a lime boiler, Dr. Dumont and Dr. Turpin, who had recently implanted a loop recorder for the syncopal episodes. REVIEW OF SYSTEMS: On multiple points, is negative, but for things related to syncope and seizure, her diarrhea has subsided as has her GI complaints, lightheadedness, dizziness, and syncope except for this admission. PHYSICAL EXAMINATION: GENERAL: The patient was seen this morning prior to her transfer on arrival on the Transitional Care Unit. She is resting comfortably in bed, awake, alert, clear, and in good spirits. HEENT: Head and neck were unremarkable. LUNGS: Clear. NECK: Supple without masses. There are no JVD, no carotid bruits. HEART: Regular and not tachycardic. ABDOMEN: Moderately overweight and nontender. EXTREMITIES: Showed no edema. IMPRESSION: 1. Deconditioning. 2. Seizure disorder. 3. Gastroesophageal reflux disease. 4. History of schizoaffective disorder versus depression/anxiety, posttraumatic stress disorder. PLAN: The patient will be admitted to TCU. We will ask followup consultation by Dr. Letty Reddy, who knows her well. Physical therapy, out of bed, close monitoring by neurologist for further underlying seizure. Tomas Garza MD [facility] # [id number]
[2018-04-01] MEDS: Pantoprazole 40 mg EC Tab PO SCH (06:25)
[2018-04-01] MEDS ORDERED: LEVETIRACETAM 750 MG PO SCH (10:00)
--- NOTE | 2018-04-01 21:56 | PN ---
DATE: 04/01/2018 FOLLOWUP NOTE SUBJECTIVE: The patient was transferred to the Transitional Care Unit overnight. As per report from the nursing staff, the patient was very tearful overnight. The patient got Ativan one dose and the patient was able to relax and slept through the night. The patient was seen and examined. The patient reported that she tolerates Prozac well. This hand sign writer offered the patient to initiate Prazosin, but the patient does not want to try the new medication. The patient was educated about Sonata, but the patient does not want to try new medication. The patient asked to be on Ativan if it is possible. No contraindication. Ativan could be helpful for the patient with her seizures/ pseudo seizures as well as for anxiety. The patient is compliant with the medication. Affect was bright today. Thought process is coherent and goal directed. There is no agitation or aggression. Vital signs seems to be stable. Temperature 98.4, pulse is 85, blood pressure is 157/91, respirations 16. Medications reviewed. With regard to the psychotropic medications, the patient was started on Prozac 10 mg yesterday and tomorrow it will be increased to 20 mg. The patient is on Lamictal, Keppra. The patient was also on Remeron 15 mg at the nighttime, but Remeron can be discontinued as of now because this hand sign writer initiated Prozac. The patient also is on Protonix and prednisone. Labs reviewed. No new labs. MENTAL STATUS EXAMINATION: The patient appeared to be alert and oriented, pleasant, cooperative. Fair eye contact. Speech was somewhat overproductive, but not pressured. Thought process at times over inclusive. Thought content, the patient denied visual, auditory or tactile hallucinations. Denied paranoid ideation. The patient denied thoughts of harming herself or others. The patient denied hearing voices, denied seeing things. Insight and judgment seem to be improving. Impulses are well controlled. IMPRESSION: As per history, major depressive disorder; as per history, possible posttraumatic stress disorder and panic disorder. The patient was on Clozaril for years. This hand sign writer is not sure why. Dr. Tomas Garza did a great job initiated weaning the patient off from Clozaril. The patient tolerated that well. There is no psychosis or agitation. PLAN: Ativan 1 mg at the nighttime scheduled for insomnia as well as it could be beneficial for the patient's seizure disorder. Prozac will be increased to 20 mg tomorrow. Remeron was discontinued. So far, the patient tolerates medications well. We will follow up and advise accordingly. This hand sign writer offered Prazosin, but the patient did not want to start new medication. Also Sonata was discussed for the future. The patient poses no imminent danger to self or others as of now. Should you have any questions, give me a call back. We will follow up and advise accordingly. Letty Reddy MD MTDD
--- NOTE | 2018-04-02 01:11 | PN ---
DATE: 04/01/2018 DAILY PROGRESS NOTE SUBJECTIVE: Patient was seen this Wednesday morning in Transitional Care Unit in room 321, bed 1. She is resting comfortably in bed, quite talkative and chatty, in no acute distress. She is very pleased with how she did in physical therapy and exercise, walking in the lawson and improving her balance. There has been no further seizure activity. Of interest is that her uric acid level was elevated. Her great toe pain in the right foot has markedly diminished with the oral prednisone. Tomorrow, I will start her either colchicine or allopurinol as her symptoms did subside. PLAN: Continue physical therapy and ambulation on TCU. Monitor for seizure activity. Continue with gait balance and strength exercise. Tomas Garza MD
[2018-04-02] MEDS: Pantoprazole 40 mg EC Tab PO SCH (05:56)
[2018-04-02 07:11] LABS: BLOOD UREA NITROGEN 20 mg/dL (7-21); CALCIUM 9.3 mg/dL (8.4-10.5); GFR NON-AFRICAN AMERICAN 57; URIC ACID 6.8 mg/dL (2.5-6.2)
[2018-04-02 07:15] LABS: BASO # 0.01 K/mm3 (0.0-2.0); BASO % 0.1 % (0.0-3.0); EOS % 0.1 % (1.5-5.0); GRAN # 8.25 (1.4-6.5); GRAN % 68.6 % (50.0-68.0); HEMOGLOBIN 13.2 g/dL (12.0-16.0); LYMPH # 2.9 (1.2-3.4); MEAN CELL VOLUME 85.7 fl (80.0-105.0); MEAN CORPUSCULAR HEMOGLOBIN 29.1 pg (25.0-35.0); MEAN CORPUSCULAR HGB CONC 33.9 g/dl (31.0-37.0); MONO # 0.9 (0.1-0.6); MONO % 7.2 % (1.0-6.0); RBC 4.54 10^6/uL (3.5-6.1); RED CELL DISTRIBUTION WIDTH 12.8 % (11.5-14.5)
[2018-04-02] MEDS ORDERED: Cholestyramine 4 gm/Pkt UD PO PRN (10:28)
--- NOTE | 2018-04-02 16:10 | PN ---
DATE: 04/02/2018 SUBJECTIVE: The patient was seen today. The patient presented well, reported that she slept well. The patient denied being depressed, denied thoughts of harming herself or others. The patient denied any flashbacks or nightmares or relieving of the situation at the nighttime. The patient wants to continue on Ativan as of now. VITAL SIGNS: Seem to be stable. Temperature 98.2, pulse is 82, blood pressure 117/68, respirations 18, oxygen saturation is 95. MEDICATIONS: Reviewed. The patient is on allopurinol, aspirin, Prozac, Lamictal, Keppra, Claritin, Ativan as needed and Ativan 1 mg at the nighttime for insomnia as well as the patient is on prednisone and Protonix. LABORATORY DATA: Reviewed. Most recent was from today. WBC cells 12, most likely this is due to prednisone. Chemistry reviewed. Discussed with nursing staff. MENTAL STATUS EXAMINATION: The patient presented to be alert and oriented, pleasant, cooperative, no agitation, no aggression. Fair eye contact. Speech was normal rate, tone, quality, and quantity. Mood described "I feel better." Thought process coherent and goal directed. Thought content, the patient denied visual, auditory, or tactile hallucinations. Denied paranoid ideation. The patient does not present to be psychotic. Insight and judgment improving. Impulses are well controlled. IMPRESSION: As per history, most likely the patient has mood spectrum disorder, anxiety spectrum disorder, and pseudoseizures. PLAN: Continue Prozac, continue Ativan 1 mg at the nighttime. There is no need for this typewriter assembler to see the patient on daily basis. We can follow up on the patient every other day. So far, the patient is improving. Thank you very much for letting me to participate in the care of your patient. Letty Reddy MD
[2018-04-03] MEDS: Pantoprazole 40 mg EC Tab PO SCH (05:33)
--- NOTE | 2018-04-03 10:58 | PN ---
DATE: 04/02/2018 DAILY PROGRESS NOTE SUBJECTIVE: The patient was seen this Wednesday morning in Transitional Care Unit, room 321, bed 1. Resting comfortably in bed, in good spirits, smiling and enjoying her stay in TCU with physical therapy, rehab, conditioning and further adjustment of her medications. PHYSICAL EXAMINATION: HEAD AND NECK: Unremarkable. LUNGS: Clear. HEART: Regular. Not tachycardic. PLAN: The mediations will be further adjusted. The patient is requesting some Zyrtec for her allergy symptoms. Her bowel movements have been regular. Her chronic diarrhea has not been an issue; thus, she would like to have some Questran, cholestyramine powder on board p.r.n. diarrhea. She also requests some adjustments in her Ativan dose. The evening dose does in fact help her sleep and eliminate the bad dream she has been having, but she does not feel she needs the morning dose, so I will adjust things to leave the p.r.n. at bedtime dose and after looking at the medical record, I see that the daytime dose is in fact p.r.n. so we will just leave it like that. Tomas Garza MD MTDD
--- NOTE | 2018-04-03 21:08 | PN ---
DATE: 04/03/2018 DAILY PROGRESS NOTE SUBJECTIVE: The patient was seen this Wednesday morning, ambulating in the hallway, doing amazingly well. There has been no further seizure activity, her medication adjustment seems to be doing well in keeping her seizure free. She is awake, alert, clear and sharp, enjoying exercises with walking, but still feels unsettled and uncomfortable with stairs. I spoke with the physical therapist told to do some additional stair training and continue physical therapy. Tomas Garza MD
[2018-04-04] MEDS: Pantoprazole 40 mg EC Tab PO SCH (06:10)
--- NOTE | 2018-04-04 13:27 | PN ---
DATE: 04/04/2018 DAILY PROGRESS NOTE The patient is a 58-year-old female with a history of schizoaffective disorder, seizure disorder, asthma, gastroesophageal reflux disease, status post cholecystectomy, status post hysterectomy, secondary to endometriosis and status post appendectomy who suffered a seizure at home with loss of consciousness for several minutes and was admitted to [facility]. Her antiepileptic drugs were adjusted and increased and the patient did well. She did suffer another seizure on the medical floor, however and required a second adjustment of her medications. So from the 03/26/2018, she had done relatively well on the medical floor and was admitted to the Transitional Care Unit on the 03/31/2018. When seen, she was doing amazingly well. She is in good spirits. She had no further seizures noted. Her vital signs are stable. She is ambulating in the lawson and doing very, very well. She is looking forward to possible early discharge to home in the next few days. Current medications include Keppra 1000 mg p.o. at bedtime and 750 mg daily in the morning, Lamictal 100 mg twice a day. She is also receiving Protonix, Ecotrin, Claritin, Ativan as needed, Prozac 20 mg daily, Questran p.r.n. diarrhea and allopurinol 100 mg daily. We will continue to follow the patient closely. Allen Garza MD
[2018-04-05 16:19] VITALS: BP 124/79; RESP 18; TEMP 99
--- NOTE | 2018-04-05 20:21 | PN ---
DATE: 04/05/2018 SUBJECTIVE: The patient was followed up today. Her mood is optimistic. The patient was concerned about her medical issues, but overall the patient is doing much better. pt is looking forward for discharge pt said that she will f/u with [facility] and she is planning to request individual therapy. VITAL SIGNS: Reviewed. Temperature 99, pulse is 80, blood pressure 124/79, respirations 18, oxygen saturation is 99. MEDICATIONS: Reviewed. The patient is on allopurinol, aspirin, cholestyramine, Prozac 20 mg daily, Lamictal is 100 mg twice a day, Keppra, Claritin, Ativan, Protonix. LABORATORY DATA: Reviewed. Chemistry reviewed. MENTAL STATUS EXAMINATION: The patient presented to be alert and oriented, fair eye contact. Speech was normal rate, tone, quality, and quantity. Mood described as "I feel fine" I feel optimistic." Affect was reactive, mood congruent. Thought process was coherent and goal directed. Thought content, the patient denied visual, auditory, or tactile hallucinations or paranoid ideation. The patient does not have any panic attacks and denied any flashbacks or nightmares over night time. IMPRESSION: As per history, depression and anxiety. The patient was on Clozaril before, but successively weaned off. PLAN: The patient wants to follow up with [facility]. She is looking for individual therapy. The patient wants to see her psychiatrist twice a week. The patient is not psychotic. The patient is not agitated or aggressive. The patient should be continued on the same medication regiment. The patient is not in any imminent danger to self or others. Should you have any questions, give me a call back. Thank you very much for letting me to participate in the care of your patient. The patient has old followup appointment scheduled for her. The patient is safe to be discharged from the psychiatric standpoint. This chart writer will sign off. Letty Reddy MD EARNEST
[2018-04-06] MEDS: Pantoprazole 40 mg EC Tab PO SCH (06:16)
--- NOTE | 2018-04-06 11:47 | DS ---
HISTORY OF PRESENT ILLNESS: The patient is a 58-year-old female with a history of schizoaffective disorder, seizure disorder, asthma, gastroesophageal reflux disease, status post cholecystectomy, status post hysterectomy secondary to endometriosis and status post appendectomy, who suffered a seizure, was at home and was therefore admitted to [facility] on 03/26/2018. She suffered another seizure on the medical floor and her medications were adjusted. On 03/31/2018, she was transferred to the Transitional Care Unit for physical therapy where the patient did very very well. The patient was seen ambulating 1000 feet with a rolling walker. She was very independent. She was able to climb 16 stairs. When seen today, the patient asked to be discharged to home and that she was feeling well. Her vital signs are stable. PHYSICAL EXAMINATION: LUNGS: Clear. HEART: Regular. ABDOMEN: Soft and nontender. EXTREMITIES: Free of cyanosis, clubbing or edema. I will be calling her local pharmacy, [facility] for prescriptions. These will be Keppra 1000 mg orally at bedtime and 750 mg orally in the morning. Lamictal 100 mg twice a day. She is also to continue taking her Ativan 1 mg at bedtime and Prozac 20 mg daily. The patient will be followed up in an office visit next week. So the patient is discharged to home in an improved condition. FINAL DIAGNOSES: 1. Seizure disorder. 2. Disturbance of gait. 3. Schizoaffective disorder. Allen Garza MD
[2018-04-06 12:58] VITALS: PULSE 92; O2SAT 94
== END 2018-04-06 15:15 | disposition home or self-care (01) | DRG 101 ==
LOC: TRCU 16:10
PROVIDERS: ADMIT Internal Medicine; ATTEND Internal Medicine
PROC: F07Z9FZ Gait Training/Functional Ambulation Treatment using Assistive, Adaptive, Supportive or Protective Equipment (ICD-10-PCS; principal; 2018-04-01)
PROC: F07M6ZZ Therapeutic Exercise Treatment of Musculoskeletal System - Whole Body (ICD-10-PCS; 2018-04-01)
PROC: F08Z0ZZ Bathing/Showering Techniques Treatment (ICD-10-PCS; 2018-04-01)
PROC: F08Z2ZZ Grooming/Personal Hygiene Treatment (ICD-10-PCS; 2018-04-01)
PROC: F08Z4ZZ Home Management Treatment (ICD-10-PCS; 2018-04-01)
DX: G40.909 Epilepsy, unspecified, not intractable, without status epilepticus (principal); K21.9 Gastro-esophageal reflux disease without esophagitis; F25.9 Schizoaffective disorder, unspecified; E11.9 Type 2 diabetes mellitus without complications; J45.909 Unspecified asthma, uncomplicated; F32.89 Other specified depressive episodes; F43.10 Post-traumatic stress disorder, unspecified; I10 Essential (primary) hypertension; K52.9 Noninfective gastroenteritis and colitis, unspecified; E66.01 Morbid (severe) obesity due to excess calories; Z68.38 Body mass index [BMI] 38.0-38.9, adult; Z79.899 Other long term (current) drug therapy; Z90.49 Acquired absence of other specified parts of digestive tract; Z90.710 Acquired absence of both cervix and uterus

== ENCOUNTER 2018-04-20 07:31 | Inpatient (IN) | payer MEDICARE, OTHER ==
[2018-04-20 07:43] VITALS: BMI 39.6
--- NOTE | 2018-04-20 07:57 | ED PDOC ---
Arrival/HPI - General Chief Complaint: Psychiatric Evaluation Time Seen by Provider: 04/20/18 07:34 Historian: Patient - History of Present Illness Narrative History of Present Illness (Text): 04/20/18 07:57 58 year old female, whose past medical history includes epilepsy, seizure disorder, schizoaffective disorder, diabetes, Asthma, orthostatic hypotension, cholecystectomy, hysterectomy, presents to the emergency department complaining of visual and auditory hallucinations that began today. Patient reports she saw a big man laughing at her. Patient states she lives alone and has not had a hallucination episode for a long time now. Patient is compliant with her psychiatric medication. Patient takes Lamictal 100mg and Keppra 1000mg every morning and night, but did not take her dose today. Patient is also complaining of right knee pain, but denies any fever, chills, chest pain, shortness of breath, nausea, vomiting, diarrhea, urinary symptoms, back pain, neck pain, headache, dizziness, suicidal/homicidal ideation, or any other complaints. PMD: Dr. Dumont Time/Duration: Other (today) Symptom Onset: Sudden Symptom Course: Unchanged Activities at Onset: Light Context: Home Past Medical History - Provider Review Nursing Documentation Reviewed: Yes - Past History Past History: Non-Contributing - Infectious Disease Hx of Infectious Diseases: None - Tetanus Immunization Tetanus Immunization: Unknown - Reproductive Menopause: Yes - Past Medical History Past Medical History: Non-Contributing - Cardiac Hx Hypertension: (pt denies) - Pulmonary Hx Respiratory Disorders: Yes Hx Asthma: Yes - Neurological Hx Neurological Disorder: Yes Hx Dizziness: Yes (vertigo) Hx Seizures: Yes (epilepsy) - HEENT Hx HEENT Disorder: Yes Other/Comment: wears glasses - Renal Hx Renal Disorder: No - Endocrine/Metabolic Hx Diabetes Mellitus Type 2: Yes - Hematological/Oncological Hx Blood Disorders: No - Integumentary Hx Dermatological Disorder: Yes Other/Comment: MASD UNDER THE STOMACH FOLD AND BREAST FOLD. viral warts removed from fingers - Musculoskeletal/Rheumatological Hx Falls: Yes (2x's 12/08/17) - Gastrointestinal Hx Gastrointestinal Disorders: No - Genitourinary/Gynecological Hx Genitourinary Disorders: Yes Hx Reproductive Disorders: Yes (HYSTERECTOMY) - Psychiatric Hx Schizophrenia: Yes Hx Substance Use: No - Surgical History Hx Appendectomy: Yes (removed with hyst) Hx Cholecystectomy: Yes Hx Hysterectomy: Yes Other/Comment: cysto - Anesthesia Hx Anesthesia: Yes Hx Anesthesia Reactions: No Hx Malignant Hyperthermia: No - Suicidal Assessment Feels Threatened In Home Enviroment: No Family/Social History - Physician Review Nursing Documentation Reviewed: Yes Family/Social History: No Known Family HX Smoking Status: Never Smoked Hx Alcohol Use: No Hx Substance Use: No Hx Substance Use Treatment: No Allergies/Home Meds Allergies/Adverse Reactions: Allergies Penicillins Allergy (Severe, Verified 04/20/18 07:43) ITCHING Home Medications: Home Meds Medication Instructions Recorded Confirmed Allopurinol [Zyloprim] 300 mg PO DAILY 04/20/18 04/20/18 Mirtazapine [Remeron] 15 mg PO HS 04/20/18 04/20/18 Omeprazole 40 mg PO DAILY 04/20/18 04/20/18 lamoTRIgine [LaMICtal] 100 mg PO BID 04/20/18 04/20/18 Review of Systems - Physician Review All systems were reviewed & negative as marked: Yes - Review of Systems Constitutional: absent: Fevers, Other (Chills) Respiratory: absent: SOB Cardiovascular: absent: Chest Pain Gastrointestinal: absent: Abdominal Pain, Diarrhea, Nausea, Vomiting Genitourinary Female: absent: Dysuria, Frequency, Hematuria Musculoskeletal: Other (right knee pain). absent: Back Pain, Neck Pain Neurological: absent: Headache, Dizziness Psychiatric: Other (visual and auditory hallucinations ). absent: Suicidal Ideation (homicidal Ideation) Physical Exam Vital Signs Reviewed: Yes Appearance: Positive for: Well-Appearing, Non-Toxic, Comfortable Pain Distress: None Mental Status: Positive for: Alert and Oriented X 3 - Systems Exam Head: Present: Atraumatic, Normocephalic Pupils: Present: PERRL Extroacular Muscles: Present: EOMI Conjunctiva: Present: Normal Mouth: Present: Moist Mucous Membranes Neck: Present: Normal Range of Motion Respiratory/Chest: Present: Clear to Auscultation, Good Air Exchange. No: Respiratory Distress, Accessory Muscle Use Cardiovascular: Present: Regular Rate and Rhythm, Normal S1, S2. No: Murmurs Abdomen: No: Tenderness, Distention, Peritoneal Signs Back: Present: Normal Inspection Upper Extremity: Present: Normal Inspection. No: Cyanosis, Edema Lower Extremity: Present: Normal Inspection, Normal ROM, Neurovascularly Intact. No: Edema Neurological: Present: GCS=15, CN II-XII Intact, Speech Normal Skin: Present: Warm, Dry, Normal Color. No: Rashes Psychiatric: Present: Alert, Oriented x 3, Normal Insight, Normal Concentration Medical Decision Making ED Course and Treatment: 04/20/18 07:57 Impression: 58 year old female presents complaining of visual and auditory hallucination that began today. Patient is also complaining of right knee pain. No meningeal signs, normal neuro exam. R knee w/out crepitus or redness. Non-ttp. N/V intact distally. No trauma, fall or dislocation of knee Plan: -- EKG -- Labs -- Keppra, Lamictal -- Knee right 2 View -- Urinalysis -- PES Evaluation after medical clearance -- Reassess and disposition Prior Visits: Notes and results from previous visits were reviewed. Progress Notes: 04/20/18 08:07 EKG shows NSR at 88 BPM with No STEMI, flipped T in lead III. Interpreted by me. PES To see patient 04/20/18 09:46 labs resulted so far unremarkable Pending XR and urine for medical clear 04/20/18 12:29 XR and urine unremarkable medically clear per PES: to be admitted to Dr. Saenz service: schizophrenia Pt in NAD with VSS - Lab Interpretations I have reviewed the lab results: Yes - RAD Interpretation Radiology Orders: 04/20/18 07:55 KNEE RIGHT 2 VIEWS (AP & LAT) [RAD] Stat - EKG Interpretation Interpreted by ED Physician: Yes Type: 12 lead EKG - Scribe Statement The provider has reviewed the documentation as recorded by the Odilon Posey Provider Scribe Attestation: All medical record entries made by the Odilon were at my direction and personally dictated by me. I have reviewed the chart and agree that the record accurately reflects my personal performance of the history, physical exam, medical decision making, and the department course for this patient. I have also personally directed, reviewed, and agree with the discharge instructions and disposition. Disposition/Present on Arrival - Present on Arrival Any Indicators Present on Arrival: No History of DVT/PE: No History of Uncontrolled Diabetes: Yes Urinary Catheter: No History of Decub. Ulcer: No History Surgical Site Infection Following: None - Disposition Have Diagnosis and Disposition been Completed?: Yes Diagnosis: Schizophrenia Disposition: HOSPITALIZED Disposition Time: 12:00 Condition: GOOD Forms: [facility] (Nepalese)
[2018-04-20 08:48] LABS: BASO # 0.01 K/mm3 (0.0-2.0); BASO % 0.2 % (0.0-3.0); EOS # 0.1 (0.0-0.7); EOS % 1.4 % (1.5-5.0); GRAN # 3.47 (1.4-6.5); GRAN % 70.5 % (50.0-68.0); HEMOGLOBIN 12.2 g/dL (12.0-16.0); LYMPH # 1.2 (1.2-3.4); LYMPH % 24.5 % (22.0-35.0); MEAN CELL VOLUME 86.8 fl (80.0-105.0); MEAN CORPUSCULAR HEMOGLOBIN 28.8 pg (25.0-35.0); MEAN CORPUSCULAR HGB CONC 33.2 g/dl (31.0-37.0); MEAN PLATELET VOLUME 8.5 fl (7.0-11.0); MONO # 0.2 (0.1-0.6); MONO % 3.4 % (1.0-6.0); RBC 4.23 10^6/uL (3.5-6.1); RED CELL DISTRIBUTION WIDTH 13.5 % (11.5-14.5); WHITE BLOOD COUNT 4.9 10^3/ul (4.5-11.0)
[2018-04-20 09:07] LABS: ACETAMINOPHEN < 10.0 ug/ml (10.0-20.0); SALICYLATE < 1 mg/dL (2.0-20.0)
[2018-04-20 09:16] LABS: BLOOD UREA NITROGEN 18 mg/dL (7-21); CALCIUM 9.3 mg/dL (8.4-10.5); GFR NON-AFRICAN AMERICAN 51
[2018-04-20 09:17] LABS: ALB/GLOB RATIO 1.4 (1.1-1.8); ALT/SGPT 68 U/L (7-56); AST/SGOT 48 U/L (14-36)
--- NOTE | 2018-04-20 09:17 | CARD ---
APPROVED REPORT Date of service: 04/20/2018 EKG Measurement Heart [id number] <Conclusion> Normal sinus rhythm
[2018-04-20 12:14] LABS: BARBITURATES, UR NEGATIVE (NEGATIVE); BENZODIAZEPINES, UR NEGATIVE (NEGATIVE); OPIATES, UR NEGATIVE (NEGATIVE); PHENCYCLIDINE, UR NEGATIVE (NEGATIVE)
[2018-04-20 12:18] LABS: URINE BILIRUBIN NEGATIVE (NEGATIVE); URINE BLOOD NEGATIVE (NEGATIVE); URINE GLUCOSE (UA) NEGATIVE (NEGATIVE); URINE LEUKOCYTE ESTERASE NEGATIVE Leu/uL (NEGATIVE); URINE PROTEIN NEGATIVE mg/dL (<30 mg/dL); URINE UROBILINOGEN 0.2 E.U./dL (<1 E.U./dL)
[2018-04-20 12:19] LABS: URINE APPEARANCE SL CLOUDY (CLEAR); URINE COLOR LIGHT YELLOW (YELLOW)
--- NOTE | 2018-04-20 12:44 | RAD ---
Date of service: 04/20/2018 PROCEDURE: Right Knee Radiographs. HISTORY: r knee pain COMPARISON: None. FINDINGS: BONES: Normal. No fracture. JOINTS: Normal. No osteoarthritis. JOINT EFFUSION: None. OTHER FINDINGS: None. IMPRESSION: Normal radiographs of the right knee.
[2018-04-20 17:07] VITALS: O2SAT 98
--- NOTE | 2018-04-20 19:18 | PCM.BM ---
<Milton Kang - Last Filed: 04/20/18 19:15> Treatment Plan Problems - Problems identified on initial assessmt Delusions Date Initiated: 04/20/18 Time Initiated: 19:16 Assessment reference: NA Status: Active Priority: 1 Altered thought process Date Initiated: 04/20/18 Time Initiated: 19:17 Assessment reference: NA Status: Active Priority: 2 Altered sleep pattern Date Initiated: 04/20/18 Time Initiated: 19:17 Assessment reference: NA Status: Active Priority: 3 Treatment assets and liabiliti Patient Assests: cooperative, ADL independent, negotiates basic needs, cognitively intact Patient Liabilities: live alone, poor support system, medical problems - Milieu Protocol Maintain good personal hygiene: every shift Encourage regular showers, every shift Remind patient to perform daily oral care, every shift Assist patient to perform ADL's Maintain personal safety: every shift Educate patient to report safety concerns to staff, every shift Monitor environment for contraband/sharps Medication safety: Monitor for expected outcome, potential side effects: every shift, Assess barriers to learning: every shift, Assess readiness for medication education: every shift Discharge/Continuing Care - Education Needs Education Needs: Patient Medication, Patient Diagnosis/Disease Process, Patient Coping Skills, Patient Community resources, Patient Activities of Daily Living, Patient Pain, Patient Nutrition, Patient Uses of Medical Equipment, Patient Health Practices/Safety, Patient Personal Hygiene/Grooming, Patient Aftercare Safety Plan - Discharge Discharge Criteria: Tolerates medication w/o severe side effects, Free of paranoid thoughts, Normal sleep pattern, Ability to care for self, No longer exhibiting s/s of withdrawal, Reduction of target symptoms Discharge to:: Home <Letty Reddy - Last Filed: 04/21/18 09:21> - Diagnosis (1) Schizophrenia Status: Acute Interventions: 04/21/18 09:22 Psychoeducation/psychotherapy Psychopharmacology/adjustment of medications as needed/ monitoring possible side effects Evaluate pt on daily basis Compliance with medications and follow up appointments Long acting medication if pt is noncompliant with pill form Suicide and homicide risk assessment and prevention, coping strategies, safety plan Relapse prevention Reduction of symptoms Improve functional status Possible assertive community treatment Cognitive behavioral therapy Family involvement Possible social skill training as outpatient <Elina Johnson - Last Filed: 04/22/18 13:40> Family Contact Family involvement: Munir/KAROL not involved - Outside Agency [facility] involvment: Not involved Agency contact name: [facility] <Jessenia Skaggs - Last Filed: 04/22/18 16:24>
[2018-04-21] MEDS: Pantoprazole 40 mg EC Tab PO SCH (09:41)
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
[2018-04-22] MEDS: Pantoprazole 40 mg EC Tab PO SCH (06:33)
[2018-04-22] MEDS: PRAZOSIN 1 MG PO SCH ×2 (09:20→21:57)
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
--- NOTE | 2018-04-23 05:07 | CON ---
DATE: 04/20/2018 REASON FOR THE CONSULTATION: Cardiac evaluation, history of loop recorder, history of orthostatic hypotension in the past admitted to psychiatric floor for depression. BRIEF CLINICAL HISTORY: This is a 58-year-old female with past medical history of depression, admitted to the psych floor for depression, had one episode of chest pain at home recently, which completely subsided. PAST MEDICAL HISTORY: Significant for diabetes, hypertension, hyperlipidemia, questionable history of seizure disorder, COPD, and placement of loop recorder because of recurrent syncope. PAST SURGICAL HISTORY: Significant for loop recorder implantation on 04/20/2016 because of the recurrent syncope, and dizziness. SOCIAL HISTORY: Denies smoking. Denies any history of alcohol abuse. ALLERGIES: PENICILLIN GIVES RASH. CURRENT MEDICATIONS: The patient is taking Ambien 10 mg daily, Zofran, Keppra, Lamictal, ibuprofen, gabapentin, Cymbalta, albuterol, and atorvastatin. The patient had a loop recorder on 04/20/2016 because of the recurrent syncope, recurrent SVT and palpitation. It is almost 2 years ago. History of stress test 2015, essentially negative. History of echocardiography on 12/09/2017 that revealed normal chamber size, ejection fraction 55% to 60%, trace mitral regurgitation, trace tricuspid regurgitation, normal right ventricle and collapsing of the inferior vena cava. A stress test on 08/17/2016, that was a Lexiscan and that shows normal myocardial perfusion study, ejection fraction of 76%. REVIEW OF SYSTEMS: As per HPI. PHYSICAL EXAMINATION: As follows: VITAL SIGNS: Height of the patient 5 feet 1 inches, weight of the patient 210, body mass index 39.7 kg/m2. LABORATORY DATA: EKG shows normal sinus rhythm, acute ST-T changes noted. Blood workup, WBC 4.9, hemoglobin 12.2, hematocrit 36.7, platelet count 113. Chemistry shows sodium 138, potassium 3.9, chloride 105, carbon dioxide 25, anion gap of 30, BUN 18, creatinine 1.1. TSH 3.17. IMPRESSION: A 58-year-old female with past medical history of obesity, diabetes, hypertension, hyperlipidemia, seizure disorder, psychiatric disorder, history of supraventricular tachycardia, status post loop recorder and no significant arrhythmia noted. History of stress test on 08/2016 essentially normal myocardial perfusion study. History of echo 11/2017 shows normal chamber size, trace MR, trace TR, preserved left ventricular function admitted to psych floor with one episode of chest pain at home. No evidence of acute myocardial infarction noted, no evidence of acute ischemia noted on EKG. RECOMMENDATIONS: Continue psychiatric treatment. Continue baseline medication. We will follow periodically. So far, no evidence of acute MS. We will follow. We will get lipid profile, TSH, hemoglobin A1c. Thank you, Dr. Reddy, for providing us the opportunity in taking care of the patient, Dena Vieira. We will get lipid profile, TSH, and hemoglobin A1c. David Turpin MD
[2018-04-23] MEDS: Pantoprazole 40 mg EC Tab PO SCH (07:29)
[2018-04-23] MEDS: OLANZapine 5 mg Disintegrating Tab PO SCH ×2 (10:04→17:58)
[2018-04-23] MEDS: PRAZOSIN 1 MG PO SCH ×2 (10:16→21:25)
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
[2018-04-23] MEDS ORDERED: OLANZapine 5 mg Disintegrating Tab PO SCH (22:00)
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
[2018-04-24] MEDS: Pantoprazole 40 mg EC Tab PO SCH (06:10)
[2018-04-24 07:10] VITALS: BP 133/79; PULSE 78; RESP 18; TEMP 98.1
[2018-04-24] MEDS: OLANZapine 5 mg Disintegrating Tab PO SCH (09:23)
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
== END 2018-04-24 16:50 | disposition short-term general hospital (02) | DRG 885 ==
LOC: ED 07:31 → ERH 12:32 → PSYC 16:09
PROVIDERS: ADMIT Psychiatry & Neurology Psychiatry; ATTEND Psychiatry & Neurology Psychiatry
PROC: GZ3ZZZZ Medication Management (ICD-10-PCS; principal; 2018-04-20)
DX: F25.9 Schizoaffective disorder, unspecified (principal); G40.909 Epilepsy, unspecified, not intractable, without status epilepticus; F43.10 Post-traumatic stress disorder, unspecified; E11.9 Type 2 diabetes mellitus without complications; E78.5 Hyperlipidemia, unspecified; E66.01 Morbid (severe) obesity due to excess calories; Z68.39 Body mass index [BMI] 39.0-39.9, adult; J45.909 Unspecified asthma, uncomplicated; Z90.49 Acquired absence of other specified parts of digestive tract; Z90.710 Acquired absence of both cervix and uterus; Z88.0 Allergy status to penicillin

== ENCOUNTER 2018-04-24 16:31 | Inpatient (IN) | payer MEDICARE, OTHER ==
[2018-04-24 17:15] VITALS: BMI 29.2
[2018-04-24 19:49] LABS: BASO # 0.01 K/mm3 (0.0-2.0); BASO % 0.2 % (0.0-3.0); EOS # 0.1 (0.0-0.7); EOS % 1.3 % (1.5-5.0); GRAN # 3.28 (1.4-6.5); GRAN % 73.8 % (50.0-68.0); HEMOGLOBIN 11.8 g/dL (12.0-16.0); LYMPH # 0.9 (1.2-3.4); MEAN CELL VOLUME 87.8 fl (80.0-105.0); MEAN CORPUSCULAR HEMOGLOBIN 29.4 pg (25.0-35.0); MEAN CORPUSCULAR HGB CONC 33.4 g/dl (31.0-37.0); MEAN PLATELET VOLUME 8.8 fl (7.0-11.0); MONO # 0.2 (0.1-0.6); MONO % 4.7 % (1.0-6.0); RBC 4.02 10^6/uL (3.5-6.1); RED CELL DISTRIBUTION WIDTH 13.5 % (11.5-14.5); WHITE BLOOD COUNT 4.5 10^3/ul (4.5-11.0)
[2018-04-24 19:56] LABS: ALB/GLOB RATIO 1.4 (1.1-1.8); ALBUMIN 3.8 g/dL (3.0-4.8); ALT/SGPT 79 U/L (7-56); AST/SGOT 64 U/L (14-36); BLOOD UREA NITROGEN 17 mg/dL (7-21); CALCIUM 9.5 mg/dL (8.4-10.5); GFR NON-AFRICAN AMERICAN 57
[2018-04-24 20:06] LABS: FREE T4 0.95 ng/dL (0.78-2.19)
[2018-04-24] MEDS ORDERED: Home Med 1 UNIT PO SCH (22:00)
[2018-04-24] MEDS: [UNRECOGNIZED DRUG - OTHER] PO SCH (22:27)
--- NOTE | 2018-04-25 04:59 | HP ---
CHIEF COMPLAINT: Alerted mental status, tearfulness, generalized weakness, paranoia, and nausea. HISTORY OF PRESENT ILLNESS: This is a 58-year-old woman, I have known her for many years, who is doing amazingly well for the last several months having had her neuroleptic medications adjusted. She recently was admitted to psychiatry floor for further medication adjustments and seemed to have been doing well. Today, when making rounds, the patient was in a very different altered bizarre mental state with paranoia and delusions making accusations. I spoke with the hospital staff as well as nursing loading supervisor, her psychiatrist and ultimately case was presented to administration and it was felt best the patient be transferred to medical floor for thorough and medical evaluation for possible causes of this altered mental status and abrupt change in behavior. PAST MEDICAL HISTORY: Negative for hypertension, hyperlipidemia, tuberculosis, gout, COPD, TIA, CVA, [place] and coronary artery disease or cancers of any type. She is positive for diabetes since 2013, which is now diet controlled; asthma since 2013 and seizure disorder, initially diagnosed in 2013. Earlier this year, her medications were tapered slowly since she has been relatively seizure-free, but unfortunately had a seizure, so medications were returned to her prior level. She was on Clozaril before I met her dating back approximately more than 11 years ago and that medication was hopefully causing syncopal episodes after an extensive workup for her through 2015, 2017, and 2018 including multiple hospitalizations, loop recorder, CAT scans, MRIs, 24-hour EEGs, etc. When that medication was discontinued, the patient did amazingly well, become more bright, alert, sharp and clear. Now some two months later, she began to complain of bad dreams and depressive symptoms and was admitted for psychiatric evaluation prior to this admission. PAST SURGICAL HISTORY: Significant for cholecystectomy in 1989, hysterectomy in 2010. She has been hospitalized approximately 20 times in the last three years for abdominal pain and chronic diarrhea, had extensive workup with content editor, but all essentially unremarkable. She remained morbidly obese, her symptoms are felt to be related to Clozaril as the diarrhea cleared immediately after that medicine was discontinued. Recent cardiac workup including thallium stress test and all were unremarkable. Her last stress test was in 2016. She has an implanted loop recorder since April 2016 as a part of her syncope workup. She had stress tests in 2013, 2015 and 2017 all unremarkable. Imaging during 2017 showed multiple x-rays, 5 CT scans of the head, 2 CT scans of the abdomen, stress test as above and MRCP and chest x-rays, rib x-rays, knee and ankle x-rays done as well. ALLERGIES: SHE IS ALLERGIC TO PENICILLIN, WHICH GIVES HER HIVES. SOCIAL HISTORY: She does not smoke and never did. Does not drink alcohol. PAST SURGICAL HISTORY: She had colonoscopy in 2013 in [place] and several here in [place]. She had multiple endoscopies dating back to 1993 and again just as recently as 2018 colonoscopy. She had mammograms in 2009 and 2014, both unremarkable. She refuses the flu shot and Pneumovax vaccine. FAMILY HISTORY: Her mother and father both lived into their 60s and have both passed. She is the second of 5 siblings. She had a brother who at age 35 of liver cancer. She has two sisters and one brother with whom she has lost contact. She has recently regained contact with sister in [place]. The patient is single with no children. She has been disabled since 1992 with depression. Prior to that, she worked at [employer] in [place], [place]. Her neurologist is Dr. Gracia. Her content editor is Dr. Livingston. In the past, she has seen corporate legal secretary, Dr. Dumont and who currently has the event recorder implanted which was interrogated during the recent admission. REVIEW OF SYSTEMS: Otherwise is significant for topics outlined in the chief complaint, but difficult to obtain any physical review of systems complaints because of her current state. PHYSICAL EXAMINATION: GENERAL: The patient is upset and tearful when seen this Wednesday morning, apparently difficult to carry on conversation, tearful with generalized paranoia and quite anxious. HEENT: Head and neck were essentially unremarkable. Conjunctivae pink. Mucous membranes are moist. NECK: Supple with no masses. There is no carotid bruit. No JVD. LUNGS: Show good aeration, right and left. HEART: Regular, not tachycardic. BREASTS: Not examined. ABDOMEN: Soft, moderately overweight. EXTREMITIES: Show no edema. Good DP and PT pulses were always present. IMPRESSION: 1. Altered mental status with paranoia, lethargy. 2. History of seizure disorder. 3. History of multiple syncopal episodes. 4. Chronic diarrhea, now stable. 5. Diabetes, was diet controlled, but now sugars are running a bit high. 6. History of asthma. 7. History of orthostatic hypotension. 8. Multiple hospitalizations for syncope. 9. Depression and schizophrenia. 10. Status post cholecystectomy. 11. Status post hysterectomy. 12. Chronic diarrhea with extensive workup in the past. 13. Obesity. PLAN: Patient will be admitted to medical floor. Repeat labs will be done. I will ask her neurologist to reassess the situation in the morning and I have been in touch with patient's psychiatrist, Dr. Reddy, and we discussed medications and future plan. We will continue medications at the current level for now and reassess in the morning. Tomas Garza MD
[2018-04-25 08:10] LABS: URINE BILIRUBIN NEGATIVE (NEGATIVE); URINE BLOOD NEGATIVE (NEGATIVE); URINE GLUCOSE (UA) NEGATIVE (NEGATIVE); URINE LEUKOCYTE ESTERASE TRACE Leu/uL (NEGATIVE); URINE PROTEIN NEGATIVE mg/dL (<30 mg/dL); URINE UROBILINOGEN 0.2 E.U./dL (<1 E.U./dL)
[2018-04-25 08:14] LABS: URINE APPEARANCE CLEAR (CLEAR); URINE COLOR YELLOW (YELLOW)
[2018-04-25 08:18] LABS: URINE RBC 0 - 2 /hpf (0-2)
[2018-04-25 08:19] LABS: URINE BACTERIA MOD (NEG)
[2018-04-25] MEDS: Pantoprazole 40 mg EC Tab PO SCH (09:56)
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
[2018-04-25] MEDS: [UNRECOGNIZED DRUG - OTHER] PO SCH (21:24)
[2018-04-26] MEDS: Pantoprazole 40 mg EC Tab PO SCH (10:41)
--- NOTE | 2018-04-26 16:29 | CON ---
DATE: 04/26/2018 NEUROLOGY CONSULTATION CHIEF COMPLAINT: Confusion. HISTORY OF PRESENT ILLNESS: This is a 58-year-old woman with past medical history of schizoaffective disorder, epileptic and nonepileptic seizure, arthritis, history of depression who was transferred from the Psychiatric Inpatient Unit to the medical site due to the patient started complaining that she does not feel comfortable with one of the male nurses on the floor. The patient was followed up on the medical site. The patient presented very tearful, says she is hearing voices and feeling like somebody is going to attack her brother. Apparently, she is disorganized, psychotic, and delusional and Psychiatry has offered Clozaril. No new seizures. She is doing otherwise overall well in regards to seizure management. She possibly will be transferred to [place] or [facility] Psychiatric Unit for mood stabilization and hallucination. Overall, she has schizophrenia, paranoid type with history of pseudo seizures as well as true seizures. PAST MEDICAL HISTORY: As above. SOCIAL HISTORY: No illicit drug use, smoking, or EtOH abuse. ALLERGIES: PENICILLIN. FAMILY HISTORY: Noncontributory. REVIEW OF SYSTEMS: Fourteen-point review of systems negative except as per the HPI. LABORATORY DATA: No new labs done today. PHYSICAL EXAMINATION: VITAL SIGNS: Temperature afebrile, pulse rate of 66, respiratory rate of 18, oxygen saturation 96% on room air, blood pressure 138/74. GENERAL: The patient is sitting up in bed, in no acute distress. HEENT: Atraumatic, normocephalic. PERRLA. Extraocular muscles intact. NECK: Supple. No JVD. No adenopathy noted. LUNGS: Clear to auscultation. No adventitious sounds. HEART: S1, S2. Normal rate and rhythm. No murmurs, rubs, or gallops. ABDOMEN: Soft, nontender,nondistended. Bowel sounds present. EXTREMITIES: No clubbing. No cyanosis. Peripheral pulses 2+ felt bilaterally. NEUROLOGIC: The patient is alert and oriented to person, place, and year. Recall after 5 minutes is 0/3. Poor attention span. Slow thought process. Flat affect. The patient is disorganized. Has intense eye contact. Mood is described as very flat. Affect is constricted. The thought process is disorganized, tangential, and circumstantial. Occasionally, the patient has history of hallucinations. Cranial nerves II through XII are intact. Motor: Moves all extremities equally. Speech is fluent without any errors. No pronator drift seen. Sensory: Light touch, pinprick, proprioception, and vibration intact. DTRs are 2+ throughout and 1 at both knees and ankles. Coordination: [id number] intact. No dysmetria noted. Gait is deferred for now. IMPRESSION: Schizophrenic, paranoid type with history of pseudoseizures and posttraumatic stress disorder as well as complex partial seizures. At this time, we would recommend: 1. Follow up with psychiatric management in regards to his schizophrenia, paranoid type and will get better treatment from inpatient psychiatry, possibly at a different facility. She is currently on Clozaril, has been started and fluoxetine. 2. Continue with Lamictal 100 mg p.o. b.i.d. and Keppra 1000 mg p.o. b.i.d. for seizure prophylaxis and continue with current present medical management. Thank you for this consultation. Guy Gracia MD
[2018-04-26] MEDS: [UNRECOGNIZED DRUG - OTHER] PO SCH (22:11)
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
[2018-04-27] MEDS: Pantoprazole 40 mg EC Tab PO SCH (11:03)
[2018-04-27 12:36] LABS: BARBITURATES, UR NEGATIVE (NEGATIVE); BENZODIAZEPINES, UR NEGATIVE (NEGATIVE); OPIATES, UR NEGATIVE (NEGATIVE); PHENCYCLIDINE, UR NEGATIVE (NEGATIVE)
--- NOTE | 2018-04-27 13:01 | RAD ---
Date of service: 04/27/2018 HISTORY: Altered mental status COMPARISON: 03/26/2018 FINDINGS: LUNGS: No active pulmonary disease. PLEURA: No significant pleural effusion identified, no pneumothorax apparent. CARDIOVASCULAR: No radiographic findings to suggest acute or significant cardiovascular disease. OSSEOUS STRUCTURES: No significant abnormalities. VISUALIZED UPPER ABDOMEN: Normal. OTHER FINDINGS: None. IMPRESSION: No active disease. No significant interval change compared to the prior examination(s).
[2018-04-27] MEDS: [UNRECOGNIZED DRUG - OTHER] PO SCH (22:26)
[2018-04-28 07:41] VITALS: BP 143/77; PULSE 84; RESP 20; TEMP 97.8; O2SAT 95
--- NOTE | 2018-04-28 07:49 | PN ---
DATE: 04/27/2018 DAILY PROGRESS NOTE SUBJECTIVE: The patient is a 58-year-old female with a history of diabetes, asthma, seizure disorder and syncope, who was hospitalized on [facility] psychiatric [facility] for schizophrenia, hallucinations, paranoia. She continued to have her symptoms there. It was decided for the patient to be transferred to a medical floor and put on our service and still be followed by psychiatric consultants. On the medical floor, the patient is stable. Her vital signs remain stable. Her laboratory studies from 04/24/2018 were acceptable. Her vital signs are stable. When seen today, the patient is being evaluated by Dr. Culver covering for Dr. Reddy. She was awake, alert, oriented and participating in conversation. The patient remains medically stable. She was continued to be followed by Psychiatry. After the visit, I received a phone call that the plans for transfer to [facility] have been called off. She will not be able to be transferred to [facility], therefore as per the session with Dr. Culver, the patient will remain on the medical floor and go to group therapy on 5B as scheduled. Allen Garza MD [facility]
--- NOTE | 2018-04-28 09:37 | CP.PCM.PCO ---
Physician Communication Note - Physician Communication Note Physician Communication Note: discussed with at , pt will be accepted to psych.
[2018-04-28] MEDS: Pantoprazole 40 mg EC Tab PO SCH (10:17)
--- NOTE | 2018-04-28 11:19 | CARD ---
APPROVED REPORT Date of service: 04/27/2018 EKG Measurement Heart [id number] <Conclusion> Sinus tachycardia Inferior infarct, age undetermined Abnormal ECG
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
--- NOTE | 2018-05-03 07:47 | DS ---
HISTORY OF PRESENT ILLNESS: This is a 58-year-old woman, I have known for many years, who is doing amazingly well for the last several months having had her neuroleptic medications adjusted. She had been recently admitted to the Psychiatry floor, but now comes to this admission because of altered mental status, paranoia, delusions, and accusations on the floor. The goal of this admission was to rule out medical etiology to the abrupt change in behavior. See admitting H and P for past medical history, past surgical history, and past psychiatric history. COURSE OF HOSPITAL STAY: The patient was followed by her psychiatrist. Medical workup for altered mental status was unremarkable with adjustments of her medicines and resuming Clozaril, which had been discontinued because of the history of almost 20 admissions in the past several years for orthostatic hypotension, diarrhea, etc., and when these medicines were resumed, the patient seemed to improve. From a neuropsychiatric standpoint, bad dreams, voices, delusions, and paranoia lightened. She was improved clinically, and medical etiology symptoms were ruled out. Arrangements were made for her transfer to the Psychiatry Unit at the [facility], and so she was discharged on this . FINAL DISCHARGE DIAGNOSES: 1. Schizophrenic-like disorder with delusions, paranoia and auditory and visual hallucinations. 2. Chronic diarrhea. 3. History of diabetes, now diet controlled. 4. Seizure disorder. 5. Multiple syncopal episodes in the past with negative cardiac workup including the loop recorder. 6. Status post cholecystectomy in 1989. 7. Status post hysterectomy in 2010. 8. History of orthostatic hypotension. Tomas Garza MD
== END 2018-04-28 14:16 | DRG 885 ==
LOC: 5RNO 16:31
PROVIDERS: ADMIT Internal Medicine; ATTEND Internal Medicine
DX: F20.0 Paranoid schizophrenia (principal); G40.909 Epilepsy, unspecified, not intractable, without status epilepticus; E11.9 Type 2 diabetes mellitus without complications; F32.9 Major depressive disorder, single episode, unspecified; F43.10 Post-traumatic stress disorder, unspecified; E66.9 Obesity, unspecified; Z68.29 Body mass index [BMI] 29.0-29.9, adult; J45.909 Unspecified asthma, uncomplicated; Z88.0 Allergy status to penicillin; Z80.0 Family history of malignant neoplasm of digestive organs

== ENCOUNTER 2018-05-12 17:17 | Inpatient (IN) | payer MEDICARE, OTHER ==
[2018-05-12 17:34] VITALS: BMI 36.4
[2018-05-12] MEDS ORDERED: Sodium Chloride 0.9% 1,000 ML IV STA (18:02)
--- NOTE | 2018-05-12 18:06 | ED PDOC ---
Arrival/HPI - General Chief Complaint: High Blood Pressure Time Seen by Provider: 05/12/18 17:57 Historian: Patient - History of Present Illness Narrative History of Present Illness (Text): 05/12/18 18:04 58 year old female whose past medical history includes seizures, who presents to the Emergency department complaining of dizziness, lightheadedness, and nausea. Patient reports that she was discharged 2 days ago from the hospital after 16 day admission. She admits that she currently feels nauseous and dizzy, and states that her blood pressure earlier today was 198/120. She notes experiencing dyspnea, and had left sided back pain last night. Of note patient is allergic to Penicillin. Patient takes Keppra 1g, Lamictal 100mg, and Clozaril 200mg, and states she is due for her taking her medication. Patient denies fevers, chills, cough, chest pain, dyspnea on exertion, abdominal pain, vomiting, diarrhea, bilateral lower extremity edema, neck pain, headache, or any other complaint. PMD: Dr.Thomas Garza Neurologist: News Videotape Editor: Symptom Onset: Sudden Symptom Course: Unchanged Context: Home Past Medical History - Provider Review Nursing Documentation Reviewed: Yes - Travel History Have you recently traveled outside [place] w/in the past 3 mons?: No - Past History Past History: Non-Contributing - Infectious Disease Hx of Infectious Diseases: None - Tetanus Immunization Tetanus Immunization: Unknown - Past Medical History Past Medical History: Non-Contributing - Cardiac Hx Cardiac Arrhythmia: Yes Hx Hypertension: (pt denies) Hx Pacemaker: No - Pulmonary Hx Asthma: Yes Hx Chronic Obstructive Pulmonary Disease (COPD): Yes - Neurological Hx Seizures: Yes (epilepsy) - HEENT Hx HEENT Disorder: No Other/Comment: wears glasses - Renal Hx Renal Disorder: No - Endocrine/Metabolic Hx Endocrine Disorders: Yes Hx Diabetes Mellitus Type 2: Yes - Hematological/Oncological Hx Anemia: Yes - Integumentary Hx Dermatological Disorder: Yes Other/Comment: MASD UNDER THE STOMACH FOLD AND BREAST FOLD. viral warts removed from fingers - Musculoskeletal/Rheumatological Hx Arthritis: (pt denies) Hx Fractures: Yes (mild t 11 comp fx 2013) - Gastrointestinal Hx Gall Bladder Disease: Yes (CHOLECYSTITIS ,CHOLECYSTECTOMY,MILD GASTRITIS) Hx Gastritis: Yes - Genitourinary/Gynecological Hx Sexually Transmitted Diseases: No - Psychiatric Hx Anxiety: Yes Hx Bipolar Disorder: No Hx Depression: Yes Hx Post Traumatic Stress Disorder: No Hx Schizophrenia: Yes Hx Substance Use: Yes - Surgical History Hx Appendectomy: Yes (removed with hyst) Hx Cholecystectomy: Yes - Anesthesia Hx Anesthesia: Yes Hx Anesthesia Reactions: No Hx Malignant Hyperthermia: No - Suicidal Assessment Feels Threatened In Home Enviroment: No Family/Social History - Physician Review Nursing Documentation Reviewed: Yes Family/Social History: No Known Family HX Smoking Status: Never Smoked Hx Alcohol Use: No Hx Substance Use: Yes Hx Substance Use Treatment: No Allergies/Home Meds Allergies/Adverse Reactions: Allergies Penicillins Allergy (Severe, Verified 04/28/18 14:03) ITCHING Home Medications: Home Meds Medication Instructions Recorded Confirmed Mirtazapine [Remeron] 15 mg PO HS 04/20/18 04/20/18 RX: Allopurinol [Zyloprim] 300 mg PO DAILY 04/20/18 04/20/18 RX: Omeprazole 40 mg PO DAILY 04/20/18 04/20/18 lamoTRIgine [LaMICtal] 100 mg PO BID 04/20/18 04/20/18 Review of Systems - Physician Review All systems were reviewed & negative as marked: Yes - Review of Systems Constitutional: absent: Fevers Respiratory: SOB. absent: Cough Cardiovascular: absent: Chest Pain, Edema, Syncope Gastrointestinal: Nausea. absent: Abdominal Pain, Diarrhea, Vomiting Musculoskeletal: Back Pain. absent: Neck Pain Neurological: Dizziness, Other (lightheadedness). absent: Headache Physical Exam Vital Signs Reviewed: Yes Vital Signs Temp Pulse Resp BP Pulse Ox 05/12/18 17:34 98.6 F 102 H 18 165/89 H 95 Temperature: Afebrile Blood Pressure: Hypertensive Pulse: Tachycardic Respiratory Rate: Normal Appearance: Positive for: Well-Appearing Mental Status: Positive for: Alert and Oriented X 3 - Systems Exam Head: Present: Atraumatic, Normocephalic Pupils: Present: PERRL Extroacular Muscles: Present: EOMI Conjunctiva: Present: Normal Mouth: Present: Moist Mucous Membranes Neck: Present: Normal Range of Motion Respiratory/Chest: Present: Clear to Auscultation, Good Air Exchange, Decreased Breath Sounds (decreased breath sounds bilaterally). No: Respiratory Distress, Accessory Muscle Use, Wheezes, Rales, Rhonchi Cardiovascular: Present: Normal S1, S2, Tachycardic. No: Murmurs Abdomen: Present: Other (Abdomen soft.). No: Tenderness, Distention, Peritoneal Signs Back: Present: Normal Inspection Upper Extremity: Present: Normal Inspection. No: Cyanosis, Edema Lower Extremity: Present: Normal Inspection. No: Edema, CALF TENDERNESS, Tenderness Neurological: Present: GCS=15, CN II-XII Intact, Speech Normal Skin: Present: Warm, Dry, Normal Color. No: Rashes Psychiatric: Present: Alert, Oriented x 3, Normal Insight, Normal Concentration Medical Decision Making ED Course and Treatment: 05/12/18 18:04 Impression: 58 year old female complaining of nausea, dizziness, and lightheadedness. Differential Diagnosis included but are not limited to: Hypertensive urgency/emergency Migraine Vasovagal syncope Seizure Plan: -- VBG -- Head CT without Contrast -- Labs -- Cardiac enzymes -- Blood work -- D-dimer -- Chest X-ray -- Clozaril -- Lamictal -- Keppra -- Reglan -- IV fluids -- Urinalysis -- Reassess and disposition Prior Visits: Notes and results from previous visits were reviewed. Progress Notes: 05/12/18 20:49 Labs reviewed with no leukocytosis noted. UA positive for leukocytes and trace bacteria. Macrobid ordered. Potassium of 5.4 noted. Hyperkalemia protocol ordered. Pending chemistries and CTH. 05/12/18 21:[address] Lopez who will resume the patient's care. - RAD Interpretation Narrative RAD Interpretations (Text): 05/12/18 19:18 Chest X-ray: Dictator : Catalino Grijalva MD FINDINGS: LUNGS: No active pulmonary disease. PLEURA: No significant pleural effusion identified, no pneumothorax apparent. CARDIOVASCULAR: For subcutaneous cardiac device. No aortic atherosclerotic calcifications present. Cardiomediastinal silhouette stably prominent. OSSEOUS STRUCTURES: Unchanged. VISUALIZED UPPER ABDOMEN: Normal. OTHER FINDINGS: None. IMPRESSION: No active disease. Radiology Orders: 05/12/18 18:00 CHEST PORTABLE [RAD] Stat 05/12/18 18:02 HEAD W/O CONTRAST [CT] Stat Data Migration Consultant: Radiologist - Medication Orders Current Medication Orders: Sodium Chloride (Sodium Chloride 0.9%) 1,000 mls @ 999 mls/hr IV .Q1H1M STA Stop: 05/12/18 19:02 Metoclopramide HCl (Reglan) 10 mg IVP STAT STA Stop: 05/12/18 18:03 - Scribe Statement The provider has reviewed the documentation as recorded by the Scribe Loc [place] Provider Scribe Attestation: All medical record entries made by the Scribe were at my direction and personally dictated by me. I have reviewed the chart and agree that the record accurately reflects my personal performance of the history, physical exam, medical decision making, and the department course for this patient. I have also personally directed, reviewed, and agree with the discharge instructions and disposition. Disposition/Present on Arrival - Present on Arrival Any Indicators Present on Arrival: Yes History of DVT/PE: No History of Uncontrolled Diabetes: Yes Urinary Catheter: No History of Decub. Ulcer: No History Surgical Site Infection Following: None - Disposition Have Diagnosis and Disposition been Completed?: Yes Diagnosis: UTI (urinary tract infection), Dizziness, Hypertension Disposition: HOSPITALIZED Disposition Time: 20:00 Patient Problems: Current Active Problems Problem Status Onset Dizziness Acute Hypertension Acute UTI (urinary tract infection) Acute Condition: STABLE
[2018-05-12 18:43] LABS: PH,URINE 6.5 (4.7-8.0); URINE BILIRUBIN NEGATIVE (NEGATIVE); URINE BLOOD NEGATIVE (NEGATIVE); URINE GLUCOSE (UA) NEGATIVE (NEGATIVE); URINE LEUKOCYTE ESTERASE MODERATE Leu/uL (NEGATIVE); URINE PROTEIN NEGATIVE mg/dL (<30 mg/dL); URINE UROBILINOGEN 0.2 E.U./dL (<1 E.U./dL)
[2018-05-12 18:44] LABS: URINE APPEARANCE CLEAR (CLEAR); URINE COLOR YELLOW (YELLOW)
[2018-05-12 18:47] LABS: URINE BACTERIA TRACE (NEG); URINE EPITHELIAL CELLS MANY /hpf (0-5); URINE WBC 15 - 20 /hpf (0-6)
[2018-05-12 18:48] LABS: URINE AMORPHOUS SEDIMENT SMALL
--- NOTE | 2018-05-12 19:13 | RAD ---
Date of service: 05/12/2018 HISTORY: sob COMPARISON: Chest radiograph dated 04/27/2018 FINDINGS: LUNGS: No active pulmonary disease. PLEURA: No significant pleural effusion identified, no pneumothorax apparent. CARDIOVASCULAR: For subcutaneous cardiac device. No aortic atherosclerotic calcifications present. Cardiomediastinal silhouette stably prominent. OSSEOUS STRUCTURES: Unchanged. VISUALIZED UPPER ABDOMEN: Normal. OTHER FINDINGS: None. IMPRESSION: No active disease.
[2018-05-12 20:21] LABS: BASO # 0.01 K/mm3 (0.0-2.0); BASO % 0.2 % (0.0-3.0); EOS # 0.1 (0.0-0.7); EOS % 1.4 % (1.5-5.0); GRAN # 3.8 (1.4-6.5); GRAN % 78.1 % (50.0-68.0); HEMOGLOBIN 11.9 g/dL (12.0-16.0); LYMPH # 0.8 (1.2-3.4); LYMPH % 16.2 % (22.0-35.0); MEAN CELL VOLUME 89.8 fl (80.0-105.0); MEAN CORPUSCULAR HEMOGLOBIN 28.8 pg (25.0-35.0); MEAN CORPUSCULAR HGB CONC 32.1 g/dl (31.0-37.0); MEAN PLATELET VOLUME 9.6 fl (7.0-11.0); MONO # 0.2 (0.1-0.6); MONO % 4.1 % (1.0-6.0); RBC 4.13 10^6/uL (3.5-6.1); RED CELL DISTRIBUTION WIDTH 14.2 % (11.5-14.5); WHITE BLOOD COUNT 4.9 10^3/uL (4.5-11.0)
[2018-05-12 20:23] LABS: VENOUS BLOOD GAS BASE EXCESS 1.7 mmol/L (0.0-2.0); VENOUS BLOOD GAS PO2 241 mm/Hg (30-55); VENOUS BLOOD PH 7.44 (7.32-7.43)
[2018-05-12] MEDS ORDERED: Albuterol 0.083% Inhal Sol (2.5 mg/3 mL) UD INH STA (20:53)
[2018-05-12] MEDS ORDERED: Sodium Bicarbonate (8.4%) 50 Meq Syringe IVP ONE (20:53)
[2018-05-12 21:12] LABS: INR 1.09; PARTIAL THROMBOPLASTIN TIME 27.1 Seconds (25.1-36.5); PROTHROMBIN TIME 12.5 SECONDS (9.4-12.5)
--- NOTE | 2018-05-12 21:30 | ED PDOC ---
Physical Exam Vital Signs Reviewed: Yes Vital Signs Temp Pulse Resp BP Pulse Ox 05/12/18 20:20 99 H 18 142/71 99 05/12/18 17:34 98.6 F 102 H 18 165/89 H 95 Temperature: Afebrile Blood Pressure: Hypertensive Pulse: Tachycardic Respiratory Rate: Normal Appearance: Positive for: Well-Appearing, Non-Toxic, Comfortable Pain Distress: None Mental Status: Positive for: Alert and Oriented X 3 Medical Decision Making ED Course and Treatment: 05/12/18 22:08 Patient endorsed to me by Dr. Smyth. Patient presented with hypertension and dizziness. Patient was found to have UTI. Patient is pending results of CT head. 05/13/18 00:08 patient still feels dizzy and she does not feel safe to go home as she feels it is a risk for falling. patient does not exhibit any acute neuro deficitis to suggest cva. dizziness is not described as a room spinning sensation. it is also possible that the patient;s dizziness could be a possible arrythmia as the ekg shows a prolonged QT-will keep patient on cardiac monitoring.with the abnormal urine findings will empirically treat for uti. admit accepted to service of dr. sun. 05/13/18 00:13 - Lab Interpretations Lab Results: 05/12/18 19:05 Lab Results 05/12/18 20:46: PT 12.5, INR 1.09, APTT 27.1, D-Dimer, Quantitative 201 05/12/18 19:40: PT Cancelled, INR Cancelled, APTT Cancelled, D-Dimer, Quantitative Cancelled 05/12/18 19:05: pO2 241 H, VBG pH 7.44 H, VBG pCO2 38.0 L, VBG HCO3 25.8, VBG Total CO2 27.0, VBG O2 Sat (Calc) 99.1 H, VBG Base Excess 1.7, VBG Potassium 5.4 H, Sodium 138.0, Chloride 108.0 H, Glucose 157 H, Lactate 1.7, FiO2 21.0, Venous Blood Potassium 5.4 H 05/12/18 19:05: WBC 4.9, RBC 4.13, Hgb 11.9 L, Hct 37.1, MCV 89.8, MCH 28.8, MCHC 32.1, RDW 14.2, Plt Count 152, MPV 9.6, Gran % 78.1 H, Lymph % (Auto) 16.2 L, Hopkins % (Auto) 4.1, Eos % (Auto) 1.4 L, Baso % (Auto) 0.2, Gran # 3.80, Lymph # (Auto) 0.8 L, Hopkins # (Auto) 0.2, Eos # (Auto) 0.1, Baso # (Auto) 0.01 05/12/18 18:30: Urine Color Yellow, Urine Appearance Clear, Urine pH 6.5, Ur Specific [place] 1.015, Urine Protein Negative, Urine Glucose (UA) Negative, Urine Ketones Negative, Urine Blood Negative, Urine Nitrate Negative, Urine Bilirubin Negative, Urine Urobilinogen 0.2, Ur Leukocyte Esterase Moderate H, Urine RBC TEST NOT PERFORMED, Urine WBC 15 - 20, Ur Epithelial Cells Many, Amorphous Sediment Small, Urine Bacteria Trace - RAD Interpretation Narrative RAD Interpretations (Text): 05/12/18 22:20 CT Head without Intravenous Contrast. CLINICAL HISTORY: HEADACHE TECHNIQUE: Axial computed tomography images of the head/brain without intravenous contrast. 976.25 mGy-cm COMPARISON: None provided. FINDINGS: BRAIN No acute intraparenchymal hemorrhage. No mass lesion. No CT evidence for acute territorial infarct. No midline shift or extra-axial collections. VENTRICLES: No hydrocephalus. ORBITS: The orbits are unremarkable. SINUSES AND MASTOIDS: The paranasal sinuses and mastoid air cells are clear. BONES: No fracture. SOFT TISSUES: Unremarkable. IMPRESSION: No acute intracranial abnormality. Radiology Orders: 05/12/18 18:00 CHEST PORTABLE [RAD] Stat 05/12/18 18:02 HEAD W/O CONTRAST [CT] Stat Slag Worker: Radiologist - EKG Interpretation EKG Interpretation (Text): 05/12/18 2125: nsr at 90 bpm, nml qrs, nml axis, no acute sttw abn Interpreted by ED Physician: Yes - Medication Orders Current Medication Orders: Discontinued Medications Albuterol Sulfate (Albuterol 0.083% Inhal [place] (2.5 Mg/3 Ml) Ud) 2.5 mg INH STAT STA Stop: 05/12/18 20:54 Clozapine (Clozaril) 100 mg PO ONCE ONE; Protocol Stop: 05/12/18 18:06 Last Admin: 05/12/18 19:17 Dose: 100 mg Sodium Chloride (Sodium Chloride 0.9%) 1,000 mls @ 999 mls/hr IV .Q1H1M STA Stop: 05/12/18 19:02 Last Admin: 05/12/18 19:43 Dose: 999 mls/hr eMAR Start Stop Document 05/12/18 19:43 HI (Rec: 05/12/18 19:43 [facility]) Intravenous Solution Start Date 05/12/18 Start Time 19:43 Lamotrigine (Lamictal) 100 mg PO ONCE ONE; Protocol Stop: 05/12/18 18:06 Last Admin: 05/12/18 19:17 Dose: 100 mg Levetiracetam (Keppra) 500 mg PO STAT STA Stop: 05/12/18 18:04 Last Admin: 05/12/18 19:17 Dose: 500 mg Metoclopramide HCl (Reglan) 10 mg IVP STAT STA Stop: 05/12/18 18:03 Last Admin: 05/12/18 19:43 Dose: 10 mg IVP Administration Document 05/12/18 19:43 HI (Rec: 05/12/18 19:43 [facility]) Charges for Administration # of IVP Administrations 1 Nitrofurantoin Macrocrystals (Macrobid) 100 mg PO Q12 ONE; Protocol Stop: 05/12/18 21:09 Sodium Bicarbonate (Sodium Bicarbonate 8.4% (50 Meq) Syringe) 50 meq IVP ONCE ONE Stop: 05/12/18 20:54 Disposition/Present on Arrival - Present on Arrival Any Indicators Present on Arrival: No History of DVT/PE: No History of Uncontrolled Diabetes: Yes Urinary Catheter: No History of Decub. Ulcer: No History Surgical Site Infection Following: None - Disposition Have Diagnosis and Disposition been Completed?: Yes Diagnosis: UTI (urinary tract infection), Dizziness, Hypertension Disposition: HOSPITALIZED Disposition Time: 00:02 Patient Plan: Observation Patient Problems: Current Active Problems Problem Status Onset Dizziness Acute Hypertension Acute UTI (urinary tract infection) Acute Condition: STABLE Referrals: Tomas Sun MD [Primary Care Provider] - Follow up with primary Forms: [facility] (Greenlandic)
[2018-05-12 22:15] LABS: B-TYPE NATRIURETIC PEPTIDE 116 pg/mL (0-450); TROPONIN I < 0.01 ng/mL
[2018-05-12 22:39] LABS: ALB/GLOB RATIO 1.3 (1.1-1.8); ALBUMIN 3.7 g/dL (3.0-4.8); ALT/SGPT 205 U/L (7-56); AST/SGOT 210 U/L (14-36); BLOOD UREA NITROGEN 18 mg/dL (7-21); CALCIUM 8.8 mg/dL (8.4-10.5); GFR NON-AFRICAN AMERICAN 51
--- NOTE | 2018-05-13 08:47 | CT ---
Date of service: 05/12/2018 PROCEDURE: CT HEAD WITHOUT CONTRAST. HISTORY: headache COMPARISON: None available. TECHNIQUE: Axial computed tomography images were obtained through the head/brain without intravenous contrast. Radiation dose: Total exam DLP = 976.25 mGy-cm. This CT exam was performed using one or more of the following dose reduction techniques: Automated exposure control, adjustment of the mA and/or kV according to patient size, and/or use of iterative reconstruction technique. FINDINGS: HEMORRHAGE: No intracranial hemorrhage. BRAIN: No mass effect or edema. No atrophy or chronic microvascular ischemic changes. VENTRICLES: Unremarkable. No hydrocephalus. CALVARIUM: Unremarkable. PARANASAL SINUSES: Unremarkable as visualized. No significant inflammatory changes. MASTOID AIR CELLS: Unremarkable as visualized. No inflammatory changes. OTHER FINDINGS: None. IMPRESSION: Normal CT of the Head.
[2018-05-13] MEDS: Cholestyramine 4 gm/Pkt UD PO SCH (12:16)
--- NOTE | 2018-05-13 12:53 | CARD ---
APPROVED REPORT Date of service: 05/12/2018 EKG Measurement Heart [id number] <Conclusion> Normal sinus rhythm Prolonged QT Abnormal ECG
--- NOTE | 2018-05-14 05:56 | CP.PCM.PCO ---
Physician Communication Note - Physician Communication Note Physician Communication Note: Resident Called Overnight: Addendum Addendum: 05/14/18 05:52 Nursing reported patient was having suicidal ideation and auditory hallucinations. Around 0300 on 05/14 I Examined patient who reported she was hearing voices to kill her self; she reported seeing 4 people in the room who were not there. Patient voiced reported she wanted to hurt herself and hurt other people. I reassured patient she was safe here in the hospital. I informed her I would give her medication to help w/ the hallucinations and suicidal ideation; she was agreeable. Administered 5mg Haldol IVP + 1mg Ativan PO 05/14/18 05:56
[2018-05-14] MEDS: Cholestyramine 4 gm/Pkt UD PO SCH (09:29)
[2018-05-14] MEDS: OLANZapine 5 mg Disintegrating Tab PO SCH (22:18)
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
--- NOTE | 2018-05-15 05:54 | PN ---
DATE: 05/14/2018 Unfortunately, we have a had a difficult night last night. She had hearing voices, having bad dreams, voices telling her to do harm to herself. Call was placed to psychiatrist. House physician gave patient a dose of Haloperidol which worked very well, which coincidently worked very well for her in the past and during a recent hospital stay at [facility]. This morning, patient is quite pleased with the effectiveness of the medicine she received, in good spirits, not hearing voices or thinking of doing harm, although in the past this was never a real concern. She was never suicidal or a risk to herself or others. Multiple falls and room spinning which were the patient's admitting diagnoses have improved dramatically, therefore I asked for her to be up and out of bed today. I will continue to the Haldol until I get a chance to speak with a psychiatrist or see if they have any preference for other neuroleptic agents. In the past 2 months, we tried to taper her medicines extremely slowly only to find seizures return as did her psychosis, therefore, seizure medicine was resumed at prior dose and neuroleptics were adjusted. We will continue to try to avoid Clozaril, but again I will defer to the psychiatrist . Tomas Garza MD
--- NOTE | 2018-05-15 07:18 | HP ---
DATE OF EXAM: CHIEF COMPLAINT: Fall times 3, room spinning, dizziness. HISTORY OF PRESENT ILLNESS: This is a 58-year-old unfortunate woman with a history of schizophrenic-like disorder, who was recently hospitalized multiple times for syncope, seizures, and orthostatic hypotension. Her medications have been adjusted. She was at home and fell times 3 with room spinning dizziness associated with nausea. There is no head trauma or major injury from the fall, but she called the emergency room, came to the ER, was evaluated, and admitted for further workup, monitoring, and adjustment of her medications. PAST MEDICAL HISTORY: Negative for hypertension, hyperlipidemia, tuberculosis, gout, COPD, TIA, CVA, NC, coronary artery disease, or cancers of any type. Past history is positive for diabetes since 2013, now diet controlled. Asthma since 2013 and seizure disorder, initially suspected in 2013 and confirmed in 2017 when she had a witnessed seizure while her medications were being slowly tapered over the course of months. She also has a history of orthostatic hypotension, depression, mental illness, and schizophrenia. SURGICAL HISTORY: Significant for cholecystectomy in 1989, hysterectomy in 2010. She has been hospitalized approximately 20 times in the last 3 years, most of them for abdominal pain and chronic diarrhea. She had extensive workup with multiple gastroenterologists and all essentially unremarkable. In spite of this all, she remained morbidly obese. Cardiac workup including thallium stress test and loop recorder were unremarkable. Endoscopy and colonoscopy were done within the past year or so also unremarkable. ALLERGIES: SHE IS ALLERGIC TO PENICILLIN, WHICH GIVES HER HIVES. SOCIAL HISTORY: She does not smoke, never did and does not drink alcohol or coffee. She had a colonoscopy in 2013 in [place] and several in [place] in 2013, 2015, and 2016. She had multiple endoscopies dating back to 1993 and again the most recent one within the last two years or so. She had mammograms in 2009 and in 2014, both unremarkable. She refused to get the flu shot or Pneumovax vaccine. FAMILY HISTORY: Her mother and father are both lived into their 60s and have both passed. She is the second of five siblings. She had a brother who at age 35 of liver cancer. She has two sisters and one brother with whom she has lost contact. She recently regained contact with her sister in [place]. The patient is single with no children. She has been disabled since 1992 with depression. Prior to that, she worked at [employer] in [place], [place]. Her neurologist is Dr. Gracia. Her trades helper is Dr. Livingston. In the past, she has seen cardiologists, Dr. Dumont and Dr. Turpin, who had the loop recorder currently implanted. This was interrogated during the recent admission and found to be unremarkable. REVIEW OF SYSTEMS: Significant for some foot pain and arthritis, syncopal episodes, and chronic diarrhea. PHYSICAL EXAMINATION GENERAL: The patient was seen this Wednesday morning in room 269, bed 1. She is awake, alert, clear, complaining of dizziness and room spinning. Dizziness is made worse when she turns her head. HEENT: Head and neck are unremarkable. ABDOMEN: Overweight and nontender. HEART: Regular, not tachycardic. LUNGS: Cleat to auscultation and percussion. EXTREMITIES: Show no edema. IMPRESSION: 1. Room spinning, dizziness, vertigo. 2. Long history of seizure disorder and orthostatic hypotension, both probably related to neuroleptic medication, Clozaril which she was on at that time and adjusted quite a bit recently. 3. History of diabetes, now diet controlled. 4. Mental health issues, anxiety, depression, schizophrenia. PLAN: We will admit her to medical floor. Monitor her cardiac status. Continue Questran. Check with psychiatrist. Consider haloperidol and this worked when she was recently hospitalized at [facility] and the patient had bad experience with Clozaril with multiple hospitalizations and syncopal episodes. Tomas Garza MD
[2018-05-15] MEDS: Cholestyramine 4 gm/Pkt UD PO SCH (10:21)
[2018-05-15] MEDS: OLANZapine 5 mg Disintegrating Tab PO SCH ×3 (10:26→21:06)
--- NOTE | 2018-05-15 20:22 | PN ---
DATE: 05/15/2018 SUBJECTIVE: The patient was seen this Wednesday morning, room 269, bed 1, sitting out of bed in a chair with a one-to-one attendant present. The patient did well, was ambulating in a lawson, quite pleased with her ambulation ability. There is no further syncope or loss of consciousness. She had a bit of rough day yesterday, says she responded nicely to Haldol and that the voices that she was hearing and the bad dreams were quieted very nicely. She is seen this morning by psychiatrist, notes were appreciated and I got to speak with Dr. Gongora later today. We will discontinue Haldol, as she had begun Zyprexa. I will also add some Tylenol p.r.n. headache and modify the patient's dosage of Keppra back to 1000 mg b.i.d. as it was prior to this admission. Tomorrow, I will talk with psychiatrist again as the patient may be needing to transfer to [facility] for additional adjustment of her medications. Tomas Garza MD MTDD
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
[2018-05-16] MEDS: OLANZapine 5 mg Disintegrating Tab PO SCH ×3 (12:16→21:36)
[2018-05-16] MEDS: Cholestyramine 4 gm/Pkt UD PO SCH (12:19)
--- NOTE | 2018-05-16 17:02 | CARD ---
APPROVED REPORT Date of service: 05/16/2018 EKG Measurement Heart [id number] <Conclusion> Normal sinus rhythm Normal ECG
--- NOTE | 2018-05-16 19:10 | PN ---
DATE: 05/16/2018 SUBJECTIVE: In short, the patient is a 58-year-old female with reported history of schizoaffective disorder, multiple hospitalizations in the past, multiple medical issues. The patient was admitted on the medical site for evaluation of nausea, dizziness, and hypertension. Psychiatric team was following the patient over the weekend because the patient has h/o mental illness and pt is on psychotropic medicaitons. The patient was seen by Dr. Gongora over the weekend. This song writer is taking over. The patient was seen today. The patient is currently on one-to-one for suicidal ideation. Based on the record from the [facility], she was discharged on Clozaril 200 mg twice a day, Lamictal 100 mg twice a day, Keppra 1000 mg twice a day, Claritin and Remeron 45 mg at the nighttime. The patient reported that she was compliant with the medications. over the weekend did not resume clozaril because of h/o seizures, currently pt is on zyprexa. VITAL SIGNS: Stable. Temperature 97.8, pulse is 92, blood pressure 150/85, respirations 19. MEDICATIONS: Reviewed. The patient is on Tylenol, allopurinol, aspirin, cholestyramine, ibuprofen, Lamictal 100 mg twice a day, Keppra 1000 mg twice a day, Ativan 1 mg at the nighttime, meclizine 12.5 mg, Remeron 15 mg at the nighttime, Macrobid 100 mg twice a day, Zyprexa 5 mg at the nighttime and 5 mg daily which was started by Dr. Gongora and 2.5 mg at 05:00 p.m. LABORATORY DATA: Labs reviewed. The patient's AST and ALT are elevated, 210 and 205 respectively. Urinalysis showed leukocyte esterase moderate. Microbiology, E-coli positive. The patient was seen by primary care physician, Dr. Garza MENTAL STATUS EXAMINATION: The patient presented to be alert, oriented, pleasant, intermittent eye contact. Mood is described as does "I do not feel comfortable to go back home". The patient's affect was tearful. Thought process seems to be circumstantial, but not overly disorganized. Thought content, the patient is delusional that people are after her and she will be killed. The patient expressed thoughts of killing herself with a plan to overdose on pills. Insight and judgment seemed to be limited, but improving. Impulses are well controlled so far. ASSESSMENT: History of schizoaffective disorder, rule out schizophrenia, rule out delirium stage because the patient has urinary tract infection. PLAN: The patient obviously needs further hospitalization. The patient does not feel comfortable to stay in psychiatric inpatient unit here in [place]. The patient wants to go to [facility] or [facility], considering the fact that the patient was paranoid towards the nurse last admission, it would be better choice for the patient to go to [facility]. I think ECT treatment will be good choice for the patient. The patient most likely needs to be on Clozaril, because pt has h/o ?seizure/ pseudoseizures, but right now the patient is on Zyprexa, which was started by psychiatrist on-call. Medications were confirmed by [facility]. The patient is currently on one-to-one for suicidal ideation. The patient was seen by primary care physician. EKG was done, within normal limits. There is no sign of granulocytosis. Meanwhile, continue current management. Continue current medication. The patient requires further hospitalization and stabilization. The patient preferred to go to [facility]. Should you have any questions, give me a call back. Thank you very much for letting me participate in care of your patient. Letty Reddy MD MTDEdgar
[2018-05-17 06:07] VITALS: RESP 20; O2SAT 98
[2018-05-17] MEDS: OLANZapine 5 mg Disintegrating Tab PO SCH ×2 (09:44→17:51)
[2018-05-17] MEDS: Cholestyramine 4 gm/Pkt UD PO SCH (09:47)
--- NOTE | 2018-05-17 12:09 | PN ---
DATE: 05/17/2018 SUBJECTIVE: The patient was seen today. The patient presented with improved personal hygiene. Patient reported that she feels little bit better. The patient reported that she still hears voices and feeling unease. The patient is currently on one-to-one for suicidal ideation with a plan to overdose on medication. The patient's vital signs seems to be stable. Temperature 98.2, pulse 72, blood pressure 105/62, respiration 20, oxygen saturation is 98. Medications reviewed. The patient is on allopurinol, aspirin, cholestyramine, ibuprofen, Lamictal 100 mg twice a day, Keppra 1000 mg twice a day, Ativan 1 mg at the nighttime scheduled. The patient is on Antivert meclizine 12.5 mg three times a day, Remeron 15 mg at the nighttime. The patient is on Macrobid 100 mg twice a day. The patient is on Zyprexa 5 mg twice a day and 2.5 mg at 5 p.m. Labs reviewed. Coagulation reviewed. Blood gas reviewed. Chemistry reviewed. Urinalysis reviewed. MENTAL STATUS EXAMINATION: The patient presented with improved personal hygiene. Mood described "not well". Affect was constricted, mood congruent. Thought process circumstantial. Thought content: patient obviously presented to be guarded. Reported that she hears voices. The patient feeling unease and has a lot of nightmares. Insight and judgment seems to be limited, but improving. Impulses are well controlled. IMPRESSION: As per history, schizoaffective disorder, possible posttraumatic stress disorder. PLAN: Zyprexa was started by Dr. Gongora. She did not feel comfortable to start Clozaril for the patient. We will continue Zyprexa. The patient requires further hospitalization. The patient does not feel comfortable to stay into the Psychiatric Inpatient Unit here in [place]. The patient wants to be transferred to either to [place] or [facility]. This song writer educated the patient about option to have ECT. The patient does not want to be on ECT right now. Meanwhile, the patient might benefit from terazosin at the nighttime. At present moment, the patient is on one-to-one for suicidal ideation whenever the patient is cleared from the medical standpoint. The patient should be transferred to [place] or [facility], but the patient preferred to go to [facility] under Dr. Lui's service. At the same time pt did not mind to go to [facility]. Should you have any questions give me a call back. Thank you very much for letting me participate in the care of your patient. Letty Reddy MD MTDEdgar
[2018-05-17 17:40] VITALS: BP 120/64; PULSE 88; TEMP 98.4
--- NOTE | 2018-05-18 09:30 | CP.PCM.PCO ---
Physician Communication Note - Physician Communication Note Physician Communication Note: pt was transferred to [place]
== END 2018-05-17 23:00 | DRG 149 ==
LOC: ED 17:17 → ERH 05-13 00:11 → 2RNO 05-13 01:59 → OBSVTOIN 05-15 20:12
PROVIDERS: ADMIT Internal Medicine; ATTEND Internal Medicine
DX: R42 Dizziness and giddiness (principal); N39.0 Urinary tract infection, site not specified; R45.851 Suicidal ideations; G40.909 Epilepsy, unspecified, not intractable, without status epilepticus; F25.9 Schizoaffective disorder, unspecified; E11.9 Type 2 diabetes mellitus without complications; E66.01 Morbid (severe) obesity due to excess calories; Z68.37 Body mass index [BMI] 37.0-37.9, adult; F32.9 Major depressive disorder, single episode, unspecified; F41.9 Anxiety disorder, unspecified; R29.6 Repeated falls; I10 Essential (primary) hypertension; J44.9 Chronic obstructive pulmonary disease, unspecified; W19.XXXA Unspecified fall, initial encounter; Y92.009 Unspecified place in unspecified non-institutional (private) residence as the place of occurrence of the external cause; Z91.410 Personal history of adult physical and sexual abuse; Z80.0 Family history of malignant neoplasm of digestive organs; Z88.0 Allergy status to penicillin; Z90.49 Acquired absence of other specified parts of digestive tract; Z90.710 Acquired absence of both cervix and uterus

== ENCOUNTER 2018-05-30 11:35 | Observation (INO) | payer MEDICARE, OTHER ==
[2018-05-30 11:44] VITALS: BMI 37.7
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
[2018-05-30 13:41] LABS: URINE APPEARANCE CLEAR (CLEAR); URINE BILIRUBIN NEGATIVE (NEGATIVE); URINE BLOOD NEGATIVE (NEGATIVE); URINE COLOR YELLOW (YELLOW); URINE GLUCOSE (UA) NEGATIVE (NEGATIVE); URINE LEUKOCYTE ESTERASE NEGATIVE Leu/uL (NEGATIVE); URINE PROTEIN NEGATIVE mg/dL (<30 mg/dL); URINE UROBILINOGEN 0.2 E.U./dL (<1 E.U./dL)
[2018-05-30 14:07] LABS: BASO # 0.01 K/mm3 (0.0-2.0); BASO % 0.2 % (0.0-3.0); EOS # 0.1 (0.0-0.7); EOS % 1.6 % (1.5-5.0); GRAN # 3.08 (1.4-6.5); GRAN % 69.5 % (50.0-68.0); HEMOGLOBIN 10.7 g/dL (12.0-16.0); LYMPH % 22.8 % (22.0-35.0); MEAN CELL VOLUME 88.2 fl (80.0-105.0); MEAN CORPUSCULAR HEMOGLOBIN 29.3 pg (25.0-35.0); MEAN CORPUSCULAR HGB CONC 33.2 g/dl (31.0-37.0); MEAN PLATELET VOLUME 8.9 fl (7.0-11.0); MONO # 0.3 (0.1-0.6); MONO % 5.9 % (1.0-6.0); RBC 3.65 10^6/uL (3.5-6.1); RED CELL DISTRIBUTION WIDTH 13.9 % (11.5-14.5); WHITE BLOOD COUNT 4.4 10^3/uL (4.5-11.0)
[2018-05-30 14:10] LABS: TROPONIN I < 0.01 ng/mL
--- NOTE | 2018-05-30 14:14 | CT ---
Date of service: 05/30/2018 PROCEDURE: CT HEAD WITHOUT CONTRAST. HISTORY: dizziness COMPARISON: 05/12/2018 TECHNIQUE: Axial computed tomography images were obtained through the head/brain without intravenous contrast. Radiation dose: Total exam DLP = 1002.69 mGy-cm. This CT exam was performed using one or more of the following dose reduction techniques: Automated exposure control, adjustment of the mA and/or kV according to patient size, and/or use of iterative reconstruction technique. FINDINGS: HEMORRHAGE: No intracranial hemorrhage. BRAIN: No mass effect or edema. No atrophy or chronic microvascular ischemic changes. VENTRICLES: Unremarkable. No hydrocephalus. CALVARIUM: Unremarkable. PARANASAL SINUSES: Unremarkable as visualized. No significant inflammatory changes. MASTOID AIR CELLS: Unremarkable as visualized. No inflammatory changes. OTHER FINDINGS: None. IMPRESSION: No acute intracranial findings
--- NOTE | 2018-05-30 14:21 | RAD ---
Date of service: 05/30/2018 PROCEDURE: CHEST RADIOGRAPH, 1 VIEW HISTORY: Dizziness COMPARISON: 05/12/2018 FINDINGS: LUNGS: The lungs are well inflated and clear. PLEURA: No pneumothorax or pleural effusion. CARDIOVASCULAR: The heart is normal in size. No aortic atherosclerotic calcifications present. OSSEOUS STRUCTURES: Within normal limits for the patient's age. VISUALIZED UPPER ABDOMEN: Normal. OTHER FINDINGS: None. IMPRESSION: No active pulmonary disease.
[2018-05-30 14:23] LABS: ALB/GLOB RATIO 1.3 (1.1-1.8); ALBUMIN 3.7 g/dL (3.0-4.8); ALT/SGPT 90 U/L (7-56); AST/SGOT 68 U/L (14-36); BLOOD UREA NITROGEN 19 mg/dL (7-21); CALCIUM 9.2 mg/dL (8.4-10.5); GFR NON-AFRICAN AMERICAN 51
[2018-05-30] MEDS ORDERED: Influenza Vaccine 60 mcg/0.5 mL SYR (4YR UP) IM ONE (21:43)
[2018-05-30] MEDS ORDERED: Pneumococcal 23-Valent Vaccine IM ONE (21:43)
[2018-05-30] MEDS: CLOZAPINE PO SCH (22:30)
[2018-05-30] MEDS ORDERED: PRAZOSIN HCL PO SCH (22:45)
[2018-05-30] MEDS ORDERED: OLANZAPINE 20 MG PO SCH (22:45)
[2018-05-31] MEDS ORDERED: Pantoprazole 40 mg EC Tab PO SCH (06:00)
[2018-05-31 08:20] VITALS: BP 118/64; PULSE 87; RESP 18; TEMP 97.8; O2SAT 94
--- NOTE | 2018-05-31 09:45 | CARD ---
APPROVED REPORT Date of service: 05/30/2018 EKG Measurement Heart [id number] <Conclusion> Normal sinus rhythm NSSTW changes No change
[2018-05-31] MEDS ORDERED: Cholestyramine 4 gm/Pkt UD PO SCH (10:00)
[2018-05-31] MEDS: CLOZAPINE PO SCH (10:51)
--- NOTE | 2018-06-01 23:05 | DS ---
HISTORY OF PRESENT ILLNESS: This is a 58-year-old woman is known for several years with a history of schizoaffective disorder, depression, anxiety, who called me on Wednesday night complaining of room spinning, dizziness, and vertigo. She was prescribed meclizine, picked it up from the drug store Wednesday, was not able to take it yet, but had a more severe episode of vertigo prompting her to come to the emergency room. She was seen and admitted by Dr. Allen Garza, sent to the medical floor, gentle IV hydration and meclizine were ordered. She did well. The dizziness continued through the afternoon but subsided overnight. On Wednesday morning, the dizziness had quieted and cleared almost completely. She was comfortable, able to ambulate safely with her walker which she often does at home. She felt well and was looking forward to discharge home. She was hemodynamically stable, labs were acceptable and so she was instructed to continue her prior medications, use the meclizine on a p.r.n. basis. Followup with us in office in one week and call if there are any questions. FINAL DISCHARGE DIAGNOSES: 1. Vertigo. 2. History of seizures and orthostatic hypotension. 3. History of reaction to neuroleptic medication Clozaril. 4. Diabetes, now diet controlled. 5. Mental health issues, anxiety, depression, schizophrenia. Tomas Garza MD
== END 2018-05-31 13:56 | disposition home or self-care (01) ==
LOC: ED 11:35 → ERH 15:54 → INTOOBSV 15:54 → ERH 19:58 → 5RNO 21:05
PROVIDERS: ADMIT Internal Medicine; ATTEND Internal Medicine
DX: R42 Dizziness and giddiness (principal); F25.9 Schizoaffective disorder, unspecified; F32.89 Other specified depressive episodes; E11.9 Type 2 diabetes mellitus without complications; F41.9 Anxiety disorder, unspecified; G40.909 Epilepsy, unspecified, not intractable, without status epilepticus; J44.9 Chronic obstructive pulmonary disease, unspecified; Z90.49 Acquired absence of other specified parts of digestive tract; Z90.710 Acquired absence of both cervix and uterus
CPT/HCPCS: 70450; 71045; 80053; 81003; 82948; 84484; 85025; 87086; 87181; 93005; 97161; 97530; 99285; G0378; G8978; G8979

== ENCOUNTER 2018-06-04 07:44 | Observation (INO) | payer MEDICARE, OTHER ==
[2018-06-04 07:44] VITALS: BMI 37.7
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
[2018-06-04 08:48] LABS: EOS % 0.7 % (1.5-5.0); GRAN # 4.36 (1.4-6.5); GRAN % 80.5 % (50.0-68.0); HEMOGLOBIN 11.1 g/dL (12.0-16.0); LYMPH # 0.8 (1.2-3.4); LYMPH % 14.4 % (22.0-35.0); MEAN CELL VOLUME 89.1 fl (80.0-105.0); MEAN CORPUSCULAR HEMOGLOBIN 29.5 pg (25.0-35.0); MEAN CORPUSCULAR HGB CONC 33.1 g/dl (31.0-37.0); MEAN PLATELET VOLUME 9.1 fl (7.0-11.0); MONO # 0.2 (0.1-0.6); MONO % 4.4 % (1.0-6.0); RBC 3.76 10^6/uL (3.5-6.1); RED CELL DISTRIBUTION WIDTH 14.3 % (11.5-14.5); WHITE BLOOD COUNT 5.4 10^3/uL (4.5-11.0)
[2018-06-04 09:05] LABS: ALB/GLOB RATIO 1.4 (1.1-1.8); ALBUMIN 3.8 g/dL (3.0-4.8); ALT/SGPT 84 U/L (7-56); AST/SGOT 54 U/L (14-36); BLOOD UREA NITROGEN 30 mg/dL (7-21); CALCIUM 9.2 mg/dL (8.4-10.5); GFR NON-AFRICAN AMERICAN 57; TROPONIN I < 0.01 ng/mL
--- NOTE | 2018-06-04 10:24 | CT ---
Date of service: 06/04/2018 PROCEDURE: CT HEAD WITHOUT CONTRAST. HISTORY: fall, LOC COMPARISON: Noncontrast head CT performed 05/12/18 TECHNIQUE: Axial computed tomography images were obtained through the head/brain without intravenous contrast. Radiation dose: Total exam DLP = 861.52 mGy-cm. This CT exam was performed using one or more of the following dose reduction techniques: Automated exposure control, adjustment of the mA and/or kV according to patient size, and/or use of iterative reconstruction technique. FINDINGS: Streak artifact limits evaluation of the skull base. HEMORRHAGE: No intracranial hemorrhage. BRAIN: Diffuse atrophy with prominence of the ventricles and sulci noted. No mass effect or edema. The kearns-white matter differentiation appears intact. Please note that MRI with diffusion imaging is more sensitive in the detection of acute ischemic event. VENTRICLES: No hydrocephalus. CALVARIUM: Unremarkable. PARANASAL SINUSES: Unremarkable as visualized. No significant inflammatory changes. MASTOID AIR CELLS: Unremarkable as visualized. No inflammatory changes. OTHER FINDINGS: None. IMPRESSION: Streak artifact limits evaluation of the skull base. Generalized atrophy. No acute intracranial pathology identified.
[2018-06-04] MEDS ORDERED: Sodium Chloride 0.9% 500 ML IV STA (10:31)
--- NOTE | 2018-06-04 11:06 | RAD ---
HISTORY: r/o PNA COMPARISON: Chest x-ray performed 05/30/18 TECHNIQUE: Chest, one view. FINDINGS: The patient's chin obscures evaluation of the lung apices. LUNGS: No focal consolidation. Please note that chest x-ray has limited sensitivity for the detection of pulmonary masses. PLEURA: No significant pleural effusion identified. No definite pneumothorax . CARDIOVASCULAR: Heart size appears within normal limits. Atherosclerotic calcification present. OSSEOUS STRUCTURES: Degenerative changes. VISUALIZED UPPER ABDOMEN: Unremarkable. OTHER FINDINGS: Intra loop recorder projects over the medial left chest/upper abdomen. IMPRESSION: No focal consolidation.
[2018-06-04] MEDS ORDERED: Non Formulary Medication (Omeprazole [Omeprazole] 40 MG) PO SCH (11:45)
[2018-06-04 12:14] LABS: AMYLASE 70 U/L (35-125); LIPASE 242 U/L (23-300)
[2018-06-04] MEDS ORDERED: Iohexol 240 (50 ml) ONE (13:38)
[2018-06-04] MEDS: Cholestyramine 4 gm/Pkt UD PO SCH (14:46)
[2018-06-04] MEDS: Pantoprazole 40 mg EC Tab PO SCH (14:50)
[2018-06-04] MEDS ORDERED: Iohexol 350 MG/100 ML VIAL ONE (15:57)
[2018-06-04] MEDS ORDERED: Dexamethasone 4 MG in Sodium Chloride 0.9% 50 ML IV ONE (17:07)
--- NOTE | 2018-06-04 17:32 | CT ---
PROCEDURE: CT Abdomen and Pelvis with oral and IV contrast. HISTORY: LUQ pain, abnormal LFT's, R/O ileus COMPARISON: CT abdomen and pelvis without oral or IV contrast performed 11/03/16 TECHNIQUE: Contiguous axial images of the abdomen and pelvis. Oral and IV contrast was administered. Coronal and Sagittal reformats generated and reviewed. Contrast dose: 100 mL Omnipaque 350 IV Radiation dose: Total exam DLP = 1036.69 mGy-cm. This CT exam was performed using one or more of the following dose reduction techniques: Automated exposure control, adjustment of the mA and/or kV according to patient size, and/or use of iterative reconstruction technique. FINDINGS: LOWER THORAX: No visible consolidation, pleural effusion, or pneumothorax. LIVER: Hypoattenuation of the liver compatible with hepatic steatosis. GALLBLADDER AND BILE DUCTS: Cholecystectomy. PANCREAS: Unremarkable. SPLEEN: Unremarkable. ADRENALS: Unremarkable. KIDNEYS AND URETERS: The kidneys enhance symmetrically. No hydronephrosis or obstructing renal calculus. 3.1 cm right renal exophytic hypodense lesion measures approximately 31 Hounsfield units, indeterminate. BLADDER: The urinary bladder appears unremarkable. REPRODUCTIVE: Uterus is absent, consistent with hysterectomy. APPENDIX: The appendix appears within normal limits of caliber. No secondary signs of acute appendicitis. BOWEL: The stomach is nondistended. The bowel loops appear within normal limits of caliber without evidence of intestinal obstruction. Mild wall thickening of small bowel in the left upper quadrant; possibly secondary to enteritis. Correlate clinically. PERITONEUM: No significant free fluid. No definite free air. LYMPH NODES: 10 mm sravani hepatis lymph node, nonspecific. VASCULATURE: No aortic aneurysm. No atherosclerotic calcification or mural plaque present. BONES: Chronic appearing T11 compression fracture deformity. Degenerative changes. OTHER FINDINGS: None. IMPRESSION: Mild wall thickening of small bowel in the left upper quadrant; possibly secondary to enteritis. Correlate clinically. Indeterminate 3.1 cm right renal exophytic hypodense lesion measures approximately 31 Hounsfield units, possibly complex or hemorrhagic cyst. Recommend ultrasound for further evaluation. Cholecystectomy. Hysterectomy. Additional findings as above.
--- NOTE | 2018-06-04 18:32 | CON ---
DATE OF CONSULTATION: 06/04/2018 CHIEF COMPLAINT: Vertigo. HISTORY OF PRESENT ILLNESS: This is a 58-year-old woman, well known to me, with history of schizophrenia, depression, anxiety, pseudoseizures/seizures in the past on Keppra and Lamictal who was having intractable dizziness in terms of spinning sensation of the room associated with sudden movements. She had not taken her meclizine and started to have more and more spinning sensation of the room, questionably loss of consciousness. CAT scan of the head showed no intracranial abnormalities. She was seen at the edge of the bed with no acute discomfort. She is on meclizine 25 mg p.o. t.i.d. We will give 1 dose of dexamethasone to decrease the sensation of spinning. PAST MEDICAL HISTORY: As above. SOCIAL HISTORY: No illicit drug use, smoking, or EtOH abuse. ALLERGIES: PENICILLIN. MEDICATIONS: Reviewed by nurse's reconciliation sheet. REVIEW OF SYSTEMS: A 14-point review of systems is negative except as per the HPI. LABORATORY DATA: Sodium is 136, potassium 4.4, chloride of 102, carbon dioxide 24, BUN of 30, creatinine 1. Random glucose of 348. PHYSICAL EXAMINATION VITAL SIGNS: Temperature 98.3, pulse rate of 82, blood pressure of 115/72, respiratory rate 18, oxygen saturation 97% by nasal cannula. GENERAL: The patient is seen up in bed, in no acute distress. HEENT: Head is atraumatic, normocephalic. PERRLA. Extraocular muscles intact. NECK: Supple. No JVD. No adenopathy noted. LUNGS: Clear to auscultation. No adventitious sounds. HEART: S1 and S2. Normal rate and rhythm. No murmurs, rubs, or gallops. ABDOMEN: Soft, nontender, and nondistended. Bowel sounds are present. EXTREMITIES: No clubbing. No cyanosis. Peripheral pulses 2+ felt bilaterally. NEUROLOGICAL: The patient has flat affect. Speech is fluent without any errors. Cranial nerves II through XII are intact. Recall after 5 minutes is 1 out of 3. Poor attention span, slow thought process. Motor exam: Moves all extremities equally. No pronator drift seen. Sensory exam: Light touch, pinprick, proprioception and vibration are intact. DTRs 2+ throughout, 1 at both knees and ankles. Coordination: [id number] intact. No dysmetria noted. Gait is deferred for now. IMPRESSION: Vertigo, more positional vertigo, aggravated by also hyperglycemia since her blood sugar is 348. 1. At this time, we will recommend meclizine 25 mg p.o. t.i.d. 2. Dexamethasone IV push 4 mg x1 dose to decrease the acuteness of the vertiginous symptoms. 3. Keep her blood sugars between 140 to 180. 4. We will recommend outpatient vestibular therapy. Thank you for this consult. Guy Gracia MD
[2018-06-04] MEDS: PRAZOSIN HCL 1 MG PO SCH (21:27)
[2018-06-04] MEDS: OLANZAPINE 20 MG PO SCH ×2 (22:12→22:13)
--- NOTE | 2018-06-05 07:23 | CARD ---
APPROVED REPORT Date of service: 06/04/2018 EKG Measurement Heart [id number] <Conclusion> Sinus tachycardia NSSTW changes Prolonged QTc, new Low voltage lateral precordial leads
[2018-06-05 07:55] LABS: EOS % 0.5 % (1.5-5.0); GRAN # 2.74 (1.4-6.5); GRAN % 72.5 % (50.0-68.0); HEMOGLOBIN 10.9 g/dL (12.0-16.0); LYMPH # 0.7 (1.2-3.4); LYMPH % 18.3 % (22.0-35.0); MEAN CELL VOLUME 88.1 fl (80.0-105.0); MEAN CORPUSCULAR HEMOGLOBIN 28.9 pg (25.0-35.0); MEAN CORPUSCULAR HGB CONC 32.8 g/dl (31.0-37.0); MEAN PLATELET VOLUME 8.8 fl (7.0-11.0); MONO # 0.3 (0.1-0.6); MONO % 8.7 % (1.0-6.0); RBC 3.77 10^6/uL (3.5-6.1); RED CELL DISTRIBUTION WIDTH 14.6 % (11.5-14.5); WHITE BLOOD COUNT 3.8 10^3/uL (4.5-11.0)
[2018-06-05] MEDS: Pantoprazole 40 mg EC Tab PO SCH (07:55)
[2018-06-05 08:27] LABS: ALB/GLOB RATIO 1.4 (1.1-1.8); ALBUMIN 3.9 g/dL (3.0-4.8); ALT/SGPT 63 U/L (7-56); AST/SGOT 35 U/L (14-36); BLOOD UREA NITROGEN 23 mg/dL (7-21); CALCIUM 8.3 mg/dL (8.4-10.5); GFR NON-AFRICAN AMERICAN > 60
[2018-06-05] MEDS: Cholestyramine 4 gm/Pkt UD PO SCH (09:58)
--- NOTE | 2018-06-05 11:49 | PN ---
DATE: 06/05/2018 SUBJECTIVE: The patient is a 58-year-old female with a known history of syncope, seizure disorders, schizophrenia, status post cholecystectomy, status post hysterectomy, chronic GI complaints of nausea and diarrhea which I have had negative workups in the past. She presented to the emergency room concerned, complaining of intractable vertigo with nausea and vomiting. Her meclizine was increased to 25 mg 3 times a day to no avail. She was seen by Dr. Gracia who prescribed 1 dose of dexamethasone 4 mg intravenously. When seen today, it was seen like her dizziness had somewhat subsided. However, the patient says that it is still there slightly. She is awake, alert and oriented. The patient underwent CT of the abdomen, which showed enteritis of the small bowel in the left upper quadrant. It also showed that she is status post cholecystectomy and status post hysterectomy. Laboratory studies show the amylase and lipase to be normal at 70 and 242 respectively. Her vital signs are stable. We will be starting physical therapy for this patient to further evaluate her dizziness on ambulation. We will be starting Flagyl 250 mg to be taken 3 times a day orally for the enteritis seen on CAT scan. The patient is to be reevaluated in the morning. Allen Garza MD
[2018-06-05] MEDS: Magnesium Chloride 64 mg ER Tab PO SCH ×2 (11:56→18:13)
--- NOTE | 2018-06-05 13:57 | HP ---
DATE OF EXAM: 06/05/2018 HISTORY OF PRESENT ILLNESS: The patient is a 58-year-old female who presents to the emergency room complaining of dizziness, nausea, vomiting and diarrhea. She noted it had been going on for a couple of days; however, the intensity and severity had increased, therefore she presented to the emergency room. The patient is known to have a history of vertigo in the past. She also has a history of schizophrenia for which she was hospitalized most recently within the past several months. She has diabetes since 2013, which is diet-controlled. She takes medications for asthma and seizure disorder which was diagnosed in 2013. She has been hospitalized over the past several years for syncope and breakthrough seizures. She is status post cholecystectomy, status post hysterectomy. She had extensive GI workup for chronic diarrhea and abdominal pains in the past and the workup was negative. Her symptoms felt to be related to Clozaril which she had been on. ALLERGIES: THE PATIENT IS KNOWN TO BE ALLERGIC TO PENICILLIN WHICH CAUSES HIVES. SOCIAL HISTORY: She is a nonsmoker, nonalcoholic drinker. She lives alone. MEDICATIONS: At the time of admission include Keppra 1000 mg twice a day, Lamictal 100 mg twice a day, Minipress 1 mg at bedtime, omeprazole 40 mg daily, Zyprexa 20 mg at bedtime, Remeron 45 mg at bedtime, Antivert 12.5 mg three times a day as needed, Claritin 10 mg daily, Zestril 20 mg daily, Ativan 1 mg at bedtime, Prozac 20 mg daily, Clozapine 2 mg twice a day, Questran 4 mg daily, aspirin 81 mg daily, and allopurinol 300 mg daily. PHYSICAL EXAMINATION GENERAL: The patient is awake, alert and oriented. She seems tearful and worried. HEAD, EYES, EARS, NOSE AND THROAT: Unremarkable. NECK: Supple with no lymphadenopathy. No goiter. LUNGS: Clear to auscultation and percussion. HEART: Regular. ABDOMEN: Diffusely tender, especially in the midepigastric and left upper quadrant areas. There is no rebound tenderness. There is no CVA tenderness. EXTREMITIES: Free of cyanosis, clubbing, or edema. NEUROLOGIC: The patient is awake, alert and oriented with no focal neurological signs. So the patient is admitted with intractable of vertigo and nausea and vomiting. Consultation from Dr. Gracia is requested. Her meclizine is increased from 12.5 to 25 mg to be taken three times a day. The patient will be reevaluated in the morning. Allen Garza MD
[2018-06-05] MEDS: CLOZAPINE PO SCH (19:46)
--- NOTE | 2018-06-05 19:54 | PN ---
DATE: 06/05/2018 SUBJECTIVE: This patient was seen and evaluated earlier. The patient has less nausea now, is tolerating the diet now. The patient still complains of pain in the left upper quadrant area, and the patient did have a CT scan done with p.o. and IV contrast, which was reviewed. Pancreas appeared normal. There is an exophytic kidney lesion, probable cyst, right side, and mild thickening of the small bowel loops noticed in the left upper quadrant area. PHYSICAL EXAMINATION: VITAL SIGNS: The patient is afebrile. Temperature is 98.9, blood pressure is 103/63, pulse is 92. HEENT: Atraumatic, anicteric. NECK: Supple. HEART: S1 and S2 regular. LUNGS: Bilateral air entry present. ABDOMEN: Soft. Mild tenderness in the epigastric and right and left upper quadrant area noticed on deep palpation, otherwise unremarkable. EXTREMITIES: No cyanosis. No clubbing. NEUROLOGICAL: Alert, oriented, moves all the extremities. LABORATORY DATA: WBC count is 3.8, hemoglobin 10.9, hematocrit 33.2, platelets 124. No recent labs available today. Yesterday's labs were also reviewed. IMPRESSION: 1. This 58-year-old patient admitted with nausea, vomiting and also abdominal pain. The moist nausea is probably secondary to the vertigo. The patient is presently on meclizine and received a dose of dexamethasone 4 mg before, one dose yesterday. 2. History of chronic diarrhea. The patient did have an extensive workup in the past. Previous EGD and colonoscopies were reviewed. Negative for microscopic colitis. Negative for celiac. 3. The patient does have now focal inflammatory changes, focal thickening of the small bowel. Another differential diagnosis in her case will be considered, has inflammatory bowel disease. Presently on p.o. Flagyl. RECOMMENDATIONS: 1. I would recommend at this point IBD serology. 2. Consider stool culture and also consider IV Cipro after reviewing the stool studies and clinical course. We will continue to closely followup her care and discussed further management based on the clinical course. Artur Cannon MD
[2018-06-05] MEDS: OLANZAPINE 20 MG PO SCH (21:10)
[2018-06-05] MEDS: PRAZOSIN HCL 1 MG PO SCH (22:09)
[2018-06-06 06:00] VITALS: O2SAT 95
[2018-06-06] MEDS: Magnesium Chloride 64 mg ER Tab PO SCH (09:36)
[2018-06-06] MEDS: Pantoprazole 40 mg EC Tab PO SCH (09:37)
[2018-06-06] MEDS ORDERED: Cholestyramine 4 gm/Pkt UD PO SCH (10:00)
[2018-06-06 14:34] VITALS: BP 126/81; PULSE 87; RESP 20; TEMP 98.2
== END 2018-06-06 16:09 | disposition home or self-care (01) ==
LOC: ED 07:44 → ERH 10:34 → 2RNO 11:58
PROVIDERS: ADMIT Internal Medicine; ATTEND Internal Medicine
DX: R42 Dizziness and giddiness (principal); G40.909 Epilepsy, unspecified, not intractable, without status epilepticus; J44.9 Chronic obstructive pulmonary disease, unspecified; I10 Essential (primary) hypertension; F20.9 Schizophrenia, unspecified; E11.65 Type 2 diabetes mellitus with hyperglycemia; K21.9 Gastro-esophageal reflux disease without esophagitis; K52.9 Noninfective gastroenteritis and colitis, unspecified; N28.9 Disorder of kidney and ureter, unspecified; Z87.440 Personal history of urinary (tract) infections; Z90.49 Acquired absence of other specified parts of digestive tract; Z90.710 Acquired absence of both cervix and uterus; Z88.0 Allergy status to penicillin
CPT/HCPCS: 36415; 70450; 71045; 74177; 80053; 82150; 82550; 82948; 83690; 83735; 84100; 84484; 85025; 93005; 96361; 96374; 97116; 97161; 97530; 99285; G0378; G8978; G8979; J1100; J7040; Q9966; Q9967

== ENCOUNTER 2018-08-01 00:14 | Observation (INO) | payer MEDICARE, OTHER ==
[2018-08-01 00:15] VITALS: BMI 37.7
[2018-08-01] MEDS ORDERED: Sodium Chloride 0.9% 1,000 ML IV STA (00:37)
[2018-08-01] MEDS ORDERED: Insulin Regular 1 UNITS/0.01 ML ML SC STA (00:38)
[2018-08-01 01:02] LABS: BASO # 0.02 K/mm3 (0.0-2.0); BASO % 0.4 % (0.0-3.0); EOS % 0.4 % (1.5-5.0); GRAN # 3.06 (1.4-6.5); GRAN % 68.5 % (50.0-68.0); LYMPH # 1.2 (1.2-3.4); LYMPH % 26.2 % (22.0-35.0); MEAN CELL VOLUME 85.3 fl (80.0-105.0); MEAN CORPUSCULAR HEMOGLOBIN 28.9 pg (25.0-35.0); MEAN CORPUSCULAR HGB CONC 33.9 g/dl (31.0-37.0); MEAN PLATELET VOLUME 9.1 fl (7.0-11.0); MONO # 0.2 (0.1-0.6); MONO % 4.5 % (1.0-6.0); RBC 4.5 10^6/uL (3.5-6.1); RED CELL DISTRIBUTION WIDTH 13.4 % (11.5-14.5); WHITE BLOOD COUNT 4.5 10^3/uL (4.5-11.0)
[2018-08-01 01:06] LABS: INR 1.12; PARTIAL THROMBOPLASTIN TIME 28.3 Seconds (25.1-36.5); PROTHROMBIN TIME 12.8 SECONDS (9.4-12.5)
[2018-08-01 01:11] LABS: VENOUS BLOOD GAS BASE EXCESS -3.1 mmol/L (0.0-2.0); VENOUS BLOOD GAS PO2 80 mm/Hg (30-55); VENOUS BLOOD PH 7.36 (7.32-7.43)
[2018-08-01 01:18] LABS: ALB/GLOB RATIO 1.3 (1.1-1.8); ALBUMIN 4.2 g/dL (3.0-4.8); ALT/SGPT 118 U/L (7-56); AST/SGOT 86 U/L (14-36); BLOOD UREA NITROGEN 22 mg/dL (7-21); CALCIUM 9.6 mg/dL (8.4-10.5); GFR NON-AFRICAN AMERICAN 57
[2018-08-01 01:19] LABS: TROPONIN I < 0.01 ng/mL
--- NOTE | 2018-08-01 01:31 | ED PDOC ---
Arrival/HPI - General Chief Complaint: Dizziness/Lightheaded Time Seen by Provider: 08/01/18 00:25 Historian: Patient - History of Present Illness Narrative History of Present Illness (Text): 08/01/18 01:27 Isha Fernandes is a 58 year old female, whose past medical history includes seizures (on lamictal and keppra), vertigo, schizophrenia, depression, and anxiety, who presents to the Emergency department complaining of dizziness, nausea, and generalized weakness x 3 days. Patient states she has had multiple syncopal episodes over the last few days, last one was this evening prior to arrival. Patient states she became dizzy, fell, and hit her head. Patient thinks she may have lost consciousness but is unsure for how long. States these episodes may be her seizures but they are not typical, last saw her neurologist 1 week ago without a change in medication. Describes dizziness as lightheadedness. Patient complaining of left hip pain, knee pain, back pain. Patient states she takes her medication as prescribed. Denies a history of diabetes. Patient states she lives alone and notes she has been using her walker over the last few days, but normally ambulates without assistance. Patient denies any fever, chills, abdominal pain, chest pain, shortness of breath, numbness, parasthesias, facial droop, difficulty speaking, saddle anesthesia, bowel/bladder incontinence, tongue bite, headache, vision changes, or any other complaints. PMD: Dr. Tomas Garza Neurologist: Dr. Gracia Symptom Onset: Gradual Symptom Course: Unchanged Activities at Onset: Light Context: Home Past Medical History - Provider Review Nursing Documentation Reviewed: Yes - Infectious Disease Hx of Infectious Diseases: None - Tetanus Immunization Tetanus Immunization: Unknown - Past Medical History Past Medical History: Non-Contributing - Cardiac Hx Cardiac Disorders: Yes Hx Peripheral Edema: Yes - Pulmonary Hx Respiratory Disorders: Yes Hx Chronic Obstructive Pulmonary Disease (COPD): Yes - Neurological Hx Neurological Disorder: Yes Hx Dizziness: Yes Hx Vertigo: Yes Other/Comment: epilepsy - HEENT Hx HEENT Disorder: Yes Other/Comment: wears glasses - Renal Hx Renal Disorder: No (denies fibroids) - Endocrine/Metabolic Hx Endocrine Disorders: Yes Hx Diabetes Mellitus Type 2: Yes - Hematological/Oncological Hx Blood Disorders: No - Integumentary Hx Dermatological Disorder: Yes Other/Comment: MASD UNDER THE STOMACH FOLD AND BREAST FOLD. viral warts removed from fingers, multiple bruises from recet freqent falls - Musculoskeletal/Rheumatological Hx Musculoskeletal Disorders: Yes Hx Falls: Yes - Gastrointestinal Hx Gastrointestinal Disorders: Yes - Genitourinary/Gynecological Hx Genitourinary Disorders: Yes (endometriosis) Hx Hematuria: Yes Hx Incontinence: Yes Hx Sexually Transmitted Diseases: No Hx Urinary Tract Infection: Yes - Psychiatric Hx Psychophysiologic Disorder: Yes Hx Anxiety: Yes Hx Substance Use: No - Surgical History Hx Cholecystectomy: Yes Hx Hysterectomy: Yes (1992) - Anesthesia Hx Anesthesia: Yes Hx Anesthesia Reactions: No Hx Malignant Hyperthermia: No - Suicidal Assessment Feels Threatened In Home Enviroment: No Family/Social History - Physician Review Nursing Documentation Reviewed: Yes Family/Social History: Unknown Family HX Smoking Status: Never Smoked Hx Alcohol Use: No Hx Substance Use: No Hx Substance Use Treatment: No Allergies/Home Meds Allergies/Adverse Reactions: Allergies Penicillins Allergy (Severe, Verified 04/28/18 14:03) ITCHING Home Medications: Home Meds Medication Instructions Recorded Confirmed Allopurinol [Zyloprim] 300 mg PO DAILY 04/20/18 06/04/18 Omeprazole 40 mg PO DAILY 04/20/18 06/04/18 Cholestyramine [Questran] 4 mg PO DAILY 05/18/18 06/04/18 Clozapine [Fazaclo] 2 tab PO BID 05/30/18 06/04/18 FLUoxetine [Prozac] 20 mg PO DAILY 05/30/18 06/04/18 LORazepam [Ativan] 1 mg PO HS 05/30/18 06/04/18 Lisinopril [Zestril] 20 mg PO DAILY 05/30/18 06/04/18 Loratadine [Claritin] 10 mg PO DAILY 05/30/18 06/04/18 Meclizine [Antivert] 12.5 mg PO TID PRN 05/30/18 06/04/18 Review of Systems - Physician Review All systems were reviewed & negative as marked: Yes - Review of Systems Constitutional: Other (+generalized weakness). absent: Fevers Eyes: Normal. absent: Vision Changes, Eye Pain ENT: Normal. absent: Hearing Changes, Sinus Congestion Respiratory: Normal. absent: SOB, Cough Cardiovascular: Normal. absent: Chest Pain, Palpitations Gastrointestinal: Nausea, Vomiting. absent: Abdominal Pain, Stool Changes, Diarrhea, Appetite Changes Genitourinary Female: Dysuria. absent: Frequency, Hematuria, Urine Output Changes Musculoskeletal: Arthralgias (left knee pain), Back Pain. absent: Neck Pain Skin: Normal. absent: Rash Neurological: Dizziness, Disequilibrium. absent: Headache, Gait Changes, Facial Droop Endocrine: Normal Hemo/Lymphatic: Normal Psychiatric: Normal Physical Exam Vital Signs Reviewed: Yes Vital Signs Temp Pulse Resp BP Pulse Ox 08/01/18 00:21 97.8 F 97 H 18 146/90 98 Temperature: Afebrile Blood Pressure: Normal Pulse: Regular Respiratory Rate: Normal Appearance: Positive for: Well-Appearing, Non-Toxic, Comfortable, Other (Obese) Pain Distress: None Mental Status: Positive for: Alert and Oriented X 3 Finger Stick Blood Glucose: 457 - Systems Exam Head: Present: Atraumatic, Normocephalic Pupils: Present: PERRL Extroacular Muscles: Present: EOMI Conjunctiva: Present: Normal Mouth: Present: Moist Mucous Membranes Nose (External): Present: Atraumatic Nose (Internal): Present: Normal Inspection Neck: Present: Normal Range of Motion. No: Meningeal Signs, MIDLINE TENDERNESS, Paraspinal Tenderness Respiratory/Chest: Present: Clear to Auscultation, Good Air Exchange. No: Respiratory Distress, Accessory Muscle Use Cardiovascular: Present: Regular Rate and Rhythm, Normal S1, S2. No: Murmurs Abdomen: Present: Normal Bowel Sounds. No: Tenderness, Distention, Peritoneal Signs, Rebound, Guarding Back: Present: Paraspinal Tenderness (Tenderness to thoracic paraspinal muscles). No: CVA Tenderness, Midline Tenderness Upper Extremity: Present: Normal Inspection, Normal ROM, NORMAL PULSES, Vj rovascularly Intact, Capillary Refill < 2s, Other (mild bruising left dorsal hand). No: Cyanosis, Edema, Temperature Abnormalties, Deformity Lower Extremity: Present: NORMAL PULSES, Tenderness (Tenderness to left anterior knee and left lateral hip), Neurovascularly Intact, Capillary Refill < 2 s, Other (Small superficial abrasion to left knee with bruising). No: Edema, C yanosis, Normal ROM (decreased at left hip secondary to pain, otherwise full ROM), Swelling, Erythema, Deformity, Temperature Abnormalties Neurological: Present: GCS=15, CN II-XII Intact, Speech Normal (but slow), Motor Func Grossly Intact, Normal Sensory Function, Normal Cerebellar Funct, Memory Normal. No: Gait Normal (unable to assess) Skin: Present: Warm, Dry, Normal Color. No: Rashes Lymphatic: No: Cervical Adenopathy Psychiatric: Present: Alert, Oriented x 3, Normal Insight, Normal Concentration, Normal Mood. No: Normal Affect (flat affect) Medical Decision Making ED Course and Treatment: Impression: 58 year old female complaining s/p syncope episodes, dizziness, and generalized weakness. Plan: -- Fingerstick -- CT Head w/o contrast -- CT Cervical Spine w/o contrast -- EKG -- Chest X-ray -- Labs, troponin, ABG, VBG, blood cultures -- Urinalysis, Urine cultures -- XR Thoracic and lumbar spine, left hip, left knee -- IV fluids -- Insulin -- Reassess and disposition On initial exam, patient is unkept but in no acute distress. Flat affect but answering questions appropriately, A&Ox3 without any neurological deficits. Moving all extremities. Prior Visits: Notes and results from previous visits were reviewed. Progress Notes: Blood sugar 457 - IVF and insulin ordered. Reviewed EKG NSR at 94. Normal intervals. No STEMI or other signs of acute ischemia. Bloodwork unremarkable aside from elevated glucose, pt not in DKA. troponin negative. Lactate 2.7, vital signs stable with no tachycardia, tachypnea, or leukocytosis. No indication for code sepsis. Case and diagnostic testing results discussed with Dr. Albrecht who agrees with plan of care and disposition. Recommends placing patient on sliding scale regular insulin and IVF at 100cc/hr on admission. Xrays show no acute findings as read by me and ED attending Dr. Albrecht except for questionable abnormality of left lateral femoral condyle on knee XR. Pending official radiology read in AM. Per structures technician, patient was able to transfer from stretcher to table on her own without assistance. CT head and cervical spine show no acute pathology [address] Farias who accepted patient for inpatient admission for hyperglycemia, syncope, and left knee injury. Requests consult with Dr. Gracia. Patient placed in left knee immobilizer pending official knee XR reading tomorrow morning secondary to questionable lucency over left lateral femoral condyle. - Lab Interpretations Lab Results: pO2 80 mm/Hg (30-55) H 08/01/18 00:42 VBG pH 7.36 (7.32-7.43) 08/01/18 00:42 VBG pCO2 39.0 (40-60) L 08/01/18 00:42 VBG HCO3 22.0 mmol/l (21-28) 08/01/18 00:42 VBG Total CO2 23.2 mmol.L (22-28) 08/01/18 00:42 VBG O2 Sat (Calc) 98.0 % (40-65) H 08/01/18 00:42 VBG Base Excess -3.1 mmol/L (0.0-2.0) L 08/01/18 00:42 VBG Potassium 4.1 mmol/L (3.6-5.2) 08/01/18 00:42 Sodium 134.0 mmol/L (132-148) 08/01/18 00:42 Chloride 100.0 mmol/L (98-107) 08/01/18 00:42 Glucose 433 mg/dl (65-105) H* D 08/01/18 00:42 Lactate 2.7 mmol/L (0.7-2.1) H 08/01/18 00:42 FiO2 21.0 % 08/01/18 00:42 Crit Value Called To Janusz menchaca metal furniture assembler 08/01/18 00:42 Crit Value Called By Asim 08/01/18 00:42 Blood Gas Notified Time 110 08/01/18 00:42 PT 12.8 SECONDS (9.4-12.5) H 08/01/18 00:42 INR 1.12 08/01/18 00:42 APTT 28.3 Seconds (25.1-36.5) 08/01/18 00:42 Troponin I < 0.01 ng/mL 08/01/18 00:42 Total Bilirubin 0.4 mg/dL (0.2-1.3) 08/01/18 00:42 AST 86 U/L (14-36) H D 08/01/18 00:42 ALT 118 U/L (7-56) H 08/01/18 00:42 Alkaline Phosphatase 119 U/L (38-126) 08/01/18 00:42 Total Protein 7.4 g/dL (5.8-8.3) 08/01/18 00:42 Albumin 4.2 g/dL (3.0-4.8) 08/01/18 00:42 Globulin 3.2 gm/dL 08/01/18 00:42 Albumin/Globulin Ratio 1.3 (1.1-1.8) 08/01/18 00:42 08/01/18 00:42 08/01/18 00:42 Lab Results 08/01/18 02:06: POC Glucose (mg/dL) 384 H 08/01/18 01:50: pCO2 36, pO2 67.0 L, HCO3 19.4 L, ABG pH 7.34 L, ABG Total CO2 20.5 L, ABG O2 Saturation 95.6, ABG O2 Content 14.7 L, ABG Base Excess -5.8 L, ABG Hemoglobin 11.2 L, ABG Carboxyhemoglobin 1.8 H, POC ABG HHb (Measured) 4.3, ABG Methemoglobin 0.8, ABG O2 Capacity 15.4 L, Hgb O2 Saturation 93.0 L, FiO2 21.0 08/01/18 00:42: Sodium 136, Chloride 102, Potassium 4.3, Carbon Dioxide 24, Anion Gap 15, BUN 22 H, Creatinine 1.0, Est GFR ( Amer) > 60, Est GFR (Non-Af Amer) 57, Random Glucose 419 H* D, Calcium 9.6, Magnesium 1.8, Total Bilirubin 0.4, AST 86 H D, ALT 118 H, Alkaline Phosphatase 119, Troponin I < 0.01, Total Protein 7.4, Albumin 4.2, Globulin 3.2, Albumin/Globulin Ratio 1.3 08/01/18 00:42: pO2 80 H, VBG pH 7.36, VBG pCO2 39.0 L, VBG HCO3 22.0, VBG Total CO2 23.2, VBG O2 Sat (Calc) 98.0 H, VBG Base Excess -3.1 L, VBG Potassium 4.1, Sodium 134.0, Chloride 100.0, Glucose 433 H* D, Lactate 2.7 H, FiO2 21.0, Crit Value Called To Janusz menchaca rn ed, Crit Value Called By [employer], Blood Gas Notified Time 110, Venous Blood Potassium 4.1 08/01/18 00:42: Urine Color Yellow, Urine Appearance Clear, Urine pH 6.0, Ur Specific [place] 1.020, Urine Protein Negative, Urine Glucose (UA) >=1000, Urine Ketones Negative, Urine Blood Negative, Urine Nitrate Negative, Urine Bilirubin Negative, Urine Urobilinogen 0.2, Ur Leukocyte Esterase Negative 08/01/18 00:42: PT 12.8 H, INR 1.12, APTT 28.3 08/01/18 00:42: WBC 4.5, RBC 4.50, Hgb 13.0 D, Hct 38.4, MCV 85.3, MCH 28.9, MCHC 33.9, RDW 13.4, Plt Count 99 L, MPV 9.1, Gran % 68.5 H, Lymph % (Auto) 26.2, [place] % (Auto) 4.5, Eos % (Auto) 0.4 L, Baso % (Auto) 0.4, Gran # 3.06, Lymph # (Auto) 1.2, [place] # (Auto) 0.2, Eos # (Auto) 0.0, Baso # (Auto) 0.02 08/01/18 00:18: POC Glucose (mg/dL) 457 H* I have reviewed the lab results: Yes Interpretation: Abnormal lab values - RAD Interpretation Narrative RAD Interpretations (Text): CXR: no active disease XR Left Hip: No acute fracture or dislocation XR Left Knee: Questionable lucency lateral femoral epicondyle; followup official read XR Thoracic Spine: No acute fracture or dislocation XR Lumbar Spine: No acute fracture or dislocation Read by [facility]: CT Head: No intracranial pathology CT Cervical Spine: No acute cervical spine abnormality Radiology Orders: 08/01/18 00:37 CHEST PORTABLE [RAD] Stat 08/01/18 00:39 HEAD W/O CONTRAST [CT] Stat KNEE WITH PATELLA LEFT 3 VIEW [RAD] Stat 08/01/18 00:40 CERVICAL SPINE W/O CONTRAST [CT] Stat 08/01/18 00:49 Hip Left [HIP MIN 2V W/ PELVIS LT] [RAD] Stat LS SPINE WITH OBL > 18 YRS OLD [RAD] Stat THORACIC SPINE [DORSAL (THORACIC) SPINE] [RAD] Stat Sleeve Sewer: ED Physician - EKG Interpretation EKG Interpretation (Text): Rate 94; NSR; Normal intervals; No STEMI or other signs of ischemia Interpreted by ED Physician: Yes Type: 12 lead EKG - Medication Orders Current Medication Orders: Sodium Chloride (Sodium Chloride 0.9%) 1,000 mls @ 999 mls/hr IV .Q1H1M STA Stop: 08/01/18 01:37 Last Admin: 08/01/18 00:47 Dose: 999 mls/hr eMAR Start Stop Document 08/01/18 00:47 AD (Rec: 08/01/18 00:47 AD [id number]) Intravenous Solution Start Date 08/01/18 Start Time 00:47 Discontinued Medications Insulin Human Regular (Humulin R) 8 units SC STAT STA Stop: 08/01/18 00:39 Last Admin: 08/01/18 00:45 Dose: 8 unit MAR Blood Glucose Document 08/01/18 00:45 AD (Rec: 08/01/18 00:46 AD [id number]) Blood Glucose Finger Stick Blood Glucose (70-120) 457 Subcutaneous Administrations Document 08/01/18 00:45 AD (Rec: 08/01/18 00:46 AD [id number]) Injection Site MAR Injection Site Right Abdomen Charges for Administration # of Subcutaneous Administrations 1 - Scribe Statement The provider has reviewed the documentation as recorded by the Odilon Saldivar Provider Scribe Attestation: All medical record entries made by the Scribe were at my direction and personally dictated by me. I have reviewed the chart and agree that the record accurately reflects my personal performance of the history, physical exam, medical decision making, and the department course for this patient. I have also personally directed, reviewed, and agree with the discharge instructions and d isposition. Disposition/Present on Arrival - Present on Arrival Any Indicators Present on Arrival: Yes History of DVT/PE: No History of Uncontrolled Diabetes: Yes Urinary Catheter: No History of Decub. Ulcer: No History Surgical Site Infection Following: None - Disposition Have Diagnosis and Disposition been Completed?: Yes Diagnosis: Hyperglycemia, Seizure, Syncope, Left knee injury Disposition: HOSPITALIZED Disposition Time: 02:00 Patient Plan: Admission, Telemetry Patient Problems: Current Active Problems Problem Status Onset Hyperglycemia Acute Left knee injury Acute Seizure Acute Syncope Acute Condition: STABLE
[2018-08-01 01:39] LABS: URINE BILIRUBIN NEGATIVE (NEGATIVE); URINE BLOOD NEGATIVE (NEGATIVE); URINE GLUCOSE (UA) >=1000 mg/dL (NEGATIVE); URINE LEUKOCYTE ESTERASE NEGATIVE Leu/uL (NEGATIVE); URINE PROTEIN NEGATIVE mg/dL (<30 mg/dL); URINE UROBILINOGEN 0.2 E.U./dL (<1 E.U./dL)
[2018-08-01 01:43] LABS: URINE APPEARANCE CLEAR (CLEAR); URINE COLOR YELLOW (YELLOW)
[2018-08-01 01:57] LABS: ARTERIAL BLOOD GAS HCO3 19.4 mmol/L (21-28); ARTERIAL BLOOD GAS HEMOGLOBIN 11.2 g/dL (11.7-17.4); ARTERIAL BLOOD GAS O2 CAPACITY 15.4 mL/dl (16-24); ARTERIAL BLOOD GAS O2 CONTENT 14.7 ML/dl (15-23); ARTERIAL BLOOD GAS O2 SAT 95.6 % (95-98); ARTERIAL BLOOD GAS PCO2 36 mm/Hg (35-45); ARTERIAL BLOOD GAS PH 7.34 (7.35-7.45); ARTERIAL BLOOD GAS TCO2 20.5 mmol.L (22-28)
[2018-08-01] MEDS: Sodium Chloride 0.9% 1,000 ML IV SCH ×2 (02:30→15:10)
[2018-08-01 04:36] LABS: VENOUS BLOOD GAS BASE EXCESS -2.2 mmol/L (0.0-2.0); VENOUS BLOOD GAS PO2 50 mm/Hg (30-55); VENOUS BLOOD PH 7.34 (7.32-7.43)
[2018-08-01] MEDS: Insulin Reg-LOW-Coverage SC SCH ×4 (08:54→22:30)
--- NOTE | 2018-08-01 09:12 | CT ---
Date of service: 08/01/2018 PROCEDURE: CT HEAD WITHOUT CONTRAST. HISTORY: headache COMPARISON: None available. TECHNIQUE: Axial computed tomography images were obtained through the head/brain without intravenous contrast. Radiation dose: Total exam DLP = 923.16 mGy-cm. This CT exam was performed using one or more of the following dose reduction techniques: Automated exposure control, adjustment of the mA and/or kV according to patient size, and/or use of iterative reconstruction technique. FINDINGS: HEMORRHAGE: No intracranial hemorrhage. BRAIN: No mass effect or edema. No atrophy or chronic microvascular ischemic changes. VENTRICLES: Unremarkable. No hydrocephalus. CALVARIUM: Unremarkable. PARANASAL SINUSES: Unremarkable as visualized. No significant inflammatory changes. MASTOID AIR CELLS: Unremarkable as visualized. No inflammatory changes. OTHER FINDINGS: The report concurs with the preliminary [facility] report IMPRESSION: No acute intracranial findings
--- NOTE | 2018-08-01 09:15 | CT ---
Date of service: 08/01/2018 PROCEDURE: CT Cervical Spine without contrast HISTORY: neck pain COMPARISON: None available. TECHNIQUE: Axial computed tomography images were obtained of the cervical spine without the use of intravenous contrast. Coronal and sagittal reformatted images were created and reviewed. Radiation dose: Total exam DLP = 615.65 mGy-cm. This CT exam was performed using one or more of the following dose reduction techniques: Automated exposure control, adjustment of the mA and/or kV according to patient size, and/or use of iterative reconstruction technique. FINDINGS: VERTEBRAE: No fracture. Normal alignment. No destructive bony lesion. DISCS/SPINAL CANAL/NEURAL FORAMINA: No significant central canal or neural foraminal stenosis. Discs heights are grossly preserved. PARASPINAL SOFT TISSUES: Unremarkable. OTHER FINDINGS: The report concurs with the preliminary [facility] report IMPRESSION: Unremarkable CT of the cervical spine.
--- NOTE | 2018-08-01 10:23 | RAD ---
Date of service: 08/01/2018 HISTORY: dizziness COMPARISON: 06/04/2018 FINDINGS: LUNGS: No active pulmonary disease. PLEURA: No significant pleural effusion identified, no pneumothorax apparent. CARDIOVASCULAR: No aortic atherosclerotic calcification present. Normal cardiac size. No pulmonary vascular congestion. OSSEOUS STRUCTURES: No significant abnormalities. VISUALIZED UPPER ABDOMEN: Normal. OTHER FINDINGS: None. IMPRESSION: No active disease.
--- NOTE | 2018-08-01 10:37 | RAD ---
Date of service: 08/01/2018 PROCEDURE: Radiographs of the Lumbar Spine. HISTORY: fall COMPARISON: CT 11/03/2016 FINDINGS: BONES: There is a chronic compression fracture of T11. Lumbar spine is unremarkable DISC SPACES: Unremarkable. OTHER FINDINGS: None. IMPRESSION: There is a chronic compression fracture of T11. Lumbar spine is unremarkable
--- NOTE | 2018-08-01 10:39 | RAD ---
PROCEDURE: Left Hip and pelvis x-ray Radiographs. HISTORY: left hip pain COMPARISON: None. FINDINGS: BONES: Normal. No fracture. JOINTS: Normal. SOFT TISSUES: Normal. OTHER FINDINGS: None. IMPRESSION: Normal left hip radiographs.
--- NOTE | 2018-08-01 10:40 | RAD ---
Date of service: 08/01/2018 HISTORY: fall COMPARISON: No prior. FINDINGS: BONES: Chronic T11 compression fracture DISC SPACES: Normal. SOFT TISSUES: Normal. OTHER FINDINGS: None. IMPRESSION: No acute findings
--- NOTE | 2018-08-01 10:42 | RAD ---
Date of service: 08/01/2018 PROCEDURE: Left Knee Radiographs. HISTORY: Pain. COMPARISON: None. FINDINGS: BONES: Normal. No fracture. JOINTS: Normal. No osteoarthritis. JOINT EFFUSION: None. OTHER FINDINGS: None. IMPRESSION: Normal radiographs of the left knee.
--- NOTE | 2018-08-01 13:08 | CON ---
DATE: 08/01/2018 NEUROLOGY CONSULT NOTE CHIEF COMPLAINT: Dizziness. HISTORY OF PRESENT ILLNESS: This is a 58-year-old woman, who is well known to me from the past with history of schizophrenia, depression, anxiety, pseudoseizures/seizure, on Keppra and Lamictal for seizure prophylaxis. She came in with intractable dizziness in terms of having episodes of lightheadedness as well as dizzy when she gets off the spinning of the room as well. She had fallen in between her dresser. She denies any seizures. She isfound to be hyperglycemic throughout her hospital visit. Sugars ranging from 300 to 419. She is moving all extremities. She has bunch of bruises on her extremities due to fall. She is definitely deconditioned. PAST MEDICAL HISTORY: As above. REVIEW OF SYSTEMS: A 14-point review of systems is negative except as per HPI. SOCIAL HISTORY: No illicit drug use, smoking, or EtOH abuse. FAMILY HISTORY: Noncontributory. MEDICATIONS: Reviewed by nurse's reconciliation sheet. LABORATORY DATA: Sodium 136, potassium 4.3, chloride 102, carbon dioxide 24, BUN 22, creatinine 1, and random glucose of 419. PHYSICAL EXAMINATION: GENERAL: The patient is sitting up in bed, in no acute distress. HEENT: Head is atraumatic and normocephalic. PERRLA. Extraocular muscles intact. NECK: Supple. No JVD. No adenopathy noted. LUNGS: Clear to auscultation. No adventitious sounds. HEART: S1 and S2. Normal rate and rhythm. No murmurs, rubs, or gallops. ABDOMEN: Soft, nontender, and nondistended. Bowel sounds present. EXTREMITIES: No clubbing. No cyanosis. Peripheral pulses are 2+ bilaterally. NEUROLOGICAL: The patient is alert and oriented to person, place, month and year. Speech is fluent without any errors. Cranial nerves II through XII are intact. Recall after 5 minutes is 1/3. Poor attention span. Slow thought process. Flat affect. Motor exam; moves all extremities equally. No pronator drift seen. Sensory exam; light touch, pinprick, proprioception and vibration are intact. DTRs are 2+ throughout one in both knees and ankles. Coordination; [id number] is intact. No dysmetria noted. Gait is deferred for now. IMPRESSION: Dizziness, is a combination of positional vertigo in addition to partial lightheadedness, aggravated by hyperglycemia. She is having hyperglycemic accelerations which is making her dizzy as well. Unlikely, she had actual seizure, but she mentions that these are not her typical. RECOMMENDATIONS: At this time; 1. Meclizine 25 mg p.o. twice daily for vertigo. 2. Keep blood sugars between 140 to 180 and avoid hyperglycemic accelerations. 3. We will need PT/OT evaluation for underlying poor bouts and deconditioned state and possibly recommend subacute rehab. 4. Continue with her current home dose of Keppra and Lamictal. Guy Gracia MD MTDD
[2018-08-01] MEDS: Pantoprazole 40 mg EC Tab PO SCH (13:16)
[2018-08-01] MEDS: Cholestyramine 4 gm/Pkt UD PO SCH (13:16)
[2018-08-01] MEDS: CLOZAPINE PO SCH (17:50)
--- NOTE | 2018-08-01 18:48 | CARD ---
APPROVED REPORT Date of service: 08/01/2018 EKG Measurement Heart [id number] <Conclusion> Normal sinus rhythm Minimal voltage criteria for LVH, may be normal variant Borderline ECG
[2018-08-01] MEDS ORDERED: PRAZOSIN HCL 1 MG PO SCH (22:00)
[2018-08-02 03:29] VITALS: RESP 20
[2018-08-02] MEDS: Sodium Chloride 0.9% 1,000 ML IV SCH ×2 (05:28→10:08)
[2018-08-02] MEDS: Insulin Reg-LOW-Coverage SC SCH ×3 (10:05→17:11)
[2018-08-02] MEDS: Pantoprazole 40 mg EC Tab PO SCH (10:06)
[2018-08-02] MEDS: CLOZAPINE PO SCH (10:07)
[2018-08-02] MEDS: Cholestyramine 4 gm/Pkt UD PO SCH ×2 (10:07→10:15)
--- NOTE | 2018-08-02 11:04 | HP ---
DATE OF EXAM: 08/03/2018 HISTORY OF PRESENT ILLNESS: The patient is a 58-year-old female who presented to the emergency room after suffering a possible syncopal episode versus seizure at home. The patient states she was feeling well and simply passed out. She had no prodrome. She states that she has been falling down, losing balance several times over the past few days. The patient has been hospitalized several times over the past year with possible syncopal versus seizure episodes. She also has been hospitalized in the past for abdominal complaints of constipation, bloating and abdominal pain. PAST MEDICAL HISTORY: The patient is known to have a past medical history positive for vertigo, schizophrenia, [id number] diet-controlled diabetes, asthma, seizure disorder. She is status post cholecystectomy, status post hysterectomy. She is status post extensive GI workup for chronic diarrhea and abdominal pains. SOCIAL HISTORY: The patient is a nonsmoker, nonalcoholic drinker. ALLERGIES: SHE IS KNOWN TO BE ALLERGIC TO PENICILLIN WHICH CAUSED ITCHING IN THE PAST. MEDICATIONS: At the time of admission included Zyloprim 300 mg daily, omeprazole 40 mg daily, Questran 4 mg daily, clozapine 2 mg twice a day, Prozac 20 mg once a day, Ativan 1 mg at bedtime, Zestril 20 mg daily, Claritin 10 mg daily and Antivert 12/5 mg three times a day. REVIEW OF SYSTEMS: Otherwise unremarkable. PHYSICAL EXAMINATION: VITAL SIGNS: Her blood pressure is 146/90, heart rate is 97 and she is afebrile. Head, eyes, ears, nose and Throat: Unremarkable. NECK: Supple with no lymphadenopathy. No goiter. LUNGS: Clear to auscultation and percussion. HEART: Regular. No murmurs are appreciated. ABDOMEN: Has normal bowel sounds, soft, nontender with no organomegaly. EXTREMITIES: Free of cyanosis, clubbing or edema. There is a mild abrasion on the left knee from her frequent falls at home. LABORATORY DATA: Show the white blood cell count to be 4.5, hemoglobin and hematocrit are 13.0 and 38.4 respectively, platelet count is 99. Sodium is 136, potassium 4.3, blood urea nitrogen 22, creatinine 1.0. Her glucose is unexpectedly elevated at 419. So the patient is admitted with syncopal episode, rule out seizure, hyperglycemia. She will be reevaluated in the morning. Dr. Gracia is asked to consult for her syncope and seizure. Allen Garza MD [facility]
[2018-08-02 13:56] VITALS: BP 114/67; PULSE 79; TEMP 98.4; O2SAT 95
[2018-08-02 13:59] LABS: BASO # 0.01 K/mm3 (0.0-2.0); BASO % 0.2 % (0.0-3.0); EOS % 0.2 % (1.5-5.0); GRAN # 3.09 (1.4-6.5); GRAN % 74.5 % (50.0-68.0); HEMOGLOBIN 11.9 g/dL (12.0-16.0); LYMPH # 0.9 (1.2-3.4); MEAN CELL VOLUME 86.7 fl (80.0-105.0); MEAN CORPUSCULAR HEMOGLOBIN 28.7 pg (25.0-35.0); MEAN CORPUSCULAR HGB CONC 33.1 g/dl (31.0-37.0); MONO # 0.2 (0.1-0.6); MONO % 4.1 % (1.0-6.0); RBC 4.15 10^6/uL (3.5-6.1); RED CELL DISTRIBUTION WIDTH 13.6 % (11.5-14.5); WHITE BLOOD COUNT 4.2 10^3/uL (4.5-11.0)
[2018-08-02 14:22] LABS: ALB/GLOB RATIO 1.3 (1.1-1.8); ALBUMIN 3.8 g/dL (3.0-4.8); ALT/SGPT 170 U/L (7-56); AST/SGOT 185 U/L (14-36); BLOOD UREA NITROGEN 15 mg/dL (7-21); CALCIUM 8.8 mg/dL (8.4-10.5); GFR NON-AFRICAN AMERICAN 57
== END 2018-08-02 18:31 | disposition home or self-care (01) ==
LOC: ED 00:14 → ERH 02:17 → INTOOBSV 02:17 → ERH 03:05 → 2RNO 03:53
PROVIDERS: ADMIT Internal Medicine; ATTEND Internal Medicine
DX: E11.65 Type 2 diabetes mellitus with hyperglycemia (principal); F20.9 Schizophrenia, unspecified; G40.909 Epilepsy, unspecified, not intractable, without status epilepticus; J44.9 Chronic obstructive pulmonary disease, unspecified; S40.022A Contusion of left upper arm, initial encounter; S40.021A Contusion of right upper arm, initial encounter; S80.12XA Contusion of left lower leg, initial encounter; S80.11XA Contusion of right lower leg, initial encounter; Z87.440 Personal history of urinary (tract) infections; W19.XXXA Unspecified fall, initial encounter; Z90.49 Acquired absence of other specified parts of digestive tract; Z90.710 Acquired absence of both cervix and uterus
CPT/HCPCS: 36415; 70450; 71045; 72070; 72110; 72125; 73502; 73560; 80053; 80175; 80177; 81003; 82803; 82948; 83036; 83735; 84100; 84484; 85025; 85610; 85730; 87040; 87086; 93005; 96360; 96361; 96372; 97116; 97161; 99285; G0378; G8978; G8979; J7030

== ENCOUNTER 2018-08-19 13:38 | Outpatient (CLI) | payer MEDICARE, OTHER | END 2018-08-19 13:39 | disposition home or self-care (01) | LOC: RAD 13:38 ==